=== PATIENT | female | born 1960 | race Caucasian/White ===

== ENCOUNTER → 2017-06-22 16:55 | Outpatient (CLI) | payer OTHER, SELFPAY ==
--- NOTE | 2017-06-22 08:00 | ASPS_PTH ---
PATIENT: PRABHJOT VALIENTE LOC: [facility] U#:[id number] AGE/SX: 64/F ROOM: RE06/22/[address]: Dr. Arpan Spicer MD : 1960 BED: DIS: SPEC #: [id number] RECD: 06/22/17 16:40 STATUS: ASHLEY MAULIK #: [id number] FREYA: 06/22/17 08:[address]: Arpan Spicer DEPT: CYTOLOGY RECD BY: Silvano Winter ENTERED: 06/23/17 08:08 SP TYPE: ASPIRATION OTHR DR: Dr. Boyd Cherry MD Tissues: Thyroid gland, NOS Procedures: Pap Stain (control) Special Stain Group II Cytology Other HEADER OPERATION: Left thyroid FNA PRE-OP DIAGNOSIS: Left thyroid nodule TISSUE SUBMITTED: Left thyroid slides (6 slides) DIAGNOSIS CYTOLOGY Fine needle aspiration, left thyroid nodule (smears): Adequate for evaluation. Negative, consistent with cystic follicular nodule. AM:elsa 06/24/17 CYTOLOGY STUDY Slides are reviewed. CYTOLOGY GROSS Received are six smears labeled with the patient's name and designated per the requisition as left thyroid. Submitted for staining. 06/23/17 TC:5 CPT: 16666
== END ==
PROVIDERS: Family Provider Family Medicine; PCP Family Medicine; Visit Provider Surgery
DX: E04.1 Nontoxic single thyroid nodule (principal)
CPT/HCPCS: 88161; 88313

== ENCOUNTER → 2018-01-21 15:09 | Outpatient (CLI) | payer OTHER, SELFPAY ==
--- NOTE | 2018-01-21 15:13 | RAD_ITS ---
STUDY: X-RAY - LEFT SHOULDER REASON FOR EXAM: Pain, no specific injury. TECHNIQUE: 3 view(s) of the shoulder. COMPARISON: Radiograph report 05/22/2013. FINDINGS: Normal glenohumeral articulation. Status post resection of the distal clavicle. Normal acromion. There is mild flattening of the posterior aspect of the humeral head on the axillary view suggestive of a shallow Hill-Sachs lesion The soft tissue structures are unremarkable. Normal visualized pulmonary apex. RAD/Shoulder min 2 Views IMPRESSION: Suspected shallow Hill-Sachs lesion. Status post resection of the distal clavicle. Electronically Signed: Soto Thakur MD at 15:51 EDT Tel , Service support ,
== END ==
PROVIDERS: Family Provider Family Medicine; PCP Internal Medicine; Visit Provider Orthopaedic Surgery
DX: M25.512 Pain in left shoulder (principal)
CPT/HCPCS: 73030

== ENCOUNTER 2018-01-26 13:56 | Outpatient (RCR) | payer OTHER, SELFPAY | END 2018-01-26 19:00 | disposition home or self-care (01) | LOC: PT 13:56 | PROVIDERS: Family Provider Internal Medicine; PCP Internal Medicine; Visit Provider Orthopaedic Surgery | DX: S43.005D Unspecified dislocation of left shoulder joint, subsequent encounter (principal) ==

== ENCOUNTER → 2019-03-01 09:08 | Outpatient (CLI) | payer OTHER, SELFPAY ==
[2019-03-01 09:00] VITALS: BMI 37.1
--- NOTE | 2019-03-01 09:10 | RAD_ITS ---
STUDY: X-RAY - LEFT KNEE REASON FOR EXAM: Left knee pain. TECHNIQUE: 4 view(s) of the knee. COMPARISON: None. FINDINGS: Normal visualized distal femur. Normal visualized proximal tibia and fibula. Normal proximal tibiofibular articulation. Normal medial femorotibial compartment. Normal lateral femorotibial compartment. Normal patellofemoral articulation. The soft tissue structures are unremarkable. RAD/Knee 4 or More Views IMPRESSION: Normal x-ray examination of the left knee. Electronically Signed: Soto Thakur MD at 15:37 EDT Tel , Service support ,
== END ==
PROVIDERS: Family Provider Internal Medicine; PCP Internal Medicine; Referring Provider Orthopaedic Surgery; Visit Provider Orthopaedic Surgery
DX: M25.562 Pain in left knee (principal)
CPT/HCPCS: 73564

== ENCOUNTER 2019-03-18 09:00 | Outpatient (RCR) | payer OTHER, SELFPAY ==
[2019-03-01 09:00] VITALS: BMI 37.1
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
--- NOTE | 2019-05-19 18:15 | HP.PT.NRP ---
HP - Discharge Summary (1) - Patient Information PRABHJOT VALIENTE was seen in my office for initial evaluation on 03/09/19. The following Plan of Care was established for this patient: Initial Frequency: 3x /Week Initial Duration: 4 Weeks - Anticipated Interventions Patient/Client Instruction: Educate patient on: Condition, Plan of Care For the Purpose of:: To decrease pain, To decrease swelling/inflammation, To improve gait and locomotor functions Therapeutic Exercise to Include: Strength training, Flexibilty training, Gait and locomotor training For the Purpose of:: To decrease pain, To decrease swelling/inflammation Iontophoresis (with Dexamethozone, with Acetic acid): Yes - Haley lynch This patient was last seen in our office 03/18/19. Pertinent comments regarding their Physical therapy will appear below: Pt seen 4 visits adn seemed to be improving. She neglected to schedule or attend further visits. I will discontinue her due to nonattendance. At this point I will be discontinuing this patient from physical therapy. I would be happy to see this patient again in the future if found appropriate by the physician. Thank you! Marvin Arenas, DPT, OCS, CSCS
== END 2019-03-18 19:00 | disposition home or self-care (01) ==
LOC: PT 09:00
PROVIDERS: Family Provider Internal Medicine; PCP Internal Medicine; Referring Provider Orthopaedic Surgery; Visit Provider Orthopaedic Surgery
DX: T84.84XD Pain due to internal orthopedic prosthetic devices, implants and grafts, subsequent encounter (principal); M17.12 Unilateral primary osteoarthritis, left knee
CPT/HCPCS: 97033; 97110; 97161

== ENCOUNTER → 2019-11-28 08:38 | Outpatient (CLI) | payer OTHER, SELFPAY ==
[2019-03-01 09:00] VITALS: BMI 37.1
--- NOTE | 2019-11-28 08:42 | VDLE_ITS ---
Reason For Study: Edema RIGHT LEFT CFV is compressible, spontaneous, phasic, CFV is compressible, spontaneous, phasic, competent and demonstrates normal competent, and demonstrates normal augmentation. augmentation. FV is compressible, spontaneous, phasic, FV is compressible, spontaneous, phasic, competent and demonstrates normal competent and demonstrates normal augmentation. augmentation. POP V is compressible, spontaneous, phasic, POP V is compressible, spontaneous, phasic, competent and demonstrates normal competent and demonstrates normal augmentation. augmentation. T/P Trunk is compressible. T/P Trunk is compressible. PTV is compressible. PTV is compressible. Unable to visualize Rt PeroV LT PerV is compressible. Lt GastrocV is partially compressible with Rt GSV is out of compartment from mid thigh bright intraluminal echoes consistent with to mid calf. chronic DVT. SFJ is competent and measures 0.68cm x0.68 SFJ is competent and measures 0.76cm x 0.75 cm. cm. GSV INCOMPETENT throughout for greater than GSV INCOMPETENT throughout for greater than 0.5 seconds. 0.5 seconds. GSV proximal thigh measures 0.52cm x 0.55 cm. GSV proximal thigh measures 0.55 cm x 0.51 GSV at knee measures 0.41cm x 0.41 cm. cm. SSV proximal calf is competent and measures GSV at knee measures 0.43 cm x 0.38 cm. 0.39cm x 0.38 cm. SSV proximal calf is competent and measures Procedure 0.26cm x 0.24 cm. Exam performed in department. A preliminary report was called and/or faxed to Dr. Boothe. Interpretation Summary Deep veins of the right lower extremity are patent and compressible segmentally. There is no evidence of right lower extremity deep vein thrombosis. The right peroneal vein was not visualized. Chronic venous changes are noted in the left gastrocnemius vein, which is partially compressible and demonstrates bright intraluminal echogenicity. Valvular competence appears intact within the proximal deep venous systems bilaterally. The great saphenous veins appear bilaterally patent and compressible segmentally. Sapheno-femoral junctions are bilaterally competent . Segmental valvular incompetence is noted within the great saphenous veins bilaterally. Small saphenous veins are patent and competent bilaterally. Ordering Physician: Jennie Boothe Referring Physician: Anita Jones Performed By: Abigail Turner, AIDE, RVT
== END ==
PROVIDERS: PCP Internal Medicine; Referring Provider Podiatrist; Visit Provider Podiatrist
DX: I87.2 Venous insufficiency (chronic) (peripheral) (principal); R60.0 Localized edema
CPT/HCPCS: 93970

== ENCOUNTER → 2021-03-08 07:46 | Outpatient (CLI) | payer SELFPAY, OTHER ==
--- NOTE | 2021-03-08 07:52 | US_ITS ---
STUDY: ABDOMINAL ULTRASOUND - RIGHT UPPER QUADRANT REASON FOR VISIT: Female, 60 years old RUQ PAIN TECHNIQUE: Ultrasound evaluation of the right upper quadrant was performed with real-time and static carroll-scale imaging. TECHNICAL QUALITY: Adequate. COMPARISON: None. FINDINGS: Liver: The liver measures 14.9 cm. There is increased echogenicity consistent with fatty infiltration. The bile ducts are within normal limits. There is hepatic color flow. The direction of portal flow is hepatopetal. There is no demonstrated mass lesion. Gallbladder: Normal distended gallbladder. The gallbladder wall measures 2.1 mm. There is a negative sonographic Thompson''s sign. There is no pericholecystic fluid. There are no gallstones. Common Bile Duct (C.B.D.): The common bile duct measures 3.1 mm. Pancreas: Normal size of the head, body and tail of the pancreas. There is increased echogenicity of the pancreas. There is no demonstrated pancreatic mass or cyst. Right Kidney: Normal size of the right kidney. The right kidney measures 12.6 cm x 5.7 cm x 4.9 cm. Normal renal cortex. The right cortex measures 1.4 cm. There is no demonstrated renal mass or cyst. There is no right hydronephrosis. US/Abdomen Limited IMPRESSION: Fatty infiltration of the liver. Electronically Signed: Felix Sutherland MD at 13:57 EDT , Service support ,
== END ==
PROVIDERS: PCP Internal Medicine; Referring Provider Internal Medicine; Visit Provider Internal Medicine
DX: K76.0 Fatty (change of) liver, not elsewhere classified (principal); R10.11 Right upper quadrant pain
CPT/HCPCS: 76705

== ENCOUNTER 2022-04-15 15:10 | Emergency (ER) | payer BC, SELFPAY ==
[2022-04-15 15:11] VITALS: BP 164/134; PULSE 114; RESP 15; TEMP 36.6; O2SAT 99; BMI 39.1
[2022-04-15 15:48] VITALS: O2SAT 98
--- NOTE | 2022-04-15 16:14 | ED.VIS.DYS ---
HPI History of Present Illness Chief Complaint: Shortness of Breath Informant: patient Onset/Context/Timing Onset: Today Context: sudden Timing: Continuous Quality: Positive for Dyspnea on exertion Worsened by: Exertion Relieved by: Rest Associated Symptoms Negative for cough, rhinorrhea, post nasal drip, ear pain, fever, sore throat, chills, sweats, clear sputum, white sputum, yellow sputum or green sputum Chest Pain: Positive for None Narrative Narrative: Patient presents with shortness of breath that began today. Patient states it began suddenly while she was walking to get her trash can. Patient states she felt her heart racing and was short of breath. Patient states she has a history of bilateral pulmonary emboli but has not been on Xarelto for the last couple years. Patient states her symptoms feel similar to when she had her bilateral pulmonary emboli. Patient states she took a Xarelto and aspirin prior to arrival. Patient states her breathing is worse with any exertion. Patient states her breathing is better with rest. Patient denies any fevers or chills. Patient denies any chest pain. Patient denies any cough, rhinorrhea, sore throat, or ear pain. PE Risk Factors: Positive for Prior DVT or PE; Negative for Cancer, OCP + Smoking + > 35, Recent immobilization, Recent surgery or Recent travel [facility] Medical History history left eye surgery history left shoulder surgery Pulmonary emboli Thyroid disorder Home Medications esomeprazole magnesium 40 mg capsule,delayed release (Nexium) 40 mg PO QDAY 06/15/17 [History Last Taken Unknown] aspirin 81 mg tablet,delayed release 81 mg PO DAILY 03/01/19 [History Last Taken Unknown] methylprednisolone 4 mg tablets in a dose pack (Medrol (Pablo)) See Rx Instructions PO PER PKG DIR #21 tabs 03/01/19 [Rx Last Taken Unknown] rivaroxaban 15 mg (42)-20 mg (9) tablets in a starter pack (Xarelto DVT-PE Treatment 30-Day Starter) See Rx Instructions PO .COMPLEX #51 tabs 04/15/22 [Rx Last Taken Unknown] Allergy/AdvReac Type Severity Reaction Status Date / Time erythromycin base Allergy Intermediate Irregular Verified 04/15/22 15:11 heart Family History Father Heart disease Hypertension High cholesterol Mother Heart disease High cholesterol Hypertension Surgical History History of bilateral breast reduction surgery Social History Smoking Status: Never smoker alcohol intake: current alcohol intake frequency: a few times a month substance use type: does not use ROS ROS ED Constitutional Constitutional ED: Denies chills or fever(s) Eyes Eyes: Denies blurry vision or change in vision ENT ENT ED: Denies rhinorrhea or sore throat Cardiovascular Cardiovascular: Reports palpitations; Denies chest pain Respiratory/Chest Respiratory/Chest: Reports dyspnea; Denies cough Gastrointestinal Gastrointestinal: Denies nausea or vomiting Genitourinary Genitourinary ED: Denies dysuria or hematuria Musculoskeletal Musculoskeletal: Denies back pain or neck pain Integumentary Denies abscess or rash Neurologic Neurologic: Denies headache(s) or weakness Allergic/Immunologic Allergic/Immunologic ED: Denies mouth swelling or urticaria EXAM Physical Exam Const Vital Signs: 04/15/22 15:11 04/15/22 15:48 Temperature 97.8 F Temperature Source Temporal Pulse Rate 114 H Respiratory Rate 15 Respiratory Depth Normal Respiratory Pattern Normal Blood Pressure 164/134 H Blood Pressure Mean 144 Pulse Ox 99 Oxygen Delivery Method Room Air Room Air Positive well nourished, well developed and obese General Appearance ED: well developed and NAD Nutritional Appearance: obese HEENT Reports moist mucous membranes Neck supple and no JVD Resp normal respiratory effort and clear to auscultation bilaterally Cardio regular rhythm Rate: tachycardic GI normal to inspection, nondistended, normoactive bowel sounds and non-tender Palpation: soft Extremity normal to inspection General Extremety ED: Negative for edema or tenderness General Extremity: Negative for edema Neuro oriented x3, CN's II-XII intact bilaterally and no sensory deficits noted Sensorium / Orientation: alert Motor Exam: strength 5/5 throughout Psych mental status grossly normal Skin no rashes or lesions noted MDM MDM MDM Narrative Medical decision making narrative: EKG was obtained. On my interpretation, it shows sinus tachycardia with a rate of 110. MO interval, QRS interval, and QTc intervals are within normal limits. [place]co is normal. There are no acute ST or T wave changes. CTA of the chest was obtained. There are branching filling defects within the ascending and descending right pulmonary arteries consistent with pulmonary embolism. There is also a small subsegmental embolus in the left lower lobe. There is mild heart strain noted. CBC was within normal limits. PT was 25.3, INR is 2.3, and PTT was 37.6. Comprehensive metabolic profile was within normal limits. Patient was given a dose of Lovenox here. Patient was given a prescription for Xarelto. Patient was instructed to start with the starter pack that was prescribed. Patient was instructed to follow-up with her primary care physician in 3 to 5 days. Patient was instructed return if worse in any way. Patient understood and was agreeable with the plan. All questions were answered. Lab Data Attestation: I reviewed the patient's lab results. Labs: Laboratory Results - last 24 hr 04/15/22 04/15/22 04/15/22 16:28 16:28 16:28 WBC 10.2 RBC 5.46 H Hgb 15.0 Hct 46.6 MCV 85.3 MCH 27.5 MCHC 32.2 RDW Std Deviation 46.7 H RDW Coeff of Stephanie 15.1 H Plt Count 259 MPV 11.3 Immature Gran % (Auto) 0.200 Neut % (Auto) 73.5 H Lymph % (Auto) 15.7 L Sebastian % (Auto) 5.7 Eos % (Auto) 3.5 Baso % (Auto) 1.4 H Absolute Neuts (auto) 7.5 Absolute Lymphs (auto) 1.60 Nucleated RBC % 0 PT 25.3 H INR 2.3 APTT 37.6 H Sodium 141 Potassium 3.5 Chloride 110 H Carbon Dioxide 26.0 Anion Gap 5 BUN 19 H Creatinine 0.97 Estim Creat Clear Calc 59.98 Est GFR (MDRD) Af Amer 75 Est GFR (MDRD) Non-Af 62 BUN/Creatinine Ratio 19.5 Glucose 109 H Calcium 9.5 Total Bilirubin 0.30 AST 14 L ALT 27 Alkaline Phosphatase 108 Total Protein 9.2 H Albumin 4.2 Globulin 5.0 H Albumin/Globulin Ratio 0.8 L Radiography Diagnostic Testing: Clinical Impression(s) from Imaging Studies Chest CTA 04/15/22 16:19 IMPRESSION: Positive for pulmonary embolism with mild right heart strain. Electronically Signed: Graeme Barton MD at 17:55 EST , ADDENDUM: 04/15/221816 IMPRESSION: Positive for pulmonary embolism with mild right heart strain. N.B. : The above Results were Read Back by Graeme Barton MD to Marvin Metcalf MD, and understanding confirmed on 04/15/2022 18:10:51 (ET). Electronically Signed: Graeme Barton MD at 17:55 EST , EKG Initial EKG: Attestation: I personally reviewed and interpreted this EKG as follows: Interpretation: No Acute Injury Pattern and Sinus Tachycardia (110) Prior EKG tracings: not available for review Prior: No Prior Discharge Plan Triage Chief Complaint: Shortness of Breath ED Provider: Marvin Metcalf Dx/Rx/DC Orders Clinical Impression: Pulmonary embolism, Obesity (BMI 30-39.9) Instructions: Embolism Pulmonary Dc Prescriptions: New Xarelto DVT-PE Treat 30d Start 15 mg (42)- 20 mg (9) tablets,dose pack See Rx Instructions .ROUTE .COMPLEX Qty: 51 0RF Rx Instructions: take one-15 mg tablet twice daily for 21 days, then one-20 mg tablet once daily; must take with meal/food No Action esomeprazole magnesium [Nexium] 40 mg capsule,delayed release(DR/EC) 40 mg PO QDAY aspirin 81 mg tablet,delayed release (DR/EC) 81 mg PO DAILY methylprednisolone [Medrol (Pablo)] 4 mg tablets,dose pack See Rx Instructions PO PER PKG DIR Qty: 21 0RF Rx Instructions: PO PER PKG DIR Primary Care Provider: Anita Jones Referrals: Anita Jones DO [Primary Care Provider] - 3-5 Days Disposition Disposition: Home, Self Care
--- NOTE | 2022-04-15 16:18 | EKG12_ITS ---
Test Reason : SOB Blood Pressure : / mmHG Vent. Rate : 110 BPM Atrial Rate : 110 BPM P-R Int : 150 ms QRS Dur : 084 ms QT Int : 342 ms P-R-T Axes : 053 029 030 degrees QTc Int : 462 ms Somatic/Motion Artifact Sinus tachycardia Confirmed by LIBRADO YOO, TONY ([id number]), purchasing expeditor MILY LOCKE ([id number]) on 04/17/2022 9:38:12 AM Referred By: VICENTA Confirmed By:TONY PAVON MD
--- NOTE | 2022-04-15 16:19 | CT_ITS ---
We are attempting to reach an attending provider to discuss findings. An addendum with communication details will be sent when the communication is complete. STUDY: CTA CHEST REASON FOR EXAM: Female, 61 years old. Dyspnea, HISTORY OF PE RADIATION DOSAGE (If Supplied By Facility): CTDIvol = ( 15.48 ) mGy, DLP = ( 627.52 ) mGycm TECHNIQUE: The examination was performed with the intravenous administration of IV 100mL Isovue-370. Post-processing of the angiographic images was performed, with multiplanar reformation and 3D reconstruction. Individualized dose optimization techniques were used for this CT. COMPARISON: 12/16/2014 FINDINGS: Normal enhancement of the main pulmonary artery and right and left pulmonary arteries. Normal enhancement of the bilateral peripheral pulmonary arteries. Branching filling defects within the ascending and descending right pulmonary arteries consistent with pulmonary embolism. Small subsegmental embolus in the left lower lobe. Normal thoracic aorta and visualized great vessels. There is no demonstrated aortic dissection. Mild dilatation of the right ventricle and right atrium suggestive of mild heart strain. Normal mediastinum. Normal hilar regions. Normal visualized trachea and bronchi. The lungs are well expanded. Mild bilateral apical scarring. No noncalcified nodule or mass. Normal pleura. Normal chest wall structures. Normal osseous structures. Normal visualized upper abdomen. CT/CTA Chest W/WO Contrast IMPRESSION: Positive for pulmonary embolism with mild right heart strain. Electronically Signed: Graeme Barton MD at 17:55 EST ,
[2022-04-15 16:47] LABS: Absolute Neutrophil Count 7.5 X10^3/uL (2.0-7.7); Basophil# 0.14 X10^3/uL; Basophil% 1.4 % (0-1); Eosinophil# 0.36 X10^3/uL; Eosinophils% 3.5 % (0-5); Hematocrit 46.6 % (37-47); Lymphocyte % 15.7 % (19-41); Mean Corp Hgb Conc 32.2 g/dL (32-36); Mean Corpuscular Hgb 27.5 pg (27.0-32.0); Mean Corpuscular Volume 85.3 fL (81-99); Mean Platelet Vol. 11.3 fl (6.2-12.0); Monocyte# 0.58 X10^3/uL; Monocyte% 5.7 % (0-10); NRBC Flagged by Analyzer 0 % (0-5); Neutrophil # 7.47 X10^3/uL (2.7-7.7); Neutrophil % 73.5 % (47-70); Platelet Count 259 K/mm3 (150-450); RBC Distribution Width CV 15.1 % (11.6-14.6); RBC Distribution Width SD 46.7 fl (35.1-43.9); Red Blood Count 5.46 M/mm3 (4.2-5.4); White Blood Count 10.2 K/mm3 (4.4-11.0)
[2022-04-15] MEDS: 0.9% Normal Saline 1,000 ML 1000 ML IV (16:47)
[2022-04-15 16:49] LABS: Partial Thromboplast Time 37.6 Seconds (24.1-36.2)
[2022-04-15 16:56] LABS: ALB/GLOB Ratio 0.8 RATIO (0.9-2.4); AST(SGOT) 14 U/L (15-37); Alanine Aminotransfer ALT/SGPT 27 U/L (13-56); Albumin, Serum 4.2 g/dL (3.2-5.0); Alkaline Phosphatase 108 U/L (45-117); Anion Gap 5 (5-15); BUN 19 mg/dL (7-18); BUN/Creat Ratio 19.5 RATIO (10-20); Calcium,Total 9.5 mg/dL (8.5-10.1); Chloride 110 mmol/L (98-107); Creatinine, Serum 0.97 mg/dL (0.55-1.02); EST Glomerular Filtration Rate 62 mL/min (>60); Est Glom Filt Rate - Afr Amer 75 mL/min (>60); Estimated Creatinine Clearance 59.98 ml/min; Glucose 109 mg/dL (74-106); Potassium 3.5 mmol/L (3.5-5.1); Protein, Total 9.2 g/dL (6.4-8.2); Sodium Level 141 mmol/L (136-145)
[2022-04-15 17:02] LABS: International Normalized Ratio 2.3; Prothrombin Time (Protime)PT. 25.3 SECONDS (11.7-14.9)
[2022-04-15 18:32] VITALS: PULSE 100; RESP 16; O2SAT 97
[2022-04-15] MEDS: Enoxaparin 120 MG/0.8 ML Syringe SC (18:49)
== END 2022-04-15 18:54 | disposition home or self-care (01) ==
PROVIDERS: Emergency Provider Emergency Medicine; PCP Internal Medicine; Visit Provider Emergency Medicine
DX: I26.99 Other pulmonary embolism without acute cor pulmonale (principal); E66.9 Obesity, unspecified; R06.02 Shortness of breath
CPT/HCPCS: 71275; 80053; 85025; 85610; 85730; 93005; 96360; 96361; 96372; 99284; J7030; Q9967; A4216

== ENCOUNTER → 2022-04-22 | Outpatient (CLI) | payer BC, SELFPAY ==
[2022-05-01 21:57] LABS: HPV APTIMA, High Risk Negative (Negative)
== END | disposition home or self-care (01) ==
LOC: OPBI 17:01
PROVIDERS: PCP Internal Medicine; Visit Provider Obstetrics & Gynecology
DX: Z12.4 Encounter for screening for malignant neoplasm of cervix (principal)
CPT/HCPCS: 87624; 88175; G0145

== ENCOUNTER → 2022-05-16 | Outpatient (CLI) | payer BC, SELFPAY ==
--- NOTE | 2022-05-16 14:54 | BI_ITS ---
MAMMOGRAPHY - BILATERAL SCREENING REASON FOR EXAM: Female, 61 years old. Routine annual screening examination. PERTINENT HISTORY: Non-contributory. History of prior bilateral breast reduction surgery. TECHNIQUE: Digital bilateral breast marybel (3D mammographic acquisition) in the CC and MLO projections. 2-D mediolateral oblique (MLO) and craniocaudad (CC) views of both breasts were obtained. CAD: Full Field Digital Mammography with Computer Added Detection was performed. COMPARISON: Comparison is made with prior study 03/23/2017 and 10/04/2015. FINDINGS: Breast Composition: The breasts are almost entirely fatty. There are no dominant masses or suspicious calcifications. Stable small benign-appearing bilateral axillary nodes. No other significant abnormalities are identified. There has been no significant change since the prior study. BI/SCRN MAMM (CAD)W/MARYBEL BILAT IMPRESSION: Stable bilateral screening mammogram. Yearly follow-up mammogram recommended. (A) ASSESSMENT CATEGORY: BIRADS Category 2: Benign. A letter regarding these results will be sent to the patient by the facility within 30 days. Approximately 10% of breast cancers are not detected by mammography. A normal mammogram should not delay biopsy of a clinically suspicious abnormality. [id number] Electronically Signed: Felix Sutherland MD at 8:43 EST ,
== END | disposition home or self-care (01) ==
LOC: OPBI 14:52
PROVIDERS: PCP Internal Medicine; Visit Provider Obstetrics & Gynecology
DX: Z12.31 Encounter for screening mammogram for malignant neoplasm of breast (principal)
CPT/HCPCS: 77063; 77067

== ENCOUNTER → 2022-07-01 | Outpatient (CLI) | payer BC, SELFPAY ==
--- NOTE | 2022-07-01 13:47 | ECHOCS_ITS ---
Reason For Study: PE Procedure This was a 2D Doppler, Color Flow transthoracic echocardiogram. The study was technically difficult. Contrast injection was performed. Exam performed in department. Left Ventricle Normal LV size. Left ventricular systolic function is normal. The estimated ejection fraction is 65 %. No evidence for diastolic dysfunction. No regional wall motion abnormalities noted. Right Ventricle Normal RV size. Normal systolic function. Atria The left atrium is mildly enlarged. Normal right atrium. No doppler evidence for ASD. Mitral Valve There is no mitral annular calcification. Normal mitral valve. Trivial mitral valve insufficiency. Tricuspid Valve Normal tricuspid valve. Trivial tricuspid valve insufficiency. Right ventricular systolic pressure estimated to be 33 mmHg. Aortic Valve Trisinus/trileaflet aortic valve. Normal aortic valve. Pulmonic Valve The pulmonic valve is not well visualized. Great Vessels Normal sized aortic root. Pericardium/Pleural No pericardial effusion. Medication 22 gauge I.V. with prn adaptor inserted into right arm. Diluted definity 3.5ml given slow IV push to enhance endocardial definition. MMode/2D Measurements & Calculations LVIDd: 4.6 cm IVSd: 1.0 cm Ao root diam: 3.4 cm LVIDs: 2.5 cm LVPWd: 0.97 cm LA dimension: 3.7 cm RVDd: 3.8 cm FS: 45.4 % LAV(MOD-bp): 64.1 ml LA A4 area: 22.1 cm2 RA A4 area: 16.6 cm2 LAV(MOD-bp) Indexed: 29.4 ml/m2 LAV(MOD-sp2): 56.0 ml LAV(MOD-sp4): 65.3 ml Time Measurements MV dec time: 0.19 sec Doppler Measurements & Calculations MV E max philippe: 89.1 cm/sec Lat Peak E' Philippe: 14.8 cm/sec Med Peak E' Philippe: 12.5 cm/sec MV A max philippe: 107.1 cm/sec E/E' lat: 6.0 E/E' med: 7.1 MV E/A: 0.83 MV V2 max: 108.1 cm/sec MV P1/2t max philippe: 79.1 cm/sec Ao V2 max: 133.1 cm/sec MV max P.7 mmHg MV P1/2t: 51.5 msec Ao max P.1 mmHg MV V2 mean: 55.7 cm/sec MV dec slope: 449.2 cm/sec2 Ao V2 mean: 95.0 cm/sec MV mean P.5 mmHg Ao mean P.1 mmHg MV V2 VTI: 23.2 cm MVA(P1/2t): 4.3 cm2 Ao V2 VTI: 27.7 cm AV (velocity ratio): 0.93 LV V1 max: 120.6 cm/sec PA V2 max: 135.8 cm/sec TR max philippe: 275.1 cm/sec LV V1 max P.8 mmHg TR max P.3 mmHg LV V1 mean P.3 mmHg LV V1 mean: 86.0 cm/sec LV V1 VTI: 25.9 cm ECHO/Echo Complete W/ Contrast Interpretation Summary The study was technically difficult. Contrast injection was performed. Left ventricular systolic function is normal. The estimated ejection fraction is 65 %. The left atrium is mildly enlarged. Trivial mitral valve insufficiency. Trivial tricuspid valve insufficiency. Right ventricular systolic pressure estimated to be 33 mmHg. No evidence for diastolic dysfunction. Ordering Physician: Anita Jones Referring Physician: Anita Jones Performed By: Yaron Lopez RCS
== END | disposition home or self-care (01) ==
LOC: CVS 13:46
PROVIDERS: PCP Internal Medicine; Referring Provider Internal Medicine; Visit Provider Internal Medicine
DX: I26.99 Other pulmonary embolism without acute cor pulmonale (principal)
CPT/HCPCS: 93306; Q9957; A4216; C8929

== ENCOUNTER → 2022-12-11 | Outpatient (CLI) | payer BC, SELFPAY ==
--- NOTE | 2022-12-11 14:47 | CT_ITS ---
STUDY: CT ABDOMEN AND PELVIS WITH CONTRAST REASON FOR EXAM: Female, 62 years old. Diverticulitis RADIATION DOSAGE (If Supplied By Facility): CTDIvol = ( 19.72 ) mGy, DLP = ( 1254.29 ) mGycm TECHNIQUE: Transaxial images were obtained from the dome of the diaphragm to the symphysis pubis without oral contrast. Oral and amp; IV Gastrografin and amp; 100mL Isovue-300 was administered. Sagittal and coronal images were reconstructed. Individualized dose optimization techniques were used for this CT. COMPARISON: January 02, 2009 FINDINGS: The visualized lung bases are unremarkable. The visualized portions of the heart are within normal limits. Moderate-sized hiatal hernia is noted Nonspecific fatty infiltrated liver without mass or bile duct dilatation. Normal gallbladder and extrahepatic biliary system. Normal spleen. Normal pancreas. Normal bilateral adrenal glands. Normal right kidney. Normal left kidney. Normal visualized stomach. Normal small intestine. Postop changes status post sigmoid resection. Minor diverticular changes of the descending colon and residual sigmoid colon without evidence for acute diverticulitis. The appendix is visualized and appears normal. Normal abdominal aorta. Normal inferior vena cava. Normal retroperitoneum. Normal urinary bladder. Small fat-containing umbilical hernia.. Normal osseous structures. CT/Abdomen/Pelvis WITH Contrast IMPRESSION: Minor diverticular changes of the descending and sigmoid colon without evidence for acute diverticulitis No acute abnormalities with other findings as above Electronically Signed: Sae Arzate MD at 17:30 EDT ,
[2022-12-11 17:26] LABS: EGFR FINGERSTICK > 60.0000 mL/min (>60)
== END | disposition home or self-care (01) ==
LOC: CT 14:43
PROVIDERS: PCP Internal Medicine; Referring Provider Internal Medicine; Visit Provider Internal Medicine
DX: Z01.812 Encounter for preprocedural laboratory examination (principal); K57.92 Diverticulitis of intestine, part unspecified, without perforation or abscess without bleeding
CPT/HCPCS: 74177; Q9967

== ENCOUNTER → 2023-04-01 | Outpatient (CLI) | payer BC, SELFPAY ==
[2023-04-07 13:08] LABS: Alternaria alternata 1.01 kU/L (Class II); Aspergillus fumigatus <0.10 kU/L (Class 0); Bahia Grass 0.66 kU/L (Class II); Beef <0.10 kU/L (Class 0); Bermuda Grass 0.22 kU/L (Class 0/I); Bluegrass, Kentucky 1.17 kU/L (Class II); Cat Hair/Dander, Standard 0.45 kU/L (Class I); Cedar, Mountain <0.10 kU/L (Class 0); Chocolate <0.10 kU/L (Class 0); Cladosporium herbarum <0.10 kU/L (Class 0); Cockroach, American <0.10 kU/L (Class 0); Codfish <0.10 kU/L (Class 0); Corn <0.10 kU/L (Class 0); D farinae Mite <0.10 kU/L (Class 0); D pteronyssinus <0.10 kU/L (Class 0); Dog Epithelia <0.10 kU/L (Class 0); Egg, Whole <0.10 kU/L (Class 0); Elm, American White <0.10 kU/L (Class 0); Hazelnut Tree 0.43 kU/L (Class I); Hickory, White <0.10 kU/L (Class 0); Maple/Box Elder <0.10 kU/L (Class 0); Milk (Cow) <0.10 kU/L (Class 0); Mucor racemosus <0.10 kU/L (Class 0); Mugwort <0.10 kU/L (Class 0); Mulberry, White <0.10 kU/L (Class 0); Mussels <0.10 kU/L (Class 0); Nettle <0.10 kU/L (Class 0); Oak, White 0.11 kU/L (Class 0/I); Peanut <0.10 kU/L (Class 0); Penicillium chrysogen <0.10 kU/L (Class 0); Pigweed, Rough <0.10 kU/L (Class 0); Plantain, English <0.10 kU/L (Class 0); Pork <0.10 kU/L (Class 0); Salmon <0.10 kU/L (Class 0); Sheep Sorrel(Dock) <0.10 kU/L (Class 0); Shrimp <0.10 kU/L (Class 0); Soybean <0.10 kU/L (Class 0); Stemphylium herbarum <0.10 kU/L (Class 0); Sweet Gum 0.14 kU/L (Class 0/I); Sycamore, American <0.10 kU/L (Class 0); Tuna <0.10 kU/L (Class 0); Wheat <0.10 kU/L (Class 0)
== END | disposition home or self-care (01) ==
LOC: MFPLAB 12:19
PROVIDERS: PCP Family Medicine; Visit Provider Family Medicine
DX: J34.89 Other specified disorders of nose and nasal sinuses (principal)
CPT/HCPCS: 36415; 86003; 86005

== ENCOUNTER → 2023-04-20 | Outpatient (CLI) | payer BC, SELFPAY ==
--- NOTE | 2023-04-20 15:08 | US_ITS ---
EXAM: US SOFT TISSUES HEAD AND NECK, THYROID CLINICAL INDICATION: cystic thyroid nodule TECHNIQUE: Beltrán scale and color doppler imaging was performed of the thyroid gland. COMPARISON: US Thyroid dated 05/29/2017 and 02/28/2014 FINDINGS: LEFT THYROID LOBE: Left thyroid lobe measures 5.1 x 1.4 x 2.2 cm. Multinodular echotexture again noted. A dominant 14 mm nodule within the lower pole is wider than tall, isoechoic, lobulated in contour and without microcalcification. TI-RADS points: 5. TI-RADS category: TR4. This nodule is moderately suspicious. No further follow-up is necessary given the small size of this nodule and stability over more than 5 years. RIGHT THYROID LOBE: Right thyroid lobe measures 4.4 x 1.8 x 1.9 cm. Prominent distortion of the right thyroid gland related to extensive nodularity which has progressed from prior study. The dominant 7 mm hypoechoic nodule is relatively stable in size but now appears somewhat taller than wide and slightly lobulated in contour without microcalcification. TI-RADS points: 8. TI-RADS category: TR5. This nodule is highly suspicious. No further follow-up is necessary given the small size of this nodule and stability over more than 5 years. ISTHMUS: Isthmus measures 2 mm in AP dimension. No thyroid nodules are present. US/Thyroid IMPRESSION: Progressive nodular changes of the thyroid gland suggestive of multinodular goiter. As above. Electronically Signed: Gilberto Anaya MD at 8:44 EST ,
== END | disposition home or self-care (01) ==
LOC: US 15:08
PROVIDERS: PCP Family Medicine; Referring Provider Family Medicine; Visit Provider Family Medicine
DX: E03.9 Hypothyroidism, unspecified (principal)
CPT/HCPCS: 76536

== ENCOUNTER → 2023-05-20 | Outpatient (CLI) | payer BC, SELFPAY ==
--- NOTE | 2023-05-20 09:30 | FLU_PTH ---
PATHOLOGY RESULTS PATIENT: PRABHJOT HUBBARD LOC: LAB U#:[id number] AGE/SX: 62/F ROOM: RE05/20/[address]: Dr. Rashad Faye MD : 1960 BED: DIS: 05/20/2023 SPEC #: [id number] RECD: 05/20/23 11:34 STATUS: ASHLEY LILIANALise #: [id number] FREYA: 05/20/23 09:[address]: Rashad Faye DEPT: CYTOLOGY RECD BY: Alexandrea Roe ENTERED: 05/20/23 11:35 SP TYPE: Fluid OTHR DR: Joseline Martin DO Tissues: Thyroid gland, NOS Thyroid gland, NOS Procedures: Special Stain Group II Surgery Specimen Level IV Cytospin Fluid HEADER OPERATION: Fine needle aspiration of left thyroid nodule PRE-OP DIAGNOSIS: Left thyroid nodule TISSUE SUBMITTED: A - Left thyroid nodule fluid, B - Left thyroid nodule x4 slides DIAGNOSIS CYTOLOGY A. Fine needle aspiration, left thyroid nodule (cytospin and cell block): Negative for malignant cells. See comment. B. Fine needle aspiration, left thyroid nodule (smears): Adequate for evaluation. Consistent with benign follicular nodule ([place] Category II). See comment. AM:elsa 05/21/2023 COMMENT A. The specimen contains scattered acute and chronic inflammatory cells. Follicular cells are not present. Clinical correlation is suggested. B. The [place] System for thyroid diagnostic categorization was used in the evaluation of this case. Case has been reviewed in consultation with Dr. Doherty who concurs with the above diagnosis. IDC:[facility] CYTOLOGY STUDY Slides are reviewed. CYTOLOGY GROSS A - Received is 30 ml of red cloudy fluid labeled with the patient's name and and designated per the requisition as left thyroid nodule. Submitted for cytology preparation including cell block. B - Received are four smears labeled with the patient's name and designated per the requisition as left thyroid nodule. Submitted for staining. / elsa 05/20/2023 TC:5 CPT: 71519 x2, 05303
[2023-05-20 11:40] LABS: Free T3 2.9 pg/mL (2.18-3.98); T4 Total, Thyroxin 10.4 ug/dL (4.8-13.9); Thyroid Stim Hormone (TSH) 1.19 uIU/mL (0.358-3.74)
== END | disposition home or self-care (01) ==
PROVIDERS: PCP Family Medicine; Referring Provider Surgery; Visit Provider Surgery
DX: E04.1 Nontoxic single thyroid nodule (principal); E06.5 Other chronic thyroiditis; E06.0 Acute thyroiditis
CPT/HCPCS: 36415; 84436; 84443; 84481; 88108; 88305; 88313

== ENCOUNTER → 2023-05-25 | Outpatient (CLI) | payer BC, SELFPAY ==
--- NOTE | 2023-05-25 11:42 | RAD_ITS ---
EXAM: XR CHEST, 2 VIEWS CLINICAL INDICATION: COPD TECHNIQUE: Frontal and lateral views of the chest. COMPARISON: No relevant prior studies available. FINDINGS: LUNGS AND PLEURAL SPACES: Unremarkable. No consolidation or edema. No pneumothorax. No effusion. HEART: Unremarkable. Cardiac silhouette not enlarged. MEDIASTINUM: Central airways and mediastinal contour are unremarkable. BONES/JOINTS: Unremarkable. No acute fracture. SOFT TISSUES: Unremarkable. RAD/Chest PA and Lateral IMPRESSION: No radiographic evidence of acute cardiopulmonary disease. Electronically Signed: Anthony Porras MD at 20:51 EST ,
--- OUTSIDE RECORDS SUMMARY | 2023-05-25 12:12 | XMS RPT_ITS | CCD ---
Author Name Unknown Address [address] [place] [address] Organization [facility] Care Team Providers Care Environmental Compliance Technician Name Role Phone Candelaria Alexandrea A Unavailable Unavailab Alexandrea Coy Unavailable Unavailab michael Graf SLEEVE MACHINE TENDER, Carla Pang Unavailable Dameon Ortega Unavailable Unavailable Boyd Cherry Unavailable Unavailable Robert, Anita Unavailable Alanis Beckford Unavailable Arpan Spicer Unavailable Gravius, Radha Unavailable Unavailable Slarb, Imani Unavailable Unavailable Unavailable Unavailable Anya Madison Unavailable Unavailable Unavailable Unavailable Fatuma Arguelles Unavailable Unavailable Unavailable Gravius, Radha Unavailable Unavailable Garry, Naomi Unavailable Unavailable Anya Madison Unavailable Unavailable Unavailable Unavailable Unavailable Unavailable Robert GALARZA Anita Unavailable Alanis Beckford MD Unavailable Arpan Spicer MD Unavailable Garry TUNNEL ELASTIC OPERATOR CHAINSTITCH, Naomi Unavailable Unavailable Slarb TUNNEL ELASTIC OPERATOR CHAINSTITCH, Imani Unavailable Unavailable Gravius VALVE INSPECTOR, Radha Unavailable Unavailable Anya Madison RN Unavailable Unavailable Unavailable Unavailable Unavailable Unavailable Robert GALARZA Anita Unavailable Alanis Beckford MD Unavailable Juan VALVE INSPECTOR, Kayela Unavailable Unavailable Anayeil Jenkins MA Unavailable Unavailable Anita Jones DO Attending Unavailable Anita Jones DO Referring Unavailable Anita Jones DO Consulting Unavailable Unavailable Unavailable Kaleigh Thompson MA Unavailable Unavailable Athena TUNNEL ELASTIC OPERATOR CHAINSTITCH, Charlie Unavailable Unavailable Unavailable Unavailable Dagoberto MANAGER DATA CENTERMary Unavailable Allergies Allergy Classification Reported Allergen(s) Allergy Type Date of Onset Reaction(s) Facility Adhesive Tape (5 sources) Adhesive Tape; Translations: [Adhesive Tape] Substance Allergy [facility] Work Phone: Macrolides (antibiotic) (5 sources) Erythromycin; Translations: [Erythromycin *DERMATOLOGICAL S*] Drug Allergy [facility] Work Phone: Medications Current Medications Medication Drug Class(es) Dates Sig (Normalized) Sig (Original) 120 actuat formoterol fumarate 0.005 mg/actuat / mometasone furoate 0.1 mg/actuat metered dose inhaler (20 sources) Corticosteroid, beta2-Adrenergic Agonist Start: 03-12-2023 Dulera 100-5 mcg/actuation inhalation HFA Aerosol with Adapter 1 (one) Aerosol bid for 30 days Quantity: 1 {Each} Refills: 3 Ordered: 12-Mar-2023 Anita Jones DO, DO, Kathleen Start : 12-Mar-2023 Active Completed/Discontinued Medications Medication Drug Class(es) Dates Sig (Normalized) Sig (Original) acetaminophen / HYDROcodone (10 sources) Opioid Agonist Start: 01-08-2010 End: 03-03-2013 VICODIN 5-500 MG TABS one to two tabs four times a day as needed for pain HYDROCODONE-ACETAMI NOPHEN [id number] Edison Whitman MD Problems Active Problems Problem Classification Problem Date Documented Da te Episodic/Chronic Abdominal pain (20 sources) Right upper quadrant pain; Translations: [RUQ discomfort] Resolved: 04-25-2022 03-04-2021 Episodic Past or Other Problems Problem Classification Problem Date Documented Da te Episodic/Chronic Acute bronchitis (20 sources) Acute bronchitis Influenza (20 sources) Influenza Nonmalignant breast conditions (5 sources) Hypertrophy of breast; Translations: [Hypertrophy of breast] Onset: 07-26-2009 07-30-2009 Episodic Other connective tissue disease (20 sources) Swelling of lower limb; Translations: [Leg swelling] Resolved: 07-25-2013 04-12-2015 Episodic Results Test Name Value Interpretation Reference Range Facil ity Vital Signs Date Time Vital Sign Value Performing Clinician Facility 01-28-2023 10:30-0400 Body height 167.64 cm [facility] Work Phone: 01-28-2023 10:30-0400 Body mass index (BMI) [Ratio] 39.87 kg/m2 [facility] Work Phone: 01-28-2023 10:30-0400 Body surface area Derived from formula 2.19 m2 [facility] Work Phone: 01-28-2023 10:30-0400 Body temperature 97.4 [degF] [facility] Work Phone: 01-28-2023 10:30-0400 Body weight 112.04 kg [facility] Work Phone: 01-28-2023 10:30-0400 Diastolic blood pressure 70 mm[Hg] [facility] Work Phone: Encounters Encounter Date Encounter Type Care Provider Facility Start: 01-28-2023 End: 01-28-2023 Office outpatient visit 10 minutes Anita Frenchon DO Work Phone: [facility] Start: 12-15-2022 End: 12-15-2022 Annotation/Addendum Anita Robert DO Work Phone: [facility] Start: 12-12-2022 End: 12-14-2022 Office outpatient visit 15 minutes Anita Frenchon DO Work Phone: [facility] Start: 12-11-2022 End: 12-11-2022 Annotation/Addendum Anita Robert DO Work Phone: [facility] Start: 11-13-2022 End: 11-13-2022 Office outpatient visit 15 minutes Anita Robert DO Work Phone: [facility] Start: 10-24-2022 End: 10-24-2022 Patient encounter procedure Anita Robert DO Work Phone: [facility] Start: 09-02-2022 End: 09-03-2022 Patient encounter procedure Anita Robert DO Work Phone: [facility] Start: 08-06-2022 End: 08-06-2022 Office outpatient visit 15 minutes Anita Robert DO Work Phone: [facility] Start: 08-06-2022 Review Anita Fearo n DO Work Phone: [facility] Start: 07-24-2022 ambulatory Anita Robert DO [facility] Start: 07-24-2022 End: 07-24-2022 Patient encounter procedure Anita Robert DO Work Phone: [facility] Start: 07-17-2022 End: 07-17-2022 Patient encounter procedure Anita Robert DO Work Phone: [facility] Start: 07-03-2022 End: 07-04-2022 Patient encounter procedure Anita Robert DO Work Phone: [facility] Start: 06-20-2022 End: 06-20-2022 Patient encounter procedure Anita Robert DO Work Phone: [facility] Start: 06-19-2022 End: 06-19-2022 Office outpatient visit 15 minutes Anita Robert DO Work Phone: [facility] Start: 06-17-2022 End: 06-18-2022 Patient encounter procedure Anita Robert DO Work Phone: [facility] Start: 06-13-2022 End: 06-13-2022 Office outpatient visit 40 minutes Anita Robert DO Work Phone: [facility] Start: 06-02-2022 End: 06-02-2022 Phone Encounter Anita Robert DO Work Phone: [facility] Start: 05-08-2022 Review Anita Fearo n DO Work Phone: [facility] Start: 04-25-2022 End: 04-25-2022 Office outpatient visit 25 minutes Anita Robert DO Work Phone: [facility] Start: 04-25-2022 Review Anita Fearo n DO Work Phone: [facility] Start: 02-14-2022 End: 02-14-2022 Annotation/Addendum Anita Robert DO Work Phone: [facility] Start: 04-22-2021 End: 04-22-2021 Annotation/Addendum Anita Robert DO Work Phone: [facility] Start: 04-11-2021 End: 04-11-2021 Annotation/Addendum Anita Robert DO Work Phone: [facility] Start: 03-04-2021 End: 03-04-2021 Office outpatient visit 5 minutes Anita Robert DO Work Phone: [facility] Start: 03-01-2021 End: 03-01-2021 Office outpatient visit 10 minutes Anita Robert DO Work Phone: [facility] Start: 10-03-2020 End: 10-03-2020 Patient encounter status Naomi Castañeda FARTUN [facility] Work Phone: Start: 10-03-2020 End: 10-03-2020 Periodic preventive med est patient 40-64yrs Anita Robert DO Work Phone: [facility] Start: 10-03-2020 Review Anita Fearo n DO Work Phone: [facility] Start: 07-06-2020 Review [facility] Start: 04-26-2020 End: 04-26-2020 Phone Encounter Anita Frenchon [facility] Start: 11-25-2019 End: 11-25-2019 Office outpatient visit 15 minutes Anita Jones [facility] Start: 11-04-2019 End: 11-04-2019 Office outpatient visit 25 minutes Anita Jones [facility] Start: 09-05-2019 End: 09-05-2019 Phone Encounter Anita Robert [facility] Start: 07-13-2019 End: 07-13-2019 Annotation/Addendum Anita Robert [facility] Start: 07-07-2019 End: 07-07-2019 Phone Encounter Anita Robert [facility] Start: 06-13-2019 End: 06-13-2019 Phone Encounter Anita Robert [facility] Start: 06-02-2019 End: 06-02-2019 Phone Encounter Anita Robert [facility] Start: 03-25-2019 End: 03-25-2019 Office outpatient visit 15 minutes Anita Jones [facility] Start: 11-26-2018 End: 11-26-2018 Annotation/Addendum Anita Robert [facility] Start: 09-17-2018 End: 09-17-2018 Office outpatient visit 15 minutes Anita Jones [facility] Start: 07-14-2018 End: 07-14-2018 Patient encounter status Anita Jones DO Work Phone: [facility] Start: 07-14-2018 End: 07-14-2018 Periodic preventive med est patient 40-64yrs Anita Jones [facility] Start: 03-19-2018 End: 03-19-2018 Phone Encounter Anita Robert [facility] Start: 02-03-2018 End: 02-03-2018 Phone Encounter Anita Frenchon [facility] Start: 06-17-2017 End: 06-17-2017 Office outpatient visit 15 minutes Anita Jones [facility] Start: 04-22-2017 Evaluation and management of inpatient Dameon Alvarezkeshiaswathi Facility:[facility] Start: 08-08-2016 End: 08-08-2016 Office outpatient visit 15 minutes Anita Jones [facility] Start: 12-11-2015 End: 12-12-2015 Patient encounter procedure Anita Frenchon [facility] Start: 10-02-2015 End: 10-02-2015 Phone Encounter Ainta Jones [facility] Start: 09-19-2015 End: 09-19-2015 Phone Encounter Anita Jones [facility] Start: 08-06-2015 End: 08-06-2015 Phone Encounter Anita Jones [facility] Start: 07-05-2015 End: 07-05-2015 Lab Order Antia Jones [facility] Start: 06-26-2015 End: 06-26-2015 Patient encounter procedure Anita Frenchon [facility] Start: 04-26-2015 End: 04-26-2015 Periodic preventive med est patient 40-64yrs Anita Robert [facility] Start: 02-19-2015 End: 02-19-2015 Office outpatient visit 5 minutes Anita Jones [facility] Start: 09-29-2014 End: 09-29-2014 Office outpatient visit 25 minutes Anita Robert [facility] Start: 08-28-2014 End: 08-28-2014 Phone Encounter Anita Jones [facility] Start: 03-03-2014 End: 03-03-2014 Phone Encounter Anita Jones [facility] Start: 02-24-2014 End: 02-24-2014 Phone Encounter Anita Jones [facility] Start: 02-17-2014 End: 02-17-2014 Office outpatient visit 10 minutes Anita Robert [facility] Start: 02-17-2014 End: 02-17-2014 Office outpatient visit 25 minutes Anita Robert [facility] Start: 02-17-2014 End: 02-17-2014 Physical examination Anita Jones DO Work Phone: [facility] Start: 07-25-2013 End: 07-25-2013 Patient encounter procedure Anita Robert [facility] Start: 05-19-2013 End: 05-19-2013 Prescription Refill Anita Jones [facility] Start: 02-25-2013 End: 02-25-2013 Prescription Refill Anita Robert [facility] Start: 01-21-2013 End: 01-21-2013 Phone Encounter Anita Robert [facility] Start: 01-07-2013 End: 01-07-2013 Patient encounter procedure Anita Jones [facility] Start: 09-29-2012 End: 09-29-2012 Phone Encounter Anita Robert [facility] Start: 09-27-2012 End: 09-27-2012 Patient encounter procedure Anita Robert [facility] Patient encounter status Naomi Castañeda TUNNEL ELASTIC OPERATOR CHAINSTITCH [facility] Work Phone: Patient encounter status Anita Jones DO Work Phone: [facility] Work Phone: Patient encounter status Imani Gilbert [facility] Work Phone: Patient encounter status [facility] Work Phone: [facility] Work Phone: Patient encounter status Imani Hunt [facility] Work Phone[facility] Work Phone: Patient encounter status Charlie Gini [facility] Work Phone: Patient encounter status Imani Gilbert [facility] Work Phone: [facility] Work Phone: End: 02-19-2015 Physical examination Angela Chau [facility] Work Phone: Procedures Date Procedure Procedure Detail Performing Clinician Start: 12-11-2022 End: 12-11-2022 Abdomen/Pelvis WITH Contrast Procedure Note: See Note; NOTES: [facility] Imaging Services [address] [place] [address] Abdomen/Pelvis WITH Contrast MR#: [id number] Acct: [id number] Name: FANNY SOLIS Rep #: [id number] : 1960 F 62 From: Sae Arzate MD PCP: Dr. Anita Jones, DO Status: REG CLI Study: Abdomen/Pelvis WITH Contrast Date of Exam: 07/31 Exam# [id number] Ordering Dr: Anita Jones DO STUDY: CT ABDOMEN AND PELVIS WITH CONTRAST REASON FOR EXAM: Female, 62 years old. Diverticulitis RADIATION DOSAGE (If Supplied By Facility): CTDIvol = ( 19.72 ) mGy, DLP = ( 1254.29 ) mGycm TECHNIQUE: Transaxial images were obtained from the dome of the diaphragm to the symphysis pubis without oral contrast. Oral and amp; IV Gastrografin and amp; 100mL Isovue-300 was administered. Sagittal and coronal images were reconstructed. Individualized dose optimization techniques were used for this CT. COMPARISON: January 02, 2009 FINDINGS: The visualized lung bases are unremarkable. The visualized portions of the heart are within normal limits. Moderate-sized hiatal hernia is noted Nonspecific fatty infiltrated liver without mass or bile duct dilatation. Normal gallbladder and extrahepatic biliary system. Normal spleen. Normal pancreas. Normal bilateral adrenal glands. Normal right kidney. Normal left kidney. Normal visualized stomach. Normal small intestine. Postop changes status post sigmoid resection. Minor diverticular changes of the descending colon and residual sigmoid colon without evidence for acute diverticulitis. The appendix is visualized and appears normal. Normal abdominal aorta. Normal inferior vena cava. Normal retroperitoneum. Normal urinary bladder. Small fat-containing umbilical hernia.. Normal osseous structures. CT/Abdomen/Pelvis WITH Contrast IMPRESSION: Minor diverticular changes of the descending and sigmoid colon without evidence for acute diverticulitis No acute abnormalities with other findings as above Electronically Signed: Sae Arzate MD at 17:30 EDT , CC: Dr. Anita Jones DO Rasper Machine Operator: Signed Anita Jones DO Work Phone: Start: 07-01-2022 End: 07-01-2022 Echo Complete W/ Contrast Procedure Note: See Note; NOTES: [facility] [place] [address] [place] [address] Echo Complete W/ Contrast 07/01/22 1414 MR#: [id number] Acct: [id number] Name: FANNY VALIENTE Rep #: [id number] : 1960 61 From: Mahamed Pavon MD Attending Dr: Dr. Anita Jones, DO Status: R EG CLI Ordering Dr: Anita Jones DO Date: 07/01/22 Location: [facility] Sex: F C Admitted: Reason For Study: PE Procedure This was a 2D Doppler, Color Flow transthoracic echocardiogram. The study was technically difficult. Contrast injection was performed. Exam performed in department. Left Ventricle Normal LV size. Left ventricular systolic function is normal. The estimated ejection fraction is 65 %. No evidence for diastolic dysfunction. No regional wall motion abnormalities noted. Right Ventricle Normal RV size. Normal systolic function. Atria The left atrium is mildly enlarged. Normal right atrium. No doppler evidence for ASD. Mitral Valve There is no mitral annular calcification. Normal mitral valve. Trivial mitral valve insufficiency. Tricuspid Valve Normal tricuspid valve. Trivial tricuspid valve insufficiency. Right ventricular systolic pressure estimated to be 33 mmHg. Aortic Valve Trisinus/trileaflet aortic valve. Normal aortic valve. Pulmonic Valve The pulmonic valve is not well visualized. Great Vessels Normal sized aortic root. Pericardium/Pleural No pericardial effusion. Medication 22 gauge I.V. with prn adaptor inserted into right arm. Diluted definity 3.5ml given slow IV push to enhance endocardial definition. MMode/2D Measurements Calculations LVIDd: 4.6 cm IVSd: 1.0 cm Ao root diam: 3.4 cm LVIDs: 2.5 cm LVPWd: 0.97 cm LA dimension: 3.7 cm RVDd: 3.8 cm FS: 45.4 % LAV(MOD-bp): 64.1 ml LA A4 area: 22.1 cm2 RA A4 area: 16.6 cm2 LAV(MOD-bp) Indexed: 29.4 ml/m2 LAV(MOD-sp2): 56.0 ml LAV(MOD-sp4): 65.3 ml Time Measurements MV dec time: 0.19 sec Doppler Measurements Calculations MV E max miguel: 89.1 cm/sec Lat Peak E' Miguel: 14.8 cm/sec Med Peak E' Miguel: 12.5 cm/sec MV A max miguel: 107.1 cm/sec E/E' lat: 6.0 E/E' med: 7.1 MV E/A: 0.83 MV V2 max: 108.1 cm/sec MV P1/2t max miguel: 79.1 cm/sec Ao V2 max: 133.1 cm/sec MV max P.7 mmHg MV P1/2t: 51.5 msec Ao max P.1 mmHg MV V2 mean: 55.7 cm/sec MV dec slope: 449.2 cm/sec2 Ao V2 mean: 95.0 cm/sec MV mean P.5 mmHg Ao mean P.1 mmHg MV V2 VTI: 23.2 cm MVA(P1/2t): 4.3 cm2 Ao V2 VTI: 27.7 cm AV (velocity ratio): 0.93 LV V1 max: 120.6 cm/sec PA V2 max: 135.8 cm/sec TR max miguel: 275.1 cm/sec LV V1 max P.8 mmHg TR max P.3 mmHg LV V1 mean P.3 mmHg LV V1 mean: 86.0 cm/sec LV V1 VTI: 25.9 cm ECHO/Echo Complete W/ Contrast Interpretation Summary The study was technically difficult. Contrast injection was performed. Left ventricular systolic function is normal. The estimated ejection fraction is 65 %. The left atrium is mildly enlarged. Trivial mitral valve insufficiency. Trivial tricuspid valve insufficiency. Right ventricular systolic pressure estimated to be 33 mmHg. No evidence for diastolic dysfunction. Ordering Physician: Anita Jones Referring Physician: Anita Jones Performed By: Yaron Lopez RCS 07/01/22 1830 Date Mahamed Pavon MD CC: Dr. Anita Jones DO Date Dictated: 07/01/22 1414 Date Transcribed: 07/01/221829 Rasper Machine Operator: Dionisio Jones DO Work Phone: Start: 05-16-2022 End: 05-19-2022 SCRN MAMM (CAD)W/MARYBEL BILAT Procedure Note: See Note; NOTES: [facility] Imaging Services [address] [place] [address] SCRN MAMM (CAD)W/MARYBEL BILAT MR#: [id number] Acct: [id number] Name: FANNY VALIENTE Rep #: [id number] : 1960 F 61 From: Felix simms MD PCP: Dr. Anita Jones DO Status: REG CLI Study: SCRN MAMM (CAD)W/MARYBEL BILAT Date of Exam: 10/31 Exam# [id number] Ordering Dr: Sweta Wright DO MAMMOGRAPHY - BILATERAL SCREENING REASON FOR EXAM: Female, 61 years old. Routine annual screening examination. PERTINENT HISTORY: Non-contributory. History of prior bilateral breast reduction surgery. TECHNIQUE: Digital bilateral breast marybel (3D mammographic acquisition) in the CC and MLO projections. 2-D mediolateral oblique (MLO) and craniocaudad (CC) views of both breasts were obtained. CAD: Full Field Digital Mammography with Computer Added Detection was performed. COMPARISON: Comparison is made with prior study 03/23/2017 and 10/04/2015. FINDINGS: Breast Composition: The breasts are almost entirely fatty. There are no dominant masses or suspicious calcifications. Stable small benign-appearing bilateral axillary nodes. No other significant abnormalities are identified. There has been no significant change since the prior study. BI/SCRN MAMM (CAD)W/MARYBEL BILAT IMPRESSION: Stable bilateral screening mammogram. Yearly follow-up mammogram recommended. (A) ASSESSMENT CATEGORY: BIRADS Category 2: Benign. A letter regarding these results will be sent to the patient by the facility within 30 days. Approximately 10% of breast cancers are not detected by mammography. A normal mammogram should not delay biopsy of a clinically suspicious abnormality. [id number] Electronically Signed: Felix Sutherland MD at 8:43 EST , CC: Dr. Sweta Wright DO; Dr. Anita Jones DO Rasper Machine Operator: Signed Anita Jones DO Work Phone: Start: 04-22-2022 End: 04-28-2022 Clinical Research Nurse Office Visit Report Procedure Note: See Note; NOTES: [facility] [address] [place] [address] OFFICE VISIT Date of Service: 04/22/22 MR#: [id number] Acct: [id number] Name: FANNY SOLIS Rep #: [id number] : 1960 Provider: Dr. 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) Is patient in pain?: No Allergies erythromycin base Allergy (Intermediate, Verified 04/22/22 14:06) Irregular heart Medications rivaroxaban 15 mg (42)-20 mg (9) tablets in a starter pack (Xarelto DVT-PE Treatment 30-Day Starter) See Rx Instructions PO .COMPLEX #51 tabs 04/15/22 [Rx Confirmed 04/22/22] esomeprazole magnesium 40 mg capsule,delayed release (Nexium) 40 mg PO QDAY PRN 04/22/22 [History Confirmed 04/22/22] naproxen sodium 550 mg tablet (Anaprox DS) 550 mg PO Q12H PRN 04/22/22 [History Confirmed 04/22/22] Is last menstrual period known: No Patient : No : No PFSH Medical History (Updated 04/22/22 @ 14:09 by Luzma Hyde) Pulmonary emboli Thyroid disorder Surgical History (Updated 04/22/22 @ 14:14 by Luzma Hyde) history left eye surgery history left shoulder surgery History of bilateral breast reduction surgery History of partial surgical removal of colon Family History (Updated 04/22/22 @ 14:11 by Luzma Hyde) Father Heart disease Hypertension High cholesterol Mother Heart disease High cholesterol Hypertension Grandmother Bladder cancer Social History (Updated 04/22/22 @ 14:12 by Luzma Hyde) Smoking Status: Never smoker alcohol intake: current alcohol intake frequency: a few times a month substance use type: does not use caffeine: Yes what type of physical activity do you participate in: none seatbelt use: always do you feel safe at home: Yes additional social history: -Ehsan History 2 Elective abortions Hx Para 2 Spontaneous abortions Hx # Term Pregnancies Ectopic pregnancies Hx # Pregnancies Multiple births # of living children Past Pregnancies Del. Date Name GA/Weeks Outcome Route Bth Weight Infant Gen Labor Lgth Anesthesia Del Locatn Provider FOB Unknown Jewel Lofton HPI Encounter for routine gynecological examination Details: FANNY SOLIS is a 61 year old who presents for annual exam. She is being treated for a small PE. She has a h/o PE in the past so now back on blood thinners. no other findings on CT. no weight loss, abdominal pain. Last PAP: 2017- normal History of abnormal PAP: normal Last mammogram: 03/23/17 (due to health insurance) History of abnormal mammogram: no Colon cancer screening:pt states likely is due for colonoscopy but declines Other preventative health care screenings: followed by Robert. Female Reproductive History Questions: metorrhagia: No, sexually active: Yes, dyspareunia: No and PCB: No Menopausal Symptoms: No hot flashes, No night sweats, No weight change, No mood changes, No difficulty concentrating, No sleep problems and No change in libido ROS Const Constitutional: Reports as per HPI; Denies fatigue, increased appetite, poor appetite, night sweats, weight gain or weight loss Cardio Card: Denies chest pain Resp Resp: Denies cough or dyspnea GI GI: Reports as per HPI; Denies abdominal pain, bloating, constipation, nausea or vomiting : Reports as per HPI and other; Denies difficulty voiding, dysuria, hematuria, hot flashes, nipple discharge, pelvic pain, prolapse symptoms, urinary frequency, urinary incontinence, urinary urgency, vaginal discharge, vaginal dryness, vaginal odor or vaginal pruritus Skin Skin/Breast: Denies changing lesions, breast mass, breast pain, breast skin changes or nipple discharge Psych Psych: Denies anxiety, change in libido, depression or difficulty concentrating Exam Const General: cooperative, healthy appearing, comfortable, no acute distress, well developed and well groomed [facility] Head: normal to inspection and normocephalic Ears: hearing grossly normal bilaterally and external ears normal Nose: external nose normal Face and sinus: normal facial exam Neck Neck: normal visual inspection, full ROM and no lymphadenopathy Thyroid: thyroid normal Chest Chest palpation inspection: normal inspection of the chest Breast inspection: normal inspection of the breasts and normal inspection of the axillae Breast palpation: normal palpation of the breasts, normal palpation of the axillae and no axillary lymphadenopathy Resp Effort Inspection: normal respiratory effort GI Inspection: normal to inspection and non-distended Palpation: soft, no hepatosplenomegaly and no guarding General: bladder normal to palpation External Female Exam: normal external appearance, normal appearance of the urethra and no lesions Urethra: normal appearance of the urethra and normal palpation Speculum Exam - Vagina: normal appearance of the vagina and normal vaginal discharge Speculum Exam - Cervix: normal appearance of the cervix, no cervical discharge, no lesions and nontender Bimanual Exam- Vagina Uterus: normal bimanual exam, uterine size normal, bladder normal to palpation, No tender, uterine mobility normal, consistency normal, non-tender and no cervical motion tenderness Bimanual Exam- Adnexa, other: normal adnexae, no masses and non-tender Skin General: no rashes or lesions noted Neuro General: patient alert, moves all extremities and no focal motor deficits Extrem General: normal to inspection and no pedal edema Psych Appearance: grossly normal Mental Status: mental status grossly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 bilateral screening mammogram. Yearly follow-up mammogram recommended. (A) ASSESSMENT CATEGORY: BIRADS Category 1: Negative. A letter regarding these results will be sent to the patient by the facility within 30 days. Approximately 10% of breast cancers are not detected by mammography. A normal mammogram should not delay biopsy of a clinically suspicious abnormality. [id number] Electronically Signed: Felix Sutherland MD at 8:35 EDT Tel [phone], Service support [phone], CC: Vinicio Frankel Rasper Machine Operator: Signed Vinicio Frankel Work Phone: Start: 10-04-2015 End: 10-04-2015 Dexa Bone Density Study (HP) Comments: See Note; NOTES: [facility] Imaging Services [address] [place] [address] Neftali 4d Dexa Bone Density Study (HP) MR#: [id number] Acct: [id number] Name: FANNY VALIENTE Rep #: [id number] : 1960 F 54 From: Felix Sutherland MD PCP: Vinicio Frankel Status: REG CLI Study: Dexa Bone Density Study (HP) Date of Exam: 10/04/15 Exam# [id number] Ordering Dr: Vinicio Frankel STUDY: DUAL ENERGY X-RAY ABSORPTIOMETRY / DXA REASON FOR EXAM: Female, 54 years old. The patient is postmenopausal. TECHNIQUE: Bone Mineral Density (BMD) measurements of lumbar spine and bilateral hips were obtained. COMPARISON: None. FINDINGS: Lumbar Spine (L1-L4): g/cm2 (1.023) / T-score (-1.3) / Z-score (-0.6) Findings are suggestive of osteopenia with a low fracture risk. Left Femur Total: g/cm2 (0.852) / T-score (-1.2) / Z-score (-0.6) Left Femoral Neck: g/cm2 (0.827) / T-score (-1.5) / Z-score (-0.6) Right Femur Total: g/cm2 (0.864) / T-score (-1.1) / Z-score (-0.5) Right Femoral Neck: g/cm2 (0.790) / T-score (-1.8) / Z-score (-0.8) IMPRESSION: The patient is considered osteopenic as outlined below according to World [place] Organization (WHO) criteria with a moderate fracture risk. Reference Information: The T-score is the number of standard deviations above or below the standard which is normal for young adults at their peak bone mineral density. The World Health Organization (WHO) interprets the T-scores as follows: Above -1 Normal bone density Between -1 and -2.5 Osteopenia Equal to / or below -2.5 Osteoporosis As a practical clinical guideline, osteopenia may be graded as follows: Mild -1 through -1.5 Moderate -1.6 through -2.0 Severe -2.1 through -2.4 The Z-score is the number of standard deviations above or below age-matched controls. A Z-score of less than -1.5 would be considered abnormal. References: 1. NIH Osteoporosis and Related Bone Diseases http://www.osteo.org 2. International Society for Clinical Densitometry http://www.iscd.org 3. National Osteoporosis Foundation http://www.nof.org Electronically Signed: Felix Sutherland MD at 15:55 EDT Tel [phone], Service support [phone], CC: Vinicio Frankel Rasper Machine Operator: Signed Vinicio Frankel Work Phone: Start: 12-16-2014 End: 12-16-2014 Chest without Contrast Comments: See Note; NOTES: [facility] Imaging Services [address] [place] [address] CAT Scan Report MR#: [id number] Acct: [id number] Name: FANNY VALIENTE Rep #: [id number] : 1960 F 54 From: Laurie Frazier MD PCP: Alanis Beckford MD Status: REG CLI Study: Chest without Contrast Date of Exam: 12/16/14 Exam# [id number] Ordering Dr: Alanis Beckford MD STUDY: CT CHEST WITHOUT CONTRAST REASON FOR EXAM: Female, 54 years old. Followup lung nodules RADIATION DOSAGE (If Supplied By Facility): CTDIvol = ( 19.13 ) mGy, DLP = ( 725.61 ) mGycm TECHNIQUE: High resolution 2.5 mm transaxial imaging was performed without the administration of intravenous contrast material. Multiplanar coronal and sagittal images were reformatted. COMPARISON: CT chest 09/07/2014. 05/29/2014. 02/23/2014. FINDINGS: Stable mild hyperinflation. Stable triangular form nodular density in the right lower lobe adjacent to the fissure measuring 0.77 x 0.45 cm in size without calcification. Stable left lower lobe posterior medial paraspinal indistinct opacification containing a central pocket of air and adjacent parenchymal change. This measures 1.34 x 0.85 cm image 72 series 1002 previously 1.39 x 0.76 cm at corresponding levels image 75 series 1002. There is no demonstrated pleural abnormality. Normal heart and pericardium. Normal mediastinum. Normal hilar regions. Normal unenhanced pulmonary arteries. Normal aorta arch and descending thoracic aorta. Normal osseous structures. Mild hernia. IMPRESSION: Stable small nodular densities as outlined above involving the right and left lower lobe possibly post inflammatory changes. Electronically Signed: Laurie Frazier MD at 16:04 EDT , Service support [phone], CC: Alanis Beckford MD Rasper Machine Operator: Signed Alanis Beckford Work Phone: Start: 09-29-2014 End: 09-29-2014 Spmtry w/vc expiratory jose w/wo mxml vol vntj _ Alanis Beckford Work Phone: Plan of Treatment Date Care Activity Detail Author Start: 01-28-2023 Procedure Education Eprescribed prescriptions (G8553) [facility]; [facility] Work Phone: Start: 12-14-2022 Provider Instructions for Treatment [facility]; [facility] Work Phone: Start: 12-12-2022 Patient Education Diverticulitis *: abdominal pain [facility]; [facility] Work Phone: Start: 12-12-2022 Procedure Education Eprescribed prescriptions (G8553) [facility]; [facility] Work Phone: Start: 12-12-2022 Provider Instructions for Treatment Follow up if no improvement or if symptoms worsen [facility]; [facility] Work Phone: Start: 11-13-2022 Procedure Education Eprescribed prescriptions (G8553) [facility]; [facility] Work Phone: Start: 08-06-2022 Procedure Education Eprescribed prescriptions (G8553) [facility]; [facility] Work Phone: Start: 08-06-2022 Provider Instructions for Treatment Cholesterol mgmt [facility]; [facility] Work Phone: Start: 06-19-2022 Procedure Education Eprescribed prescriptions (G8553) [facility]; [facility] Work Phone: Start: 06-19-2022 Cyanocobalamin vitamin b-12 VITAMIN B-12 (CYANOCOBALAMIN) (76928) [facility]; [facility] Work Phone: Start: 06-19-2022 25 hydroxy includes fractions if performed CALCIFIDIOL (59373) VIT D 25 [facility]; [facility] Work Phone: Start: 06-19-2022 Lipid panel LIPID PANEL (32817) [facility]; [facility] Work Phone: Start: 06-13-2022 Procedure Education Eprescribed prescriptions (G8553) [facility]; [facility] Work Phone: Start: 06-13-2022 Provider Instructions for Treatment *fatigue education [facility]; [facility] Work Phone: Start: 06-13-2022 25 hydroxy includes fractions if performed CALCIFIDIOL (91196) VIT D 25 [facility]; [facility] Work Phone: Start: 06-13-2022 Cyanocobalamin vitamin b-12 VITAMIN B-12 (CYANOCOBALAMIN) (42790) [facility]; [facility] Work Phone: Start: 06-13-2022 Assay of thyroid stimulating hormone tsh TSH (99044) [facility]; [facility] Work Phone: Start: 06-13-2022 Sedimentation rate rbc non-automated SED RATE ERYTHROCYTE (40858) [facility]; [facility] Work Phone: Start: 06-13-2022 Comprehensive metabolic panel METABOLIC PANEL, COMPREHENSIVE (68654) [facility]; [facility] Work Phone: Start: 06-13-2022 Blood count complete automated CBC (AUTO) (25526) [facility]; [facility] Work Phone: Start: 06-13-2022 C-reactive protein C-REACTIVE PROTEIN (23338) [facility]; [facility] Work Phone: Start: 06-13-2022 Antinuclear antibodies kylah KYLAH (ANTINUCLEAR ANTIBODY) (49381) [facility]; [facility] Work Phone: Start: 06-02-2022 Hepatic function panel HEPATIC FUNCTION PANEL (06636) [facility]; [facility] Work Phone: Start: 06-02-2022 Lipid panel LIPID PANEL (35278) [facility]; [facility] Work Phone: Start: 04-25-2022 Procedure Education Eprescribed prescriptions (G8553) [facility]; [facility] Work Phone: Start: 04-25-2022 Provider Instructions for Treatment [facility]; [facility] Work Phone: Start: 04-25-2022 Assay of thyroid stimulating hormone tsh TSH (51013) [facility]; [facility] Work Phone: Start: 04-25-2022 Lipid panel LIPID PANEL (19651) [facility]; [facility] Work Phone: Start: 03-04-2021 Procedure Education Eprescribed prescriptions (G8553) [facility]; [facility] Work Phone: Start: 03-04-2021 Provider Instructions for Treatment COVID SCREENING FORM [facility]; [facility] Work Phone: Start: 03-01-2021 Procedure Education Eprescribed prescriptions (G8553) [facility]; [facility] Work Phone: Start: 10-03-2020 Procedure Education Eprescribed prescriptions (G8553) [facility]; [facility] Work Phone: Start: 10-03-2020 Provider Instructions for Treatment [facility]; [facility] Work Phone: Start: 10-03-2020 Assay of thyroid stimulating hormone tsh TSH (45275) [facility]; [facility] Work Phone: Start: 10-03-2020 Comprehensive metabolic panel METABOLIC PANEL, COMPREHENSIVE (16360) [facility]; [facility] Work Phone: Start: 10-03-2020 Blood count complete auto&auto difrntl wbc CBC W/AUTO DIFF WBC (51555) [facility]; [facility] Work Phone: Start: 10-03-2020 Lipid panel LIPID PANEL (18373) [facility]; [facility] Work Phone: Start: 11-25-2019 Procedure Education Eprescribed prescriptions (G8553) [facility] Work Phone: Start: 11-04-2019 Procedure Education Eprescribed prescriptions (G8553) [facility] Work Phone: Start: 11-04-2019 Provider Instructions for Treatment [facility] Work Phone: Start: 11-04-2019 Comprehensive metabolic panel METABOLIC PANEL, COMPREHENSIVE (89824) [facility] Work Phone: Start: 11-04-2019 Blood count complete auto&auto difrntl wbc CBC W/AUTO DIFF WBC (45028) [facility] Work Phone: Start: 11-04-2019 TSH Qn TSH (93948) [facility] Work Phone: Start: 11-04-2019 Hepatic function panel HEPATIC FUNCTION PANEL (73939) [facility] Work Phone: Start: 11-04-2019 Lipoprotein blood rena numbers & subclasses NMR Profile (94683) [facility] Work Phone: Start: 03-25-2019 Procedure Education Eprescribed prescriptions (G8553) [facility] Work Phone: Start: 03-25-2019 Provider Instructions for Treatment [facility] Work Phone: Start: 09-17-2018 Procedure Education Eprescribed prescriptions (G8553) [facility] Work Phone: Start: 09-17-2018 Provider Instructions for Treatment [facility] Work Phone: Start: 09-17-2018 Lipoprotein blood rena numbers & subclasses NMR Profile (16567) [facility] Work Phone: Start: 09-17-2018 Protein mass conc NMR Profile (21528) [facility] Work Phone: Start: 09-17-2018 Hepatic function panel HEPATIC FUNCTION PANEL (51658) [facility] Work Phone: Start: 07-14-2018 Glucose mass conc GLUCOSE (62071) [facility] Work Phone: Start: 07-14-2018 Procedure Education Eprescribed prescriptions (G8553) [facility] Work Phone: Start: 07-14-2018 Provider Instructions for Treatment *Colon Cancer Screening [facility] Work Phone: Start: 07-14-2018 Lipoprotein blood rena numbers & subclasses NMR Profile (34861) [facility] Work Phone: Start: 07-14-2018 Protein mass conc NMR Profile (76430) [facility] Work Phone: Start: 12-22-2016 End: 12-22-2016 Appointment Appointment [facility] Start: 12-22-2016 End: 12-22-2016 Mammogram, screening Mammogram, Screening, both breasts [facility] Start: 12-22-2016 End: 12-22-2016 Transvaginal us, non-ob US Transvaginal [facility] Start: 12-22-2016 End: 12-22-2016 Us exam, pelvic, complete US [facility] Start: 08-08-2016 Patient Education Flu (Influenza) *: flu [facility] Work Phone: Start: 08-08-2016 Procedure Education Eprescribed prescriptions (G8553) [facility] Work Phone: Start: 08-08-2016 Provider Instructions for Treatment Follow up if no improvement or if symptoms worsen [facility] Work Phone: Start: 12-11-2015 Lipid panel LIPID PANEL (91405) [facility] Work Phone: Start: 12-11-2015 25 hydroxy includes fractions if performed CALCIFEDIOL (87551) [facility] Work Phone: Start: 12-11-2015 Urine albumin quantitative MICROALBUMIN: CREATININE RATIO (00944) AND (36515) [facility] Work Phone: Start: 12-11-2015 Assay of thyroid stimulating hormone tsh TSH (THYROID STIMULATING HORMONE) (55803) [facility]; [facility] Work Phone: Start: 12-11-2015 Thyrotropin Qn TSH (THYROID STIMULATING HORMONE) (22405) [facility] Work Phone: Start: 12-11-2015 Comprehensive metabolic panel METABOLIC PANEL, COMPREHENSIVE (84156) [facility] Work Phone: Start: 12-11-2015 Blood count complete auto&auto difrntl wbc CBC, PLATELETS & AUT DIFF (05217) [facility] Work Phone: Start: 12-11-2015 Procedure Education Eprescribed prescriptions (G8553) [facility] Work Phone: Start: 12-11-2015 Provider Instructions for Treatment Follow up in 6 months [facility] Work Phone: Start: 06-26-2015 Procedure Education Eprescribed prescriptions (G8553) [facility] Work Phone: Start: 02-19-2015 Procedure Education Eprescribed prescriptions (G8553) [facility] Work Phone: Start: 02-19-2015 Comprehensive metabolic panel METABOLIC PANEL, COMPREHENSIVE (76575) [facility] Work Phone: Start: 02-19-2015 Lipid panel LIPID PANEL (49539) [facility] Work Phone: Start: 09-29-2014 Procedure Education Eprescribed prescriptions (G8553) [facility] Work Phone: Start: 09-29-2014 Comprehensive metabolic panel METABOLIC PANEL, COMPREHENSIVE (72292) [facility] Work Phone: Start: 09-29-2014 Lipid panel LIPID PANEL (07829) [facility] Work Phone: Start: 09-29-2014 Blood count manual cell count each CBC with auto diff (21009) [facility] Work Phone: Start: 02-17-2014 Patient Education High Cholesterol (Hypercholesterolemia) *: cardiovascular health [facility] Work Phone: Start: 03-03-2013 End: 03-03-2013 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 [facility] Start: 03-03-2013 End: 03-03-2013 Electrocardiogram, complete EKG (In office) [facility] Start: 03-03-2013 End: 03-03-2013 Follow Up Appt 1 year Follow Up Appt 1 year [facility] Start: 03-03-2013 End: 03-04-2013 Stress Echocardiogram (treadmill) Stress Echocardiogram (treadmill) [facility] Start: 01-21-2013 Assay of ferritin FERRITIN (96132) [facility]; [facility] Work Phone: Start: 01-21-2013 Ferritin mass conc FERRITIN (31233) [facility] Work Phone: Start: 01-21-2013 CBC, PLATELETS & MANUAL DIFF (37375) CBC, PLATELETS & MANUAL DIFF (05082) [facility] Work Phone: Start: 01-07-2013 Patient Education High Cholesterol (Hypercholesterolemia) *: cardiovascular health [facility] Work Phone: Start: 09-29-2012 Blood count complete automated CBC (Auto) (47879) [facility] Work Phone: Start: 09-29-2012 Assay of ferritin Ferritin (63344) [facility]; [facility] Work Phone: Start: 09-29-2012 Ferritin mass conc Ferritin (21371) [facility] Work Phone: [facility] Work Phone: [facility] Work Phone: [facility] Work Phone: [facility] Work Phone: [facility] Work Phone[facility] Work Phone: [facility] Work Phone: [facility] Work Phone: [facility] Work Phone: [facility] Work Phone: [facility] Work Phone: [facility] Work Phone: [facility] Work Phone[facility] Work Phone[facility] Work Phone: [facility] Work Phone: [facility] Work Phone: [facility] Work Phone: [facility] Work Phone: [facility] Work Phone: [facility] Work Phone: [facility] Work Phone: [facility] Work Phone: [facility] Work Phone: [facility] Work Phone: [facility] Work Phone: [facility] Work Phone: [facility] Work Phone: [facility] Work Phone: [facility] Work Phone: [facility] Work Phone: Immunizations Immunization Date Immunization Notes Care Provider [facility] 10-11-2020 COVID-Moderna (100 MCG/0.5 ML) Ainta Robert DO Work Phone: [facility]; [facility] Work Phone: 09-13-2020 COVID-19 (Moderna) Anita Robert DO Work Phone: [facility]; [facility] Work Phone: Payers Date Payer Category Payer Unknown [id number] 2020 Unknown [id number] 2019 Unknown [id number] 2017 Unknown [id number] 2016 Unknown [id number] 2014 Unknown [id number] 2013 Unknown [id number] 2012 Unknown [id number] Unknown [id number] Unknown Social History Date Type Detail Facility Alcohol Use Never smoker [facility] Work Phone: Functional Status Date Assessment Result Facility 07-06-2020 LP-IR Score LP-IR Score 32 [facility] Work Phone: Clinical Notes Note Date & Type Note Facility [facility] Work Phone: Instructions* Name Dates Details Patient Instructions Indication:BMI 37.0-37.9, adult Start:03-Oct-2020 Instruction Type:Provider Instructions for Treatment How to Access Health Informa tion Online using Patient Portal and [employer]rd [employer] Apps Indication:BMI 37.0-37.9, adult Start:03-Oct-2020 Instruction Type:Patient Education How to access health informa tion online Indication:BMI 37.0-37.9, adult Start:25-Nov-2019 Instruction Type:Patient Education How to access health informa tion online - Detail Indication:BMI 37.0-37.9, adult Start:25-Nov-2019 Instruction Type:Patient Education Patient Instructions Indication:BMI 37.0-37.9, adult Start:25-Nov-2019 Instruction Type:Provider Instructions for Treatment How to access health informa tion online Indication:Nonsmoker Start:04-Nov-2019 Instruction Type:Patient Education How to access health informa tion online - Detail Indication:Nonsmoker Start:04-Nov-2019 Instruction Type:Patient Education Patient Instructions Indication:Nonsmoker Start:04-Nov-2019 Instruction Type:Provider Instructions for Treatment How to access health informa tion online Indication:Mild intermittent asthma without complication Start:25-Mar-2019 Instruction Type:Patient Education How to access health informa tion online - Detail Indication:Mild intermittent asthma without complication Start:25-Mar-2019 Instruction Type:Patient Education Patient Instructions Indication:Mild intermittent asthma without complication Start:25-Mar-2019 Instruction Type:Provider Instructions for Treatment How to access health informa tion online Indication:Nonsmoker Start:17-Sep-2018 Instruction Type:Patient Education How to access health informa tion online - Detail Indication:Nonsmoker Start:17-Sep-2018 Instruction Type:Patient Education Patient Instructions Indication:Nonsmoker Start:17-Sep-2018 Instruction Type:Provider Instructions for Treatment How to access health informa tion online - Detail Indication:Nonsmoker Start:14-Jul-2018 Instruction Type:Patient Education Patient Instructions Indication:Nonsmoker Start:14-Jul-2018 Instruction Type:Provider Instructions for Treatment How to access health informa tion online Indication:Nonsmoker Start:17-Jun-2017 Instruction Type:Patient Education How to access health informa tion online - Detail Indication:Nonsmoker Start:17-Jun-2017 Instruction Type:Patient Education Patient Instructions Indication:Nonsmoker Start:17-Jun-2017 Instruction Type:Provider Instructions for Treatment How to access health informa tion online Indication:Flu-like symptoms Start:08-Aug-2016 Instruction Type:Patient Education How to access health informa tion online - Detail Indication:Flu-like symptoms Start:08-Aug-2016 Instruction Type:Patient Education Patient Instructions Indication:Flu-like symptoms Start:08-Aug-2016 Instruction Type:Provider Instructions for Treatment How to access health informa tion online Indication:Thyroid nodule Start:11-Dec-2015 Instruction Type:Patient Education How to access health informa tion online - Detail Indication:Thyroid nodule Start:11-Dec-2015 Instruction Type:Patient Education Patient Instructions Indication:Thyroid nodule Start:11-Dec-2015 Instruction Type:Provider Instructions for Treatment How to access health informa tion online Indication:Current nonsmoker (Renamed from Current non-smoker) Start:26-Jun-2015 Instruction Type:Patient Education How to access health informa tion online - Detail Indication:Current nonsmoker (Renamed from Current non-smoker) Start:26-Jun-2015 Instruction Type:Patient Education Patient Instructions Indication:Current nonsmoker (Renamed from Current non-smoker) Start:26-Jun-2015 Instruction Type:Provider Instructions for Treatment How to access health informa tion online Indication:Cough Start:26-Apr-2015 Instruction Type:Patient Education How to access health informa tion online - Detail Indication:Cough Start:26-Apr-2015 Instruction Type:Patient Education Patient Instructions Indication:Cough Start:26-Apr-2015 Instruction Type:Provider Instructions for Treatment How to access health informa tion online Indication:Headache Start:19-Feb-2015 Instruction Type:Patient Education How to access health informa tion online - Detail Indication:Headache Start:19-Feb-2015 Instruction Type:Patient Education Patient Instructions Indication:Headache Start:19-Feb-2015 Instruction Type:Provider Instructions for Treatment How to access health informa tion online Indication:Abnormal breath sounds Start:29-Sep-2014 Instruction Type:Patient Education How to access health informa tion online - Detail Indication:Abnormal breath sounds Start:29-Sep-2014 Instruction Type:Patient Education Patient Instructions Indication:Abnormal breath sounds Start:29-Sep-2014 Instruction Type:Provider Instructions for Treatment Patient Instructions Indication:Hyperlipidemia Start:17-Feb-2014 Instruction Type:Provider Instructions for Treatment Patient Instructions Indication:Hyperlipidemia Start:07-Jan-2013 Instruction Type:Provider Instructions for Treatment [facility] Work Phone: Instructions* Name Dates Details Patient Instructions Indication:BMI 37.0-37.9, adult Start:03-Oct-2020 Instruction Type:Provider Instructions for Treatment How to Access Health Informa tion Online using Patient Portal and [employer] Apps Indication:BMI 37.0-37.9, adult Start:03-Oct-2020 Instruction Type:Patient Education How to access health informa tion online Indication:BMI 37.0-37.9, adult Start:25-Nov-2019 Instruction Type:Patient Education How to access health informa tion online - Detail Indication:BMI 37.0-37.9, adult Start:25-Nov-2019 Instruction Type:Patient Education Patient Instructions Indication:BMI 37.0-37.9, adult Start:25-Nov-2019 Instruction Type:Provider Instructions for Treatment How to access health informa tion online Indication:Nonsmoker Start:04-Nov-2019 Instruction Type:Patient Education How to access health informa tion online - Detail Indication:Nonsmoker Start:04-Nov-2019 Instruction Type:Patient Education Patient Instructions Indication:Nonsmoker Start:04-Nov-2019 Instruction Type:Provider Instructions for Treatment How to access health informa tion online Indication:Mild intermittent asthma without complication Start:25-Mar-2019 Instruction Type:Patient Education How to access health informa tion online - Detail Indication:Mild intermittent asthma without complication Start:25-Mar-2019 Instruction Type:Patient Education Patient Instructions Indication:Mild intermittent asthma without complication Start:25-Mar-2019 Instruction Type:Provider Instructions for Treatment How to access health informa tion online Indication:Nonsmoker Start:17-Sep-2018 Instruction Type:Patient Education How to access health informa tion online - Detail Indication:Nonsmoker Start:17-Sep-2018 Instruction Type:Patient Education Patient Instructions Indication:Nonsmoker Start:17-Sep-2018 Instruction Type:Provider Instructions for Treatment How to access health informa tion online - Detail Indication:Nonsmoker Start:14-Jul-2018 Instruction Type:Patient Education Patient Instructions Indication:Nonsmoker Start:14-Jul-2018 Instruction Type:Provider Instructions for Treatment How to access health informa tion online Indication:Nonsmoker Start:17-Jun-2017 Instruction Type:Patient Education How to access health informa tion online - Detail Indication:Nonsmoker Start:17-Jun-2017 Instruction Type:Patient Education Patient Instructions Indication:Nonsmoker Start:17-Jun-2017 Instruction Type:Provider Instructions for Treatment How to access health informa tion online Indication:Flu-like symptoms Start:08-Aug-2016 Instruction Type:Patient Education How to access health informa tion online - Detail Indication:Flu-like symptoms Start:08-Aug-2016 Instruction Type:Patient Education Patient Instructions Indication:Flu-like symptoms Start:08-Aug-2016 Instruction Type:Provider Instructions for Treatment How to access health informa tion online Indication:Thyroid nodule Start:11-Dec-2015 Instruction Type:Patient Education How to access health informa tion online - Detail Indication:Thyroid nodule Start:11-Dec-2015 Instruction Type:Patient Education Patient Instructions Indication:Thyroid nodule Start:11-Dec-2015 Instruction Type:Provider Instructions for Treatment How to access health informa tion online Indication:Current nonsmoker (Renamed from Current non-smoker) Start:26-Jun-2015 Instruction Type:Patient Education How to access health informa tion online - Detail Indication:Current nonsmoker (Renamed from Current non-smoker) Start:26-Jun-2015 Instruction Type:Patient Education Patient Instructions Indication:Current nonsmoker (Renamed from Current non-smoker) Start:26-Jun-2015 Instruction Type:Provider Instructions for Treatment How to access health informa tion online Indication:Cough Start:26-Apr-2015 Instruction Type:Patient Education How to access health informa tion online - Detail Indication:Cough Start:26-Apr-2015 Instruction Type:Patient Education Patient Instructions Indication:Cough Start:26-Apr-2015 Instruction Type:Provider Instructions for Treatment How to access health informa tion online Indication:Headache Start:19-Feb-2015 Instruction Type:Patient Education How to access health informa tion online - Detail Indication:Headache Start:19-Feb-2015 Instruction Type:Patient Education Patient Instructions Indication:Headache Start:19-Feb-2015 Instruction Type:Provider Instructions for Treatment How to access health informa tion online Indication:Abnormal breath sounds Start:29-Sep-2014 Instruction Type:Patient Education How to access health informa tion online - Detail Indication:Abnormal breath sounds Start:29-Sep-2014 Instruction Type:Patient Education Patient Instructions Indication:Abnormal breath sounds Start:29-Sep-2014 Instruction Type:Provider Instructions for Treatment Patient Instructions Indication:Hyperlipidemia Start:17-Feb-2014 Instruction Type:Provider Instructions for Treatment Patient Instructions Indication:Hyperlipidemia Start:07-Jan-2013 Instruction Type:Provider Instructions for Treatment [facility] Work Phone: Instructions* Name Dates Details Patient Instructions Indication:BMI 37.0-37.9, adult Start:03-Oct-2020 Instruction Type:Provider Instructions for Treatment How to Access Health Informa tion Online using Patient Portal and [employer] Apps Indication:BMI 37.0-37.9, adult Start:03-Oct-2020 Instruction Type:Patient Education How to access health informa tion online Indication:BMI 37.0-37.9, adult Start:25-Nov-2019 Instruction Type:Patient Education How to access health informa tion online - Detail Indication:BMI 37.0-37.9, adult Start:25-Nov-2019 Instruction Type:Patient Education Patient Instructions Indication:BMI 37.0-37.9, adult Start:25-Nov-2019 Instruction Type:Provider Instructions for Treatment How to access health informa tion online Indication:Nonsmoker Start:04-Nov-2019 Instruction Type:Patient Education How to access health informa tion online - Detail Indication:Nonsmoker Start:04-Nov-2019 Instruction Type:Patient Education Patient Instructions Indication:Nonsmoker Start:04-Nov-2019 Instruction Type:Provider Instructions for Treatment How to access health informa tion online Indication:Mild intermittent asthma without complication Start:25-Mar-2019 Instruction Type:Patient Education How to access health informa tion online - Detail Indication:Mild intermittent asthma without complication Start:25-Mar-2019 Instruction Type:Patient Education Patient Instructions Indication:Mild intermittent asthma without complication Start:25-Mar-2019 Instruction Type:Provider Instructions for Treatment How to access health informa tion online Indication:Nonsmoker Start:17-Sep-2018 Instruction Type:Patient Education How to access health informa tion online - Detail Indication:Nonsmoker Start:17-Sep-2018 Instruction Type:Patient Education Patient Instructions Indication:Nonsmoker Start:17-Sep-2018 Instruction Type:Provider Instructions for Treatment How to access health informa tion online - Detail Indication:Nonsmoker Start:14-Jul-2018 Instruction Type:Patient Education Patient Instructions Indication:Nonsmoker Start:14-Jul-2018 Instruction Type:Provider Instructions for Treatment How to access health informa tion online Indication:Nonsmoker Start:17-Jun-2017 Instruction Type:Patient Education How to access health informa tion online - Detail Indication:Nonsmoker Start:17-Jun-2017 Instruction Type:Patient Education Patient Instructions Indication:Nonsmoker Start:17-Jun-2017 Instruction Type:Provider Instructions for Treatment How to access health informa tion online Indication:Flu-like symptoms Start:08-Aug-2016 Instruction Type:Patient Education How to access health informa tion online - Detail Indication:Flu-like symptoms Start:08-Aug-2016 Instruction Type:Patient Education Patient Instructions Indication:Flu-like symptoms Start:08-Aug-2016 Instruction Type:Provider Instructions for Treatment How to access health informa tion online Indication:Thyroid nodule Start:11-Dec-2015 Instruction Type:Patient Education How to access health informa tion online - Detail Indication:Thyroid nodule Start:11-Dec-2015 Instruction Type:Patient Education Patient Instructions Indication:Thyroid nodule Start:11-Dec-2015 Instruction Type:Provider Instructions for Treatment How to access health informa tion online Indication:Current nonsmoker (Renamed from Current non-smoker) Start:26-Jun-2015 Instruction Type:Patient Education How to access health informa tion online - Detail Indication:Current nonsmoker (Renamed from Current non-smoker) Start:26-Jun-2015 Instruction Type:Patient Education Patient Instructions Indication:Current nonsmoker (Renamed from Current non-smoker) Start:26-Jun-2015 Instruction Type:Provider Instructions for Treatment How to access health informa tion online Indication:Cough Start:26-Apr-2015 Instruction Type:Patient Education How to access health informa tion online - Detail Indication:Cough Start:26-Apr-2015 Instruction Type:Patient Education Patient Instructions Indication:Cough Start:26-Apr-2015 Instruction Type:Provider Instructions for Treatment How to access health informa tion online Indication:Headache Start:19-Feb-2015 Instruction Type:Patient Education How to access health informa tion online - Detail Indication:Headache Start:19-Feb-2015 Instruction Type:Patient Education Patient Instructions Indication:Headache Start:19-Feb-2015 Instruction Type:Provider Instructions for Treatment How to access health informa tion online Indication:Abnormal breath sounds Start:29-Sep-2014 Instruction Type:Patient Education How to access health informa tion online - Detail Indication:Abnormal breath sounds Start:29-Sep-2014 Instruction Type:Patient Education Patient Instructions Indication:Abnormal breath sounds Start:29-Sep-2014 Instruction Type:Provider Instructions for Treatment Patient Instructions Indication:Hyperlipidemia Start:17-Feb-2014 Instruction Type:Provider Instructions for Treatment Patient Instructions Indication:Hyperlipidemia Start:07-Jan-2013 Instruction Type:Provider Instructions for Treatment [facility] Work Phone: Instructions* Name Dates Details Patient Instructions Indication:Nonsmoker Start:04-Mar-2021 Instruction Type:Provider Instructions for Treatment How to Access Health Informa tion Online using Patient Portal and [employer]rd [employer] Apps Indication:Nonsmoker Start:04-Mar-2021 Instruction Type:Patient Education Patient Instructions Indication:Nonsmoker Start:01-Mar-2021 Instruction Type:Provider Instructions for Treatment How to Access Health Informa tion Online using Patient Portal and [employer] Apps Indication:Nonsmoker Start:01-Mar-2021 Instruction Type:Patient Education Patient Instructions Indication:BMI 37.0-37.9, adult Start:03-Oct-2020 Instruction Type:Provider Instructions for Treatment How to Access Health Informa tion Online using Patient Portal and [employer] Apps Indication:BMI 37.0-37.9, adult Start:03-Oct-2020 Instruction Type:Patient Education How to access health informa tion online Indication:BMI 37.0-37.9, adult Start:25-Nov-2019 Instruction Type:Patient Education How to access health informa tion online - Detail Indication:BMI 37.0-37.9, adult Start:25-Nov-2019 Instruction Type:Patient Education Patient Instructions Indication:BMI 37.0-37.9, adult Start:25-Nov-2019 Instruction Type:Provider Instructions for Treatment How to access health informa tion online Indication:Nonsmoker Start:04-Nov-2019 Instruction Type:Patient Education How to access health informa tion online - Detail Indication:Nonsmoker Start:04-Nov-2019 Instruction Type:Patient Education Patient Instructions Indication:Nonsmoker Start:04-Nov-2019 Instruction Type:Provider Instructions for Treatment How to access health informa tion online Indication:Mild intermittent asthma without complication Start:25-Mar-2019 Instruction Type:Patient Education How to access health informa tion online - Detail Indication:Mild intermittent asthma without complication Start:25-Mar-2019 Instruction Type:Patient Education Patient Instructions Indication:Mild intermittent asthma without complication Start:25-Mar-2019 Instruction Type:Provider Instructions for Treatment How to access health informa tion online Indication:Nonsmoker Start:17-Sep-2018 Instruction Type:Patient Education How to access health informa tion online - Detail Indication:Nonsmoker Start:17-Sep-2018 Instruction Type:Patient Education Patient Instructions Indication:Nonsmoker Start:17-Sep-2018 Instruction Type:Provider Instructions for Treatment How to access health informa tion online - Detail Indication:Nonsmoker Start:14-Jul-2018 Instruction Type:Patient Education Patient Instructions Indication:Nonsmoker Start:14-Jul-2018 Instruction Type:Provider Instructions for Treatment How to access health informa tion online Indication:Nonsmoker Start:17-Jun-2017 Instruction Type:Patient Education How to access health informa tion online - Detail Indication:Nonsmoker Start:17-Jun-2017 Instruction Type:Patient Education Patient Instructions Indication:Nonsmoker Start:17-Jun-2017 Instruction Type:Provider Instructions for Treatment How to access health informa tion online Indication:Flu-like symptoms Start:08-Aug-2016 Instruction Type:Patient Education How to access health informa tion online - Detail Indication:Flu-like symptoms Start:08-Aug-2016 Instruction Type:Patient Education Patient Instructions Indication:Flu-like symptoms Start:08-Aug-2016 Instruction Type:Provider Instructions for Treatment How to access health informa tion online Indication:Thyroid nodule Start:11-Dec-2015 Instruction Type:Patient Education How to access health informa tion online - Detail Indication:Thyroid nodule Start:11-Dec-2015 Instruction Type:Patient Education Patient Instructions Indication:Thyroid nodule Start:11-Dec-2015 Instruction Type:Provider Instructions for Treatment How to access health informa tion online Indication:Current nonsmoker (Renamed from Current non-smoker) Start:26-Jun-2015 Instruction Type:Patient Education How to access health informa tion online - Detail Indication:Current nonsmoker (Renamed from Current non-smoker) Start:26-Jun-2015 Instruction Type:Patient Education Patient Instructions Indication:Current nonsmoker (Renamed from Current non-smoker) Start:26-Jun-2015 Instruction Type:Provider Instructions for Treatment How to access health informa tion online Indication:Cough Start:26-Apr-2015 Instruction Type:Patient Education How to access health informa tion online - Detail Indication:Cough Start:26-Apr-2015 Instruction Type:Patient Education Patient Instructions Indication:Cough Start:26-Apr-2015 Instruction Type:Provider Instructions for Treatment How to access health informa tion online Indication:Headache Start:19-Feb-2015 Instruction Type:Patient Education How to access health informa tion online - Detail Indication:Headache Start:19-Feb-2015 Instruction Type:Patient Education Patient Instructions Indication:Headache Start:19-Feb-2015 Instruction Type:Provider Instructions for Treatment How to access health informa tion online Indication:Abnormal breath sounds Start:29-Sep-2014 Instruction Type:Patient Education How to access health informa tion online - Detail Indication:Abnormal breath sounds Start:29-Sep-2014 Instruction Type:Patient Education Patient Instructions Indication:Abnormal breath sounds Start:29-Sep-2014 Instruction Type:Provider Instructions for Treatment Patient Instructions Indication:Hyperlipidemia Start:17-Feb-2014 Instruction Type:Provider Instructions for Treatment Patient Instructions Indication:Hyperlipidemia Start:07-Jan-2013 Instruction Type:Provider Instructions for Treatment [facility] Work Phone: Instructions* Name Dates Details Patient Instructions Indication:Nonsmoker Start:04-Mar-2021 Instruction Type:Provider Instructions for Treatment How to Access Health Informa tion Online using Patient Portal and [employer] Apps Indication:Nonsmoker Start:04-Mar-2021 Instruction Type:Patient Education Patient Instructions Indication:Nonsmoker Start:01-Mar-2021 Instruction Type:Provider Instructions for Treatment How to Access Health Informa tion Online using Patient Portal and [employer] Apps Indication:Nonsmoker Start:01-Mar-2021 Instruction Type:Patient Education Patient Instructions Indication:BMI 37.0-37.9, adult Start:03-Oct-2020 Instruction Type:Provider Instructions for Treatment How to Access Health Informa tion Online using Patient Portal and [employer] Apps Indication:BMI 37.0-37.9, adult Start:03-Oct-2020 Instruction Type:Patient Education How to access health informa tion online Indication:BMI 37.0-37.9, adult Start:25-Nov-2019 Instruction Type:Patient Education How to access health informa tion online - Detail Indication:BMI 37.0-37.9, adult Start:25-Nov-2019 Instruction Type:Patient Education Patient Instructions Indication:BMI 37.0-37.9, adult Start:25-Nov-2019 Instruction Type:Provider Instructions for Treatment How to access health informa tion online Indication:Nonsmoker Start:04-Nov-2019 Instruction Type:Patient Education How to access health informa tion online - Detail Indication:Nonsmoker Start:04-Nov-2019 Instruction Type:Patient Education Patient Instructions Indication:Nonsmoker Start:04-Nov-2019 Instruction Type:Provider Instructions for Treatment How to access health informa tion online Indication:Mild intermittent asthma without complication Start:25-Mar-2019 Instruction Type:Patient Education How to access health informa tion online - Detail Indication:Mild intermittent asthma without complication Start:25-Mar-2019 Instruction Type:Patient Education Patient Instructions Indication:Mild intermittent asthma without complication Start:25-Mar-2019 Instruction Type:Provider Instructions for Treatment How to access health informa tion online Indication:Nonsmoker Start:17-Sep-2018 Instruction Type:Patient Education How to access health informa tion online - Detail Indication:Nonsmoker Start:17-Sep-2018 Instruction Type:Patient Education Patient Instructions Indication:Nonsmoker Start:17-Sep-2018 Instruction Type:Provider Instructions for Treatment How to access health informa tion online - Detail Indication:Nonsmoker Start:14-Jul-2018 Instruction Type:Patient Education Patient Instructions Indication:Nonsmoker Start:14-Jul-2018 Instruction Type:Provider Instructions for Treatment How to access health informa tion online Indication:Nonsmoker Start:17-Jun-2017 Instruction Type:Patient Education How to access health informa tion online - Detail Indication:Nonsmoker Start:17-Jun-2017 Instruction Type:Patient Education Patient Instructions Indication:Nonsmoker Start:17-Jun-2017 Instruction Type:Provider Instructions for Treatment How to access health informa tion online Indication:Flu-like symptoms Start:08-Aug-2016 Instruction Type:Patient Education How to access health informa tion online - Detail Indication:Flu-like symptoms Start:08-Aug-2016 Instruction Type:Patient Education Patient Instructions Indication:Flu-like symptoms Start:08-Aug-2016 Instruction Type:Provider Instructions for Treatment How to access health informa tion online Indication:Thyroid nodule Start:11-Dec-2015 Instruction Type:Patient Education How to access health informa tion online - Detail Indication:Thyroid nodule Start:11-Dec-2015 Instruction Type:Patient Education Patient Instructions Indication:Thyroid nodule Start:11-Dec-2015 Instruction Type:Provider Instructions for Treatment How to access health informa tion online Indication:Current nonsmoker (Renamed from Current non-smoker) Start:26-Jun-2015 Instruction Type:Patient Education How to access health informa tion online - Detail Indication:Current nonsmoker (Renamed from Current non-smoker) Start:26-Jun-2015 Instruction Type:Patient Education Patient Instructions Indication:Current nonsmoker (Renamed from Current non-smoker) Start:26-Jun-2015 Instruction Type:Provider Instructions for Treatment How to access health informa tion online Indication:Cough Start:26-Apr-2015 Instruction Type:Patient Education How to access health informa tion online - Detail Indication:Cough Start:26-Apr-2015 Instruction Type:Patient Education Patient Instructions Indication:Cough Start:26-Apr-2015 Instruction Type:Provider Instructions for Treatment How to access health informa tion online Indication:Headache Start:19-Feb-2015 Instruction Type:Patient Education How to access health informa tion online - Detail Indication:Headache Start:19-Feb-2015 Instruction Type:Patient Education Patient Instructions Indication:Headache Start:19-Feb-2015 Instruction Type:Provider Instructions for Treatment How to access health informa tion online Indication:Abnormal breath sounds Start:29-Sep-2014 Instruction Type:Patient Education How to access health informa tion online - Detail Indication:Abnormal breath sounds Start:29-Sep-2014 Instruction Type:Patient Education Patient Instructions Indication:Abnormal breath sounds Start:29-Sep-2014 Instruction Type:Provider Instructions for Treatment Patient Instructions Indication:Hyperlipidemia Start:17-Feb-2014 Instruction Type:Provider Instructions for Treatment Patient Instructions Indication:Hyperlipidemia Start:07-Jan-2013 Instruction Type:Provider Instructions for Treatment [facility]; [facility] Work Phone: Instructions* Name Dates Details Patient Instructions Indication:Nonsmoker Start:04-Mar-2021 Instruction Type:Provider Instructions for Treatment How to Access Health Informa tion Online using Patient Portal and [employer]rd [employer] Apps Indication:Nonsmoker Start:04-Mar-2021 Instruction Type:Patient Education Patient Instructions Indication:Nonsmoker Start:01-Mar-2021 Instruction Type:Provider Instructions for Treatment How to Access Health Informa tion Online using Patient Portal and [employer]rd [employer] Apps Indication:Nonsmoker Start:01-Mar-2021 Instruction Type:Patient Education Patient Instructions Indication:BMI 37.0-37.9, adult Start:03-Oct-2020 Instruction Type:Provider Instructions for Treatment How to Access Health Informa tion Online using Patient Portal and [employer]rd [employer] Apps Indication:BMI 37.0-37.9, adult Start:03-Oct-2020 Instruction Type:Patient Education How to access health informa tion online Indication:BMI 37.0-37.9, adult Start:25-Nov-2019 Instruction Type:Patient Education How to access health informa tion online - Detail Indication:BMI 37.0-37.9, adult Start:25-Nov-2019 Instruction Type:Patient Education Patient Instructions Indication:BMI 37.0-37.9, adult Start:25-Nov-2019 Instruction Type:Provider Instructions for Treatment How to access health informa tion online Indication:Nonsmoker Start:04-Nov-2019 Instruction Type:Patient Education How to access health informa tion online - Detail Indication:Nonsmoker Start:04-Nov-2019 Instruction Type:Patient Education Patient Instructions Indication:Nonsmoker Start:04-Nov-2019 Instruction Type:Provider Instructions for Treatment How to access health informa tion online Indication:Mild intermittent asthma without complication Start:25-Mar-2019 Instruction Type:Patient Education How to access health informa tion online - Detail Indication:Mild intermittent asthma without complication Start:25-Mar-2019 Instruction Type:Patient Education Patient Instructions Indication:Mild intermittent asthma without complication Start:25-Mar-2019 Instruction Type:Provider Instructions for Treatment How to access health informa tion online Indication:Nonsmoker Start:17-Sep-2018 Instruction Type:Patient Education How to access health informa tion online - Detail Indication:Nonsmoker Start:17-Sep-2018 Instruction Type:Patient Education Patient Instructions Indication:Nonsmoker Start:17-Sep-2018 Instruction Type:Provider Instructions for Treatment How to access health informa tion online - Detail Indication:Nonsmoker Start:14-Jul-2018 Instruction Type:Patient Education Patient Instructions Indication:Nonsmoker Start:14-Jul-2018 Instruction Type:Provider Instructions for Treatment How to access health informa tion online Indication:Nonsmoker Start:17-Jun-2017 Instruction Type:Patient Education How to access health informa tion online - Detail Indication:Nonsmoker Start:17-Jun-2017 Instruction Type:Patient Education Patient Instructions Indication:Nonsmoker Start:17-Jun-2017 Instruction Type:Provider Instructions for Treatment How to access health informa tion online Indication:Flu-like symptoms Start:08-Aug-2016 Instruction Type:Patient Education How to access health informa tion online - Detail Indication:Flu-like symptoms Start:08-Aug-2016 Instruction Type:Patient Education Patient Instructions Indication:Flu-like symptoms Start:08-Aug-2016 Instruction Type:Provider Instructions for Treatment How to access health informa tion online Indication:Thyroid nodule Start:11-Dec-2015 Instruction Type:Patient Education How to access health informa tion online - Detail Indication:Thyroid nodule Start:11-Dec-2015 Instruction Type:Patient Education Patient Instructions Indication:Thyroid nodule Start:11-Dec-2015 Instruction Type:Provider Instructions for Treatment How to access health informa tion online Indication:Current nonsmoker (Renamed from Current non-smoker) Start:26-Jun-2015 Instruction Type:Patient Education How to access health informa tion online - Detail Indication:Current nonsmoker (Renamed from Current non-smoker) Start:26-Jun-2015 Instruction Type:Patient Education Patient Instructions Indication:Current nonsmoker (Renamed from Current non-smoker) Start:26-Jun-2015 Instruction Type:Provider Instructions for Treatment How to access health informa tion online Indication:Cough Start:26-Apr-2015 Instruction Type:Patient Education How to access health informa tion online - Detail Indication:Cough Start:26-Apr-2015 Instruction Type:Patient Education Patient Instructions Indication:Cough Start:26-Apr-2015 Instruction Type:Provider Instructions for Treatment How to access health informa tion online Indication:Headache Start:19-Feb-2015 Instruction Type:Patient Education How to access health informa tion online - Detail Indication:Headache Start:19-Feb-2015 Instruction Type:Patient Education Patient Instructions Indication:Headache Start:19-Feb-2015 Instruction Type:Provider Instructions for Treatment How to access health informa tion online Indication:Abnormal breath sounds Start:29-Sep-2014 Instruction Type:Patient Education How to access health informa tion online - Detail Indication:Abnormal breath sounds Start:29-Sep-2014 Instruction Type:Patient Education Patient Instructions Indication:Abnormal breath sounds Start:29-Sep-2014 Instruction Type:Provider Instructions for Treatment Patient Instructions Indication:Hyperlipidemia Start:17-Feb-2014 Instruction Type:Provider Instructions for Treatment Patient Instructions Indication:Hyperlipidemia Start:07-Jan-2013 Instruction Type:Provider Instructions for Treatment [facility]; [facility] Work Phone: Instructions* Name Dates Details Patient Instructions Indication:Nonsmoker Start:04-Mar-2021 Instruction Type:Provider Instructions for Treatment How to Access Health Informa tion Online using Patient Portal and [employer] Apps Indication:Nonsmoker Start:04-Mar-2021 Instruction Type:Patient Education Patient Instructions Indication:Nonsmoker Start:01-Mar-2021 Instruction Type:Provider Instructions for Treatment How to Access Health Informa tion Online using Patient Portal and [employer] Apps Indication:Nonsmoker Start:01-Mar-2021 Instruction Type:Patient Education Patient Instructions Indication:BMI 37.0-37.9, adult Start:03-Oct-2020 Instruction Type:Provider Instructions for Treatment How to Access Health Informa tion Online using Patient Portal and [employer] Apps Indication:BMI 37.0-37.9, adult Start:03-Oct-2020 Instruction Type:Patient Education How to access health informa tion online Indication:BMI 37.0-37.9, adult Start:25-Nov-2019 Instruction Type:Patient Education How to access health informa tion online - Detail Indication:BMI 37.0-37.9, adult Start:25-Nov-2019 Instruction Type:Patient Education Patient Instructions Indication:BMI 37.0-37.9, adult Start:25-Nov-2019 Instruction Type:Provider Instructions for Treatment How to access health informa tion online Indication:Nonsmoker Start:04-Nov-2019 Instruction Type:Patient Education How to access health informa tion online - Detail Indication:Nonsmoker Start:04-Nov-2019 Instruction Type:Patient Education Patient Instructions Indication:Nonsmoker Start:04-Nov-2019 Instruction Type:Provider Instructions for Treatment How to access health informa tion online Indication:Mild intermittent asthma without complication Start:25-Mar-2019 Instruction Type:Patient Education How to access health informa tion online - Detail Indication:Mild intermittent asthma without complication Start:25-Mar-2019 Instruction Type:Patient Education Patient Instructions Indication:Mild intermittent asthma without complication Start:25-Mar-2019 Instruction Type:Provider Instructions for Treatment How to access health informa tion online Indication:Nonsmoker Start:17-Sep-2018 Instruction Type:Patient Education How to access health informa tion online - Detail Indication:Nonsmoker Start:17-Sep-2018 Instruction Type:Patient Education Patient Instructions Indication:Nonsmoker Start:17-Sep-2018 Instruction Type:Provider Instructions for Treatment How to access health informa tion online - Detail Indication:Nonsmoker Start:14-Jul-2018 Instruction Type:Patient Education Patient Instructions Indication:Nonsmoker Start:14-Jul-2018 Instruction Type:Provider Instructions for Treatment How to access health informa tion online Indication:Nonsmoker Start:17-Jun-2017 Instruction Type:Patient Education How to access health informa tion online - Detail Indication:Nonsmoker Start:17-Jun-2017 Instruction Type:Patient Education Patient Instructions Indication:Nonsmoker Start:17-Jun-2017 Instruction Type:Provider Instructions for Treatment How to access health informa tion online Indication:Flu-like symptoms Start:08-Aug-2016 Instruction Type:Patient Education How to access health informa tion online - Detail Indication:Flu-like symptoms Start:08-Aug-2016 Instruction Type:Patient Education Patient Instructions Indication:Flu-like symptoms Start:08-Aug-2016 Instruction Type:Provider Instructions for Treatment How to access health informa tion online Indication:Thyroid nodule Start:11-Dec-2015 Instruction Type:Patient Education How to access health informa tion online - Detail Indication:Thyroid nodule Start:11-Dec-2015 Instruction Type:Patient Education Patient Instructions Indication:Thyroid nodule Start:11-Dec-2015 Instruction Type:Provider Instructions for Treatment How to access health informa tion online Indication:Current nonsmoker (Renamed from Current non-smoker) Start:26-Jun-2015 Instruction Type:Patient Education How to access health informa tion online - Detail Indication:Current nonsmoker (Renamed from Current non-smoker) Start:26-Jun-2015 Instruction Type:Patient Education Patient Instructions Indication:Current nonsmoker (Renamed from Current non-smoker) Start:26-Jun-2015 Instruction Type:Provider Instructions for Treatment How to access health informa tion online Indication:Cough Start:26-Apr-2015 Instruction Type:Patient Education How to access health informa tion online - Detail Indication:Cough Start:26-Apr-2015 Instruction Type:Patient Education Patient Instructions Indication:Cough Start:26-Apr-2015 Instruction Type:Provider Instructions for Treatment How to access health informa tion online Indication:Headache Start:19-Feb-2015 Instruction Type:Patient Education How to access health informa tion online - Detail Indication:Headache Start:19-Feb-2015 Instruction Type:Patient Education Patient Instructions Indication:Headache Start:19-Feb-2015 Instruction Type:Provider Instructions for Treatment How to access health informa tion online Indication:Abnormal breath sounds Start:29-Sep-2014 Instruction Type:Patient Education How to access health informa tion online - Detail Indication:Abnormal breath sounds Start:29-Sep-2014 Instruction Type:Patient Education Patient Instructions Indication:Abnormal breath sounds Start:29-Sep-2014 Instruction Type:Provider Instructions for Treatment Patient Instructions Indication:Hyperlipidemia Start:17-Feb-2014 Instruction Type:Provider Instructions for Treatment Patient Instructions Indication:Hyperlipidemia Start:07-Jan-2013 Instruction Type:Provider Instructions for Treatment [facility]; [facility] Work Phone: Instructions* Name Dates Details Patient Instructions Indication:Nonsmoker Start:04-Mar-2021 Instruction Type:Provider Instructions for Treatment How to Access Health Informa tion Online using Patient Portal and [employer] Apps Indication:Nonsmoker Start:04-Mar-2021 Instruction Type:Patient Education Patient Instructions Indication:Nonsmoker Start:01-Mar-2021 Instruction Type:Provider Instructions for Treatment How to Access Health Informa tion Online using Patient Portal and [employer] Apps Indication:Nonsmoker Start:01-Mar-2021 Instruction Type:Patient Education Patient Instructions Indication:BMI 37.0-37.9, adult Start:03-Oct-2020 Instruction Type:Provider Instructions for Treatment How to Access Health Informa tion Online using Patient Portal and [employer] Apps Indication:BMI 37.0-37.9, adult Start:03-Oct-2020 Instruction Type:Patient Education How to access health informa tion online Indication:BMI 37.0-37.9, adult Start:25-Nov-2019 Instruction Type:Patient Education How to access health informa tion online - Detail Indication:BMI 37.0-37.9, adult Start:25-Nov-2019 Instruction Type:Patient Education Patient Instructions Indication:BMI 37.0-37.9, adult Start:25-Nov-2019 Instruction Type:Provider Instructions for Treatment How to access health informa tion online Indication:Nonsmoker Start:04-Nov-2019 Instruction Type:Patient Education How to access health informa tion online - Detail Indication:Nonsmoker Start:04-Nov-2019 Instruction Type:Patient Education Patient Instructions Indication:Nonsmoker Start:04-Nov-2019 Instruction Type:Provider Instructions for Treatment How to access health informa tion online Indication:Mild intermittent asthma without complication Start:25-Mar-2019 Instruction Type:Patient Education How to access health informa tion online - Detail Indication:Mild intermittent asthma without complication Start:25-Mar-2019 Instruction Type:Patient Education Patient Instructions Indication:Mild intermittent asthma without complication Start:25-Mar-2019 Instruction Type:Provider Instructions for Treatment How to access health informa tion online Indication:Nonsmoker Start:17-Sep-2018 Instruction Type:Patient Education How to access health informa tion online - Detail Indication:Nonsmoker Start:17-Sep-2018 Instruction Type:Patient Education Patient Instructions Indication:Nonsmoker Start:17-Sep-2018 Instruction Type:Provider Instructions for Treatment How to access health informa tion online - Detail Indication:Nonsmoker Start:14-Jul-2018 Instruction Type:Patient Education Patient Instructions Indication:Nonsmoker Start:14-Jul-2018 Instruction Type:Provider Instructions for Treatment How to access health informa tion online Indication:Nonsmoker Start:17-Jun-2017 Instruction Type:Patient Education How to access health informa tion online - Detail Indication:Nonsmoker Start:17-Jun-2017 Instruction Type:Patient Education Patient Instructions Indication:Nonsmoker Start:17-Jun-2017 Instruction Type:Provider Instructions for Treatment How to access health informa tion online Indication:Flu-like symptoms Start:08-Aug-2016 Instruction Type:Patient Education How to access health informa tion online - Detail Indication:Flu-like symptoms Start:08-Aug-2016 Instruction Type:Patient Education Patient Instructions Indication:Flu-like symptoms Start:08-Aug-2016 Instruction Type:Provider Instructions for Treatment How to access health informa tion online Indication:Thyroid nodule Start:11-Dec-2015 Instruction Type:Patient Education How to access health informa tion online - Detail Indication:Thyroid nodule Start:11-Dec-2015 Instruction Type:Patient Education Patient Instructions Indication:Thyroid nodule Start:11-Dec-2015 Instruction Type:Provider Instructions for Treatment How to access health informa tion online Indication:Current nonsmoker (Renamed from Current non-smoker) Start:26-Jun-2015 Instruction Type:Patient Education How to access health informa tion online - Detail Indication:Current nonsmoker (Renamed from Current non-smoker) Start:26-Jun-2015 Instruction Type:Patient Education Patient Instructions Indication:Current nonsmoker (Renamed from Current non-smoker) Start:26-Jun-2015 Instruction Type:Provider Instructions for Treatment How to access health informa tion online Indication:Cough Start:26-Apr-2015 Instruction Type:Patient Education How to access health informa tion online - Detail Indication:Cough Start:26-Apr-2015 Instruction Type:Patient Education Patient Instructions Indication:Cough Start:26-Apr-2015 Instruction Type:Provider Instructions for Treatment How to access health informa tion online Indication:Headache Start:19-Feb-2015 Instruction Type:Patient Education How to access health informa tion online - Detail Indication:Headache Start:19-Feb-2015 Instruction Type:Patient Education Patient Instructions Indication:Headache Start:19-Feb-2015 Instruction Type:Provider Instructions for Treatment How to access health informa tion online Indication:Abnormal breath sounds Start:29-Sep-2014 Instruction Type:Patient Education How to access health informa tion online - Detail Indication:Abnormal breath sounds Start:29-Sep-2014 Instruction Type:Patient Education Patient Instructions Indication:Abnormal breath sounds Start:29-Sep-2014 Instruction Type:Provider Instructions for Treatment Patient Instructions Indication:Hyperlipidemia Start:17-Feb-2014 Instruction Type:Provider Instructions for Treatment Patient Instructions Indication:Hyperlipidemia Start:07-Jan-2013 Instruction Type:Provider Instructions for Treatment [facility]; [facility] Work Phone: Instructions* Name Dates Details Patient Instructions Indication:Nonsmoker Start:04-Mar-2021 Instruction Type:Provider Instructions for Treatment How to Access Health Informa tion Online using Patient Portal and [employer] Apps Indication:Nonsmoker Start:04-Mar-2021 Instruction Type:Patient Education Patient Instructions Indication:Nonsmoker Start:01-Mar-2021 Instruction Type:Provider Instructions for Treatment How to Access Health Informa tion Online using Patient Portal and [employer] Apps Indication:Nonsmoker Start:01-Mar-2021 Instruction Type:Patient Education Patient Instructions Indication:BMI 37.0-37.9, adult Start:03-Oct-2020 Instruction Type:Provider Instructions for Treatment How to Access Health Informa tion Online using Patient Portal and [employer] Apps Indication:BMI 37.0-37.9, adult Start:03-Oct-2020 Instruction Type:Patient Education How to access health informa tion online Indication:BMI 37.0-37.9, adult Start:25-Nov-2019 Instruction Type:Patient Education How to access health informa tion online - Detail Indication:BMI 37.0-37.9, adult Start:25-Nov-2019 Instruction Type:Patient Education Patient Instructions Indication:BMI 37.0-37.9, adult Start:25-Nov-2019 Instruction Type:Provider Instructions for Treatment How to access health informa tion online Indication:Nonsmoker Start:04-Nov-2019 Instruction Type:Patient Education How to access health informa tion online - Detail Indication:Nonsmoker Start:04-Nov-2019 Instruction Type:Patient Education Patient Instructions Indication:Nonsmoker Start:04-Nov-2019 Instruction Type:Provider Instructions for Treatment How to access health informa tion online Indication:Mild intermittent asthma without complication Start:25-Mar-2019 Instruction Type:Patient Education How to access health informa tion online - Detail Indication:Mild intermittent asthma without complication Start:25-Mar-2019 Instruction Type:Patient Education Patient Instructions Indication:Mild intermittent asthma without complication Start:25-Mar-2019 Instruction Type:Provider Instructions for Treatment How to access health informa tion online Indication:Nonsmoker Start:17-Sep-2018 Instruction Type:Patient Education How to access health informa tion online - Detail Indication:Nonsmoker Start:17-Sep-2018 Instruction Type:Patient Education Patient Instructions Indication:Nonsmoker Start:17-Sep-2018 Instruction Type:Provider Instructions for Treatment How to access health informa tion online - Detail Indication:Nonsmoker Start:14-Jul-2018 Instruction Type:Patient Education Patient Instructions Indication:Nonsmoker Start:14-Jul-2018 Instruction Type:Provider Instructions for Treatment How to access health informa tion online Indication:Nonsmoker Start:17-Jun-2017 Instruction Type:Patient Education How to access health informa tion online - Detail Indication:Nonsmoker Start:17-Jun-2017 Instruction Type:Patient Education Patient Instructions Indication:Nonsmoker Start:17-Jun-2017 Instruction Type:Provider Instructions for Treatment How to access health informa tion online Indication:Flu-like symptoms Start:08-Aug-2016 Instruction Type:Patient Education How to access health informa tion online - Detail Indication:Flu-like symptoms Start:08-Aug-2016 Instruction Type:Patient Education Patient Instructions Indication:Flu-like symptoms Start:08-Aug-2016 Instruction Type:Provider Instructions for Treatment How to access health informa tion online Indication:Thyroid nodule Start:11-Dec-2015 Instruction Type:Patient Education How to access health informa tion online - Detail Indication:Thyroid nodule Start:11-Dec-2015 Instruction Type:Patient Education Patient Instructions Indication:Thyroid nodule Start:11-Dec-2015 Instruction Type:Provider Instructions for Treatment How to access health informa tion online Indication:Current nonsmoker (Renamed from Current non-smoker) Start:26-Jun-2015 Instruction Type:Patient Education How to access health informa tion online - Detail Indication:Current nonsmoker (Renamed from Current non-smoker) Start:26-Jun-2015 Instruction Type:Patient Education Patient Instructions Indication:Current nonsmoker (Renamed from Current non-smoker) Start:26-Jun-2015 Instruction Type:Provider Instructions for Treatment How to access health informa tion online Indication:Cough Start:26-Apr-2015 Instruction Type:Patient Education How to access health informa tion online - Detail Indication:Cough Start:26-Apr-2015 Instruction Type:Patient Education Patient Instructions Indication:Cough Start:26-Apr-2015 Instruction Type:Provider Instructions for Treatment How to access health informa tion online Indication:Headache Start:19-Feb-2015 Instruction Type:Patient Education How to access health informa tion online - Detail Indication:Headache Start:19-Feb-2015 Instruction Type:Patient Education Patient Instructions Indication:Headache Start:19-Feb-2015 Instruction Type:Provider Instructions for Treatment How to access health informa tion online Indication:Abnormal breath sounds Start:29-Sep-2014 Instruction Type:Patient Education How to access health informa tion online - Detail Indication:Abnormal breath sounds Start:29-Sep-2014 Instruction Type:Patient Education Patient Instructions Indication:Abnormal breath sounds Start:29-Sep-2014 Instruction Type:Provider Instructions for Treatment Patient Instructions Indication:Hyperlipidemia Start:17-Feb-2014 Instruction Type:Provider Instructions for Treatment Patient Instructions Indication:Hyperlipidemia Start:07-Jan-2013 Instruction Type:Provider Instructions for Treatment [facility]; [facility] Work Phone: Instructions* Name Dates Details Patient Instructions Indication:Nonsmoker Start:04-Mar-2021 Instruction Type:Provider Instructions for Treatment How to Access Health Informa tion Online using Patient Portal and [employer]rd [employer] Apps Indication:Nonsmoker Start:04-Mar-2021 Instruction Type:Patient Education Patient Instructions Indication:Nonsmoker Start:01-Mar-2021 Instruction Type:Provider Instructions for Treatment How to Access Health Informa tion Online using Patient Portal and [employer] Apps Indication:Nonsmoker Start:01-Mar-2021 Instruction Type:Patient Education Patient Instructions Indication:BMI 37.0-37.9, adult Start:03-Oct-2020 Instruction Type:Provider Instructions for Treatment How to Access Health Informa tion Online using Patient Portal and [employer] Apps Indication:BMI 37.0-37.9, adult Start:03-Oct-2020 Instruction Type:Patient Education How to access health informa tion online Indication:BMI 37.0-37.9, adult Start:25-Nov-2019 Instruction Type:Patient Education How to access health informa tion online - Detail Indication:BMI 37.0-37.9, adult Start:25-Nov-2019 Instruction Type:Patient Education Patient Instructions Indication:BMI 37.0-37.9, adult Start:25-Nov-2019 Instruction Type:Provider Instructions for Treatment How to access health informa tion online Indication:Nonsmoker Start:04-Nov-2019 Instruction Type:Patient Education How to access health informa tion online - Detail Indication:Nonsmoker Start:04-Nov-2019 Instruction Type:Patient Education Patient Instructions Indication:Nonsmoker Start:04-Nov-2019 Instruction Type:Provider Instructions for Treatment How to access health informa tion online Indication:Mild intermittent asthma without complication Start:25-Mar-2019 Instruction Type:Patient Education How to access health informa tion online - Detail Indication:Mild intermittent asthma without complication Start:25-Mar-2019 Instruction Type:Patient Education Patient Instructions Indication:Mild intermittent asthma without complication Start:25-Mar-2019 Instruction Type:Provider Instructions for Treatment How to access health informa tion online Indication:Nonsmoker Start:17-Sep-2018 Instruction Type:Patient Education How to access health informa tion online - Detail Indication:Nonsmoker Start:17-Sep-2018 Instruction Type:Patient Education Patient Instructions Indication:Nonsmoker Start:17-Sep-2018 Instruction Type:Provider Instructions for Treatment How to access health informa tion online - Detail Indication:Nonsmoker Start:14-Jul-2018 Instruction Type:Patient Education Patient Instructions Indication:Nonsmoker Start:14-Jul-2018 Instruction Type:Provider Instructions for Treatment How to access health informa tion online Indication:Nonsmoker Start:17-Jun-2017 Instruction Type:Patient Education How to access health informa tion online - Detail Indication:Nonsmoker Start:17-Jun-2017 Instruction Type:Patient Education Patient Instructions Indication:Nonsmoker Start:17-Jun-2017 Instruction Type:Provider Instructions for Treatment How to access health informa tion online Indication:Flu-like symptoms Start:08-Aug-2016 Instruction Type:Patient Education How to access health informa tion online - Detail Indication:Flu-like symptoms Start:08-Aug-2016 Instruction Type:Patient Education Patient Instructions Indication:Flu-like symptoms Start:08-Aug-2016 Instruction Type:Provider Instructions for Treatment How to access health informa tion online Indication:Thyroid nodule Start:11-Dec-2015 Instruction Type:Patient Education How to access health informa tion online - Detail Indication:Thyroid nodule Start:11-Dec-2015 Instruction Type:Patient Education Patient Instructions Indication:Thyroid nodule Start:11-Dec-2015 Instruction Type:Provider Instructions for Treatment How to access health informa tion online Indication:Current nonsmoker (Renamed from Current non-smoker) Start:26-Jun-2015 Instruction Type:Patient Education How to access health informa tion online - Detail Indication:Current nonsmoker (Renamed from Current non-smoker) Start:26-Jun-2015 Instruction Type:Patient Education Patient Instructions Indication:Current nonsmoker (Renamed from Current non-smoker) Start:26-Jun-2015 Instruction Type:Provider Instructions for Treatment How to access health informa tion online Indication:Cough Start:26-Apr-2015 Instruction Type:Patient Education How to access health informa tion online - Detail Indication:Cough Start:26-Apr-2015 Instruction Type:Patient Education Patient Instructions Indication:Cough Start:26-Apr-2015 Instruction Type:Provider Instructions for Treatment How to access health informa tion online Indication:Headache Start:19-Feb-2015 Instruction Type:Patient Education How to access health informa tion online - Detail Indication:Headache Start:19-Feb-2015 Instruction Type:Patient Education Patient Instructions Indication:Headache Start:19-Feb-2015 Instruction Type:Provider Instructions for Treatment How to access health informa tion online Indication:Abnormal breath sounds Start:29-Sep-2014 Instruction Type:Patient Education How to access health informa tion online - Detail Indication:Abnormal breath sounds Start:29-Sep-2014 Instruction Type:Patient Education Patient Instructions Indication:Abnormal breath sounds Start:29-Sep-2014 Instruction Type:Provider Instructions for Treatment Patient Instructions Indication:Hyperlipidemia Start:17-Feb-2014 Instruction Type:Provider Instructions for Treatment Patient Instructions Indication:Hyperlipidemia Start:07-Jan-2013 Instruction Type:Provider Instructions for Treatment [facility]; [facility] Work Phone: Instructions* Name Dates Details Patient Instructions Indication:Nonsmoker Start:25-Apr-2022 Instruction Type:Provider Instructions for Treatment How to Access Health Informa tion Online using Patient Portal and [employer]rd [employer] Apps Indication:Nonsmoker Start:25-Apr-2022 Instruction Type:Patient Education Patient Instructions Indication:Nonsmoker Start:04-Mar-2021 Instruction Type:Provider Instructions for Treatment How to Access Health Informa tion Online using Patient Portal and [employer] Apps Indication:Nonsmoker Start:04-Mar-2021 Instruction Type:Patient Education Patient Instructions Indication:Nonsmoker Start:01-Mar-2021 Instruction Type:Provider Instructions for Treatment How to Access Health Informa tion Online using Patient Portal and [employer] Apps Indication:Nonsmoker Start:01-Mar-2021 Instruction Type:Patient Education Patient Instructions Indication:BMI 37.0-37.9, adult Start:03-Oct-2020 Instruction Type:Provider Instructions for Treatment How to Access Health Informa tion Online using Patient Portal and [employer] Apps Indication:BMI 37.0-37.9, adult Start:03-Oct-2020 Instruction Type:Patient Education How to access health informa tion online Indication:BMI 37.0-37.9, adult Start:25-Nov-2019 Instruction Type:Patient Education How to access health informa tion online - Detail Indication:BMI 37.0-37.9, adult Start:25-Nov-2019 Instruction Type:Patient Education Patient Instructions Indication:BMI 37.0-37.9, adult Start:25-Nov-2019 Instruction Type:Provider Instructions for Treatment How to access health informa tion online Indication:Nonsmoker Start:04-Nov-2019 Instruction Type:Patient Education How to access health informa tion online - Detail Indication:Nonsmoker Start:04-Nov-2019 Instruction Type:Patient Education Patient Instructions Indication:Nonsmoker Start:04-Nov-2019 Instruction Type:Provider Instructions for Treatment How to access health informa tion online Indication:Mild intermittent asthma without complication Start:25-Mar-2019 Instruction Type:Patient Education How to access health informa tion online - Detail Indication:Mild intermittent asthma without complication Start:25-Mar-2019 Instruction Type:Patient Education Patient Instructions Indication:Mild intermittent asthma without complication Start:25-Mar-2019 Instruction Type:Provider Instructions for Treatment How to access health informa tion online Indication:Nonsmoker Start:17-Sep-2018 Instruction Type:Patient Education How to access health informa tion online - Detail Indication:Nonsmoker Start:17-Sep-2018 Instruction Type:Patient Education Patient Instructions Indication:Nonsmoker Start:17-Sep-2018 Instruction Type:Provider Instructions for Treatment How to access health informa tion online - Detail Indication:Nonsmoker Start:14-Jul-2018 Instruction Type:Patient Education Patient Instructions Indication:Nonsmoker Start:14-Jul-2018 Instruction Type:Provider Instructions for Treatment How to access health informa tion online Indication:Nonsmoker Start:17-Jun-2017 Instruction Type:Patient Education How to access health informa tion online - Detail Indication:Nonsmoker Start:17-Jun-2017 Instruction Type:Patient Education Patient Instructions Indication:Nonsmoker Start:17-Jun-2017 Instruction Type:Provider Instructions for Treatment How to access health informa tion online Indication:Flu-like symptoms Start:08-Aug-2016 Instruction Type:Patient Education How to access health informa tion online - Detail Indication:Flu-like symptoms Start:08-Aug-2016 Instruction Type:Patient Education Patient Instructions Indication:Flu-like symptoms Start:08-Aug-2016 Instruction Type:Provider Instructions for Treatment How to access health informa tion online Indication:Thyroid nodule Start:11-Dec-2015 Instruction Type:Patient Education How to access health informa tion online - Detail Indication:Thyroid nodule Start:11-Dec-2015 Instruction Type:Patient Education Patient Instructions Indication:Thyroid nodule Start:11-Dec-2015 Instruction Type:Provider Instructions for Treatment How to access health informa tion online Indication:Current nonsmoker (Renamed from Current non-smoker) Start:26-Jun-2015 Instruction Type:Patient Education How to access health informa tion online - Detail Indication:Current nonsmoker (Renamed from Current non-smoker) Start:26-Jun-2015 Instruction Type:Patient Education Patient Instructions Indication:Current nonsmoker (Renamed from Current non-smoker) Start:26-Jun-2015 Instruction Type:Provider Instructions for Treatment How to access health informa tion online Indication:Cough Start:26-Apr-2015 Instruction Type:Patient Education How to access health informa tion online - Detail Indication:Cough Start:26-Apr-2015 Instruction Type:Patient Education Patient Instructions Indication:Cough Start:26-Apr-2015 Instruction Type:Provider Instructions for Treatment How to access health informa tion online Indication:Headache Start:19-Feb-2015 Instruction Type:Patient Education How to access health informa tion online - Detail Indication:Headache Start:19-Feb-2015 Instruction Type:Patient Education Patient Instructions Indication:Headache Start:19-Feb-2015 Instruction Type:Provider Instructions for Treatment How to access health informa tion online Indication:Abnormal breath sounds Start:29-Sep-2014 Instruction Type:Patient Education How to access health informa tion online - Detail Indication:Abnormal breath sounds Start:29-Sep-2014 Instruction Type:Patient Education Patient Instructions Indication:Abnormal breath sounds Start:29-Sep-2014 Instruction Type:Provider Instructions for Treatment Patient Instructions Indication:Hyperlipidemia Start:17-Feb-2014 Instruction Type:Provider Instructions for Treatment Patient Instructions Indication:Hyperlipidemia Start:07-Jan-2013 Instruction Type:Provider Instructions for Treatment [facility]; [facility] Work Phone: Instructions* Name Dates Details Patient Instructions Indication:Nonsmoker Start:25-Apr-2022 Instruction Type:Provider Instructions for Treatment How to Access Health Informa tion Online using Patient Portal and [employer] Apps Indication:Nonsmoker Start:25-Apr-2022 Instruction Type:Patient Education Patient Instructions Indication:Nonsmoker Start:04-Mar-2021 Instruction Type:Provider Instructions for Treatment How to Access Health Informa tion Online using Patient Portal and [employer]rd [employer] Apps Indication:Nonsmoker Start:04-Mar-2021 Instruction Type:Patient Education Patient Instructions Indication:Nonsmoker Start:01-Mar-2021 Instruction Type:Provider Instructions for Treatment How to Access Health Informa tion Online using Patient Portal and [employer]rd [employer] Apps Indication:Nonsmoker Start:01-Mar-2021 Instruction Type:Patient Education Patient Instructions Indication:BMI 37.0-37.9, adult Start:03-Oct-2020 Instruction Type:Provider Instructions for Treatment How to Access Health Informa tion Online using Patient Portal and [employer]rd [employer] Apps Indication:BMI 37.0-37.9, adult Start:03-Oct-2020 Instruction Type:Patient Education How to access health informa tion online Indication:BMI 37.0-37.9, adult Start:25-Nov-2019 Instruction Type:Patient Education How to access health informa tion online - Detail Indication:BMI 37.0-37.9, adult Start:25-Nov-2019 Instruction Type:Patient Education Patient Instructions Indication:BMI 37.0-37.9, adult Start:25-Nov-2019 Instruction Type:Provider Instructions for Treatment How to access health informa tion online Indication:Nonsmoker Start:04-Nov-2019 Instruction Type:Patient Education How to access health informa tion online - Detail Indication:Nonsmoker Start:04-Nov-2019 Instruction Type:Patient Education Patient Instructions Indication:Nonsmoker Start:04-Nov-2019 Instruction Type:Provider Instructions for Treatment How to access health informa tion online Indication:Mild intermittent asthma without complication Start:25-Mar-2019 Instruction Type:Patient Education How to access health informa tion online - Detail Indication:Mild intermittent asthma without complication Start:25-Mar-2019 Instruction Type:Patient Education Patient Instructions Indication:Mild intermittent asthma without complication Start:25-Mar-2019 Instruction Type:Provider Instructions for Treatment How to access health informa tion online Indication:Nonsmoker Start:17-Sep-2018 Instruction Type:Patient Education How to access health informa tion online - Detail Indication:Nonsmoker Start:17-Sep-2018 Instruction Type:Patient Education Patient Instructions Indication:Nonsmoker Start:17-Sep-2018 Instruction Type:Provider Instructions for Treatment How to access health informa tion online - Detail Indication:Nonsmoker Start:14-Jul-2018 Instruction Type:Patient Education Patient Instructions Indication:Nonsmoker Start:14-Jul-2018 Instruction Type:Provider Instructions for Treatment How to access health informa tion online Indication:Nonsmoker Start:17-Jun-2017 Instruction Type:Patient Education How to access health informa tion online - Detail Indication:Nonsmoker Start:17-Jun-2017 Instruction Type:Patient Education Patient Instructions Indication:Nonsmoker Start:17-Jun-2017 Instruction Type:Provider Instructions for Treatment How to access health informa tion online Indication:Flu-like symptoms Start:08-Aug-2016 Instruction Type:Patient Education How to access health informa tion online - Detail Indication:Flu-like symptoms Start:08-Aug-2016 Instruction Type:Patient Education Patient Instructions Indication:Flu-like symptoms Start:08-Aug-2016 Instruction Type:Provider Instructions for Treatment How to access health informa tion online Indication:Thyroid nodule Start:11-Dec-2015 Instruction Type:Patient Education How to access health informa tion online - Detail Indication:Thyroid nodule Start:11-Dec-2015 Instruction Type:Patient Education Patient Instructions Indication:Thyroid nodule Start:11-Dec-2015 Instruction Type:Provider Instructions for Treatment How to access health informa tion online Indication:Current nonsmoker (Renamed from Current non-smoker) Start:26-Jun-2015 Instruction Type:Patient Education How to access health informa tion online - Detail Indication:Current nonsmoker (Renamed from Current non-smoker) Start:26-Jun-2015 Instruction Type:Patient Education Patient Instructions Indication:Current nonsmoker (Renamed from Current non-smoker) Start:26-Jun-2015 Instruction Type:Provider Instructions for Treatment How to access health informa tion online Indication:Cough Start:26-Apr-2015 Instruction Type:Patient Education How to access health informa tion online - Detail Indication:Cough Start:26-Apr-2015 Instruction Type:Patient Education Patient Instructions Indication:Cough Start:26-Apr-2015 Instruction Type:Provider Instructions for Treatment How to access health informa tion online Indication:Headache Start:19-Feb-2015 Instruction Type:Patient Education How to access health informa tion online - Detail Indication:Headache Start:19-Feb-2015 Instruction Type:Patient Education Patient Instructions Indication:Headache Start:19-Feb-2015 Instruction Type:Provider Instructions for Treatment How to access health informa tion online Indication:Abnormal breath sounds Start:29-Sep-2014 Instruction Type:Patient Education How to access health informa tion online - Detail Indication:Abnormal breath sounds Start:29-Sep-2014 Instruction Type:Patient Education Patient Instructions Indication:Abnormal breath sounds Start:29-Sep-2014 Instruction Type:Provider Instructions for Treatment Patient Instructions Indication:Hyperlipidemia Start:17-Feb-2014 Instruction Type:Provider Instructions for Treatment Patient Instructions Indication:Hyperlipidemia Start:07-Jan-2013 Instruction Type:Provider Instructions for Treatment [facility]; [facility] Work Phone: Instructions* Name Dates Details Patient Instructions Indication:Nonsmoker Start:25-Apr-2022 Instruction Type:Provider Instructions for Treatment How to Access Health Informa tion Online using Patient Portal and [employer] Apps Indication:Nonsmoker Start:25-Apr-2022 Instruction Type:Patient Education Patient Instructions Indication:Nonsmoker Start:04-Mar-2021 Instruction Type:Provider Instructions for Treatment How to Access Health Informa tion Online using Patient Portal and [employer] Apps Indication:Nonsmoker Start:04-Mar-2021 Instruction Type:Patient Education Patient Instructions Indication:Nonsmoker Start:01-Mar-2021 Instruction Type:Provider Instructions for Treatment How to Access Health Informa tion Online using Patient Portal and [employer] Apps Indication:Nonsmoker Start:01-Mar-2021 Instruction Type:Patient Education Patient Instructions Indication:BMI 37.0-37.9, adult Start:03-Oct-2020 Instruction Type:Provider Instructions for Treatment How to Access Health Informa tion Online using Patient Portal and [employer] Apps Indication:BMI 37.0-37.9, adult Start:03-Oct-2020 Instruction Type:Patient Education How to access health informa tion online Indication:BMI 37.0-37.9, adult Start:25-Nov-2019 Instruction Type:Patient Education How to access health informa tion online - Detail Indication:BMI 37.0-37.9, adult Start:25-Nov-2019 Instruction Type:Patient Education Patient Instructions Indication:BMI 37.0-37.9, adult Start:25-Nov-2019 Instruction Type:Provider Instructions for Treatment How to access health informa tion online Indication:Nonsmoker Start:04-Nov-2019 Instruction Type:Patient Education How to access health informa tion online - Detail Indication:Nonsmoker Start:04-Nov-2019 Instruction Type:Patient Education Patient Instructions Indication:Nonsmoker Start:04-Nov-2019 Instruction Type:Provider Instructions for Treatment How to access health informa tion online Indication:Mild intermittent asthma without complication Start:25-Mar-2019 Instruction Type:Patient Education How to access health informa tion online - Detail Indication:Mild intermittent asthma without complication Start:25-Mar-2019 Instruction Type:Patient Education Patient Instructions Indication:Mild intermittent asthma without complication Start:25-Mar-2019 Instruction Type:Provider Instructions for Treatment How to access health informa tion online Indication:Nonsmoker Start:17-Sep-2018 Instruction Type:Patient Education How to access health informa tion online - Detail Indication:Nonsmoker Start:17-Sep-2018 Instruction Type:Patient Education Patient Instructions Indication:Nonsmoker Start:17-Sep-2018 Instruction Type:Provider Instructions for Treatment How to access health informa tion online - Detail Indication:Nonsmoker Start:14-Jul-2018 Instruction Type:Patient Education Patient Instructions Indication:Nonsmoker Start:14-Jul-2018 Instruction Type:Provider Instructions for Treatment How to access health informa tion online Indication:Nonsmoker Start:17-Jun-2017 Instruction Type:Patient Education How to access health informa tion online - Detail Indication:Nonsmoker Start:17-Jun-2017 Instruction Type:Patient Education Patient Instructions Indication:Nonsmoker Start:17-Jun-2017 Instruction Type:Provider Instructions for Treatment How to access health informa tion online Indication:Flu-like symptoms Start:08-Aug-2016 Instruction Type:Patient Education How to access health informa tion online - Detail Indication:Flu-like symptoms Start:08-Aug-2016 Instruction Type:Patient Education Patient Instructions Indication:Flu-like symptoms Start:08-Aug-2016 Instruction Type:Provider Instructions for Treatment How to access health informa tion online Indication:Thyroid nodule Start:11-Dec-2015 Instruction Type:Patient Education How to access health informa tion online - Detail Indication:Thyroid nodule Start:11-Dec-2015 Instruction Type:Patient Education Patient Instructions Indication:Thyroid nodule Start:11-Dec-2015 Instruction Type:Provider Instructions for Treatment How to access health informa tion online Indication:Current nonsmoker (Renamed from Current non-smoker) Start:26-Jun-2015 Instruction Type:Patient Education How to access health informa tion online - Detail Indication:Current nonsmoker (Renamed from Current non-smoker) Start:26-Jun-2015 Instruction Type:Patient Education Patient Instructions Indication:Current nonsmoker (Renamed from Current non-smoker) Start:26-Jun-2015 Instruction Type:Provider Instructions for Treatment How to access health informa tion online Indication:Cough Start:26-Apr-2015 Instruction Type:Patient Education How to access health informa tion online - Detail Indication:Cough Start:26-Apr-2015 Instruction Type:Patient Education Patient Instructions Indication:Cough Start:26-Apr-2015 Instruction Type:Provider Instructions for Treatment How to access health informa tion online Indication:Headache Start:19-Feb-2015 Instruction Type:Patient Education How to access health informa tion online - Detail Indication:Headache Start:19-Feb-2015 Instruction Type:Patient Education Patient Instructions Indication:Headache Start:19-Feb-2015 Instruction Type:Provider Instructions for Treatment How to access health informa tion online Indication:Abnormal breath sounds Start:29-Sep-2014 Instruction Type:Patient Education How to access health informa tion online - Detail Indication:Abnormal breath sounds Start:29-Sep-2014 Instruction Type:Patient Education Patient Instructions Indication:Abnormal breath sounds Start:29-Sep-2014 Instruction Type:Provider Instructions for Treatment Patient Instructions Indication:Hyperlipidemia Start:17-Feb-2014 Instruction Type:Provider Instructions for Treatment Patient Instructions Indication:Hyperlipidemia Start:07-Jan-2013 Instruction Type:Provider Instructions for Treatment [facility]; [facility] Work Phone: Instructions* Name Dates Details Patient Instructions Indication:Nonsmoker Start:25-Apr-2022 Instruction Type:Provider Instructions for Treatment How to Access Health Informa tion Online using Patient Portal and [employer]rd [employer] Apps Indication:Nonsmoker Start:25-Apr-2022 Instruction Type:Patient Education Patient Instructions Indication:Nonsmoker Start:04-Mar-2021 Instruction Type:Provider Instructions for Treatment How to Access Health Informa tion Online using Patient Portal and [employer]rd [employer] Apps Indication:Nonsmoker Start:04-Mar-2021 Instruction Type:Patient Education Patient Instructions Indication:Nonsmoker Start:01-Mar-2021 Instruction Type:Provider Instructions for Treatment How to Access Health Informa tion Online using Patient Portal and [employer]rd [employer] Apps Indication:Nonsmoker Start:01-Mar-2021 Instruction Type:Patient Education Patient Instructions Indication:BMI 37.0-37.9, adult Start:03-Oct-2020 Instruction Type:Provider Instructions for Treatment How to Access Health Informa tion Online using Patient Portal and [employer] Apps Indication:BMI 37.0-37.9, adult Start:03-Oct-2020 Instruction Type:Patient Education How to access health informa tion online Indication:BMI 37.0-37.9, adult Start:25-Nov-2019 Instruction Type:Patient Education How to access health informa tion online - Detail Indication:BMI 37.0-37.9, adult Start:25-Nov-2019 Instruction Type:Patient Education Patient Instructions Indication:BMI 37.0-37.9, adult Start:25-Nov-2019 Instruction Type:Provider Instructions for Treatment How to access health informa tion online Indication:Nonsmoker Start:04-Nov-2019 Instruction Type:Patient Education How to access health informa tion online - Detail Indication:Nonsmoker Start:04-Nov-2019 Instruction Type:Patient Education Patient Instructions Indication:Nonsmoker Start:04-Nov-2019 Instruction Type:Provider Instructions for Treatment How to access health informa tion online Indication:Mild intermittent asthma without complication Start:25-Mar-2019 Instruction Type:Patient Education How to access health informa tion online - Detail Indication:Mild intermittent asthma without complication Start:25-Mar-2019 Instruction Type:Patient Education Patient Instructions Indication:Mild intermittent asthma without complication Start:25-Mar-2019 Instruction Type:Provider Instructions for Treatment How to access health informa tion online Indication:Nonsmoker Start:17-Sep-2018 Instruction Type:Patient Education How to access health informa tion online - Detail Indication:Nonsmoker Start:17-Sep-2018 Instruction Type:Patient Education Patient Instructions Indication:Nonsmoker Start:17-Sep-2018 Instruction Type:Provider Instructions for Treatment How to access health informa tion online - Detail Indication:Nonsmoker Start:14-Jul-2018 Instruction Type:Patient Education Patient Instructions Indication:Nonsmoker Start:14-Jul-2018 Instruction Type:Provider Instructions for Treatment How to access health informa tion online Indication:Nonsmoker Start:17-Jun-2017 Instruction Type:Patient Education How to access health informa tion online - Detail Indication:Nonsmoker Start:17-Jun-2017 Instruction Type:Patient Education Patient Instructions Indication:Nonsmoker Start:17-Jun-2017 Instruction Type:Provider Instructions for Treatment How to access health informa tion online Indication:Flu-like symptoms Start:08-Aug-2016 Instruction Type:Patient Education How to access health informa tion online - Detail Indication:Flu-like symptoms Start:08-Aug-2016 Instruction Type:Patient Education Patient Instructions Indication:Flu-like symptoms Start:08-Aug-2016 Instruction Type:Provider Instructions for Treatment How to access health informa tion online Indication:Thyroid nodule Start:11-Dec-2015 Instruction Type:Patient Education How to access health informa tion online - Detail Indication:Thyroid nodule Start:11-Dec-2015 Instruction Type:Patient Education Patient Instructions Indication:Thyroid nodule Start:11-Dec-2015 Instruction Type:Provider Instructions for Treatment How to access health informa tion online Indication:Current nonsmoker (Renamed from Current non-smoker) Start:26-Jun-2015 Instruction Type:Patient Education How to access health informa tion online - Detail Indication:Current nonsmoker (Renamed from Current non-smoker) Start:26-Jun-2015 Instruction Type:Patient Education Patient Instructions Indication:Current nonsmoker (Renamed from Current non-smoker) Start:26-Jun-2015 Instruction Type:Provider Instructions for Treatment How to access health informa tion online Indication:Cough Start:26-Apr-2015 Instruction Type:Patient Education How to access health informa tion online - Detail Indication:Cough Start:26-Apr-2015 Instruction Type:Patient Education Patient Instructions Indication:Cough Start:26-Apr-2015 Instruction Type:Provider Instructions for Treatment How to access health informa tion online Indication:Headache Start:19-Feb-2015 Instruction Type:Patient Education How to access health informa tion online - Detail Indication:Headache Start:19-Feb-2015 Instruction Type:Patient Education Patient Instructions Indication:Headache Start:19-Feb-2015 Instruction Type:Provider Instructions for Treatment How to access health informa tion online Indication:Abnormal breath sounds Start:29-Sep-2014 Instruction Type:Patient Education How to access health informa tion online - Detail Indication:Abnormal breath sounds Start:29-Sep-2014 Instruction Type:Patient Education Patient Instructions Indication:Abnormal breath sounds Start:29-Sep-2014 Instruction Type:Provider Instructions for Treatment Patient Instructions Indication:Hyperlipidemia Start:17-Feb-2014 Instruction Type:Provider Instructions for Treatment Patient Instructions Indication:Hyperlipidemia Start:07-Jan-2013 Instruction Type:Provider Instructions for Treatment [facility]; [facility] Work Phone: Instructions* Name Dates Details Patient Instructions Indication:Nonsmoker Start:25-Apr-2022 Instruction Type:Provider Instructions for Treatment How to Access Health Informa tion Online using Patient Portal and [employer]rd [employer] Apps Indication:Nonsmoker Start:25-Apr-2022 Instruction Type:Patient Education Patient Instructions Indication:Nonsmoker Start:04-Mar-2021 Instruction Type:Provider Instructions for Treatment How to Access Health Informa tion Online using Patient Portal and [employer] Apps Indication:Nonsmoker Start:04-Mar-2021 Instruction Type:Patient Education Patient Instructions Indication:Nonsmoker Start:01-Mar-2021 Instruction Type:Provider Instructions for Treatment How to Access Health Informa tion Online using Patient Portal and [employer] Apps Indication:Nonsmoker Start:01-Mar-2021 Instruction Type:Patient Education Patient Instructions Indication:BMI 37.0-37.9, adult Start:03-Oct-2020 Instruction Type:Provider Instructions for Treatment How to Access Health Informa tion Online using Patient Portal and [employer] Apps Indication:BMI 37.0-37.9, adult Start:03-Oct-2020 Instruction Type:Patient Education How to access health informa tion online Indication:BMI 37.0-37.9, adult Start:25-Nov-2019 Instruction Type:Patient Education How to access health informa tion online - Detail Indication:BMI 37.0-37.9, adult Start:25-Nov-2019 Instruction Type:Patient Education Patient Instructions Indication:BMI 37.0-37.9, adult Start:25-Nov-2019 Instruction Type:Provider Instructions for Treatment How to access health informa tion online Indication:Nonsmoker Start:04-Nov-2019 Instruction Type:Patient Education How to access health informa tion online - Detail Indication:Nonsmoker Start:04-Nov-2019 Instruction Type:Patient Education Patient Instructions Indication:Nonsmoker Start:04-Nov-2019 Instruction Type:Provider Instructions for Treatment How to access health informa tion online Indication:Mild intermittent asthma without complication Start:25-Mar-2019 Instruction Type:Patient Education How to access health informa tion online - Detail Indication:Mild intermittent asthma without complication Start:25-Mar-2019 Instruction Type:Patient Education Patient Instructions Indication:Mild intermittent asthma without complication Start:25-Mar-2019 Instruction Type:Provider Instructions for Treatment How to access health informa tion online Indication:Nonsmoker Start:17-Sep-2018 Instruction Type:Patient Education How to access health informa tion online - Detail Indication:Nonsmoker Start:17-Sep-2018 Instruction Type:Patient Education Patient Instructions Indication:Nonsmoker Start:17-Sep-2018 Instruction Type:Provider Instructions for Treatment How to access health informa tion online - Detail Indication:Nonsmoker Start:14-Jul-2018 Instruction Type:Patient Education Patient Instructions Indication:Nonsmoker Start:14-Jul-2018 Instruction Type:Provider Instructions for Treatment How to access health informa tion online Indication:Nonsmoker Start:17-Jun-2017 Instruction Type:Patient Education How to access health informa tion online - Detail Indication:Nonsmoker Start:17-Jun-2017 Instruction Type:Patient Education Patient Instructions Indication:Nonsmoker Start:17-Jun-2017 Instruction Type:Provider Instructions for Treatment How to access health informa tion online Indication:Flu-like symptoms Start:08-Aug-2016 Instruction Type:Patient Education How to access health informa tion online - Detail Indication:Flu-like symptoms Start:08-Aug-2016 Instruction Type:Patient Education Patient Instructions Indication:Flu-like symptoms Start:08-Aug-2016 Instruction Type:Provider Instructions for Treatment How to access health informa tion online Indication:Thyroid nodule Start:11-Dec-2015 Instruction Type:Patient Education How to access health informa tion online - Detail Indication:Thyroid nodule Start:11-Dec-2015 Instruction Type:Patient Education Patient Instructions Indication:Thyroid nodule Start:11-Dec-2015 Instruction Type:Provider Instructions for Treatment How to access health informa tion online Indication:Current nonsmoker (Renamed from Current non-smoker) Start:26-Jun-2015 Instruction Type:Patient Education How to access health informa tion online - Detail Indication:Current nonsmoker (Renamed from Current non-smoker) Start:26-Jun-2015 Instruction Type:Patient Education Patient Instructions Indication:Current nonsmoker (Renamed from Current non-smoker) Start:26-Jun-2015 Instruction Type:Provider Instructions for Treatment How to access health informa tion online Indication:Cough Start:26-Apr-2015 Instruction Type:Patient Education How to access health informa tion online - Detail Indication:Cough Start:26-Apr-2015 Instruction Type:Patient Education Patient Instructions Indication:Cough Start:26-Apr-2015 Instruction Type:Provider Instructions for Treatment How to access health informa tion online Indication:Headache Start:19-Feb-2015 Instruction Type:Patient Education How to access health informa tion online - Detail Indication:Headache Start:19-Feb-2015 Instruction Type:Patient Education Patient Instructions Indication:Headache Start:19-Feb-2015 Instruction Type:Provider Instructions for Treatment How to access health informa tion online Indication:Abnormal breath sounds Start:29-Sep-2014 Instruction Type:Patient Education How to access health informa tion online - Detail Indication:Abnormal breath sounds Start:29-Sep-2014 Instruction Type:Patient Education Patient Instructions Indication:Abnormal breath sounds Start:29-Sep-2014 Instruction Type:Provider Instructions for Treatment Patient Instructions Indication:Hyperlipidemia Start:17-Feb-2014 Instruction Type:Provider Instructions for Treatment Patient Instructions Indication:Hyperlipidemia Start:07-Jan-2013 Instruction Type:Provider Instructions for Treatment [facility]; [facility] Work Phone: Instructions* Name Dates Details Patient Instructions Indication:BMI 39.0-39.9,adult Start:13-Jun-2022 Instruction Type:Provider Instructions for Treatment How to Access Health Informa tion Online using Patient Portal and [employer] Apps Indication:BMI 39.0-39.9,adult Start:13-Jun-2022 Instruction Type:Patient Education Patient Instructions Indication:Nonsmoker Start:25-Apr-2022 Instruction Type:Provider Instructions for Treatment How to Access Health Informa tion Online using Patient Portal and [employer] Apps Indication:Nonsmoker Start:25-Apr-2022 Instruction Type:Patient Education Patient Instructions Indication:Nonsmoker Start:04-Mar-2021 Instruction Type:Provider Instructions for Treatment How to Access Health Informa tion Online using Patient Portal and [employer] Apps Indication:Nonsmoker Start:04-Mar-2021 Instruction Type:Patient Education Patient Instructions Indication:Nonsmoker Start:01-Mar-2021 Instruction Type:Provider Instructions for Treatment How to Access Health Informa tion Online using Patient Portal and [employer] Apps Indication:Nonsmoker Start:01-Mar-2021 Instruction Type:Patient Education Patient Instructions Indication:BMI 37.0-37.9, adult Start:03-Oct-2020 Instruction Type:Provider Instructions for Treatment How to Access Health Informa tion Online using Patient Portal and [employer] Apps Indication:BMI 37.0-37.9, adult Start:03-Oct-2020 Instruction Type:Patient Education How to access health informa tion online Indication:BMI 37.0-37.9, adult Start:25-Nov-2019 Instruction Type:Patient Education How to access health informa tion online - Detail Indication:BMI 37.0-37.9, adult Start:25-Nov-2019 Instruction Type:Patient Education Patient Instructions Indication:BMI 37.0-37.9, adult Start:25-Nov-2019 Instruction Type:Provider Instructions for Treatment How to access health informa tion online Indication:Nonsmoker Start:04-Nov-2019 Instruction Type:Patient Education How to access health informa tion online - Detail Indication:Nonsmoker Start:04-Nov-2019 Instruction Type:Patient Education Patient Instructions Indication:Nonsmoker Start:04-Nov-2019 Instruction Type:Provider Instructions for Treatment How to access health informa tion online Indication:Mild intermittent asthma without complication Start:25-Mar-2019 Instruction Type:Patient Education How to access health informa tion online - Detail Indication:Mild intermittent asthma without complication Start:25-Mar-2019 Instruction Type:Patient Education Patient Instructions Indication:Mild intermittent asthma without complication Start:25-Mar-2019 Instruction Type:Provider Instructions for Treatment How to access health informa tion online Indication:Nonsmoker Start:17-Sep-2018 Instruction Type:Patient Education How to access health informa tion online - Detail Indication:Nonsmoker Start:17-Sep-2018 Instruction Type:Patient Education Patient Instructions Indication:Nonsmoker Start:17-Sep-2018 Instruction Type:Provider Instructions for Treatment How to access health informa tion online - Detail Indication:Nonsmoker Start:14-Jul-2018 Instruction Type:Patient Education Patient Instructions Indication:Nonsmoker Start:14-Jul-2018 Instruction Type:Provider Instructions for Treatment How to access health informa tion online Indication:Nonsmoker Start:17-Jun-2017 Instruction Type:Patient Education How to access health informa tion online - Detail Indication:Nonsmoker Start:17-Jun-2017 Instruction Type:Patient Education Patient Instructions Indication:Nonsmoker Start:17-Jun-2017 Instruction Type:Provider Instructions for Treatment How to access health informa tion online Indication:Flu-like symptoms Start:08-Aug-2016 Instruction Type:Patient Education How to access health informa tion online - Detail Indication:Flu-like symptoms Start:08-Aug-2016 Instruction Type:Patient Education Patient Instructions Indication:Flu-like symptoms Start:08-Aug-2016 Instruction Type:Provider Instructions for Treatment How to access health informa tion online Indication:Thyroid nodule Start:11-Dec-2015 Instruction Type:Patient Education How to access health informa tion online - Detail Indication:Thyroid nodule Start:11-Dec-2015 Instruction Type:Patient Education Patient Instructions Indication:Thyroid nodule Start:11-Dec-2015 Instruction Type:Provider Instructions for Treatment How to access health informa tion online Indication:Current nonsmoker (Renamed from Current non-smoker) Start:26-Jun-2015 Instruction Type:Patient Education How to access health informa tion online - Detail Indication:Current nonsmoker (Renamed from Current non-smoker) Start:26-Jun-2015 Instruction Type:Patient Education Patient Instructions Indication:Current nonsmoker (Renamed from Current non-smoker) Start:26-Jun-2015 Instruction Type:Provider Instructions for Treatment How to access health informa tion online Indication:Cough Start:26-Apr-2015 Instruction Type:Patient Education How to access health informa tion online - Detail Indication:Cough Start:26-Apr-2015 Instruction Type:Patient Education Patient Instructions Indication:Cough Start:26-Apr-2015 Instruction Type:Provider Instructions for Treatment How to access health informa tion online Indication:Headache Start:19-Feb-2015 Instruction Type:Patient Education How to access health informa tion online - Detail Indication:Headache Start:19-Feb-2015 Instruction Type:Patient Education Patient Instructions Indication:Headache Start:19-Feb-2015 Instruction Type:Provider Instructions for Treatment How to access health informa tion online Indication:Abnormal breath sounds Start:29-Sep-2014 Instruction Type:Patient Education How to access health informa tion online - Detail Indication:Abnormal breath sounds Start:29-Sep-2014 Instruction Type:Patient Education Patient Instructions Indication:Abnormal breath sounds Start:29-Sep-2014 Instruction Type:Provider Instructions for Treatment Patient Instructions Indication:Hyperlipidemia Start:17-Feb-2014 Instruction Type:Provider Instructions for Treatment Patient Instructions Indication:Hyperlipidemia Start:07-Jan-2013 Instruction Type:Provider Instructions for Treatment [facility]; [facility] Work Phone: Instructions* Name Dates Details Patient Instructions Indication:BMI 39.0-39.9,adult Start:13-Jun-2022 Instruction Type:Provider Instructions for Treatment How to Access Health Informa tion Online using Patient Portal and [employer] Apps Indication:BMI 39.0-39.9,adult Start:13-Jun-2022 Instruction Type:Patient Education Patient Instructions Indication:Nonsmoker Start:25-Apr-2022 Instruction Type:Provider Instructions for Treatment How to Access Health Informa tion Online using Patient Portal and [employer] Apps Indication:Nonsmoker Start:25-Apr-2022 Instruction Type:Patient Education Patient Instructions Indication:Nonsmoker Start:04-Mar-2021 Instruction Type:Provider Instructions for Treatment How to Access Health Informa tion Online using Patient Portal and [employer] Apps Indication:Nonsmoker Start:04-Mar-2021 Instruction Type:Patient Education Patient Instructions Indication:Nonsmoker Start:01-Mar-2021 Instruction Type:Provider Instructions for Treatment How to Access Health Informa tion Online using Patient Portal and [employer] Apps Indication:Nonsmoker Start:01-Mar-2021 Instruction Type:Patient Education Patient Instructions Indication:BMI 37.0-37.9, adult Start:03-Oct-2020 Instruction Type:Provider Instructions for Treatment How to Access Health Informa tion Online using Patient Portal and [employer] Apps Indication:BMI 37.0-37.9, adult Start:03-Oct-2020 Instruction Type:Patient Education How to access health informa tion online Indication:BMI 37.0-37.9, adult Start:25-Nov-2019 Instruction Type:Patient Education How to access health informa tion online - Detail Indication:BMI 37.0-37.9, adult Start:25-Nov-2019 Instruction Type:Patient Education Patient Instructions Indication:BMI 37.0-37.9, adult Start:25-Nov-2019 Instruction Type:Provider Instructions for Treatment How to access health informa tion online Indication:Nonsmoker Start:04-Nov-2019 Instruction Type:Patient Education How to access health informa tion online - Detail Indication:Nonsmoker Start:04-Nov-2019 Instruction Type:Patient Education Patient Instructions Indication:Nonsmoker Start:04-Nov-2019 Instruction Type:Provider Instructions for Treatment How to access health informa tion online Indication:Mild intermittent asthma without complication Start:25-Mar-2019 Instruction Type:Patient Education How to access health informa tion online - Detail Indication:Mild intermittent asthma without complication Start:25-Mar-2019 Instruction Type:Patient Education Patient Instructions Indication:Mild intermittent asthma without complication Start:25-Mar-2019 Instruction Type:Provider Instructions for Treatment How to access health informa tion online Indication:Nonsmoker Start:17-Sep-2018 Instruction Type:Patient Education How to access health informa tion online - Detail Indication:Nonsmoker Start:17-Sep-2018 Instruction Type:Patient Education Patient Instructions Indication:Nonsmoker Start:17-Sep-2018 Instruction Type:Provider Instructions for Treatment How to access health informa tion online - Detail Indication:Nonsmoker Start:14-Jul-2018 Instruction Type:Patient Education Patient Instructions Indication:Nonsmoker Start:14-Jul-2018 Instruction Type:Provider Instructions for Treatment How to access health informa tion online Indication:Nonsmoker Start:17-Jun-2017 Instruction Type:Patient Education How to access health informa tion online - Detail Indication:Nonsmoker Start:17-Jun-2017 Instruction Type:Patient Education Patient Instructions Indication:Nonsmoker Start:17-Jun-2017 Instruction Type:Provider Instructions for Treatment How to access health informa tion online Indication:Flu-like symptoms Start:08-Aug-2016 Instruction Type:Patient Education How to access health informa tion online - Detail Indication:Flu-like symptoms Start:08-Aug-2016 Instruction Type:Patient Education Patient Instructions Indication:Flu-like symptoms Start:08-Aug-2016 Instruction Type:Provider Instructions for Treatment How to access health informa tion online Indication:Thyroid nodule Start:11-Dec-2015 Instruction Type:Patient Education How to access health informa tion online - Detail Indication:Thyroid nodule Start:11-Dec-2015 Instruction Type:Patient Education Patient Instructions Indication:Thyroid nodule Start:11-Dec-2015 Instruction Type:Provider Instructions for Treatment How to access health informa tion online Indication:Current nonsmoker (Renamed from Current non-smoker) Start:26-Jun-2015 Instruction Type:Patient Education How to access health informa tion online - Detail Indication:Current nonsmoker (Renamed from Current non-smoker) Start:26-Jun-2015 Instruction Type:Patient Education Patient Instructions Indication:Current nonsmoker (Renamed from Current non-smoker) Start:26-Jun-2015 Instruction Type:Provider Instructions for Treatment How to access health informa tion online Indication:Cough Start:26-Apr-2015 Instruction Type:Patient Education How to access health informa tion online - Detail Indication:Cough Start:26-Apr-2015 Instruction Type:Patient Education Patient Instructions Indication:Cough Start:26-Apr-2015 Instruction Type:Provider Instructions for Treatment How to access health informa tion online Indication:Headache Start:19-Feb-2015 Instruction Type:Patient Education How to access health informa tion online - Detail Indication:Headache Start:19-Feb-2015 Instruction Type:Patient Education Patient Instructions Indication:Headache Start:19-Feb-2015 Instruction Type:Provider Instructions for Treatment How to access health informa tion online Indication:Abnormal breath sounds Start:29-Sep-2014 Instruction Type:Patient Education How to access health informa tion online - Detail Indication:Abnormal breath sounds Start:29-Sep-2014 Instruction Type:Patient Education Patient Instructions Indication:Abnormal breath sounds Start:29-Sep-2014 Instruction Type:Provider Instructions for Treatment Patient Instructions Indication:Hyperlipidemia Start:17-Feb-2014 Instruction Type:Provider Instructions for Treatment Patient Instructions Indication:Hyperlipidemia Start:07-Jan-2013 Instruction Type:Provider Instructions for Treatment [facility]; [facility] Work Phone: Instructions* Name Dates Details Patient Instructions Indication:Nonsmoker Start:19-Jun-2022 Instruction Type:Provider Instructions for Treatment How to Access Health Informa tion Online using Patient Portal and [employer] Apps Indication:Nonsmoker Start:19-Jun-2022 Instruction Type:Patient Education Patient Instructions Indication:BMI 39.0-39.9,adult Start:13-Jun-2022 Instruction Type:Provider Instructions for Treatment How to Access Health Informa tion Online using Patient Portal and [employer] Apps Indication:BMI 39.0-39.9,adult Start:13-Jun-2022 Instruction Type:Patient Education Patient Instructions Indication:Nonsmoker Start:25-Apr-2022 Instruction Type:Provider Instructions for Treatment How to Access Health Informa tion Online using Patient Portal and [employer] Apps Indication:Nonsmoker Start:25-Apr-2022 Instruction Type:Patient Education Patient Instructions Indication:Nonsmoker Start:04-Mar-2021 Instruction Type:Provider Instructions for Treatment How to Access Health Informa tion Online using Patient Portal and [employer] Apps Indication:Nonsmoker Start:04-Mar-2021 Instruction Type:Patient Education Patient Instructions Indication:Nonsmoker Start:01-Mar-2021 Instruction Type:Provider Instructions for Treatment How to Access Health Informa tion Online using Patient Portal and [employer] Apps Indication:Nonsmoker Start:01-Mar-2021 Instruction Type:Patient Education Patient Instructions Indication:BMI 37.0-37.9, adult Start:03-Oct-2020 Instruction Type:Provider Instructions for Treatment How to Access Health Informa tion Online using Patient Portal and [employer] Apps Indication:BMI 37.0-37.9, adult Start:03-Oct-2020 Instruction Type:Patient Education How to access health informa tion online Indication:BMI 37.0-37.9, adult Start:25-Nov-2019 Instruction Type:Patient Education How to access health informa tion online - Detail Indication:BMI 37.0-37.9, adult Start:25-Nov-2019 Instruction Type:Patient Education Patient Instructions Indication:BMI 37.0-37.9, adult Start:25-Nov-2019 Instruction Type:Provider Instructions for Treatment How to access health informa tion online Indication:Nonsmoker Start:04-Nov-2019 Instruction Type:Patient Education How to access health informa tion online - Detail Indication:Nonsmoker Start:04-Nov-2019 Instruction Type:Patient Education Patient Instructions Indication:Nonsmoker Start:04-Nov-2019 Instruction Type:Provider Instructions for Treatment How to access health informa tion online Indication:Mild intermittent asthma without complication Start:25-Mar-2019 Instruction Type:Patient Education How to access health informa tion online - Detail Indication:Mild intermittent asthma without complication Start:25-Mar-2019 Instruction Type:Patient Education Patient Instructions Indication:Mild intermittent asthma without complication Start:25-Mar-2019 Instruction Type:Provider Instructions for Treatment How to access health informa tion online Indication:Nonsmoker Start:17-Sep-2018 Instruction Type:Patient Education How to access health informa tion online - Detail Indication:Nonsmoker Start:17-Sep-2018 Instruction Type:Patient Education Patient Instructions Indication:Nonsmoker Start:17-Sep-2018 Instruction Type:Provider Instructions for Treatment How to access health informa tion online - Detail Indication:Nonsmoker Start:14-Jul-2018 Instruction Type:Patient Education Patient Instructions Indication:Nonsmoker Start:14-Jul-2018 Instruction Type:Provider Instructions for Treatment How to access health informa tion online Indication:Nonsmoker Start:17-Jun-2017 Instruction Type:Patient Education How to access health informa tion online - Detail Indication:Nonsmoker Start:17-Jun-2017 Instruction Type:Patient Education Patient Instructions Indication:Nonsmoker Start:17-Jun-2017 Instruction Type:Provider Instructions for Treatment How to access health informa tion online Indication:Flu-like symptoms Start:08-Aug-2016 Instruction Type:Patient Education How to access health informa tion online - Detail Indication:Flu-like symptoms Start:08-Aug-2016 Instruction Type:Patient Education Patient Instructions Indication:Flu-like symptoms Start:08-Aug-2016 Instruction Type:Provider Instructions for Treatment How to access health informa tion online Indication:Thyroid nodule Start:11-Dec-2015 Instruction Type:Patient Education How to access health informa tion online - Detail Indication:Thyroid nodule Start:11-Dec-2015 Instruction Type:Patient Education Patient Instructions Indication:Thyroid nodule Start:11-Dec-2015 Instruction Type:Provider Instructions for Treatment How to access health informa tion online Indication:Current nonsmoker (Renamed from Current non-smoker) Start:26-Jun-2015 Instruction Type:Patient Education How to access health informa tion online - Detail Indication:Current nonsmoker (Renamed from Current non-smoker) Start:26-Jun-2015 Instruction Type:Patient Education Patient Instructions Indication:Current nonsmoker (Renamed from Current non-smoker) Start:26-Jun-2015 Instruction Type:Provider Instructions for Treatment How to access health informa tion online Indication:Cough Start:26-Apr-2015 Instruction Type:Patient Education How to access health informa tion online - Detail Indication:Cough Start:26-Apr-2015 Instruction Type:Patient Education Patient Instructions Indication:Cough Start:26-Apr-2015 Instruction Type:Provider Instructions for Treatment How to access health informa tion online Indication:Headache Start:19-Feb-2015 Instruction Type:Patient Education How to access health informa tion online - Detail Indication:Headache Start:19-Feb-2015 Instruction Type:Patient Education Patient Instructions Indication:Headache Start:19-Feb-2015 Instruction Type:Provider Instructions for Treatment How to access health informa tion online Indication:Abnormal breath sounds Start:29-Sep-2014 Instruction Type:Patient Education How to access health informa tion online - Detail Indication:Abnormal breath sounds Start:29-Sep-2014 Instruction Type:Patient Education Patient Instructions Indication:Abnormal breath sounds Start:29-Sep-2014 Instruction Type:Provider Instructions for Treatment Patient Instructions Indication:Hyperlipidemia Start:17-Feb-2014 Instruction Type:Provider Instructions for Treatment Patient Instructions Indication:Hyperlipidemia Start:07-Jan-2013 Instruction Type:Provider Instructions for Treatment [facility]; [facility] Work Phone: Instructions* Name Dates Details Patient Instructions Indication:Nonsmoker Start:19-Jun-2022 Instruction Type:Provider Instructions for Treatment How to Access Health Informa tion Online using Patient Portal and [employer] Apps Indication:Nonsmoker Start:19-Jun-2022 Instruction Type:Patient Education Patient Instructions Indication:BMI 39.0-39.9,adult Start:13-Jun-2022 Instruction Type:Provider Instructions for Treatment How to Access Health Informa tion Online using Patient Portal and [employer] Apps Indication:BMI 39.0-39.9,adult Start:13-Jun-2022 Instruction Type:Patient Education Patient Instructions Indication:Nonsmoker Start:25-Apr-2022 Instruction Type:Provider Instructions for Treatment How to Access Health Informa tion Online using Patient Portal and [employer] Apps Indication:Nonsmoker Start:25-Apr-2022 Instruction Type:Patient Education Patient Instructions Indication:Nonsmoker Start:04-Mar-2021 Instruction Type:Provider Instructions for Treatment How to Access Health Informa tion Online using Patient Portal and [employer] Apps Indication:Nonsmoker Start:04-Mar-2021 Instruction Type:Patient Education Patient Instructions Indication:Nonsmoker Start:01-Mar-2021 Instruction Type:Provider Instructions for Treatment How to Access Health Informa tion Online using Patient Portal and [employer] Apps Indication:Nonsmoker Start:01-Mar-2021 Instruction Type:Patient Education Patient Instructions Indication:BMI 37.0-37.9, adult Start:03-Oct-2020 Instruction Type:Provider Instructions for Treatment How to Access Health Informa tion Online using Patient Portal and [employer] Apps Indication:BMI 37.0-37.9, adult Start:03-Oct-2020 Instruction Type:Patient Education How to access health informa tion online Indication:BMI 37.0-37.9, adult Start:25-Nov-2019 Instruction Type:Patient Education How to access health informa tion online - Detail Indication:BMI 37.0-37.9, adult Start:25-Nov-2019 Instruction Type:Patient Education Patient Instructions Indication:BMI 37.0-37.9, adult Start:25-Nov-2019 Instruction Type:Provider Instructions for Treatment How to access health informa tion online Indication:Nonsmoker Start:04-Nov-2019 Instruction Type:Patient Education How to access health informa tion online - Detail Indication:Nonsmoker Start:04-Nov-2019 Instruction Type:Patient Education Patient Instructions Indication:Nonsmoker Start:04-Nov-2019 Instruction Type:Provider Instructions for Treatment How to access health informa tion online Indication:Mild intermittent asthma without complication Start:25-Mar-2019 Instruction Type:Patient Education How to access health informa tion online - Detail Indication:Mild intermittent asthma without complication Start:25-Mar-2019 Instruction Type:Patient Education Patient Instructions Indication:Mild intermittent asthma without complication Start:25-Mar-2019 Instruction Type:Provider Instructions for Treatment How to access health informa tion online Indication:Nonsmoker Start:17-Sep-2018 Instruction Type:Patient Education How to access health informa tion online - Detail Indication:Nonsmoker Start:17-Sep-2018 Instruction Type:Patient Education Patient Instructions Indication:Nonsmoker Start:17-Sep-2018 Instruction Type:Provider Instructions for Treatment How to access health informa tion online - Detail Indication:Nonsmoker Start:14-Jul-2018 Instruction Type:Patient Education Patient Instructions Indication:Nonsmoker Start:14-Jul-2018 Instruction Type:Provider Instructions for Treatment How to access health informa tion online Indication:Nonsmoker Start:17-Jun-2017 Instruction Type:Patient Education How to access health informa tion online - Detail Indication:Nonsmoker Start:17-Jun-2017 Instruction Type:Patient Education Patient Instructions Indication:Nonsmoker Start:17-Jun-2017 Instruction Type:Provider Instructions for Treatment How to access health informa tion online Indication:Flu-like symptoms Start:08-Aug-2016 Instruction Type:Patient Education How to access health informa tion online - Detail Indication:Flu-like symptoms Start:08-Aug-2016 Instruction Type:Patient Education Patient Instructions Indication:Flu-like symptoms Start:08-Aug-2016 Instruction Type:Provider Instructions for Treatment How to access health informa tion online Indication:Thyroid nodule Start:11-Dec-2015 Instruction Type:Patient Education How to access health informa tion online - Detail Indication:Thyroid nodule Start:11-Dec-2015 Instruction Type:Patient Education Patient Instructions Indication:Thyroid nodule Start:11-Dec-2015 Instruction Type:Provider Instructions for Treatment How to access health informa tion online Indication:Current nonsmoker (Renamed from Current non-smoker) Start:26-Jun-2015 Instruction Type:Patient Education How to access health informa tion online - Detail Indication:Current nonsmoker (Renamed from Current non-smoker) Start:26-Jun-2015 Instruction Type:Patient Education Patient Instructions Indication:Current nonsmoker (Renamed from Current non-smoker) Start:26-Jun-2015 Instruction Type:Provider Instructions for Treatment How to access health informa tion online Indication:Cough Start:26-Apr-2015 Instruction Type:Patient Education How to access health informa tion online - Detail Indication:Cough Start:26-Apr-2015 Instruction Type:Patient Education Patient Instructions Indication:Cough Start:26-Apr-2015 Instruction Type:Provider Instructions for Treatment How to access health informa tion online Indication:Headache Start:19-Feb-2015 Instruction Type:Patient Education How to access health informa tion online - Detail Indication:Headache Start:19-Feb-2015 Instruction Type:Patient Education Patient Instructions Indication:Headache Start:19-Feb-2015 Instruction Type:Provider Instructions for Treatment How to access health informa tion online Indication:Abnormal breath sounds Start:29-Sep-2014 Instruction Type:Patient Education How to access health informa tion online - Detail Indication:Abnormal breath sounds Start:29-Sep-2014 Instruction Type:Patient Education Patient Instructions Indication:Abnormal breath sounds Start:29-Sep-2014 Instruction Type:Provider Instructions for Treatment Patient Instructions Indication:Hyperlipidemia Start:17-Feb-2014 Instruction Type:Provider Instructions for Treatment Patient Instructions Indication:Hyperlipidemia Start:07-Jan-2013 Instruction Type:Provider Instructions for Treatment [facility]; [facility] Work Phone: Instructions* Name Dates Details Patient Instructions Indication:Nonsmoker Start:19-Jun-2022 Instruction Type:Provider Instructions for Treatment How to Access Health Informa tion Online using Patient Portal and [employer] Apps Indication:Nonsmoker Start:19-Jun-2022 Instruction Type:Patient Education Patient Instructions Indication:BMI 39.0-39.9,adult Start:13-Jun-2022 Instruction Type:Provider Instructions for Treatment How to Access Health Informa tion Online using Patient Portal and [employer] Apps Indication:BMI 39.0-39.9,adult Start:13-Jun-2022 Instruction Type:Patient Education Patient Instructions Indication:Nonsmoker Start:25-Apr-2022 Instruction Type:Provider Instructions for Treatment How to Access Health Informa tion Online using Patient Portal and [employer] Apps Indication:Nonsmoker Start:25-Apr-2022 Instruction Type:Patient Education Patient Instructions Indication:Nonsmoker Start:04-Mar-2021 Instruction Type:Provider Instructions for Treatment How to Access Health Informa tion Online using Patient Portal and [employer] Apps Indication:Nonsmoker Start:04-Mar-2021 Instruction Type:Patient Education Patient Instructions Indication:Nonsmoker Start:01-Mar-2021 Instruction Type:Provider Instructions for Treatment How to Access Health Informa tion Online using Patient Portal and [employer] Apps Indication:Nonsmoker Start:01-Mar-2021 Instruction Type:Patient Education Patient Instructions Indication:BMI 37.0-37.9, adult Start:03-Oct-2020 Instruction Type:Provider Instructions for Treatment How to Access Health Informa tion Online using Patient Portal and [employer] Apps Indication:BMI 37.0-37.9, adult Start:03-Oct-2020 Instruction Type:Patient Education How to access health informa tion online Indication:BMI 37.0-37.9, adult Start:25-Nov-2019 Instruction Type:Patient Education How to access health informa tion online - Detail Indication:BMI 37.0-37.9, adult Start:25-Nov-2019 Instruction Type:Patient Education Patient Instructions Indication:BMI 37.0-37.9, adult Start:25-Nov-2019 Instruction Type:Provider Instructions for Treatment How to access health informa tion online Indication:Nonsmoker Start:04-Nov-2019 Instruction Type:Patient Education How to access health informa tion online - Detail Indication:Nonsmoker Start:04-Nov-2019 Instruction Type:Patient Education Patient Instructions Indication:Nonsmoker Start:04-Nov-2019 Instruction Type:Provider Instructions for Treatment How to access health informa tion online Indication:Mild intermittent asthma without complication Start:25-Mar-2019 Instruction Type:Patient Education How to access health informa tion online - Detail Indication:Mild intermittent asthma without complication Start:25-Mar-2019 Instruction Type:Patient Education Patient Instructions Indication:Mild intermittent asthma without complication Start:25-Mar-2019 Instruction Type:Provider Instructions for Treatment How to access health informa tion online Indication:Nonsmoker Start:17-Sep-2018 Instruction Type:Patient Education How to access health informa tion online - Detail Indication:Nonsmoker Start:17-Sep-2018 Instruction Type:Patient Education Patient Instructions Indication:Nonsmoker Start:17-Sep-2018 Instruction Type:Provider Instructions for Treatment How to access health informa tion online - Detail Indication:Nonsmoker Start:14-Jul-2018 Instruction Type:Patient Education Patient Instructions Indication:Nonsmoker Start:14-Jul-2018 Instruction Type:Provider Instructions for Treatment How to access health informa tion online Indication:Nonsmoker Start:17-Jun-2017 Instruction Type:Patient Education How to access health informa tion online - Detail Indication:Nonsmoker Start:17-Jun-2017 Instruction Type:Patient Education Patient Instructions Indication:Nonsmoker Start:17-Jun-2017 Instruction Type:Provider Instructions for Treatment How to access health informa tion online Indication:Flu-like symptoms Start:08-Aug-2016 Instruction Type:Patient Education How to access health informa tion online - Detail Indication:Flu-like symptoms Start:08-Aug-2016 Instruction Type:Patient Education Patient Instructions Indication:Flu-like symptoms Start:08-Aug-2016 Instruction Type:Provider Instructions for Treatment How to access health informa tion online Indication:Thyroid nodule Start:11-Dec-2015 Instruction Type:Patient Education How to access health informa tion online - Detail Indication:Thyroid nodule Start:11-Dec-2015 Instruction Type:Patient Education Patient Instructions Indication:Thyroid nodule Start:11-Dec-2015 Instruction Type:Provider Instructions for Treatment How to access health informa tion online Indication:Current nonsmoker (Renamed from Current non-smoker) Start:26-Jun-2015 Instruction Type:Patient Education How to access health informa tion online - Detail Indication:Current nonsmoker (Renamed from Current non-smoker) Start:26-Jun-2015 Instruction Type:Patient Education Patient Instructions Indication:Current nonsmoker (Renamed from Current non-smoker) Start:26-Jun-2015 Instruction Type:Provider Instructions for Treatment How to access health informa tion online Indication:Cough Start:26-Apr-2015 Instruction Type:Patient Education How to access health informa tion online - Detail Indication:Cough Start:26-Apr-2015 Instruction Type:Patient Education Patient Instructions Indication:Cough Start:26-Apr-2015 Instruction Type:Provider Instructions for Treatment How to access health informa tion online Indication:Headache Start:19-Feb-2015 Instruction Type:Patient Education How to access health informa tion online - Detail Indication:Headache Start:19-Feb-2015 Instruction Type:Patient Education Patient Instructions Indication:Headache Start:19-Feb-2015 Instruction Type:Provider Instructions for Treatment How to access health informa tion online Indication:Abnormal breath sounds Start:29-Sep-2014 Instruction Type:Patient Education How to access health informa tion online - Detail Indication:Abnormal breath sounds Start:29-Sep-2014 Instruction Type:Patient Education Patient Instructions Indication:Abnormal breath sounds Start:29-Sep-2014 Instruction Type:Provider Instructions for Treatment Patient Instructions Indication:Hyperlipidemia Start:17-Feb-2014 Instruction Type:Provider Instructions for Treatment Patient Instructions Indication:Hyperlipidemia Start:07-Jan-2013 Instruction Type:Provider Instructions for Treatment [facility]; [facility] Work Phone: Instructions* Name Dates Details Patient Instructions Indication:Nonsmoker Start:19-Jun-2022 Instruction Type:Provider Instructions for Treatment How to Access Health Informa tion Online using Patient Portal and [employer] Apps Indication:Nonsmoker Start:19-Jun-2022 Instruction Type:Patient Education Patient Instructions Indication:BMI 39.0-39.9,adult Start:13-Jun-2022 Instruction Type:Provider Instructions for Treatment How to Access Health Informa tion Online using Patient Portal and [employer] Apps Indication:BMI 39.0-39.9,adult Start:13-Jun-2022 Instruction Type:Patient Education Patient Instructions Indication:Nonsmoker Start:25-Apr-2022 Instruction Type:Provider Instructions for Treatment How to Access Health Informa tion Online using Patient Portal and [employer] Apps Indication:Nonsmoker Start:25-Apr-2022 Instruction Type:Patient Education Patient Instructions Indication:Nonsmoker Start:04-Mar-2021 Instruction Type:Provider Instructions for Treatment How to Access Health Informa tion Online using Patient Portal and [employer] Apps Indication:Nonsmoker Start:04-Mar-2021 Instruction Type:Patient Education Patient Instructions Indication:Nonsmoker Start:01-Mar-2021 Instruction Type:Provider Instructions for Treatment How to Access Health Informa tion Online using Patient Portal and [employer] Apps Indication:Nonsmoker Start:01-Mar-2021 Instruction Type:Patient Education Patient Instructions Indication:BMI 37.0-37.9, adult Start:03-Oct-2020 Instruction Type:Provider Instructions for Treatment How to Access Health Informa tion Online using Patient Portal and [employer] Apps Indication:BMI 37.0-37.9, adult Start:03-Oct-2020 Instruction Type:Patient Education How to access health informa tion online Indication:BMI 37.0-37.9, adult Start:25-Nov-2019 Instruction Type:Patient Education How to access health informa tion online - Detail Indication:BMI 37.0-37.9, adult Start:25-Nov-2019 Instruction Type:Patient Education Patient Instructions Indication:BMI 37.0-37.9, adult Start:25-Nov-2019 Instruction Type:Provider Instructions for Treatment How to access health informa tion online Indication:Nonsmoker Start:04-Nov-2019 Instruction Type:Patient Education How to access health informa tion online - Detail Indication:Nonsmoker Start:04-Nov-2019 Instruction Type:Patient Education Patient Instructions Indication:Nonsmoker Start:04-Nov-2019 Instruction Type:Provider Instructions for Treatment How to access health informa tion online Indication:Mild intermittent asthma without complication Start:25-Mar-2019 Instruction Type:Patient Education How to access health informa tion online - Detail Indication:Mild intermittent asthma without complication Start:25-Mar-2019 Instruction Type:Patient Education Patient Instructions Indication:Mild intermittent asthma without complication Start:25-Mar-2019 Instruction Type:Provider Instructions for Treatment How to access health informa tion online Indication:Nonsmoker Start:17-Sep-2018 Instruction Type:Patient Education How to access health informa tion online - Detail Indication:Nonsmoker Start:17-Sep-2018 Instruction Type:Patient Education Patient Instructions Indication:Nonsmoker Start:17-Sep-2018 Instruction Type:Provider Instructions for Treatment How to access health informa tion online - Detail Indication:Nonsmoker Start:14-Jul-2018 Instruction Type:Patient Education Patient Instructions Indication:Nonsmoker Start:14-Jul-2018 Instruction Type:Provider Instructions for Treatment How to access health informa tion online Indication:Nonsmoker Start:17-Jun-2017 Instruction Type:Patient Education How to access health informa tion online - Detail Indication:Nonsmoker Start:17-Jun-2017 Instruction Type:Patient Education Patient Instructions Indication:Nonsmoker Start:17-Jun-2017 Instruction Type:Provider Instructions for Treatment How to access health informa tion online Indication:Flu-like symptoms Start:08-Aug-2016 Instruction Type:Patient Education How to access health informa tion online - Detail Indication:Flu-like symptoms Start:08-Aug-2016 Instruction Type:Patient Education Patient Instructions Indication:Flu-like symptoms Start:08-Aug-2016 Instruction Type:Provider Instructions for Treatment How to access health informa tion online Indication:Thyroid nodule Start:11-Dec-2015 Instruction Type:Patient Education How to access health informa tion online - Detail Indication:Thyroid nodule Start:11-Dec-2015 Instruction Type:Patient Education Patient Instructions Indication:Thyroid nodule Start:11-Dec-2015 Instruction Type:Provider Instructions for Treatment How to access health informa tion online Indication:Current nonsmoker (Renamed from Current non-smoker) Start:26-Jun-2015 Instruction Type:Patient Education How to access health informa tion online - Detail Indication:Current nonsmoker (Renamed from Current non-smoker) Start:26-Jun-2015 Instruction Type:Patient Education Patient Instructions Indication:Current nonsmoker (Renamed from Current non-smoker) Start:26-Jun-2015 Instruction Type:Provider Instructions for Treatment How to access health informa tion online Indication:Cough Start:26-Apr-2015 Instruction Type:Patient Education How to access health informa tion online - Detail Indication:Cough Start:26-Apr-2015 Instruction Type:Patient Education Patient Instructions Indication:Cough Start:26-Apr-2015 Instruction Type:Provider Instructions for Treatment How to access health informa tion online Indication:Headache Start:19-Feb-2015 Instruction Type:Patient Education How to access health informa tion online - Detail Indication:Headache Start:19-Feb-2015 Instruction Type:Patient Education Patient Instructions Indication:Headache Start:19-Feb-2015 Instruction Type:Provider Instructions for Treatment How to access health informa tion online Indication:Abnormal breath sounds Start:29-Sep-2014 Instruction Type:Patient Education How to access health informa tion online - Detail Indication:Abnormal breath sounds Start:29-Sep-2014 Instruction Type:Patient Education Patient Instructions Indication:Abnormal breath sounds Start:29-Sep-2014 Instruction Type:Provider Instructions for Treatment Patient Instructions Indication:Hyperlipidemia Start:17-Feb-2014 Instruction Type:Provider Instructions for Treatment Patient Instructions Indication:Hyperlipidemia Start:07-Jan-2013 Instruction Type:Provider Instructions for Treatment [facility]; [facility] Work Phone: Instructions* Name Dates Details Patient Instructions Indication:Nonsmoker Start:19-Jun-2022 Instruction Type:Provider Instructions for Treatment How to Access Health Informa tion Online using Patient Portal and [employer] Apps Indication:Nonsmoker Start:19-Jun-2022 Instruction Type:Patient Education Patient Instructions Indication:BMI 39.0-39.9,adult Start:13-Jun-2022 Instruction Type:Provider Instructions for Treatment How to Access Health Informa tion Online using Patient Portal and [employer] Apps Indication:BMI 39.0-39.9,adult Start:13-Jun-2022 Instruction Type:Patient Education Patient Instructions Indication:Nonsmoker Start:25-Apr-2022 Instruction Type:Provider Instructions for Treatment How to Access Health Informa tion Online using Patient Portal and [employer] Apps Indication:Nonsmoker Start:25-Apr-2022 Instruction Type:Patient Education Patient Instructions Indication:Nonsmoker Start:04-Mar-2021 Instruction Type:Provider Instructions for Treatment How to Access Health Informa tion Online using Patient Portal and [employer] Apps Indication:Nonsmoker Start:04-Mar-2021 Instruction Type:Patient Education Patient Instructions Indication:Nonsmoker Start:01-Mar-2021 Instruction Type:Provider Instructions for Treatment How to Access Health Informa tion Online using Patient Portal and [employer] Apps Indication:Nonsmoker Start:01-Mar-2021 Instruction Type:Patient Education Patient Instructions Indication:BMI 37.0-37.9, adult Start:03-Oct-2020 Instruction Type:Provider Instructions for Treatment How to Access Health Informa tion Online using Patient Portal and [employer] Apps Indication:BMI 37.0-37.9, adult Start:03-Oct-2020 Instruction Type:Patient Education How to access health informa tion online Indication:BMI 37.0-37.9, adult Start:25-Nov-2019 Instruction Type:Patient Education How to access health informa tion online - Detail Indication:BMI 37.0-37.9, adult Start:25-Nov-2019 Instruction Type:Patient Education Patient Instructions Indication:BMI 37.0-37.9, adult Start:25-Nov-2019 Instruction Type:Provider Instructions for Treatment How to access health informa tion online Indication:Nonsmoker Start:04-Nov-2019 Instruction Type:Patient Education How to access health informa tion online - Detail Indication:Nonsmoker Start:04-Nov-2019 Instruction Type:Patient Education Patient Instructions Indication:Nonsmoker Start:04-Nov-2019 Instruction Type:Provider Instructions for Treatment How to access health informa tion online Indication:Mild intermittent asthma without complication Start:25-Mar-2019 Instruction Type:Patient Education How to access health informa tion online - Detail Indication:Mild intermittent asthma without complication Start:25-Mar-2019 Instruction Type:Patient Education Patient Instructions Indication:Mild intermittent asthma without complication Start:25-Mar-2019 Instruction Type:Provider Instructions for Treatment How to access health informa tion online Indication:Nonsmoker Start:17-Sep-2018 Instruction Type:Patient Education How to access health informa tion online - Detail Indication:Nonsmoker Start:17-Sep-2018 Instruction Type:Patient Education Patient Instructions Indication:Nonsmoker Start:17-Sep-2018 Instruction Type:Provider Instructions for Treatment How to access health informa tion online - Detail Indication:Nonsmoker Start:14-Jul-2018 Instruction Type:Patient Education Patient Instructions Indication:Nonsmoker Start:14-Jul-2018 Instruction Type:Provider Instructions for Treatment How to access health informa tion online Indication:Nonsmoker Start:17-Jun-2017 Instruction Type:Patient Education How to access health informa tion online - Detail Indication:Nonsmoker Start:17-Jun-2017 Instruction Type:Patient Education Patient Instructions Indication:Nonsmoker Start:17-Jun-2017 Instruction Type:Provider Instructions for Treatment How to access health informa tion online Indication:Flu-like symptoms Start:08-Aug-2016 Instruction Type:Patient Education How to access health informa tion online - Detail Indication:Flu-like symptoms Start:08-Aug-2016 Instruction Type:Patient Education Patient Instructions Indication:Flu-like symptoms Start:08-Aug-2016 Instruction Type:Provider Instructions for Treatment How to access health informa tion online Indication:Thyroid nodule Start:11-Dec-2015 Instruction Type:Patient Education How to access health informa tion online - Detail Indication:Thyroid nodule Start:11-Dec-2015 Instruction Type:Patient Education Patient Instructions Indication:Thyroid nodule Start:11-Dec-2015 Instruction Type:Provider Instructions for Treatment How to access health informa tion online Indication:Current nonsmoker (Renamed from Current non-smoker) Start:26-Jun-2015 Instruction Type:Patient Education How to access health informa tion online - Detail Indication:Current nonsmoker (Renamed from Current non-smoker) Start:26-Jun-2015 Instruction Type:Patient Education Patient Instructions Indication:Current nonsmoker (Renamed from Current non-smoker) Start:26-Jun-2015 Instruction Type:Provider Instructions for Treatment How to access health informa tion online Indication:Cough Start:26-Apr-2015 Instruction Type:Patient Education How to access health informa tion online - Detail Indication:Cough Start:26-Apr-2015 Instruction Type:Patient Education Patient Instructions Indication:Cough Start:26-Apr-2015 Instruction Type:Provider Instructions for Treatment How to access health informa tion online Indication:Headache Start:19-Feb-2015 Instruction Type:Patient Education How to access health informa tion online - Detail Indication:Headache Start:19-Feb-2015 Instruction Type:Patient Education Patient Instructions Indication:Headache Start:19-Feb-2015 Instruction Type:Provider Instructions for Treatment How to access health informa tion online Indication:Abnormal breath sounds Start:29-Sep-2014 Instruction Type:Patient Education How to access health informa tion online - Detail Indication:Abnormal breath sounds Start:29-Sep-2014 Instruction Type:Patient Education Patient Instructions Indication:Abnormal breath sounds Start:29-Sep-2014 Instruction Type:Provider Instructions for Treatment Patient Instructions Indication:Hyperlipidemia Start:17-Feb-2014 Instruction Type:Provider Instructions for Treatment Patient Instructions Indication:Hyperlipidemia Start:07-Jan-2013 Instruction Type:Provider Instructions for Treatment [facility]; [facility] Work Phone: Instructions* Name Dates Details Patient Instructions Indication:Nonsmoker Start:06-Aug-2022 Instruction Type:Provider Instructions for Treatment How to Access Health Informa tion Online using Patient Portal and [employer] Apps Indication:Nonsmoker Start:06-Aug-2022 Instruction Type:Patient Education Patient Instructions Indication:Nonsmoker Start:19-Jun-2022 Instruction Type:Provider Instructions for Treatment How to Access Health Informa tion Online using Patient Portal and [employer] Apps Indication:Nonsmoker Start:19-Jun-2022 Instruction Type:Patient Education Patient Instructions Indication:BMI 39.0-39.9,adult Start:13-Jun-2022 Instruction Type:Provider Instructions for Treatment How to Access Health Informa tion Online using Patient Portal and [employer] Apps Indication:BMI 39.0-39.9,adult Start:13-Jun-2022 Instruction Type:Patient Education Patient Instructions Indication:Nonsmoker Start:25-Apr-2022 Instruction Type:Provider Instructions for Treatment How to Access Health Informa tion Online using Patient Portal and [employer] Apps Indication:Nonsmoker Start:25-Apr-2022 Instruction Type:Patient Education Patient Instructions Indication:Nonsmoker Start:04-Mar-2021 Instruction Type:Provider Instructions for Treatment How to Access Health Informa tion Online using Patient Portal and [employer] Apps Indication:Nonsmoker Start:04-Mar-2021 Instruction Type:Patient Education Patient Instructions Indication:Nonsmoker Start:01-Mar-2021 Instruction Type:Provider Instructions for Treatment How to Access Health Informa tion Online using Patient Portal and [employer] Apps Indication:Nonsmoker Start:01-Mar-2021 Instruction Type:Patient Education Patient Instructions Indication:BMI 37.0-37.9, adult Start:03-Oct-2020 Instruction Type:Provider Instructions for Treatment How to Access Health Informa tion Online using Patient Portal and [employer] Apps Indication:BMI 37.0-37.9, adult Start:03-Oct-2020 Instruction Type:Patient Education How to access health informa tion online Indication:BMI 37.0-37.9, adult Start:25-Nov-2019 Instruction Type:Patient Education How to access health informa tion online - Detail Indication:BMI 37.0-37.9, adult Start:25-Nov-2019 Instruction Type:Patient Education Patient Instructions Indication:BMI 37.0-37.9, adult Start:25-Nov-2019 Instruction Type:Provider Instructions for Treatment How to access health informa tion online Indication:Nonsmoker Start:04-Nov-2019 Instruction Type:Patient Education How to access health informa tion online - Detail Indication:Nonsmoker Start:04-Nov-2019 Instruction Type:Patient Education Patient Instructions Indication:Nonsmoker Start:04-Nov-2019 Instruction Type:Provider Instructions for Treatment How to access health informa tion online Indication:Mild intermittent asthma without complication Start:25-Mar-2019 Instruction Type:Patient Education How to access health informa tion online - Detail Indication:Mild intermittent asthma without complication Start:25-Mar-2019 Instruction Type:Patient Education Patient Instructions Indication:Mild intermittent asthma without complication Start:25-Mar-2019 Instruction Type:Provider Instructions for Treatment How to access health informa tion online Indication:Nonsmoker Start:17-Sep-2018 Instruction Type:Patient Education How to access health informa tion online - Detail Indication:Nonsmoker Start:17-Sep-2018 Instruction Type:Patient Education Patient Instructions Indication:Nonsmoker Start:17-Sep-2018 Instruction Type:Provider Instructions for Treatment How to access health informa tion online - Detail Indication:Nonsmoker Start:14-Jul-2018 Instruction Type:Patient Education Patient Instructions Indication:Nonsmoker Start:14-Jul-2018 Instruction Type:Provider Instructions for Treatment How to access health informa tion online Indication:Nonsmoker Start:17-Jun-2017 Instruction Type:Patient Education How to access health informa tion online - Detail Indication:Nonsmoker Start:17-Jun-2017 Instruction Type:Patient Education Patient Instructions Indication:Nonsmoker Start:17-Jun-2017 Instruction Type:Provider Instructions for Treatment How to access health informa tion online Indication:Flu-like symptoms Start:08-Aug-2016 Instruction Type:Patient Education How to access health informa tion online - Detail Indication:Flu-like symptoms Start:08-Aug-2016 Instruction Type:Patient Education Patient Instructions Indication:Flu-like symptoms Start:08-Aug-2016 Instruction Type:Provider Instructions for Treatment How to access health informa tion online Indication:Thyroid nodule Start:11-Dec-2015 Instruction Type:Patient Education How to access health informa tion online - Detail Indication:Thyroid nodule Start:11-Dec-2015 Instruction Type:Patient Education Patient Instructions Indication:Thyroid nodule Start:11-Dec-2015 Instruction Type:Provider Instructions for Treatment How to access health informa tion online Indication:Current nonsmoker (Renamed from Current non-smoker) Start:26-Jun-2015 Instruction Type:Patient Education How to access health informa tion online - Detail Indication:Current nonsmoker (Renamed from Current non-smoker) Start:26-Jun-2015 Instruction Type:Patient Education Patient Instructions Indication:Current nonsmoker (Renamed from Current non-smoker) Start:26-Jun-2015 Instruction Type:Provider Instructions for Treatment How to access health informa tion online Indication:Cough Start:26-Apr-2015 Instruction Type:Patient Education How to access health informa tion online - Detail Indication:Cough Start:26-Apr-2015 Instruction Type:Patient Education Patient Instructions Indication:Cough Start:26-Apr-2015 Instruction Type:Provider Instructions for Treatment How to access health informa tion online Indication:Headache Start:19-Feb-2015 Instruction Type:Patient Education How to access health informa tion online - Detail Indication:Headache Start:19-Feb-2015 Instruction Type:Patient Education Patient Instructions Indication:Headache Start:19-Feb-2015 Instruction Type:Provider Instructions for Treatment How to access health informa tion online Indication:Abnormal breath sounds Start:29-Sep-2014 Instruction Type:Patient Education How to access health informa tion online - Detail Indication:Abnormal breath sounds Start:29-Sep-2014 Instruction Type:Patient Education Patient Instructions Indication:Abnormal breath sounds Start:29-Sep-2014 Instruction Type:Provider Instructions for Treatment Patient Instructions Indication:Hyperlipidemia Start:17-Feb-2014 Instruction Type:Provider Instructions for Treatment Patient Instructions Indication:Hyperlipidemia Start:07-Jan-2013 Instruction Type:Provider Instructions for Treatment [facility]; [facility] Work Phone: Instructions* Name Dates Details Patient Instructions Indication:Nonsmoker Start:06-Aug-2022 Instruction Type:Provider Instructions for Treatment How to Access Health Informa tion Online using Patient Portal and [employer] Apps Indication:Nonsmoker Start:06-Aug-2022 Instruction Type:Patient Education Patient Instructions Indication:Nonsmoker Start:19-Jun-2022 Instruction Type:Provider Instructions for Treatment How to Access Health Informa tion Online using Patient Portal and [employer] Apps Indication:Nonsmoker Start:19-Jun-2022 Instruction Type:Patient Education Patient Instructions Indication:BMI 39.0-39.9,adult Start:13-Jun-2022 Instruction Type:Provider Instructions for Treatment How to Access Health Informa tion Online using Patient Portal and [employer] Apps Indication:BMI 39.0-39.9,adult Start:13-Jun-2022 Instruction Type:Patient Education Patient Instructions Indication:Nonsmoker Start:25-Apr-2022 Instruction Type:Provider Instructions for Treatment How to Access Health Informa tion Online using Patient Portal and [employer] Apps Indication:Nonsmoker Start:25-Apr-2022 Instruction Type:Patient Education Patient Instructions Indication:Nonsmoker Start:04-Mar-2021 Instruction Type:Provider Instructions for Treatment How to Access Health Informa tion Online using Patient Portal and [employer] Apps Indication:Nonsmoker Start:04-Mar-2021 Instruction Type:Patient Education Patient Instructions Indication:Nonsmoker Start:01-Mar-2021 Instruction Type:Provider Instructions for Treatment How to Access Health Informa tion Online using Patient Portal and [employer] Apps Indication:Nonsmoker Start:01-Mar-2021 Instruction Type:Patient Education Patient Instructions Indication:BMI 37.0-37.9, adult Start:03-Oct-2020 Instruction Type:Provider Instructions for Treatment How to Access Health Informa tion Online using Patient Portal and [employer] Apps Indication:BMI 37.0-37.9, adult Start:03-Oct-2020 Instruction Type:Patient Education How to access health informa tion online Indication:BMI 37.0-37.9, adult Start:25-Nov-2019 Instruction Type:Patient Education How to access health informa tion online - Detail Indication:BMI 37.0-37.9, adult Start:25-Nov-2019 Instruction Type:Patient Education Patient Instructions Indication:BMI 37.0-37.9, adult Start:25-Nov-2019 Instruction Type:Provider Instructions for Treatment How to access health informa tion online Indication:Nonsmoker Start:04-Nov-2019 Instruction Type:Patient Education How to access health informa tion online - Detail Indication:Nonsmoker Start:04-Nov-2019 Instruction Type:Patient Education Patient Instructions Indication:Nonsmoker Start:04-Nov-2019 Instruction Type:Provider Instructions for Treatment How to access health informa tion online Indication:Mild intermittent asthma without complication Start:25-Mar-2019 Instruction Type:Patient Education How to access health informa tion online - Detail Indication:Mild intermittent asthma without complication Start:25-Mar-2019 Instruction Type:Patient Education Patient Instructions Indication:Mild intermittent asthma without complication Start:25-Mar-2019 Instruction Type:Provider Instructions for Treatment How to access health informa tion online Indication:Nonsmoker Start:17-Sep-2018 Instruction Type:Patient Education How to access health informa tion online - Detail Indication:Nonsmoker Start:17-Sep-2018 Instruction Type:Patient Education Patient Instructions Indication:Nonsmoker Start:17-Sep-2018 Instruction Type:Provider Instructions for Treatment How to access health informa tion online - Detail Indication:Nonsmoker Start:14-Jul-2018 Instruction Type:Patient Education Patient Instructions Indication:Nonsmoker Start:14-Jul-2018 Instruction Type:Provider Instructions for Treatment How to access health informa tion online Indication:Nonsmoker Start:17-Jun-2017 Instruction Type:Patient Education How to access health informa tion online - Detail Indication:Nonsmoker Start:17-Jun-2017 Instruction Type:Patient Education Patient Instructions Indication:Nonsmoker Start:17-Jun-2017 Instruction Type:Provider Instructions for Treatment How to access health informa tion online Indication:Flu-like symptoms Start:08-Aug-2016 Instruction Type:Patient Education How to access health informa tion online - Detail Indication:Flu-like symptoms Start:08-Aug-2016 Instruction Type:Patient Education Patient Instructions Indication:Flu-like symptoms Start:08-Aug-2016 Instruction Type:Provider Instructions for Treatment How to access health informa tion online Indication:Thyroid nodule Start:11-Dec-2015 Instruction Type:Patient Education How to access health informa tion online - Detail Indication:Thyroid nodule Start:11-Dec-2015 Instruction Type:Patient Education Patient Instructions Indication:Thyroid nodule Start:11-Dec-2015 Instruction Type:Provider Instructions for Treatment How to access health informa tion online Indication:Current nonsmoker (Renamed from Current non-smoker) Start:26-Jun-2015 Instruction Type:Patient Education How to access health informa tion online - Detail Indication:Current nonsmoker (Renamed from Current non-smoker) Start:26-Jun-2015 Instruction Type:Patient Education Patient Instructions Indication:Current nonsmoker (Renamed from Current non-smoker) Start:26-Jun-2015 Instruction Type:Provider Instructions for Treatment How to access health informa tion online Indication:Cough Start:26-Apr-2015 Instruction Type:Patient Education How to access health informa tion online - Detail Indication:Cough Start:26-Apr-2015 Instruction Type:Patient Education Patient Instructions Indication:Cough Start:26-Apr-2015 Instruction Type:Provider Instructions for Treatment How to access health informa tion online Indication:Headache Start:19-Feb-2015 Instruction Type:Patient Education How to access health informa tion online - Detail Indication:Headache Start:19-Feb-2015 Instruction Type:Patient Education Patient Instructions Indication:Headache Start:19-Feb-2015 Instruction Type:Provider Instructions for Treatment How to access health informa tion online Indication:Abnormal breath sounds Start:29-Sep-2014 Instruction Type:Patient Education How to access health informa tion online - Detail Indication:Abnormal breath sounds Start:29-Sep-2014 Instruction Type:Patient Education Patient Instructions Indication:Abnormal breath sounds Start:29-Sep-2014 Instruction Type:Provider Instructions for Treatment Patient Instructions Indication:Hyperlipidemia Start:17-Feb-2014 Instruction Type:Provider Instructions for Treatment Patient Instructions Indication:Hyperlipidemia Start:07-Jan-2013 Instruction Type:Provider Instructions for Treatment [facility]; [facility] Work Phone: Instructions* Name Dates Details Patient Instructions Indication:Nonsmoker Start:06-Aug-2022 Instruction Type:Provider Instructions for Treatment How to Access Health Informa tion Online using Patient Portal and [employer] Apps Indication:Nonsmoker Start:06-Aug-2022 Instruction Type:Patient Education Patient Instructions Indication:Nonsmoker Start:19-Jun-2022 Instruction Type:Provider Instructions for Treatment How to Access Health Informa tion Online using Patient Portal and [employer] Apps Indication:Nonsmoker Start:19-Jun-2022 Instruction Type:Patient Education Patient Instructions Indication:BMI 39.0-39.9,adult Start:13-Jun-2022 Instruction Type:Provider Instructions for Treatment How to Access Health Informa tion Online using Patient Portal and [employer]rd [employer] Apps Indication:BMI 39.0-39.9,adult Start:13-Jun-2022 Instruction Type:Patient Education Patient Instructions Indication:Nonsmoker Start:25-Apr-2022 Instruction Type:Provider Instructions for Treatment How to Access Health Informa tion Online using Patient Portal and [employer]rd [employer] Apps Indication:Nonsmoker Start:25-Apr-2022 Instruction Type:Patient Education Patient Instructions Indication:Nonsmoker Start:04-Mar-2021 Instruction Type:Provider Instructions for Treatment How to Access Health Informa tion Online using Patient Portal and [employer]rd [employer] Apps Indication:Nonsmoker Start:04-Mar-2021 Instruction Type:Patient Education Patient Instructions Indication:Nonsmoker Start:01-Mar-2021 Instruction Type:Provider Instructions for Treatment How to Access Health Informa tion Online using Patient Portal and [employer]rd [employer] Apps Indication:Nonsmoker Start:01-Mar-2021 Instruction Type:Patient Education Patient Instructions Indication:BMI 37.0-37.9, adult Start:03-Oct-2020 Instruction Type:Provider Instructions for Treatment How to Access Health Informa tion Online using Patient Portal and [employer]rd [employer] Apps Indication:BMI 37.0-37.9, adult Start:03-Oct-2020 Instruction Type:Patient Education How to access health informa tion online Indication:BMI 37.0-37.9, adult Start:25-Nov-2019 Instruction Type:Patient Education How to access health informa tion online - Detail Indication:BMI 37.0-37.9, adult Start:25-Nov-2019 Instruction Type:Patient Education Patient Instructions Indication:BMI 37.0-37.9, adult Start:25-Nov-2019 Instruction Type:Provider Instructions for Treatment How to access health informa tion online Indication:Nonsmoker Start:04-Nov-2019 Instruction Type:Patient Education How to access health informa tion online - Detail Indication:Nonsmoker Start:04-Nov-2019 Instruction Type:Patient Education Patient Instructions Indication:Nonsmoker Start:04-Nov-2019 Instruction Type:Provider Instructions for Treatment How to access health informa tion online Indication:Mild intermittent asthma without complication Start:25-Mar-2019 Instruction Type:Patient Education How to access health informa tion online - Detail Indication:Mild intermittent asthma without complication Start:25-Mar-2019 Instruction Type:Patient Education Patient Instructions Indication:Mild intermittent asthma without complication Start:25-Mar-2019 Instruction Type:Provider Instructions for Treatment How to access health informa tion online Indication:Nonsmoker Start:17-Sep-2018 Instruction Type:Patient Education How to access health informa tion online - Detail Indication:Nonsmoker Start:17-Sep-2018 Instruction Type:Patient Education Patient Instructions Indication:Nonsmoker Start:17-Sep-2018 Instruction Type:Provider Instructions for Treatment How to access health informa tion online - Detail Indication:Nonsmoker Start:14-Jul-2018 Instruction Type:Patient Education Patient Instructions Indication:Nonsmoker Start:14-Jul-2018 Instruction Type:Provider Instructions for Treatment How to access health informa tion online Indication:Nonsmoker Start:17-Jun-2017 Instruction Type:Patient Education How to access health informa tion online - Detail Indication:Nonsmoker Start:17-Jun-2017 Instruction Type:Patient Education Patient Instructions Indication:Nonsmoker Start:17-Jun-2017 Instruction Type:Provider Instructions for Treatment How to access health informa tion online Indication:Flu-like symptoms Start:08-Aug-2016 Instruction Type:Patient Education How to access health informa tion online - Detail Indication:Flu-like symptoms Start:08-Aug-2016 Instruction Type:Patient Education Patient Instructions Indication:Flu-like symptoms Start:08-Aug-2016 Instruction Type:Provider Instructions for Treatment How to access health informa tion online Indication:Thyroid nodule Start:11-Dec-2015 Instruction Type:Patient Education How to access health informa tion online - Detail Indication:Thyroid nodule Start:11-Dec-2015 Instruction Type:Patient Education Patient Instructions Indication:Thyroid nodule Start:11-Dec-2015 Instruction Type:Provider Instructions for Treatment How to access health informa tion online Indication:Current nonsmoker (Renamed from Current non-smoker) Start:26-Jun-2015 Instruction Type:Patient Education How to access health informa tion online - Detail Indication:Current nonsmoker (Renamed from Current non-smoker) Start:26-Jun-2015 Instruction Type:Patient Education Patient Instructions Indication:Current nonsmoker (Renamed from Current non-smoker) Start:26-Jun-2015 Instruction Type:Provider Instructions for Treatment How to access health informa tion online Indication:Cough Start:26-Apr-2015 Instruction Type:Patient Education How to access health informa tion online - Detail Indication:Cough Start:26-Apr-2015 Instruction Type:Patient Education Patient Instructions Indication:Cough Start:26-Apr-2015 Instruction Type:Provider Instructions for Treatment How to access health informa tion online Indication:Headache Start:19-Feb-2015 Instruction Type:Patient Education How to access health informa tion online - Detail Indication:Headache Start:19-Feb-2015 Instruction Type:Patient Education Patient Instructions Indication:Headache Start:19-Feb-2015 Instruction Type:Provider Instructions for Treatment How to access health informa tion online Indication:Abnormal breath sounds Start:29-Sep-2014 Instruction Type:Patient Education How to access health informa tion online - Detail Indication:Abnormal breath sounds Start:29-Sep-2014 Instruction Type:Patient Education Patient Instructions Indication:Abnormal breath sounds Start:29-Sep-2014 Instruction Type:Provider Instructions for Treatment Patient Instructions Indication:Hyperlipidemia Start:17-Feb-2014 Instruction Type:Provider Instructions for Treatment Patient Instructions Indication:Hyperlipidemia Start:07-Jan-2013 Instruction Type:Provider Instructions for Treatment [facility]; [facility] Work Phone: Instructions* Name Dates Details Patient Instructions Indication:Nonsmoker Start:06-Aug-2022 Instruction Type:Provider Instructions for Treatment How to Access Health Informa tion Online using Patient Portal and [employer]rd [employer] Apps Indication:Nonsmoker Start:06-Aug-2022 Instruction Type:Patient Education Patient Instructions Indication:Nonsmoker Start:19-Jun-2022 Instruction Type:Provider Instructions for Treatment How to Access Health Informa tion Online using Patient Portal and [employer] Apps Indication:Nonsmoker Start:19-Jun-2022 Instruction Type:Patient Education Patient Instructions Indication:BMI 39.0-39.9,adult Start:13-Jun-2022 Instruction Type:Provider Instructions for Treatment How to Access Health Informa tion Online using Patient Portal and [employer] Apps Indication:BMI 39.0-39.9,adult Start:13-Jun-2022 Instruction Type:Patient Education Patient Instructions Indication:Nonsmoker Start:25-Apr-2022 Instruction Type:Provider Instructions for Treatment How to Access Health Informa tion Online using Patient Portal and [employer] Apps Indication:Nonsmoker Start:25-Apr-2022 Instruction Type:Patient Education Patient Instructions Indication:Nonsmoker Start:04-Mar-2021 Instruction Type:Provider Instructions for Treatment How to Access Health Informa tion Online using Patient Portal and [employer] Apps Indication:Nonsmoker Start:04-Mar-2021 Instruction Type:Patient Education Patient Instructions Indication:Nonsmoker Start:01-Mar-2021 Instruction Type:Provider Instructions for Treatment How to Access Health Informa tion Online using Patient Portal and [employer] Apps Indication:Nonsmoker Start:01-Mar-2021 Instruction Type:Patient Education Patient Instructions Indication:BMI 37.0-37.9, adult Start:03-Oct-2020 Instruction Type:Provider Instructions for Treatment How to Access Health Informa tion Online using Patient Portal and [employer]rd [employer] Apps Indication:BMI 37.0-37.9, adult Start:03-Oct-2020 Instruction Type:Patient Education How to access health informa tion online Indication:BMI 37.0-37.9, adult Start:25-Nov-2019 Instruction Type:Patient Education How to access health informa tion online - Detail Indication:BMI 37.0-37.9, adult Start:25-Nov-2019 Instruction Type:Patient Education Patient Instructions Indication:BMI 37.0-37.9, adult Start:25-Nov-2019 Instruction Type:Provider Instructions for Treatment How to access health informa tion online Indication:Nonsmoker Start:04-Nov-2019 Instruction Type:Patient Education How to access health informa tion online - Detail Indication:Nonsmoker Start:04-Nov-2019 Instruction Type:Patient Education Patient Instructions Indication:Nonsmoker Start:04-Nov-2019 Instruction Type:Provider Instructions for Treatment How to access health informa tion online Indication:Mild intermittent asthma without complication Start:25-Mar-2019 Instruction Type:Patient Education How to access health informa tion online - Detail Indication:Mild intermittent asthma without complication Start:25-Mar-2019 Instruction Type:Patient Education Patient Instructions Indication:Mild intermittent asthma without complication Start:25-Mar-2019 Instruction Type:Provider Instructions for Treatment How to access health informa tion online Indication:Nonsmoker Start:17-Sep-2018 Instruction Type:Patient Education How to access health informa tion online - Detail Indication:Nonsmoker Start:17-Sep-2018 Instruction Type:Patient Education Patient Instructions Indication:Nonsmoker Start:17-Sep-2018 Instruction Type:Provider Instructions for Treatment How to access health informa tion online - Detail Indication:Nonsmoker Start:14-Jul-2018 Instruction Type:Patient Education Patient Instructions Indication:Nonsmoker Start:14-Jul-2018 Instruction Type:Provider Instructions for Treatment How to access health informa tion online Indication:Nonsmoker Start:17-Jun-2017 Instruction Type:Patient Education How to access health informa tion online - Detail Indication:Nonsmoker Start:17-Jun-2017 Instruction Type:Patient Education Patient Instructions Indication:Nonsmoker Start:17-Jun-2017 Instruction Type:Provider Instructions for Treatment How to access health informa tion online Indication:Flu-like symptoms Start:08-Aug-2016 Instruction Type:Patient Education How to access health informa tion online - Detail Indication:Flu-like symptoms Start:08-Aug-2016 Instruction Type:Patient Education Patient Instructions Indication:Flu-like symptoms Start:08-Aug-2016 Instruction Type:Provider Instructions for Treatment How to access health informa tion online Indication:Thyroid nodule Start:11-Dec-2015 Instruction Type:Patient Education How to access health informa tion online - Detail Indication:Thyroid nodule Start:11-Dec-2015 Instruction Type:Patient Education Patient Instructions Indication:Thyroid nodule Start:11-Dec-2015 Instruction Type:Provider Instructions for Treatment How to access health informa tion online Indication:Current nonsmoker (Renamed from Current non-smoker) Start:26-Jun-2015 Instruction Type:Patient Education How to access health informa tion online - Detail Indication:Current nonsmoker (Renamed from Current non-smoker) Start:26-Jun-2015 Instruction Type:Patient Education Patient Instructions Indication:Current nonsmoker (Renamed from Current non-smoker) Start:26-Jun-2015 Instruction Type:Provider Instructions for Treatment How to access health informa tion online Indication:Cough Start:26-Apr-2015 Instruction Type:Patient Education How to access health informa tion online - Detail Indication:Cough Start:26-Apr-2015 Instruction Type:Patient Education Patient Instructions Indication:Cough Start:26-Apr-2015 Instruction Type:Provider Instructions for Treatment How to access health informa tion online Indication:Headache Start:19-Feb-2015 Instruction Type:Patient Education How to access health informa tion online - Detail Indication:Headache Start:19-Feb-2015 Instruction Type:Patient Education Patient Instructions Indication:Headache Start:19-Feb-2015 Instruction Type:Provider Instructions for Treatment How to access health informa tion online Indication:Abnormal breath sounds Start:29-Sep-2014 Instruction Type:Patient Education How to access health informa tion online - Detail Indication:Abnormal breath sounds Start:29-Sep-2014 Instruction Type:Patient Education Patient Instructions Indication:Abnormal breath sounds Start:29-Sep-2014 Instruction Type:Provider Instructions for Treatment Patient Instructions Indication:Hyperlipidemia Start:17-Feb-2014 Instruction Type:Provider Instructions for Treatment Patient Instructions Indication:Hyperlipidemia Start:07-Jan-2013 Instruction Type:Provider Instructions for Treatment [facility]; [facility] Work Phone: Instructions* Name Dates Details Patient Instructions Indication:Nonsmoker Start:06-Aug-2022 Instruction Type:Provider Instructions for Treatment How to Access Health Informa tion Online using Patient Portal and [employer]rd [employer] Apps Indication:Nonsmoker Start:06-Aug-2022 Instruction Type:Patient Education Patient Instructions Indication:Nonsmoker Start:19-Jun-2022 Instruction Type:Provider Instructions for Treatment How to Access Health Informa tion Online using Patient Portal and [employer]rd [employer] Apps Indication:Nonsmoker Start:19-Jun-2022 Instruction Type:Patient Education Patient Instructions Indication:BMI 39.0-39.9,adult Start:13-Jun-2022 Instruction Type:Provider Instructions for Treatment How to Access Health Informa tion Online using Patient Portal and [employer]rd [employer] Apps Indication:BMI 39.0-39.9,adult Start:13-Jun-2022 Instruction Type:Patient Education Patient Instructions Indication:Nonsmoker Start:25-Apr-2022 Instruction Type:Provider Instructions for Treatment How to Access Health Informa tion Online using Patient Portal and [employer] Apps Indication:Nonsmoker Start:25-Apr-2022 Instruction Type:Patient Education Patient Instructions Indication:Nonsmoker Start:04-Mar-2021 Instruction Type:Provider Instructions for Treatment How to Access Health Informa tion Online using Patient Portal and [employer] Apps Indication:Nonsmoker Start:04-Mar-2021 Instruction Type:Patient Education Patient Instructions Indication:Nonsmoker Start:01-Mar-2021 Instruction Type:Provider Instructions for Treatment How to Access Health Informa tion Online using Patient Portal and [employer] Apps Indication:Nonsmoker Start:01-Mar-2021 Instruction Type:Patient Education Patient Instructions Indication:BMI 37.0-37.9, adult Start:03-Oct-2020 Instruction Type:Provider Instructions for Treatment How to Access Health Informa tion Online using Patient Portal and [employer]rd [employer] Apps Indication:BMI 37.0-37.9, adult Start:03-Oct-2020 Instruction Type:Patient Education How to access health informa tion online Indication:BMI 37.0-37.9, adult Start:25-Nov-2019 Instruction Type:Patient Education How to access health informa tion online - Detail Indication:BMI 37.0-37.9, adult Start:25-Nov-2019 Instruction Type:Patient Education Patient Instructions Indication:BMI 37.0-37.9, adult Start:25-Nov-2019 Instruction Type:Provider Instructions for Treatment How to access health informa tion online Indication:Nonsmoker Start:04-Nov-2019 Instruction Type:Patient Education How to access health informa tion online - Detail Indication:Nonsmoker Start:04-Nov-2019 Instruction Type:Patient Education Patient Instructions Indication:Nonsmoker Start:04-Nov-2019 Instruction Type:Provider Instructions for Treatment How to access health informa tion online Indication:Mild intermittent asthma without complication Start:25-Mar-2019 Instruction Type:Patient Education How to access health informa tion online - Detail Indication:Mild intermittent asthma without complication Start:25-Mar-2019 Instruction Type:Patient Education Patient Instructions Indication:Mild intermittent asthma without complication Start:25-Mar-2019 Instruction Type:Provider Instructions for Treatment How to access health informa tion online Indication:Nonsmoker Start:17-Sep-2018 Instruction Type:Patient Education How to access health informa tion online - Detail Indication:Nonsmoker Start:17-Sep-2018 Instruction Type:Patient Education Patient Instructions Indication:Nonsmoker Start:17-Sep-2018 Instruction Type:Provider Instructions for Treatment How to access health informa tion online - Detail Indication:Nonsmoker Start:14-Jul-2018 Instruction Type:Patient Education Patient Instructions Indication:Nonsmoker Start:14-Jul-2018 Instruction Type:Provider Instructions for Treatment How to access health informa tion online Indication:Nonsmoker Start:17-Jun-2017 Instruction Type:Patient Education How to access health informa tion online - Detail Indication:Nonsmoker Start:17-Jun-2017 Instruction Type:Patient Education Patient Instructions Indication:Nonsmoker Start:17-Jun-2017 Instruction Type:Provider Instructions for Treatment How to access health informa tion online Indication:Flu-like symptoms Start:08-Aug-2016 Instruction Type:Patient Education How to access health informa tion online - Detail Indication:Flu-like symptoms Start:08-Aug-2016 Instruction Type:Patient Education Patient Instructions Indication:Flu-like symptoms Start:08-Aug-2016 Instruction Type:Provider Instructions for Treatment How to access health informa tion online Indication:Thyroid nodule Start:11-Dec-2015 Instruction Type:Patient Education How to access health informa tion online - Detail Indication:Thyroid nodule Start:11-Dec-2015 Instruction Type:Patient Education Patient Instructions Indication:Thyroid nodule Start:11-Dec-2015 Instruction Type:Provider Instructions for Treatment How to access health informa tion online Indication:Current nonsmoker (Renamed from Current non-smoker) Start:26-Jun-2015 Instruction Type:Patient Education How to access health informa tion online - Detail Indication:Current nonsmoker (Renamed from Current non-smoker) Start:26-Jun-2015 Instruction Type:Patient Education Patient Instructions Indication:Current nonsmoker (Renamed from Current non-smoker) Start:26-Jun-2015 Instruction Type:Provider Instructions for Treatment How to access health informa tion online Indication:Cough Start:26-Apr-2015 Instruction Type:Patient Education How to access health informa tion online - Detail Indication:Cough Start:26-Apr-2015 Instruction Type:Patient Education Patient Instructions Indication:Cough Start:26-Apr-2015 Instruction Type:Provider Instructions for Treatment How to access health informa tion online Indication:Headache Start:19-Feb-2015 Instruction Type:Patient Education How to access health informa tion online - Detail Indication:Headache Start:19-Feb-2015 Instruction Type:Patient Education Patient Instructions Indication:Headache Start:19-Feb-2015 Instruction Type:Provider Instructions for Treatment How to access health informa tion online Indication:Abnormal breath sounds Start:29-Sep-2014 Instruction Type:Patient Education How to access health informa tion online - Detail Indication:Abnormal breath sounds Start:29-Sep-2014 Instruction Type:Patient Education Patient Instructions Indication:Abnormal breath sounds Start:29-Sep-2014 Instruction Type:Provider Instructions for Treatment Patient Instructions Indication:Hyperlipidemia Start:17-Feb-2014 Instruction Type:Provider Instructions for Treatment Patient Instructions Indication:Hyperlipidemia Start:07-Jan-2013 Instruction Type:Provider Instructions for Treatment [facility]; [facility] Work Phone: Instructions* Name Dates Details Patient Instructions Indication:Nonsmoker Start:06-Aug-2022 Instruction Type:Provider Instructions for Treatment How to Access Health Informa tion Online using Patient Portal and [employer] Apps Indication:Nonsmoker Start:06-Aug-2022 Instruction Type:Patient Education Patient Instructions Indication:Nonsmoker Start:19-Jun-2022 Instruction Type:Provider Instructions for Treatment How to Access Health Informa tion Online using Patient Portal and [employer] Apps Indication:Nonsmoker Start:19-Jun-2022 Instruction Type:Patient Education Patient Instructions Indication:BMI 39.0-39.9,adult Start:13-Jun-2022 Instruction Type:Provider Instructions for Treatment How to Access Health Informa tion Online using Patient Portal and [employer] Apps Indication:BMI 39.0-39.9,adult Start:13-Jun-2022 Instruction Type:Patient Education Patient Instructions Indication:Nonsmoker Start:25-Apr-2022 Instruction Type:Provider Instructions for Treatment How to Access Health Informa tion Online using Patient Portal and [employer] Apps Indication:Nonsmoker Start:25-Apr-2022 Instruction Type:Patient Education Patient Instructions Indication:Nonsmoker Start:04-Mar-2021 Instruction Type:Provider Instructions for Treatment How to Access Health Informa tion Online using Patient Portal and [employer] Apps Indication:Nonsmoker Start:04-Mar-2021 Instruction Type:Patient Education Patient Instructions Indication:Nonsmoker Start:01-Mar-2021 Instruction Type:Provider Instructions for Treatment How to Access Health Informa tion Online using Patient Portal and [employer] Apps Indication:Nonsmoker Start:01-Mar-2021 Instruction Type:Patient Education Patient Instructions Indication:BMI 37.0-37.9, adult Start:03-Oct-2020 Instruction Type:Provider Instructions for Treatment How to Access Health Informa tion Online using Patient Portal and [employer] Apps Indication:BMI 37.0-37.9, adult Start:03-Oct-2020 Instruction Type:Patient Education How to access health informa tion online Indication:BMI 37.0-37.9, adult Start:25-Nov-2019 Instruction Type:Patient Education How to access health informa tion online - Detail Indication:BMI 37.0-37.9, adult Start:25-Nov-2019 Instruction Type:Patient Education Patient Instructions Indication:BMI 37.0-37.9, adult Start:25-Nov-2019 Instruction Type:Provider Instructions for Treatment How to access health informa tion online Indication:Nonsmoker Start:04-Nov-2019 Instruction Type:Patient Education How to access health informa tion online - Detail Indication:Nonsmoker Start:04-Nov-2019 Instruction Type:Patient Education Patient Instructions Indication:Nonsmoker Start:04-Nov-2019 Instruction Type:Provider Instructions for Treatment How to access health informa tion online Indication:Mild intermittent asthma without complication Start:25-Mar-2019 Instruction Type:Patient Education How to access health informa tion online - Detail Indication:Mild intermittent asthma without complication Start:25-Mar-2019 Instruction Type:Patient Education Patient Instructions Indication:Mild intermittent asthma without complication Start:25-Mar-2019 Instruction Type:Provider Instructions for Treatment How to access health informa tion online Indication:Nonsmoker Start:17-Sep-2018 Instruction Type:Patient Education How to access health informa tion online - Detail Indication:Nonsmoker Start:17-Sep-2018 Instruction Type:Patient Education Patient Instructions Indication:Nonsmoker Start:17-Sep-2018 Instruction Type:Provider Instructions for Treatment How to access health informa tion online - Detail Indication:Nonsmoker Start:14-Jul-2018 Instruction Type:Patient Education Patient Instructions Indication:Nonsmoker Start:14-Jul-2018 Instruction Type:Provider Instructions for Treatment How to access health informa tion online Indication:Nonsmoker Start:17-Jun-2017 Instruction Type:Patient Education How to access health informa tion online - Detail Indication:Nonsmoker Start:17-Jun-2017 Instruction Type:Patient Education Patient Instructions Indication:Nonsmoker Start:17-Jun-2017 Instruction Type:Provider Instructions for Treatment How to access health informa tion online Indication:Flu-like symptoms Start:08-Aug-2016 Instruction Type:Patient Education How to access health informa tion online - Detail Indication:Flu-like symptoms Start:08-Aug-2016 Instruction Type:Patient Education Patient Instructions Indication:Flu-like symptoms Start:08-Aug-2016 Instruction Type:Provider Instructions for Treatment How to access health informa tion online Indication:Thyroid nodule Start:11-Dec-2015 Instruction Type:Patient Education How to access health informa tion online - Detail Indication:Thyroid nodule Start:11-Dec-2015 Instruction Type:Patient Education Patient Instructions Indication:Thyroid nodule Start:11-Dec-2015 Instruction Type:Provider Instructions for Treatment How to access health informa tion online Indication:Current nonsmoker (Renamed from Current non-smoker) Start:26-Jun-2015 Instruction Type:Patient Education How to access health informa tion online - Detail Indication:Current nonsmoker (Renamed from Current non-smoker) Start:26-Jun-2015 Instruction Type:Patient Education Patient Instructions Indication:Current nonsmoker (Renamed from Current non-smoker) Start:26-Jun-2015 Instruction Type:Provider Instructions for Treatment How to access health informa tion online Indication:Cough Start:26-Apr-2015 Instruction Type:Patient Education How to access health informa tion online - Detail Indication:Cough Start:26-Apr-2015 Instruction Type:Patient Education Patient Instructions Indication:Cough Start:26-Apr-2015 Instruction Type:Provider Instructions for Treatment How to access health informa tion online Indication:Headache Start:19-Feb-2015 Instruction Type:Patient Education How to access health informa tion online - Detail Indication:Headache Start:19-Feb-2015 Instruction Type:Patient Education Patient Instructions Indication:Headache Start:19-Feb-2015 Instruction Type:Provider Instructions for Treatment How to access health informa tion online Indication:Abnormal breath sounds Start:29-Sep-2014 Instruction Type:Patient Education How to access health informa tion online - Detail Indication:Abnormal breath sounds Start:29-Sep-2014 Instruction Type:Patient Education Patient Instructions Indication:Abnormal breath sounds Start:29-Sep-2014 Instruction Type:Provider Instructions for Treatment Patient Instructions Indication:Hyperlipidemia Start:17-Feb-2014 Instruction Type:Provider Instructions for Treatment Patient Instructions Indication:Hyperlipidemia Start:07-Jan-2013 Instruction Type:Provider Instructions for Treatment [facility]; [facility] Work Phone: Instructions* Name Dates Details Patient Instructions Indication:Nonsmoker Start:06-Aug-2022 Instruction Type:Provider Instructions for Treatment How to Access Health Informa tion Online using Patient Portal and [employer]rd [employer] Apps Indication:Nonsmoker Start:06-Aug-2022 Instruction Type:Patient Education Patient Instructions Indication:Nonsmoker Start:19-Jun-2022 Instruction Type:Provider Instructions for Treatment How to Access Health Informa tion Online using Patient Portal and [employer]rd [employer] Apps Indication:Nonsmoker Start:19-Jun-2022 Instruction Type:Patient Education Patient Instructions Indication:BMI 39.0-39.9,adult Start:13-Jun-2022 Instruction Type:Provider Instructions for Treatment How to Access Health Informa tion Online using Patient Portal and [employer]rd [employer] Apps Indication:BMI 39.0-39.9,adult Start:13-Jun-2022 Instruction Type:Patient Education Patient Instructions Indication:Nonsmoker Start:25-Apr-2022 Instruction Type:Provider Instructions for Treatment How to Access Health Informa tion Online using Patient Portal and [employer]rd [employer] Apps Indication:Nonsmoker Start:25-Apr-2022 Instruction Type:Patient Education Patient Instructions Indication:Nonsmoker Start:04-Mar-2021 Instruction Type:Provider Instructions for Treatment How to Access Health Informa tion Online using Patient Portal and [employer]rd [employer] Apps Indication:Nonsmoker Start:04-Mar-2021 Instruction Type:Patient Education Patient Instructions Indication:Nonsmoker Start:01-Mar-2021 Instruction Type:Provider Instructions for Treatment How to Access Health Informa tion Online using Patient Portal and [employer]rd [employer] Apps Indication:Nonsmoker Start:01-Mar-2021 Instruction Type:Patient Education Patient Instructions Indication:BMI 37.0-37.9, adult Start:03-Oct-2020 Instruction Type:Provider Instructions for Treatment How to Access Health Informa tion Online using Patient Portal and [employer]rd [employer] Apps Indication:BMI 37.0-37.9, adult Start:03-Oct-2020 Instruction Type:Patient Education How to access health informa tion online Indication:BMI 37.0-37.9, adult Start:25-Nov-2019 Instruction Type:Patient Education How to access health informa tion online - Detail Indication:BMI 37.0-37.9, adult Start:25-Nov-2019 Instruction Type:Patient Education Patient Instructions Indication:BMI 37.0-37.9, adult Start:25-Nov-2019 Instruction Type:Provider Instructions for Treatment How to access health informa tion online Indication:Nonsmoker Start:04-Nov-2019 Instruction Type:Patient Education How to access health informa tion online - Detail Indication:Nonsmoker Start:04-Nov-2019 Instruction Type:Patient Education Patient Instructions Indication:Nonsmoker Start:04-Nov-2019 Instruction Type:Provider Instructions for Treatment How to access health informa tion online Indication:Mild intermittent asthma without complication Start:25-Mar-2019 Instruction Type:Patient Education How to access health informa tion online - Detail Indication:Mild intermittent asthma without complication Start:25-Mar-2019 Instruction Type:Patient Education Patient Instructions Indication:Mild intermittent asthma without complication Start:25-Mar-2019 Instruction Type:Provider Instructions for Treatment How to access health informa tion online Indication:Nonsmoker Start:17-Sep-2018 Instruction Type:Patient Education How to access health informa tion online - Detail Indication:Nonsmoker Start:17-Sep-2018 Instruction Type:Patient Education Patient Instructions Indication:Nonsmoker Start:17-Sep-2018 Instruction Type:Provider Instructions for Treatment How to access health informa tion online - Detail Indication:Nonsmoker Start:14-Jul-2018 Instruction Type:Patient Education Patient Instructions Indication:Nonsmoker Start:14-Jul-2018 Instruction Type:Provider Instructions for Treatment How to access health informa tion online Indication:Nonsmoker Start:17-Jun-2017 Instruction Type:Patient Education How to access health informa tion online - Detail Indication:Nonsmoker Start:17-Jun-2017 Instruction Type:Patient Education Patient Instructions Indication:Nonsmoker Start:17-Jun-2017 Instruction Type:Provider Instructions for Treatment How to access health informa tion online Indication:Flu-like symptoms Start:08-Aug-2016 Instruction Type:Patient Education How to access health informa tion online - Detail Indication:Flu-like symptoms Start:08-Aug-2016 Instruction Type:Patient Education Patient Instructions Indication:Flu-like symptoms Start:08-Aug-2016 Instruction Type:Provider Instructions for Treatment How to access health informa tion online Indication:Thyroid nodule Start:11-Dec-2015 Instruction Type:Patient Education How to access health informa tion online - Detail Indication:Thyroid nodule Start:11-Dec-2015 Instruction Type:Patient Education Patient Instructions Indication:Thyroid nodule Start:11-Dec-2015 Instruction Type:Provider Instructions for Treatment How to access health informa tion online Indication:Current nonsmoker (Renamed from Current non-smoker) Start:26-Jun-2015 Instruction Type:Patient Education How to access health informa tion online - Detail Indication:Current nonsmoker (Renamed from Current non-smoker) Start:26-Jun-2015 Instruction Type:Patient Education Patient Instructions Indication:Current nonsmoker (Renamed from Current non-smoker) Start:26-Jun-2015 Instruction Type:Provider Instructions for Treatment How to access health informa tion online Indication:Cough Start:26-Apr-2015 Instruction Type:Patient Education How to access health informa tion online - Detail Indication:Cough Start:26-Apr-2015 Instruction Type:Patient Education Patient Instructions Indication:Cough Start:26-Apr-2015 Instruction Type:Provider Instructions for Treatment How to access health informa tion online Indication:Headache Start:19-Feb-2015 Instruction Type:Patient Education How to access health informa tion online - Detail Indication:Headache Start:19-Feb-2015 Instruction Type:Patient Education Patient Instructions Indication:Headache Start:19-Feb-2015 Instruction Type:Provider Instructions for Treatment How to access health informa tion online Indication:Abnormal breath sounds Start:29-Sep-2014 Instruction Type:Patient Education How to access health informa tion online - Detail Indication:Abnormal breath sounds Start:29-Sep-2014 Instruction Type:Patient Education Patient Instructions Indication:Abnormal breath sounds Start:29-Sep-2014 Instruction Type:Provider Instructions for Treatment Patient Instructions Indication:Hyperlipidemia Start:17-Feb-2014 Instruction Type:Provider Instructions for Treatment Patient Instructions Indication:Hyperlipidemia Start:07-Jan-2013 Instruction Type:Provider Instructions for Treatment [facility]; [facility] Work Phone: Instructions* Name Dates Details Patient Instructions Indication:Nonsmoker Start:13-Nov-2022 Instruction Type:Provider Instructions for Treatment How to Access Health Informa tion Online using Patient Portal and [employer]rd [employer] Apps Indication:Nonsmoker Start:13-Nov-2022 Instruction Type:Patient Education Patient Instructions Indication:Nonsmoker Start:06-Aug-2022 Instruction Type:Provider Instructions for Treatment How to Access Health Informa tion Online using Patient Portal and [employer]rd [employer] Apps Indication:Nonsmoker Start:06-Aug-2022 Instruction Type:Patient Education Patient Instructions Indication:Nonsmoker Start:19-Jun-2022 Instruction Type:Provider Instructions for Treatment How to Access Health Informa tion Online using Patient Portal and [employer]rd [employer] Apps Indication:Nonsmoker Start:19-Jun-2022 Instruction Type:Patient Education Patient Instructions Indication:BMI 39.0-39.9,adult Start:13-Jun-2022 Instruction Type:Provider Instructions for Treatment How to Access Health Informa tion Online using Patient Portal and [employer]rd [employer] Apps Indication:BMI 39.0-39.9,adult Start:13-Jun-2022 Instruction Type:Patient Education Patient Instructions Indication:Nonsmoker Start:25-Apr-2022 Instruction Type:Provider Instructions for Treatment How to Access Health Informa tion Online using Patient Portal and [employer]rd [employer] Apps Indication:Nonsmoker Start:25-Apr-2022 Instruction Type:Patient Education Patient Instructions Indication:Nonsmoker Start:04-Mar-2021 Instruction Type:Provider Instructions for Treatment How to Access Health Informa tion Online using Patient Portal and [employer]rd [employer] Apps Indication:Nonsmoker Start:04-Mar-2021 Instruction Type:Patient Education Patient Instructions Indication:Nonsmoker Start:01-Mar-2021 Instruction Type:Provider Instructions for Treatment How to Access Health Informa tion Online using Patient Portal and [employer]rd [employer] Apps Indication:Nonsmoker Start:01-Mar-2021 Instruction Type:Patient Education Patient Instructions Indication:BMI 37.0-37.9, adult Start:03-Oct-2020 Instruction Type:Provider Instructions for Treatment How to Access Health Informa tion Online using Patient Portal and [employer]rd [employer] Apps Indication:BMI 37.0-37.9, adult Start:03-Oct-2020 Instruction Type:Patient Education How to access health informa tion online Indication:BMI 37.0-37.9, adult Start:25-Nov-2019 Instruction Type:Patient Education How to access health informa tion online - Detail Indication:BMI 37.0-37.9, adult Start:25-Nov-2019 Instruction Type:Patient Education Patient Instructions Indication:BMI 37.0-37.9, adult Start:25-Nov-2019 Instruction Type:Provider Instructions for Treatment How to access health informa tion online Indication:Nonsmoker Start:04-Nov-2019 Instruction Type:Patient Education How to access health informa tion online - Detail Indication:Nonsmoker Start:04-Nov-2019 Instruction Type:Patient Education Patient Instructions Indication:Nonsmoker Start:04-Nov-2019 Instruction Type:Provider Instructions for Treatment How to access health informa tion online Indication:Mild intermittent asthma without complication Start:25-Mar-2019 Instruction Type:Patient Education How to access health informa tion online - Detail Indication:Mild intermittent asthma without complication Start:25-Mar-2019 Instruction Type:Patient Education Patient Instructions Indication:Mild intermittent asthma without complication Start:25-Mar-2019 Instruction Type:Provider Instructions for Treatment How to access health informa tion online Indication:Nonsmoker Start:17-Sep-2018 Instruction Type:Patient Education How to access health informa tion online - Detail Indication:Nonsmoker Start:17-Sep-2018 Instruction Type:Patient Education Patient Instructions Indication:Nonsmoker Start:17-Sep-2018 Instruction Type:Provider Instructions for Treatment How to access health informa tion online - Detail Indication:Nonsmoker Start:14-Jul-2018 Instruction Type:Patient Education Patient Instructions Indication:Nonsmoker Start:14-Jul-2018 Instruction Type:Provider Instructions for Treatment How to access health informa tion online Indication:Nonsmoker Start:17-Jun-2017 Instruction Type:Patient Education How to access health informa tion online - Detail Indication:Nonsmoker Start:17-Jun-2017 Instruction Type:Patient Education Patient Instructions Indication:Nonsmoker Start:17-Jun-2017 Instruction Type:Provider Instructions for Treatment How to access health informa tion online Indication:Flu-like symptoms Start:08-Aug-2016 Instruction Type:Patient Education How to access health informa tion online - Detail Indication:Flu-like symptoms Start:08-Aug-2016 Instruction Type:Patient Education Patient Instructions Indication:Flu-like symptoms Start:08-Aug-2016 Instruction Type:Provider Instructions for Treatment How to access health informa tion online Indication:Thyroid nodule Start:11-Dec-2015 Instruction Type:Patient Education How to access health informa tion online - Detail Indication:Thyroid nodule Start:11-Dec-2015 Instruction Type:Patient Education Patient Instructions Indication:Thyroid nodule Start:11-Dec-2015 Instruction Type:Provider Instructions for Treatment How to access health informa tion online Indication:Current nonsmoker (Renamed from Current non-smoker) Start:26-Jun-2015 Instruction Type:Patient Education How to access health informa tion online - Detail Indication:Current nonsmoker (Renamed from Current non-smoker) Start:26-Jun-2015 Instruction Type:Patient Education Patient Instructions Indication:Current nonsmoker (Renamed from Current non-smoker) Start:26-Jun-2015 Instruction Type:Provider Instructions for Treatment How to access health informa tion online Indication:Cough Start:26-Apr-2015 Instruction Type:Patient Education How to access health informa tion online - Detail Indication:Cough Start:26-Apr-2015 Instruction Type:Patient Education Patient Instructions Indication:Cough Start:26-Apr-2015 Instruction Type:Provider Instructions for Treatment How to access health informa tion online Indication:Headache Start:19-Feb-2015 Instruction Type:Patient Education How to access health informa tion online - Detail Indication:Headache Start:19-Feb-2015 Instruction Type:Patient Education Patient Instructions Indication:Headache Start:19-Feb-2015 Instruction Type:Provider Instructions for Treatment How to access health informa tion online Indication:Abnormal breath sounds Start:29-Sep-2014 Instruction Type:Patient Education How to access health informa tion online - Detail Indication:Abnormal breath sounds Start:29-Sep-2014 Instruction Type:Patient Education Patient Instructions Indication:Abnormal breath sounds Start:29-Sep-2014 Instruction Type:Provider Instructions for Treatment Patient Instructions Indication:Hyperlipidemia Start:17-Feb-2014 Instruction Type:Provider Instructions for Treatment Patient Instructions Indication:Hyperlipidemia Start:07-Jan-2013 Instruction Type:Provider Instructions for Treatment [facility]; [facility] Work Phone: Instructions* Name Dates Details Patient Instructions Indication:Nonsmoker Start:13-Nov-2022 Instruction Type:Provider Instructions for Treatment How to Access Health Informa tion Online using Patient Portal and [employer]rd [employer] Apps Indication:Nonsmoker Start:13-Nov-2022 Instruction Type:Patient Education Patient Instructions Indication:Nonsmoker Start:06-Aug-2022 Instruction Type:Provider Instructions for Treatment How to Access Health Informa tion Online using Patient Portal and [employer]rd [employer] Apps Indication:Nonsmoker Start:06-Aug-2022 Instruction Type:Patient Education Patient Instructions Indication:Nonsmoker Start:19-Jun-2022 Instruction Type:Provider Instructions for Treatment How to Access Health Informa tion Online using Patient Portal and [employer]rd [employer] Apps Indication:Nonsmoker Start:19-Jun-2022 Instruction Type:Patient Education Patient Instructions Indication:BMI 39.0-39.9,adult Start:13-Jun-2022 Instruction Type:Provider Instructions for Treatment How to Access Health Informa tion Online using Patient Portal and [employer]rd [employer] Apps Indication:BMI 39.0-39.9,adult Start:13-Jun-2022 Instruction Type:Patient Education Patient Instructions Indication:Nonsmoker Start:25-Apr-2022 Instruction Type:Provider Instructions for Treatment How to Access Health Informa tion Online using Patient Portal and [employer]rd [employer] Apps Indication:Nonsmoker Start:25-Apr-2022 Instruction Type:Patient Education Patient Instructions Indication:Nonsmoker Start:04-Mar-2021 Instruction Type:Provider Instructions for Treatment How to Access Health Informa tion Online using Patient Portal and [employer] Apps Indication:Nonsmoker Start:04-Mar-2021 Instruction Type:Patient Education Patient Instructions Indication:Nonsmoker Start:01-Mar-2021 Instruction Type:Provider Instructions for Treatment How to Access Health Informa tion Online using Patient Portal and [employer]rd [employer] Apps Indication:Nonsmoker Start:01-Mar-2021 Instruction Type:Patient Education Patient Instructions Indication:BMI 37.0-37.9, adult Start:03-Oct-2020 Instruction Type:Provider Instructions for Treatment How to Access Health Informa tion Online using Patient Portal and [employer]rd [employer] Apps Indication:BMI 37.0-37.9, adult Start:03-Oct-2020 Instruction Type:Patient Education How to access health informa tion online Indication:BMI 37.0-37.9, adult Start:25-Nov-2019 Instruction Type:Patient Education How to access health informa tion online - Detail Indication:BMI 37.0-37.9, adult Start:25-Nov-2019 Instruction Type:Patient Education Patient Instructions Indication:BMI 37.0-37.9, adult Start:25-Nov-2019 Instruction Type:Provider Instructions for Treatment How to access health informa tion online Indication:Nonsmoker Start:04-Nov-2019 Instruction Type:Patient Education How to access health informa tion online - Detail Indication:Nonsmoker Start:04-Nov-2019 Instruction Type:Patient Education Patient Instructions Indication:Nonsmoker Start:04-Nov-2019 Instruction Type:Provider Instructions for Treatment How to access health informa tion online Indication:Mild intermittent asthma without complication Start:25-Mar-2019 Instruction Type:Patient Education How to access health informa tion online - Detail Indication:Mild intermittent asthma without complication Start:25-Mar-2019 Instruction Type:Patient Education Patient Instructions Indication:Mild intermittent asthma without complication Start:25-Mar-2019 Instruction Type:Provider Instructions for Treatment How to access health informa tion online Indication:Nonsmoker Start:17-Sep-2018 Instruction Type:Patient Education How to access health informa tion online - Detail Indication:Nonsmoker Start:17-Sep-2018 Instruction Type:Patient Education Patient Instructions Indication:Nonsmoker Start:17-Sep-2018 Instruction Type:Provider Instructions for Treatment How to access health informa tion online - Detail Indication:Nonsmoker Start:14-Jul-2018 Instruction Type:Patient Education Patient Instructions Indication:Nonsmoker Start:14-Jul-2018 Instruction Type:Provider Instructions for Treatment How to access health informa tion online Indication:Nonsmoker Start:17-Jun-2017 Instruction Type:Patient Education How to access health informa tion online - Detail Indication:Nonsmoker Start:17-Jun-2017 Instruction Type:Patient Education Patient Instructions Indication:Nonsmoker Start:17-Jun-2017 Instruction Type:Provider Instructions for Treatment How to access health informa tion online Indication:Flu-like symptoms Start:08-Aug-2016 Instruction Type:Patient Education How to access health informa tion online - Detail Indication:Flu-like symptoms Start:08-Aug-2016 Instruction Type:Patient Education Patient Instructions Indication:Flu-like symptoms Start:08-Aug-2016 Instruction Type:Provider Instructions for Treatment How to access health informa tion online Indication:Thyroid nodule Start:11-Dec-2015 Instruction Type:Patient Education How to access health informa tion online - Detail Indication:Thyroid nodule Start:11-Dec-2015 Instruction Type:Patient Education Patient Instructions Indication:Thyroid nodule Start:11-Dec-2015 Instruction Type:Provider Instructions for Treatment How to access health informa tion online Indication:Current nonsmoker (Renamed from Current non-smoker) Start:26-Jun-2015 Instruction Type:Patient Education How to access health informa tion online - Detail Indication:Current nonsmoker (Renamed from Current non-smoker) Start:26-Jun-2015 Instruction Type:Patient Education Patient Instructions Indication:Current nonsmoker (Renamed from Current non-smoker) Start:26-Jun-2015 Instruction Type:Provider Instructions for Treatment How to access health informa tion online Indication:Cough Start:26-Apr-2015 Instruction Type:Patient Education How to access health informa tion online - Detail Indication:Cough Start:26-Apr-2015 Instruction Type:Patient Education Patient Instructions Indication:Cough Start:26-Apr-2015 Instruction Type:Provider Instructions for Treatment How to access health informa tion online Indication:Headache Start:19-Feb-2015 Instruction Type:Patient Education How to access health informa tion online - Detail Indication:Headache Start:19-Feb-2015 Instruction Type:Patient Education Patient Instructions Indication:Headache Start:19-Feb-2015 Instruction Type:Provider Instructions for Treatment How to access health informa tion online Indication:Abnormal breath sounds Start:29-Sep-2014 Instruction Type:Patient Education How to access health informa tion online - Detail Indication:Abnormal breath sounds Start:29-Sep-2014 Instruction Type:Patient Education Patient Instructions Indication:Abnormal breath sounds Start:29-Sep-2014 Instruction Type:Provider Instructions for Treatment Patient Instructions Indication:Hyperlipidemia Start:17-Feb-2014 Instruction Type:Provider Instructions for Treatment Patient Instructions Indication:Hyperlipidemia Start:07-Jan-2013 Instruction Type:Provider Instructions for Treatment [facility]; [facility] Work Phone: Instructions* Name Dates Details Patient Instructions Indication:Abdominal pain, acute Start:12-Dec-2022 Instruction Type:Provider Instructions for Treatment How to Access Health Informa tion Online using Patient Portal and [employer]rd [employer] Apps Indication:Abdominal pain, acute Start:12-Dec-2022 Instruction Type:Patient Education Patient Instructions Indication:Nonsmoker Start:13-Nov-2022 Instruction Type:Provider Instructions for Treatment How to Access Health Informa tion Online using Patient Portal and [employer]rd [employer] Apps Indication:Nonsmoker Start:13-Nov-2022 Instruction Type:Patient Education Patient Instructions Indication:Nonsmoker Start:06-Aug-2022 Instruction Type:Provider Instructions for Treatment How to Access Health Informa tion Online using Patient Portal and [employer]rd [employer] Apps Indication:Nonsmoker Start:06-Aug-2022 Instruction Type:Patient Education Patient Instructions Indication:Nonsmoker Start:19-Jun-2022 Instruction Type:Provider Instructions for Treatment How to Access Health Informa tion Online using Patient Portal and [employer]rd [employer] Apps Indication:Nonsmoker Start:19-Jun-2022 Instruction Type:Patient Education Patient Instructions Indication:BMI 39.0-39.9,adult Start:13-Jun-2022 Instruction Type:Provider Instructions for Treatment How to Access Health Informa tion Online using Patient Portal and [employer]rd [employer] Apps Indication:BMI 39.0-39.9,adult Start:13-Jun-2022 Instruction Type:Patient Education Patient Instructions Indication:Nonsmoker Start:25-Apr-2022 Instruction Type:Provider Instructions for Treatment How to Access Health Informa tion Online using Patient Portal and [employer]rd [employer] Apps Indication:Nonsmoker Start:25-Apr-2022 Instruction Type:Patient Education Patient Instructions Indication:Nonsmoker Start:04-Mar-2021 Instruction Type:Provider Instructions for Treatment How to Access Health Informa tion Online using Patient Portal and [employer]rd [employer] Apps Indication:Nonsmoker Start:04-Mar-2021 Instruction Type:Patient Education Patient Instructions Indication:Nonsmoker Start:01-Mar-2021 Instruction Type:Provider Instructions for Treatment How to Access Health Informa tion Online using Patient Portal and [employer]rd [employer] Apps Indication:Nonsmoker Start:01-Mar-2021 Instruction Type:Patient Education Patient Instructions Indication:BMI 37.0-37.9, adult Start:03-Oct-2020 Instruction Type:Provider Instructions for Treatment How to Access Health Informa tion Online using Patient Portal and [employer]rd [employer] Apps Indication:BMI 37.0-37.9, adult Start:03-Oct-2020 Instruction Type:Patient Education How to access health informa tion online Indication:BMI 37.0-37.9, adult Start:25-Nov-2019 Instruction Type:Patient Education How to access health informa tion online - Detail Indication:BMI 37.0-37.9, adult Start:25-Nov-2019 Instruction Type:Patient Education Patient Instructions Indication:BMI 37.0-37.9, adult Start:25-Nov-2019 Instruction Type:Provider Instructions for Treatment How to access health informa tion online Indication:Nonsmoker Start:04-Nov-2019 Instruction Type:Patient Education How to access health informa tion online - Detail Indication:Nonsmoker Start:04-Nov-2019 Instruction Type:Patient Education Patient Instructions Indication:Nonsmoker Start:04-Nov-2019 Instruction Type:Provider Instructions for Treatment How to access health informa tion online Indication:Mild intermittent asthma without complication Start:25-Mar-2019 Instruction Type:Patient Education How to access health informa tion online - Detail Indication:Mild intermittent asthma without complication Start:25-Mar-2019 Instruction Type:Patient Education Patient Instructions Indication:Mild intermittent asthma without complication Start:25-Mar-2019 Instruction Type:Provider Instructions for Treatment How to access health informa tion online Indication:Nonsmoker Start:17-Sep-2018 Instruction Type:Patient Education How to access health informa tion online - Detail Indication:Nonsmoker Start:17-Sep-2018 Instruction Type:Patient Education Patient Instructions Indication:Nonsmoker Start:17-Sep-2018 Instruction Type:Provider Instructions for Treatment How to access health informa tion online - Detail Indication:Nonsmoker Start:14-Jul-2018 Instruction Type:Patient Education Patient Instructions Indication:Nonsmoker Start:14-Jul-2018 Instruction Type:Provider Instructions for Treatment How to access health informa tion online Indication:Nonsmoker Start:17-Jun-2017 Instruction Type:Patient Education How to access health informa tion online - Detail Indication:Nonsmoker Start:17-Jun-2017 Instruction Type:Patient Education Patient Instructions Indication:Nonsmoker Start:17-Jun-2017 Instruction Type:Provider Instructions for Treatment How to access health informa tion online Indication:Flu-like symptoms Start:08-Aug-2016 Instruction Type:Patient Education How to access health informa tion online - Detail Indication:Flu-like symptoms Start:08-Aug-2016 Instruction Type:Patient Education Patient Instructions Indication:Flu-like symptoms Start:08-Aug-2016 Instruction Type:Provider Instructions for Treatment How to access health informa tion online Indication:Thyroid nodule Start:11-Dec-2015 Instruction Type:Patient Education How to access health informa tion online - Detail Indication:Thyroid nodule Start:11-Dec-2015 Instruction Type:Patient Education Patient Instructions Indication:Thyroid nodule Start:11-Dec-2015 Instruction Type:Provider Instructions for Treatment How to access health informa tion online Indication:Current nonsmoker (Renamed from Current non-smoker) Start:26-Jun-2015 Instruction Type:Patient Education How to access health informa tion online - Detail Indication:Current nonsmoker (Renamed from Current non-smoker) Start:26-Jun-2015 Instruction Type:Patient Education Patient Instructions Indication:Current nonsmoker (Renamed from Current non-smoker) Start:26-Jun-2015 Instruction Type:Provider Instructions for Treatment How to access health informa tion online Indication:Cough Start:26-Apr-2015 Instruction Type:Patient Education How to access health informa tion online - Detail Indication:Cough Start:26-Apr-2015 Instruction Type:Patient Education Patient Instructions Indication:Cough Start:26-Apr-2015 Instruction Type:Provider Instructions for Treatment How to access health informa tion online Indication:Headache Start:19-Feb-2015 Instruction Type:Patient Education How to access health informa tion online - Detail Indication:Headache Start:19-Feb-2015 Instruction Type:Patient Education Patient Instructions Indication:Headache Start:19-Feb-2015 Instruction Type:Provider Instructions for Treatment How to access health informa tion online Indication:Abnormal breath sounds Start:29-Sep-2014 Instruction Type:Patient Education How to access health informa tion online - Detail Indication:Abnormal breath sounds Start:29-Sep-2014 Instruction Type:Patient Education Patient Instructions Indication:Abnormal breath sounds Start:29-Sep-2014 Instruction Type:Provider Instructions for Treatment Patient Instructions Indication:Hyperlipidemia Start:17-Feb-2014 Instruction Type:Provider Instructions for Treatment Patient Instructions Indication:Hyperlipidemia Start:07-Jan-2013 Instruction Type:Provider Instructions for Treatment [facility]; [facility] Work Phone: Instructions* Name Dates Details Patient Instructions Indication:Abdominal pain, acute Start:12-Dec-2022 Instruction Type:Provider Instructions for Treatment How to Access Health Informa tion Online using Patient Portal and [employer]rd [employer] Apps Indication:Abdominal pain, acute Start:12-Dec-2022 Instruction Type:Patient Education Patient Instructions Indication:Nonsmoker Start:13-Nov-2022 Instruction Type:Provider Instructions for Treatment How to Access Health Informa tion Online using Patient Portal and [employer]rd [employer] Apps Indication:Nonsmoker Start:13-Nov-2022 Instruction Type:Patient Education Patient Instructions Indication:Nonsmoker Start:06-Aug-2022 Instruction Type:Provider Instructions for Treatment How to Access Health Informa tion Online using Patient Portal and [employer]rd [employer] Apps Indication:Nonsmoker Start:06-Aug-2022 Instruction Type:Patient Education Patient Instructions Indication:Nonsmoker Start:19-Jun-2022 Instruction Type:Provider Instructions for Treatment How to Access Health Informa tion Online using Patient Portal and [employer]rd [employer] Apps Indication:Nonsmoker Start:19-Jun-2022 Instruction Type:Patient Education Patient Instructions Indication:BMI 39.0-39.9,adult Start:13-Jun-2022 Instruction Type:Provider Instructions for Treatment How to Access Health Informa tion Online using Patient Portal and [employer]rd [employer] Apps Indication:BMI 39.0-39.9,adult Start:13-Jun-2022 Instruction Type:Patient Education Patient Instructions Indication:Nonsmoker Start:25-Apr-2022 Instruction Type:Provider Instructions for Treatment How to Access Health Informa tion Online using Patient Portal and [employer]rd [employer] Apps Indication:Nonsmoker Start:25-Apr-2022 Instruction Type:Patient Education Patient Instructions Indication:Nonsmoker Start:04-Mar-2021 Instruction Type:Provider Instructions for Treatment How to Access Health Informa tion Online using Patient Portal and [employer]rd [employer] Apps Indication:Nonsmoker Start:04-Mar-2021 Instruction Type:Patient Education Patient Instructions Indication:Nonsmoker Start:01-Mar-2021 Instruction Type:Provider Instructions for Treatment How to Access Health Informa tion Online using Patient Portal and [employer]rd [employer] Apps Indication:Nonsmoker Start:01-Mar-2021 Instruction Type:Patient Education Patient Instructions Indication:BMI 37.0-37.9, adult Start:03-Oct-2020 Instruction Type:Provider Instructions for Treatment How to Access Health Informa tion Online using Patient Portal and [employer]rd [employer] Apps Indication:BMI 37.0-37.9, adult Start:03-Oct-2020 Instruction Type:Patient Education How to access health informa tion online Indication:BMI 37.0-37.9, adult Start:25-Nov-2019 Instruction Type:Patient Education How to access health informa tion online - Detail Indication:BMI 37.0-37.9, adult Start:25-Nov-2019 Instruction Type:Patient Education Patient Instructions Indication:BMI 37.0-37.9, adult Start:25-Nov-2019 Instruction Type:Provider Instructions for Treatment How to access health informa tion online Indication:Nonsmoker Start:04-Nov-2019 Instruction Type:Patient Education How to access health informa tion online - Detail Indication:Nonsmoker Start:04-Nov-2019 Instruction Type:Patient Education Patient Instructions Indication:Nonsmoker Start:04-Nov-2019 Instruction Type:Provider Instructions for Treatment How to access health informa tion online Indication:Mild intermittent asthma without complication Start:25-Mar-2019 Instruction Type:Patient Education How to access health informa tion online - Detail Indication:Mild intermittent asthma without complication Start:25-Mar-2019 Instruction Type:Patient Education Patient Instructions Indication:Mild intermittent asthma without complication Start:25-Mar-2019 Instruction Type:Provider Instructions for Treatment How to access health informa tion online Indication:Nonsmoker Start:17-Sep-2018 Instruction Type:Patient Education How to access health informa tion online - Detail Indication:Nonsmoker Start:17-Sep-2018 Instruction Type:Patient Education Patient Instructions Indication:Nonsmoker Start:17-Sep-2018 Instruction Type:Provider Instructions for Treatment How to access health informa tion online - Detail Indication:Nonsmoker Start:14-Jul-2018 Instruction Type:Patient Education Patient Instructions Indication:Nonsmoker Start:14-Jul-2018 Instruction Type:Provider Instructions for Treatment How to access health informa tion online Indication:Nonsmoker Start:17-Jun-2017 Instruction Type:Patient Education How to access health informa tion online - Detail Indication:Nonsmoker Start:17-Jun-2017 Instruction Type:Patient Education Patient Instructions Indication:Nonsmoker Start:17-Jun-2017 Instruction Type:Provider Instructions for Treatment How to access health informa tion online Indication:Flu-like symptoms Start:08-Aug-2016 Instruction Type:Patient Education How to access health informa tion online - Detail Indication:Flu-like symptoms Start:08-Aug-2016 Instruction Type:Patient Education Patient Instructions Indication:Flu-like symptoms Start:08-Aug-2016 Instruction Type:Provider Instructions for Treatment How to access health informa tion online Indication:Thyroid nodule Start:11-Dec-2015 Instruction Type:Patient Education How to access health informa tion online - Detail Indication:Thyroid nodule Start:11-Dec-2015 Instruction Type:Patient Education Patient Instructions Indication:Thyroid nodule Start:11-Dec-2015 Instruction Type:Provider Instructions for Treatment How to access health informa tion online Indication:Current nonsmoker (Renamed from Current non-smoker) Start:26-Jun-2015 Instruction Type:Patient Education How to access health informa tion online - Detail Indication:Current nonsmoker (Renamed from Current non-smoker) Start:26-Jun-2015 Instruction Type:Patient Education Patient Instructions Indication:Current nonsmoker (Renamed from Current non-smoker) Start:26-Jun-2015 Instruction Type:Provider Instructions for Treatment How to access health informa tion online Indication:Cough Start:26-Apr-2015 Instruction Type:Patient Education How to access health informa tion online - Detail Indication:Cough Start:26-Apr-2015 Instruction Type:Patient Education Patient Instructions Indication:Cough Start:26-Apr-2015 Instruction Type:Provider Instructions for Treatment How to access health informa tion online Indication:Headache Start:19-Feb-2015 Instruction Type:Patient Education How to access health informa tion online - Detail Indication:Headache Start:19-Feb-2015 Instruction Type:Patient Education Patient Instructions Indication:Headache Start:19-Feb-2015 Instruction Type:Provider Instructions for Treatment How to access health informa tion online Indication:Abnormal breath sounds Start:29-Sep-2014 Instruction Type:Patient Education How to access health informa tion online - Detail Indication:Abnormal breath sounds Start:29-Sep-2014 Instruction Type:Patient Education Patient Instructions Indication:Abnormal breath sounds Start:29-Sep-2014 Instruction Type:Provider Instructions for Treatment Patient Instructions Indication:Hyperlipidemia Start:17-Feb-2014 Instruction Type:Provider Instructions for Treatment Patient Instructions Indication:Hyperlipidemia Start:07-Jan-2013 Instruction Type:Provider Instructions for Treatment [facility]; [facility] Work Phone: Instructions* Name Dates Details How to Access Health Informa tion Online using Patient Portal and [employer] Apps Indication:Nonsmoker Start:28-Jan-2023 Instruction Type:Patient Education Patient Instructions Indication:Nonsmoker Start:28-Jan-2023 Instruction Type:Provider Instructions for Treatment Patient Instructions Indication:Abdominal pain, acute Start:12-Dec-2022 Instruction Type:Provider Instructions for Treatment How to Access Health Informa tion Online using Patient Portal and [employer] Apps Indication:Abdominal pain, acute Start:12-Dec-2022 Instruction Type:Patient Education Patient Instructions Indication:Nonsmoker Start:13-Nov-2022 Instruction Type:Provider Instructions for Treatment How to Access Health Informa tion Online using Patient Portal and [employer] Apps Indication:Nonsmoker Start:13-Nov-2022 Instruction Type:Patient Education Patient Instructions Indication:Nonsmoker Start:06-Aug-2022 Instruction Type:Provider Instructions for Treatment How to Access Health Informa tion Online using Patient Portal and [employer] Apps Indication:Nonsmoker Start:06-Aug-2022 Instruction Type:Patient Education Patient Instructions Indication:Nonsmoker Start:19-Jun-2022 Instruction Type:Provider Instructions for Treatment How to Access Health Informa tion Online using Patient [employer] and [employer] Apps Indication:Nonsmoker Start:19-Jun-2022 Instruction Type:Patient Education Patient Instructions Indication:BMI 39.0-39.9,adult Start:13-Jun-2022 Instruction Type:Provider Instructions for Treatment How to Access Health Informa tion Online using Patient Portal and [employer] Apps Indication:BMI 39.0-39.9,adult Start:13-Jun-2022 Instruction Type:Patient Education Patient Instructions Indication:Nonsmoker Start:25-Apr-2022 Instruction Type:Provider Instructions for Treatment How to Access Health Informa tion Online using Patient Portal and [employer] Apps Indication:Nonsmoker Start:25-Apr-2022 Instruction Type:Patient Education Patient Instructions Indication:Nonsmoker Start:04-Mar-2021 Instruction Type:Provider Instructions for Treatment How to Access Health Informa tion Online using Patient Portal and [employer]rd [employer] Apps Indication:Nonsmoker Start:04-Mar-2021 Instruction Type:Patient Education Patient Instructions Indication:Nonsmoker Start:01-Mar-2021 Instruction Type:Provider Instructions for Treatment How to Access Health Informa tion Online using Patient Portal and [employer]rd [employer] Apps Indication:Nonsmoker Start:01-Mar-2021 Instruction Type:Patient Education Patient Instructions Indication:BMI 37.0-37.9, adult Start:03-Oct-2020 Instruction Type:Provider Instructions for Treatment How to Access Health Informa tion Online using Patient Portal and [employer]rd [employer] Apps Indication:BMI 37.0-37.9, adult Start:03-Oct-2020 Instruction Type:Patient Education How to access health informa tion online Indication:BMI 37.0-37.9, adult Start:25-Nov-2019 Instruction Type:Patient Education How to access health informa tion online - Detail Indication:BMI 37.0-37.9, adult Start:25-Nov-2019 Instruction Type:Patient Education Patient Instructions Indication:BMI 37.0-37.9, adult Start:25-Nov-2019 Instruction Type:Provider Instructions for Treatment How to access health informa tion online Indication:Nonsmoker Start:04-Nov-2019 Instruction Type:Patient Education How to access health informa tion online - Detail Indication:Nonsmoker Start:04-Nov-2019 Instruction Type:Patient Education Patient Instructions Indication:Nonsmoker Start:04-Nov-2019 Instruction Type:Provider Instructions for Treatment How to access health informa tion online Indication:Mild intermittent asthma without complication Start:25-Mar-2019 Instruction Type:Patient Education How to access health informa tion online - Detail Indication:Mild intermittent asthma without complication Start:25-Mar-2019 Instruction Type:Patient Education Patient Instructions Indication:Mild intermittent asthma without complication Start:25-Mar-2019 Instruction Type:Provider Instructions for Treatment How to access health informa tion online Indication:Nonsmoker Start:17-Sep-2018 Instruction Type:Patient Education How to access health informa tion online - Detail Indication:Nonsmoker Start:17-Sep-2018 Instruction Type:Patient Education Patient Instructions Indication:Nonsmoker Start:17-Sep-2018 Instruction Type:Provider Instructions for Treatment How to access health informa tion online - Detail Indication:Nonsmoker Start:14-Jul-2018 Instruction Type:Patient Education Patient Instructions Indication:Nonsmoker Start:14-Jul-2018 Instruction Type:Provider Instructions for Treatment How to access health informa tion online Indication:Nonsmoker Start:17-Jun-2017 Instruction Type:Patient Education How to access health informa tion online - Detail Indication:Nonsmoker Start:17-Jun-2017 Instruction Type:Patient Education Patient Instructions Indication:Nonsmoker Start:17-Jun-2017 Instruction Type:Provider Instructions for Treatment How to access health informa tion online Indication:Flu-like symptoms Start:08-Aug-2016 Instruction Type:Patient Education How to access health informa tion online - Detail Indication:Flu-like symptoms Start:08-Aug-2016 Instruction Type:Patient Education Patient Instructions Indication:Flu-like symptoms Start:08-Aug-2016 Instruction Type:Provider Instructions for Treatment How to access health informa tion online Indication:Thyroid nodule Start:11-Dec-2015 Instruction Type:Patient Education How to access health informa tion online - Detail Indication:Thyroid nodule Start:11-Dec-2015 Instruction Type:Patient Education Patient Instructions Indication:Thyroid nodule Start:11-Dec-2015 Instruction Type:Provider Instructions for Treatment How to access health informa tion online Indication:Current nonsmoker (Renamed from Current non-smoker) Start:26-Jun-2015 Instruction Type:Patient Education How to access health informa tion online - Detail Indication:Current nonsmoker (Renamed from Current non-smoker) Start:26-Jun-2015 Instruction Type:Patient Education Patient Instructions Indication:Current nonsmoker (Renamed from Current non-smoker) Start:26-Jun-2015 Instruction Type:Provider Instructions for Treatment How to access health informa tion online Indication:Cough Start:26-Apr-2015 Instruction Type:Patient Education How to access health informa tion online - Detail Indication:Cough Start:26-Apr-2015 Instruction Type:Patient Education Patient Instructions Indication:Cough Start:26-Apr-2015 Instruction Type:Provider Instructions for Treatment How to access health informa tion online Indication:Headache Start:19-Feb-2015 Instruction Type:Patient Education How to access health informa tion online - Detail Indication:Headache Start:19-Feb-2015 Instruction Type:Patient Education Patient Instructions Indication:Headache Start:19-Feb-2015 Instruction Type:Provider Instructions for Treatment How to access health informa tion online Indication:Abnormal breath sounds Start:29-Sep-2014 Instruction Type:Patient Education How to access health informa tion online - Detail Indication:Abnormal breath sounds Start:29-Sep-2014 Instruction Type:Patient Education Patient Instructions Indication:Abnormal breath sounds Start:29-Sep-2014 Instruction Type:Provider Instructions for Treatment Patient Instructions Indication:Hyperlipidemia Start:17-Feb-2014 Instruction Type:Provider Instructions for Treatment Patient Instructions Indication:Hyperlipidemia Start:07-Jan-2013 Instruction Type:Provider Instructions for Treatment [facility]; [facility] Work Phone: Instructions* Name Dates Details How to Access Health Informa tion Online using Patient Portal and [employer]rd [employer] Apps Indication:Nonsmoker Start:28-Jan-2023 Instruction Type:Patient Education Patient Instructions Indication:Nonsmoker Start:28-Jan-2023 Instruction Type:Provider Instructions for Treatment Patient Instructions Indication:Abdominal pain, acute Start:12-Dec-2022 Instruction Type:Provider Instructions for Treatment How to Access Health Informa tion Online using Patient Portal and [employer] Apps Indication:Abdominal pain, acute Start:12-Dec-2022 Instruction Type:Patient Education Patient Instructions Indication:Nonsmoker Start:13-Nov-2022 Instruction Type:Provider Instructions for Treatment How to Access Health Informa tion Online using Patient Portal and [employer] Apps Indication:Nonsmoker Start:13-Nov-2022 Instruction Type:Patient Education Patient Instructions Indication:Nonsmoker Start:06-Aug-2022 Instruction Type:Provider Instructions for Treatment How to Access Health Informa tion Online using Patient Portal and [employer] Apps Indication:Nonsmoker Start:06-Aug-2022 Instruction Type:Patient Education Patient Instructions Indication:Nonsmoker Start:19-Jun-2022 Instruction Type:Provider Instructions for Treatment How to Access Health Informa tion Online using Patient Portal and [employer]rd [employer] Apps Indication:Nonsmoker Start:19-Jun-2022 Instruction Type:Patient Education Patient Instructions Indication:BMI 39.0-39.9,adult Start:13-Jun-2022 Instruction Type:Provider Instructions for Treatment How to Access Health Informa tion Online using Patient Portal and [employer]rd [employer] Apps Indication:BMI 39.0-39.9,adult Start:13-Jun-2022 Instruction Type:Patient Education Patient Instructions Indication:Nonsmoker Start:25-Apr-2022 Instruction Type:Provider Instructions for Treatment How to Access Health Informa tion Online using Patient Portal and [employer]rd [employer] Apps Indication:Nonsmoker Start:25-Apr-2022 Instruction Type:Patient Education Patient Instructions Indication:Nonsmoker Start:04-Mar-2021 Instruction Type:Provider Instructions for Treatment How to Access Health Informa tion Online using Patient Portal and [employer]rd [employer] Apps Indication:Nonsmoker Start:04-Mar-2021 Instruction Type:Patient Education Patient Instructions Indication:Nonsmoker Start:01-Mar-2021 Instruction Type:Provider Instructions for Treatment How to Access Health Informa tion Online using Patient Portal and [employer]rd [employer] Apps Indication:Nonsmoker Start:01-Mar-2021 Instruction Type:Patient Education Patient Instructions Indication:BMI 37.0-37.9, adult Start:03-Oct-2020 Instruction Type:Provider Instructions for Treatment How to Access Health Informa tion Online using Patient Portal and [employer]rd [employer] Apps Indication:BMI 37.0-37.9, adult Start:03-Oct-2020 Instruction Type:Patient Education How to access health informa tion online Indication:BMI 37.0-37.9, adult Start:25-Nov-2019 Instruction Type:Patient Education How to access health informa tion online - Detail Indication:BMI 37.0-37.9, adult Start:25-Nov-2019 Instruction Type:Patient Education Patient Instructions Indication:BMI 37.0-37.9, adult Start:25-Nov-2019 Instruction Type:Provider Instructions for Treatment How to access health informa tion online Indication:Nonsmoker Start:04-Nov-2019 Instruction Type:Patient Education How to access health informa tion online - Detail Indication:Nonsmoker Start:04-Nov-2019 Instruction Type:Patient Education Patient Instructions Indication:Nonsmoker Start:04-Nov-2019 Instruction Type:Provider Instructions for Treatment How to access health informa tion online Indication:Mild intermittent asthma without complication Start:25-Mar-2019 Instruction Type:Patient Education How to access health informa tion online - Detail Indication:Mild intermittent asthma without complication Start:25-Mar-2019 Instruction Type:Patient Education Patient Instructions Indication:Mild intermittent asthma without complication Start:25-Mar-2019 Instruction Type:Provider Instructions for Treatment How to access health informa tion online Indication:Nonsmoker Start:17-Sep-2018 Instruction Type:Patient Education How to access health informa tion online - Detail Indication:Nonsmoker Start:17-Sep-2018 Instruction Type:Patient Education Patient Instructions Indication:Nonsmoker Start:17-Sep-2018 Instruction Type:Provider Instructions for Treatment How to access health informa tion online - Detail Indication:Nonsmoker Start:14-Jul-2018 Instruction Type:Patient Education Patient Instructions Indication:Nonsmoker Start:14-Jul-2018 Instruction Type:Provider Instructions for Treatment How to access health informa tion online Indication:Nonsmoker Start:17-Jun-2017 Instruction Type:Patient Education How to access health informa tion online - Detail Indication:Nonsmoker Start:17-Jun-2017 Instruction Type:Patient Education Patient Instructions Indication:Nonsmoker Start:17-Jun-2017 Instruction Type:Provider Instructions for Treatment How to access health informa tion online Indication:Flu-like symptoms Start:08-Aug-2016 Instruction Type:Patient Education How to access health informa tion online - Detail Indication:Flu-like symptoms Start:08-Aug-2016 Instruction Type:Patient Education Patient Instructions Indication:Flu-like symptoms Start:08-Aug-2016 Instruction Type:Provider Instructions for Treatment How to access health informa tion online Indication:Thyroid nodule Start:11-Dec-2015 Instruction Type:Patient Education How to access health informa tion online - Detail Indication:Thyroid nodule Start:11-Dec-2015 Instruction Type:Patient Education Patient Instructions Indication:Thyroid nodule Start:11-Dec-2015 Instruction Type:Provider Instructions for Treatment How to access health informa tion online Indication:Current nonsmoker (Renamed from Current non-smoker) Start:26-Jun-2015 Instruction Type:Patient Education How to access health informa tion online - Detail Indication:Current nonsmoker (Renamed from Current non-smoker) Start:26-Jun-2015 Instruction Type:Patient Education Patient Instructions Indication:Current nonsmoker (Renamed from Current non-smoker) Start:26-Jun-2015 Instruction Type:Provider Instructions for Treatment How to access health informa tion online Indication:Cough Start:26-Apr-2015 Instruction Type:Patient Education How to access health informa tion online - Detail Indication:Cough Start:26-Apr-2015 Instruction Type:Patient Education Patient Instructions Indication:Cough Start:26-Apr-2015 Instruction Type:Provider Instructions for Treatment How to access health informa tion online Indication:Headache Start:19-Feb-2015 Instruction Type:Patient Education How to access health informa tion online - Detail Indication:Headache Start:19-Feb-2015 Instruction Type:Patient Education Patient Instructions Indication:Headache Start:19-Feb-2015 Instruction Type:Provider Instructions for Treatment How to access health informa tion online Indication:Abnormal breath sounds Start:29-Sep-2014 Instruction Type:Patient Education How to access health informa tion online - Detail Indication:Abnormal breath sounds Start:29-Sep-2014 Instruction Type:Patient Education Patient Instructions Indication:Abnormal breath sounds Start:29-Sep-2014 Instruction Type:Provider Instructions for Treatment Patient Instructions Indication:Hyperlipidemia Start:17-Feb-2014 Instruction Type:Provider Instructions for Treatment Patient Instructions Indication:Hyperlipidemia Start:07-Jan-2013 Instruction Type:Provider Instructions for Treatment [facility]; [facility] Work Phone: Summary Purpose Family History Unknown Family Member Name Dates Details Father Comments:[place], bypass , htn, cholesterol, smoker, drinker. 12-21 Status:Active Maternal Grandfather Comments:dementia, hardenin g of the arteries Status:Active Maternal Grandmother Comments:none to report Status:Active Mother Comments:htn, cardiac - hear t ablasion, depression, obese, hx of blood clots Status:Active Unknown Family Member Name Dates Details Father Comments:[place], bypass , htn, cholesterol, smoker, drinker. 12-21 Status:Active Maternal Grandfather Comments:dementia, hardenin g of the arteries Status:Active Maternal Grandmother Comments:none to report Status:Active Mother Comments:htn, cardiac - hear t ablasion, depression, obese, hx of blood clots Status:Active Unknown Family Member Name Dates Details Father Comments:[place], bypass , htn, cholesterol, smoker, drinker. 12-21 Status:Active Maternal Grandfather Comments:dementia, hardenin g of the arteries Status:Active Maternal Grandmother Comments:none to report Status:Active Mother Comments:htn, cardiac - hear t ablasion, depression, obese, hx of blood clots Status:Active Unknown Family Member Name Dates Details Father Comments:[place], bypass , htn, cholesterol, smoker, drinker. 12-21 Status:Active Maternal Grandfather Comments:dementia, hardenin g of the arteries Status:Active Maternal Grandmother Comments:none to report Status:Active Mother Comments:htn, cardiac - hear t ablasion, depression, obese, hx of blood clots Status:Active Unknown Family Member Name Dates Details Father Comments:[place], bypass , htn, cholesterol, smoker, drinker. 12-21 Status:Active Maternal Grandfather Comments:dementia, hardenin g of the arteries Status:Active Maternal Grandmother Comments:none to report Status:Active Mother Comments:htn, cardiac - hear t ablasion, depression, obese, hx of blood clots Status:Active Unknown Family Member Name Dates Details Father Comments:[place], bypass , htn, cholesterol, smoker, drinker. 12-21 Status:Active Maternal Grandfather Comments:dementia, hardenin g of the arteries Status:Active Maternal Grandmother Comments:none to report Status:Active Mother Comments:htn, cardiac - hear t ablasion, depression, obese, hx of blood clots Status:Active Unknown Family Member Name Dates Details Father Comments:[place], bypass , htn, cholesterol, smoker, drinker. 12-21 Status:Active Maternal Grandfather Comments:dementia, hardenin g of the arteries Status:Active Maternal Grandmother Comments:none to report Status:Active Mother Comments:htn, cardiac - hear t ablasion, depression, obese, hx of blood clots Status:Active Unknown Family Member Name Dates Details Father Comments:[place], bypass , htn, cholesterol, smoker, drinker. 12-21 Status:Active Maternal Grandfather Comments:dementia, hardenin g of the arteries Status:Active Maternal Grandmother Comments:none to report Status:Active Mother Comments:htn, cardiac - hear t ablasion, depression, obese, hx of blood clots Status:Active Unknown Family Member Name Dates Details Father Comments:[place], bypass , htn, cholesterol, smoker, drinker. 12-21 Status:Active Maternal Grandfather Comments:dementia, hardenin g of the arteries Status:Active Maternal Grandmother Comments:none to report Status:Active Mother Comments:htn, cardiac - hear t ablasion, depression, obese, hx of blood clots Status:Active Unknown Family Member Name Dates Details Father Comments:[place], bypass , htn, cholesterol, smoker, drinker. 12-21 Status:Active Maternal Grandfather Comments:dementia, hardenin g of the arteries Status:Active Maternal Grandmother Comments:none to report Status:Active Mother Comments:htn, cardiac - hear t ablasion, depression, obese, hx of blood clots Status:Active Unknown Family Member Name Dates Details Father Comments:[place], bypass , htn, cholesterol, smoker, drinker. 12-21 Status:Active Maternal Grandfather Comments:dementia, hardenin g of the arteries Status:Active Maternal Grandmother Comments:none to report Status:Active Mother Comments:htn, cardiac - hear t ablasion, depression, obese, hx of blood clots Status:Active Unknown Family Member Name Dates Details Father Comments:[place], bypass , htn, cholesterol, smoker, drinker. 12-21 Status:Active Maternal Grandfather Comments:dementia, hardenin g of the arteries Status:Active Maternal Grandmother Comments:none to report Status:Active Mother Comments:htn, cardiac - hear t ablasion, depression, obese, hx of blood clots Status:Active Unknown Family Member Name Dates Details Father Comments:[place], bypass , htn, cholesterol, smoker, drinker. 12-21 Status:Active Maternal Grandfather Comments:dementia, hardenin g of the arteries Status:Active Maternal Grandmother Comments:none to report Status:Active Mother Comments:htn, cardiac - hear t ablasion, depression, obese, hx of blood clots Status:Active Unknown Family Member Name Dates Details Father Comments:[place], bypass , htn, cholesterol, smoker, drinker. 12-21 Status:Active Maternal Grandfather Comments:dementia, hardenin g of the arteries Status:Active Maternal Grandmother Comments:none to report Status:Active Mother Comments:htn, cardiac - hear t ablasion, depression, obese, hx of blood clots Status:Active Unknown Family Member Name Dates Details Father Comments:[place], bypass , htn, cholesterol, smoker, drinker. 12-21 Status:Active Maternal Grandfather Comments:dementia, hardenin g of the arteries Status:Active Maternal Grandmother Comments:none to report Status:Active Mother Comments:htn, cardiac - hear t ablasion, depression, obese, hx of blood clots Status:Active Unknown Family Member Name Dates Details Father Comments:[place], bypass , htn, cholesterol, smoker, drinker. 12-21 Status:Active Maternal Grandfather Comments:dementia, hardenin g of the arteries Status:Active Maternal Grandmother Comments:none to report Status:Active Mother Comments:htn, cardiac - hear t ablasion, depression, obese, hx of blood clots Status:Active Unknown Family Member Name Dates Details Father Comments:[place], bypass , htn, cholesterol, smoker, drinker. 12-21 Status:Active Maternal Grandfather Comments:dementia, hardenin g of the arteries Status:Active Maternal Grandmother Comments:none to report Status:Active Mother Comments:htn, cardiac - hear t ablasion, depression, obese, hx of blood clots Status:Active Unknown Family Member Name Dates Details Father Comments:[place], bypass , htn, cholesterol, smoker, drinker. 12-21 Status:Active Maternal Grandfather Comments:dementia, hardenin g of the arteries Status:Active Maternal Grandmother Comments:none to report Status:Active Mother Comments:htn, cardiac - hear t ablasion, depression, obese, hx of blood clots Status:Active Unknown Family Member Name Dates Details Father Comments:[place], bypass , htn, cholesterol, smoker, drinker. 12-21 Status:Active Maternal Grandfather Comments:dementia, hardenin g of the arteries Status:Active Maternal Grandmother Comments:none to report Status:Active Mother Comments:htn, cardiac - hear t ablasion, depression, obese, hx of blood clots Status:Active Unknown Family Member Name Dates Details Father Comments:[place], bypass , htn, cholesterol, smoker, drinker. 12-21 Status:Active Maternal Grandfather Comments:dementia, hardenin g of the arteries Status:Active Maternal Grandmother Comments:none to report Status:Active Mother Comments:htn, cardiac - hear t ablasion, depression, obese, hx of blood clots Status:Active Unknown Family Member Name Dates Details Father Comments:[place], bypass , htn, cholesterol, smoker, drinker. 12-21 Status:Active Maternal Grandfather Comments:dementia, hardenin g of the arteries Status:Active Maternal Grandmother Comments:none to report Status:Active Mother Comments:htn, cardiac - hear t ablasion, depression, obese, hx of blood clots Status:Active Unknown Family Member Name Dates Details Father Comments:[place], bypass , htn, cholesterol, smoker, drinker. 12-21 Status:Active Maternal Grandfather Comments:dementia, hardenin g of the arteries Status:Active Maternal Grandmother Comments:none to report Status:Active Mother Comments:htn, cardiac - hear t ablasion, depression, obese, hx of blood clots Status:Active Unknown Family Member Name Dates Details Father Comments:[place], bypass , htn, cholesterol, smoker, drinker. 12-21 Status:Active Maternal Grandfather Comments:dementia, hardenin g of the arteries Status:Active Maternal Grandmother Comments:none to report Status:Active Mother Comments:htn, cardiac - hear t ablasion, depression, obese, hx of blood clots Status:Active Unknown Family Member Name Dates Details Father Comments:[place], bypass , htn, cholesterol, smoker, drinker. 12-21 Status:Active Maternal Grandfather Comments:dementia, hardenin g of the arteries Status:Active Maternal Grandmother Comments:none to report Status:Active Mother Comments:htn, cardiac - hear t ablasion, depression, obese, hx of blood clots Status:Active Unknown Family Member Name Dates Details Father Comments:[place], bypass , htn, cholesterol, smoker, drinker. 12-21 Status:Active Maternal Grandfather Comments:dementia, hardenin g of the arteries Status:Active Maternal Grandmother Comments:none to report Status:Active Mother Comments:htn, cardiac - hear t ablasion, depression, obese, hx of blood clots Status:Active Unknown Family Member Name Dates Details Father Comments:[place], bypass , htn, cholesterol, smoker, drinker. 12-21 Status:Active Maternal Grandfather Comments:dementia, hardenin g of the arteries Status:Active Maternal Grandmother Comments:none to report Status:Active Mother Comments:htn, cardiac - hear t ablasion, depression, obese, hx of blood clots Status:Active Unknown Family Member Name Dates Details Father Comments:[place], bypass , htn, cholesterol, smoker, drinker. 12-21 Status:Active Maternal Grandfather Comments:dementia, hardenin g of the arteries Status:Active Maternal Grandmother Comments:none to report Status:Active Mother Comments:htn, cardiac - hear t ablasion, depression, obese, hx of blood clots Status:Active Unknown Family Member Name Dates Details Father Comments:[place], bypass , htn, cholesterol, smoker, drinker. 12-21 Status:Active Maternal Grandfather Comments:dementia, hardenin g of the arteries Status:Active Maternal Grandmother Comments:none to report Status:Active Mother Comments:htn, cardiac - hear t ablasion, depression, obese, hx of blood clots Status:Active Unknown Family Member Name Dates Details Father Comments:[place], bypass , htn, cholesterol, smoker, drinker. 12-21 Status:Active Maternal Grandfather Comments:dementia, hardenin g of the arteries Status:Active Maternal Grandmother Comments:none to report Status:Active Mother Comments:htn, cardiac - hear t ablasion, depression, obese, hx of blood clots Status:Active Unknown Family Member Name Dates Details Father Comments:[place], bypass , htn, cholesterol, smoker, drinker. 12-21 Status:Active Maternal Grandfather Comments:dementia, hardenin g of the arteries Status:Active Maternal Grandmother Comments:none to report Status:Active Mother Comments:htn, cardiac - hear t ablasion, depression, obese, hx of blood clots Status:Active Unknown Family Member Name Dates Details Father Comments:[place], bypass , htn, cholesterol, smoker, drinker. 12-21 Status:Active Maternal Grandfather Comments:dementia, hardenin g of the arteries Status:Active Maternal Grandmother Comments:none to report Status:Active Mother Comments:htn, cardiac - hear t ablasion, depression, obese, hx of blood clots Status:Active Unknown Family Member Name Dates Details Father Comments:[place], bypass , htn, cholesterol, smoker, drinker. 12-21 Status:Active Maternal Grandfather Comments:dementia, hardenin g of the arteries Status:Active Maternal Grandmother Comments:none to report Status:Active Mother Comments:htn, cardiac - hear t ablasion, depression, obese, hx of blood clots Status:Active Unknown Family Member Name Dates Details Father Comments:[place], bypass , htn, cholesterol, smoker, drinker. 12-21 Status:Active Maternal Grandfather Comments:dementia, hardenin g of the arteries Status:Active Maternal Grandmother Comments:none to report Status:Active Mother Comments:htn, cardiac - hear t ablasion, depression, obese, hx of blood clots Status:Active Unknown Family Member Name Dates Details Father Comments:[place], bypass , htn, cholesterol, smoker, drinker. 12-21 Status:Active Maternal Grandfather Comments:dementia, hardenin g of the arteries Status:Active Maternal Grandmother Comments:none to report Status:Active Mother Comments:htn, cardiac - hear t ablasion, depression, obese, hx of blood clots Status:Active Unknown Family Member Name Dates Details Father Comments:[place], bypass , htn, cholesterol, smoker, drinker. 12-21 Status:Active Maternal Grandfather Comments:dementia, hardenin g of the arteries Status:Active Maternal Grandmother Comments:none to report Status:Active Mother Comments:htn, cardiac - hear t ablasion, depression, obese, hx of blood clots Status:Active Unknown Family Member Name Dates Details Father Comments:[place], bypass , htn, cholesterol, smoker, drinker. 12-21 Status:Active Maternal Grandfather Comments:dementia, hardenin g of the arteries Status:Active Maternal Grandmother Comments:none to report Status:Active Mother Comments:htn, cardiac - hear t ablasion, depression, obese, hx of blood clots Status:Active Unknown Family Member Name Dates Details Father Comments:[place], bypass , htn, cholesterol, smoker, drinker. 12-21 Status:Active Maternal Grandfather Comments:dementia, hardenin g of the arteries Status:Active Maternal Grandmother Comments:none to report Status:Active Mother Comments:htn, cardiac - hear t ablasion, depression, obese, hx of blood clots Status:Active Unknown Family Member Name Dates Details Father Comments:[place], bypass , htn, cholesterol, smoker, drinker. 12-21 Status:Active Maternal Grandfather Comments:dementia, hardenin g of the arteries Status:Active Maternal Grandmother Comments:none to report Status:Active Mother Comments:htn, cardiac - hear t ablasion, depression, obese, hx of blood clots Status:Active Unknown Family Member Name Dates Details Father Comments:[place], bypass , htn, cholesterol, smoker, drinker. 12-21 Status:Active Maternal Grandfather Comments:dementia, hardenin g of the arteries Status:Active Maternal Grandmother Comments:none to report Status:Active Mother Comments:htn, cardiac - hear t ablasion, depression, obese, hx of blood clots Status:Active Unknown Family Member Name Dates Details Father Comments:[place], bypass , htn, cholesterol, smoker, drinker. 12-21 Status:Active Maternal Grandfather Comments:dementia, hardenin g of the arteries Status:Active Maternal Grandmother Comments:none to report Status:Active Mother Comments:htn, cardiac - hear t ablasion, depression, obese, hx of blood clots Status:Active Unknown Family Member Name Dates Details Father Comments:[place], bypass , htn, cholesterol, smoker, drinker. 12-21 Status:Active Maternal Grandfather Comments:dementia, hardenin g of the arteries Status:Active Maternal Grandmother Comments:none to report Status:Active Mother Comments:htn, cardiac - hear t ablasion, depression, obese, hx of blood clots Status:Active Unknown Family Member Name Dates Details Father Comments:[place], bypass , htn, cholesterol, smoker, drinker. 12-21 Status:Active Maternal Grandfather Comments:dementia, hardenin g of the arteries Status:Active Maternal Grandmother Comments:none to report Status:Active Mother Comments:htn, cardiac - hear t ablasion, depression, obese, hx of blood clots Status:Active Unknown Family Member Name Dates Details Father Comments:[place], bypass , htn, cholesterol, smoker, drinker. 12-21 Status:Active Maternal Grandfather Comments:dementia, hardenin g of the arteries Status:Active Maternal Grandmother Comments:none to report Status:Active Mother Comments:htn, cardiac - hear t ablasion, depression, obese, hx of blood clots Status:Active Unknown Family Member Name Dates Details Father Comments:[place], bypass , htn, cholesterol, smoker, drinker. 12-21 Status:Active Maternal Grandfather Comments:dementia, hardenin g of the arteries Status:Active Maternal Grandmother Comments:none to report Status:Active Mother Comments:htn, cardiac - hear t ablasion, depression, obese, hx of blood clots Status:Active Unknown Family Member Name Dates Details Father Comments:[place], bypass , htn, cholesterol, smoker, drinker. 12-21 Status:Active Maternal Grandfather Comments:dementia, hardenin g of the arteries Status:Active Maternal Grandmother Comments:none to report Status:Active Mother Comments:htn, cardiac - hear t ablasion, depression, obese, hx of blood clots Status:Active Unknown Family Member Name Dates Details Father Comments:[place], bypass , htn, cholesterol, smoker, drinker. 12-21 Status:Active Maternal Grandfather Comments:dementia, hardenin g of the arteries Status:Active Maternal Grandmother Comments:none to report Status:Active Mother Comments:htn, cardiac - hear t ablasion, depression, obese, hx of blood clots Status:Active Unknown Family Member Name Dates Details Father Comments:[place], bypass , htn, cholesterol, smoker, drinker. 12-21 Status:Active Maternal Grandfather Comments:dementia, hardenin g of the arteries Status:Active Maternal Grandmother Comments:none to report Status:Active Mother Comments:htn, cardiac - hear t ablasion, depression, obese, hx of blood clots Status:Active Unknown Family Member Name Dates Details Father Comments:[place], bypass , htn, cholesterol, smoker, drinker. 12-21 Status:Active Maternal Grandfather Comments:dementia, hardenin g of the arteries Status:Active Maternal Grandmother Comments:none to report Status:Active Mother Comments:htn, cardiac - hear t ablasion, depression, obese, hx of blood clots Status:Active Advance Directives Name Dates Details Immunization Registry [place] - Effective on 10/03/2020. Expiration date unspecified Effective:03-Oct-2020 Name Dates Details Immunization Registry [place] - Effective on 10/03/2020. Expiration date unspecified Effective:03-Oct-2020 Name Dates Details Immunization Registry [place] - Effective on 10/03/2020. Expiration date unspecified Effective:03-Oct-2020 Name Dates Details Immunization Registry [place] - Effective on 10/03/2020. Expiration date unspecified Effective:03-Oct-2020 Name Dates Details Immunization Registry [place] - Effective on 10/03/2020. Expiration date unspecified Effective:03-Oct-2020 Name Dates Details Immunization Registry [place] - Effective on 10/03/2020. Expiration date unspecified Effective:03-Oct-2020 Name Dates Details Immunization Registry [place] - Effective on 10/03/2020. Expiration date unspecified Effective:03-Oct-2020 Name Dates Details Immunization Registry [place] - Effective on 10/03/2020. Expiration date unspecified Effective:03-Oct-2020 Name Dates Details Immunization Registry [place] - Effective on 10/03/2020. Expiration date unspecified Effective:03-Oct-2020 Name Dates Details Immunization Registry [place] - Effective on 10/03/2020. Expiration date unspecified Effective:03-Oct-2020 Name Dates Details Immunization Registry [place] - Effective on 10/03/2020. Expiration date unspecified Effective:03-Oct-2020 Name Dates Details Immunization Registry [place] - Effective on 10/03/2020. Expiration date unspecified Effective:03-Oct-2020 Name Dates Details Immunization Registry [place] - Effective on 10/03/2020. Expiration date unspecified Effective:03-Oct-2020 Name Dates Details Immunization Registry [place] - Effective on 10/03/2020. Expiration date unspecified Effective:03-Oct-2020 Name Dates Details Immunization Registry [place] - Effective on 10/03/2020. Expiration date unspecified Effective:03-Oct-2020 Name Dates Details Immunization Registry [place] - Effective on 10/03/2020. Expiration date unspecified Effective:03-Oct-2020 Name Dates Details Immunization Registry [place] - Effective on 10/03/2020. Expiration date unspecified Effective:03-Oct-2020 Name Dates Details Immunization Registry [place] - Effective on 10/03/2020. Expiration date unspecified Effective:03-Oct-2020 Name Dates Details Immunization Registry [place] - Effective on 10/03/2020. Expiration date unspecified Effective:03-Oct-2020 Name Dates Details Immunization Registry [place] - Effective on 10/03/2020. Expiration date unspecified Effective:03-Oct-2020 Name Dates Details Immunization Registry [place] - Effective on 10/03/2020. Expiration date unspecified Effective:03-Oct-2020 Name Dates Details Immunization Registry [place] - Effective on 10/03/2020. Expiration date unspecified Effective:03-Oct-2020 Name Dates Details Immunization Registry [place] - Effective on 10/03/2020. Expiration date unspecified Effective:03-Oct-2020 Name Dates Details Immunization Registry [place] - Effective on 10/03/2020. Expiration date unspecified Effective:03-Oct-2020 Name Dates Details Immunization Registry [place] - Effective on 10/03/2020. Expiration date unspecified Effective:03-Oct-2020 Name Dates Details Immunization Registry [place] - Effective on 10/03/2020. Expiration date unspecified Effective:03-Oct-2020 Name Dates Details Immunization Registry [place] - Effective on 10/03/2020. Expiration date unspecified Effective:03-Oct-2020 Name Dates Details Immunization Registry [place] - Effective on 10/03/2020. Expiration date unspecified Effective:03-Oct-2020 Name Dates Details Immunization Registry [place] - Effective on 10/03/2020. Expiration date unspecified Effective:03-Oct-2020 Name Dates Details Immunization Registry [place] - Effective on 10/03/2020. Expiration date unspecified Effective:03-Oct-2020 Name Dates Details Immunization Registry [place] - Effective on 10/03/2020. Expiration date unspecified Effective:03-Oct-2020 Name Dates Details Immunization Registry [place] - Effective on 10/03/2020. Expiration date unspecified Effective:03-Oct-2020 Instructions Name Dates Details Nonsmoker : How to access he alth information online - Detail Indication:Nonsmoker Nonsmoker : Patient Instruct ions Indication:Nonsmoker Nonsmoker : How to access he alth information online Indication:Nonsmoker Flu-like symptoms : How to a ccess health information online Indication:Flu-like symptoms Flu-like symptoms : How to a ccess health information online - Detail Indication:Flu-like symptoms Flu-like symptoms : Patient Instructions Indication:Flu-like symptoms Thyroid nodule : How to acce ss health information online Indication:Thyroid nodule Thyroid nodule : How to acce ss health information online - Detail Indication:Thyroid nodule Thyroid nodule : Patient Ins tructions Indication:Thyroid nodule Current nonsmoker (Renamed f rom Current non-smoker) : How to access health information online Indication:Current nonsmoker (Renamed from Current non-smoker) Current nonsmoker (Renamed f rom Current non-smoker) : How to access health information online - Detail Indication:Current nonsmoker (Renamed from Current non-smoker) Current nonsmoker (Renamed f rom Current non-smoker) : Patient Instructions Indication:Current nonsmoker (Renamed from Current non-smoker) Cough : How to access health information online Indication:Cough Cough : How to access health information online - Detail Indication:Cough Cough : Patient Instructions Indication:Cough Headache : How to access hea lth information online Indication:Headache Headache : How to access hea lth information online - Detail Indication:Headache Headache : Patient Instructi ons Indication:Headache Abnormal breath sounds : How to access health information online Indication:Abnormal breath sounds Abnormal breath sounds : How to access health information online - Detail Indication:Abnormal breath sounds Abnormal breath sounds : Pat ient Instructions Indication:Abnormal breath sounds Hyperlipidemia : Patient Ins tructions Indication:Hyperlipidemia Name Dates Details How to access health informa tion online Indication:Nonsmoker Start:17-Sep-2018 Instruction Type:Patient Education How to access health informa tion online - Detail Indication:Nonsmoker Start:17-Sep-2018 Instruction Type:Patient Education Patient Instructions Indication:Nonsmoker Start:17-Sep-2018 Instruction Type:Provider Instructions for Treatment How to access health informa tion online - Detail Indication:Nonsmoker Start:14-Jul-2018 Instruction Type:Patient Education Patient Instructions Indication:Nonsmoker Start:14-Jul-2018 Instruction Type:Provider Instructions for Treatment How to access health informa tion online Indication:Nonsmoker Start:17-Jun-2017 Instruction Type:Patient Education How to access health informa tion online - Detail Indication:Nonsmoker Start:17-Jun-2017 Instruction Type:Patient Education Patient Instructions Indication:Nonsmoker Start:17-Jun-2017 Instruction Type:Provider Instructions for Treatment How to access health informa tion online Indication:Flu-like symptoms Start:08-Aug-2016 Instruction Type:Patient Education How to access health informa tion online - Detail Indication:Flu-like symptoms Start:08-Aug-2016 Instruction Type:Patient Education Patient Instructions Indication:Flu-like symptoms Start:08-Aug-2016 Instruction Type:Provider Instructions for Treatment How to access health informa tion online Indication:Thyroid nodule Start:11-Dec-2015 Instruction Type:Patient Education How to access health informa tion online - Detail Indication:Thyroid nodule Start:11-Dec-2015 Instruction Type:Patient Education Patient Instructions Indication:Thyroid nodule Start:11-Dec-2015 Instruction Type:Provider Instructions for Treatment How to access health informa tion online Indication:Current nonsmoker (Renamed from Current non-smoker) Start:26-Jun-2015 Instruction Type:Patient Education How to access health informa tion online - Detail Indication:Current nonsmoker (Renamed from Current non-smoker) Start:26-Jun-2015 Instruction Type:Patient Education Patient Instructions Indication:Current nonsmoker (Renamed from Current non-smoker) Start:26-Jun-2015 Instruction Type:Provider Instructions for Treatment How to access health informa tion online Indication:Cough Start:26-Apr-2015 Instruction Type:Patient Education How to access health informa tion online - Detail Indication:Cough Start:26-Apr-2015 Instruction Type:Patient Education Patient Instructions Indication:Cough Start:26-Apr-2015 Instruction Type:Provider Instructions for Treatment How to access health informa tion online Indication:Headache Start:19-Feb-2015 Instruction Type:Patient Education How to access health informa tion online - Detail Indication:Headache Start:19-Feb-2015 Instruction Type:Patient Education Patient Instructions Indication:Headache Start:19-Feb-2015 Instruction Type:Provider Instructions for Treatment How to access health informa tion online Indication:Abnormal breath sounds Start:29-Sep-2014 Instruction Type:Patient Education How to access health informa tion online - Detail Indication:Abnormal breath sounds Start:29-Sep-2014 Instruction Type:Patient Education Patient Instructions Indication:Abnormal breath sounds Start:29-Sep-2014 Instruction Type:Provider Instructions for Treatment Patient Instructions Indication:Hyperlipidemia Start:17-Feb-2014 Instruction Type:Provider Instructions for Treatment Patient Instructions Indication:Hyperlipidemia Start:07-Jan-2013 Instruction Type:Provider Instructions for Treatment Name Dates Details How to access health informa tion online Indication:Nonsmoker Start:17-Sep-2018 Instruction Type:Patient Education How to access health informa tion online - Detail Indication:Nonsmoker Start:17-Sep-2018 Instruction Type:Patient Education Patient Instructions Indication:Nonsmoker Start:17-Sep-2018 Instruction Type:Provider Instructions for Treatment How to access health informa tion online - Detail Indication:Nonsmoker Start:14-Jul-2018 Instruction Type:Patient Education Patient Instructions Indication:Nonsmoker Start:14-Jul-2018 Instruction Type:Provider Instructions for Treatment How to access health informa tion online Indication:Nonsmoker Start:17-Jun-2017 Instruction Type:Patient Education How to access health informa tion online - Detail Indication:Nonsmoker Start:17-Jun-2017 Instruction Type:Patient Education Patient Instructions Indication:Nonsmoker Start:17-Jun-2017 Instruction Type:Provider Instructions for Treatment How to access health informa tion online Indication:Flu-like symptoms Start:08-Aug-2016 Instruction Type:Patient Education How to access health informa tion online - Detail Indication:Flu-like symptoms Start:08-Aug-2016 Instruction Type:Patient Education Patient Instructions Indication:Flu-like symptoms Start:08-Aug-2016 Instruction Type:Provider Instructions for Treatment How to access health informa tion online Indication:Thyroid nodule Start:11-Dec-2015 Instruction Type:Patient Education How to access health informa tion online - Detail Indication:Thyroid nodule Start:11-Dec-2015 Instruction Type:Patient Education Patient Instructions Indication:Thyroid nodule Start:11-Dec-2015 Instruction Type:Provider Instructions for Treatment How to access health informa tion online Indication:Current nonsmoker (Renamed from Current non-smoker) Start:26-Jun-2015 Instruction Type:Patient Education How to access health informa tion online - Detail Indication:Current nonsmoker (Renamed from Current non-smoker) Start:26-Jun-2015 Instruction Type:Patient Education Patient Instructions Indication:Current nonsmoker (Renamed from Current non-smoker) Start:26-Jun-2015 Instruction Type:Provider Instructions for Treatment How to access health informa tion online Indication:Cough Start:26-Apr-2015 Instruction Type:Patient Education How to access health informa tion online - Detail Indication:Cough Start:26-Apr-2015 Instruction Type:Patient Education Patient Instructions Indication:Cough Start:26-Apr-2015 Instruction Type:Provider Instructions for Treatment How to access health informa tion online Indication:Headache Start:19-Feb-2015 Instruction Type:Patient Education How to access health informa tion online - Detail Indication:Headache Start:19-Feb-2015 Instruction Type:Patient Education Patient Instructions Indication:Headache Start:19-Feb-2015 Instruction Type:Provider Instructions for Treatment How to access health informa tion online Indication:Abnormal breath sounds Start:29-Sep-2014 Instruction Type:Patient Education How to access health informa tion online - Detail Indication:Abnormal breath sounds Start:29-Sep-2014 Instruction Type:Patient Education Patient Instructions Indication:Abnormal breath sounds Start:29-Sep-2014 Instruction Type:Provider Instructions for Treatment Patient Instructions Indication:Hyperlipidemia Start:17-Feb-2014 Instruction Type:Provider Instructions for Treatment Patient Instructions Indication:Hyperlipidemia Start:07-Jan-2013 Instruction Type:Provider Instructions for Treatment Name Dates Details How to access health informa tion online Indication:Nonsmoker Start:17-Sep-2018 Instruction Type:Patient Education How to access health informa tion online - Detail Indication:Nonsmoker Start:17-Sep-2018 Instruction Type:Patient Education Patient Instructions Indication:Nonsmoker Start:17-Sep-2018 Instruction Type:Provider Instructions for Treatment How to access health informa tion online - Detail Indication:Nonsmoker Start:14-Jul-2018 Instruction Type:Patient Education Patient Instructions Indication:Nonsmoker Start:14-Jul-2018 Instruction Type:Provider Instructions for Treatment How to access health informa tion online Indication:Nonsmoker Start:17-Jun-2017 Instruction Type:Patient Education How to access health informa tion online - Detail Indication:Nonsmoker Start:17-Jun-2017 Instruction Type:Patient Education Patient Instructions Indication:Nonsmoker Start:17-Jun-2017 Instruction Type:Provider Instructions for Treatment How to access health informa tion online Indication:Flu-like symptoms Start:08-Aug-2016 Instruction Type:Patient Education How to access health informa tion online - Detail Indication:Flu-like symptoms Start:08-Aug-2016 Instruction Type:Patient Education Patient Instructions Indication:Flu-like symptoms Start:08-Aug-2016 Instruction Type:Provider Instructions for Treatment How to access health informa tion online Indication:Thyroid nodule Start:11-Dec-2015 Instruction Type:Patient Education How to access health informa tion online - Detail Indication:Thyroid nodule Start:11-Dec-2015 Instruction Type:Patient Education Patient Instructions Indication:Thyroid nodule Start:11-Dec-2015 Instruction Type:Provider Instructions for Treatment How to access health informa tion online Indication:Current nonsmoker (Renamed from Current non-smoker) Start:26-Jun-2015 Instruction Type:Patient Education How to access health informa tion online - Detail Indication:Current nonsmoker (Renamed from Current non-smoker) Start:26-Jun-2015 Instruction Type:Patient Education Patient Instructions Indication:Current nonsmoker (Renamed from Current non-smoker) Start:26-Jun-2015 Instruction Type:Provider Instructions for Treatment How to access health informa tion online Indication:Cough Start:26-Apr-2015 Instruction Type:Patient Education How to access health informa tion online - Detail Indication:Cough Start:26-Apr-2015 Instruction Type:Patient Education Patient Instructions Indication:Cough Start:26-Apr-2015 Instruction Type:Provider Instructions for Treatment How to access health informa tion online Indication:Headache Start:19-Feb-2015 Instruction Type:Patient Education How to access health informa tion online - Detail Indication:Headache Start:19-Feb-2015 Instruction Type:Patient Education Patient Instructions Indication:Headache Start:19-Feb-2015 Instruction Type:Provider Instructions for Treatment How to access health informa tion online Indication:Abnormal breath sounds Start:29-Sep-2014 Instruction Type:Patient Education How to access health informa tion online - Detail Indication:Abnormal breath sounds Start:29-Sep-2014 Instruction Type:Patient Education Patient Instructions Indication:Abnormal breath sounds Start:29-Sep-2014 Instruction Type:Provider Instructions for Treatment Patient Instructions Indication:Hyperlipidemia Start:17-Feb-2014 Instruction Type:Provider Instructions for Treatment Patient Instructions Indication:Hyperlipidemia Start:07-Jan-2013 Instruction Type:Provider Instructions for Treatment Name Dates Details How to access health informa tion online Indication:Nonsmoker Start:04-Nov-2019 Instruction Type:Patient Education How to access health informa tion online - Detail Indication:Nonsmoker Start:04-Nov-2019 Instruction Type:Patient Education Patient Instructions Indication:Nonsmoker Start:04-Nov-2019 Instruction Type:Provider Instructions for Treatment How to access health informa tion online Indication:Mild intermittent asthma without complication Start:25-Mar-2019 Instruction Type:Patient Education How to access health informa tion online - Detail Indication:Mild intermittent asthma without complication Start:25-Mar-2019 Instruction Type:Patient Education Patient Instructions Indication:Mild intermittent asthma without complication Start:25-Mar-2019 Instruction Type:Provider Instructions for Treatment How to access health informa tion online Indication:Nonsmoker Start:17-Sep-2018 Instruction Type:Patient Education How to access health informa tion online - Detail Indication:Nonsmoker Start:17-Sep-2018 Instruction Type:Patient Education Patient Instructions Indication:Nonsmoker Start:17-Sep-2018 Instruction Type:Provider Instructions for Treatment How to access health informa tion online - Detail Indication:Nonsmoker Start:14-Jul-2018 Instruction Type:Patient Education Patient Instructions Indication:Nonsmoker Start:14-Jul-2018 Instruction Type:Provider Instructions for Treatment How to access health informa tion online Indication:Nonsmoker Start:17-Jun-2017 Instruction Type:Patient Education How to access health informa tion online - Detail Indication:Nonsmoker Start:17-Jun-2017 Instruction Type:Patient Education Patient Instructions Indication:Nonsmoker Start:17-Jun-2017 Instruction Type:Provider Instructions for Treatment How to access health informa tion online Indication:Flu-like symptoms Start:08-Aug-2016 Instruction Type:Patient Education How to access health informa tion online - Detail Indication:Flu-like symptoms Start:08-Aug-2016 Instruction Type:Patient Education Patient Instructions Indication:Flu-like symptoms Start:08-Aug-2016 Instruction Type:Provider Instructions for Treatment How to access health informa tion online Indication:Thyroid nodule Start:11-Dec-2015 Instruction Type:Patient Education How to access health informa tion online - Detail Indication:Thyroid nodule Start:11-Dec-2015 Instruction Type:Patient Education Patient Instructions Indication:Thyroid nodule Start:11-Dec-2015 Instruction Type:Provider Instructions for Treatment How to access health informa tion online Indication:Current nonsmoker (Renamed from Current non-smoker) Start:26-Jun-2015 Instruction Type:Patient Education How to access health informa tion online - Detail Indication:Current nonsmoker (Renamed from Current non-smoker) Start:26-Jun-2015 Instruction Type:Patient Education Patient Instructions Indication:Current nonsmoker (Renamed from Current non-smoker) Start:26-Jun-2015 Instruction Type:Provider Instructions for Treatment How to access health informa tion online Indication:Cough Start:26-Apr-2015 Instruction Type:Patient Education How to access health informa tion online - Detail Indication:Cough Start:26-Apr-2015 Instruction Type:Patient Education Patient Instructions Indication:Cough Start:26-Apr-2015 Instruction Type:Provider Instructions for Treatment How to access health informa tion online Indication:Headache Start:19-Feb-2015 Instruction Type:Patient Education How to access health informa tion online - Detail Indication:Headache Start:19-Feb-2015 Instruction Type:Patient Education Patient Instructions Indication:Headache Start:19-Feb-2015 Instruction Type:Provider Instructions for Treatment How to access health informa tion online Indication:Abnormal breath sounds Start:29-Sep-2014 Instruction Type:Patient Education How to access health informa tion online - Detail Indication:Abnormal breath sounds Start:29-Sep-2014 Instruction Type:Patient Education Patient Instructions Indication:Abnormal breath sounds Start:29-Sep-2014 Instruction Type:Provider Instructions for Treatment Patient Instructions Indication:Hyperlipidemia Start:17-Feb-2014 Instruction Type:Provider Instructions for Treatment Patient Instructions Indication:Hyperlipidemia Start:07-Jan-2013 Instruction Type:Provider Instructions for Treatment Name Dates Details How to access health informa tion online Indication:BMI 37.0-37.9, adult Start:25-Nov-2019 Instruction Type:Patient Education How to access health informa tion online - Detail Indication:BMI 37.0-37.9, adult Start:25-Nov-2019 Instruction Type:Patient Education Patient Instructions Indication:BMI 37.0-37.9, adult Start:25-Nov-2019 Instruction Type:Provider Instructions for Treatment How to access health informa tion online Indication:Nonsmoker Start:04-Nov-2019 Instruction Type:Patient Education How to access health informa tion online - Detail Indication:Nonsmoker Start:04-Nov-2019 Instruction Type:Patient Education Patient Instructions Indication:Nonsmoker Start:04-Nov-2019 Instruction Type:Provider Instructions for Treatment How to access health informa tion online Indication:Mild intermittent asthma without complication Start:25-Mar-2019 Instruction Type:Patient Education How to access health informa tion online - Detail Indication:Mild intermittent asthma without complication Start:25-Mar-2019 Instruction Type:Patient Education Patient Instructions Indication:Mild intermittent asthma without complication Start:25-Mar-2019 Instruction Type:Provider Instructions for Treatment How to access health informa tion online Indication:Nonsmoker Start:17-Sep-2018 Instruction Type:Patient Education How to access health informa tion online - Detail Indication:Nonsmoker Start:17-Sep-2018 Instruction Type:Patient Education Patient Instructions Indication:Nonsmoker Start:17-Sep-2018 Instruction Type:Provider Instructions for Treatment How to access health informa tion online - Detail Indication:Nonsmoker Start:14-Jul-2018 Instruction Type:Patient Education Patient Instructions Indication:Nonsmoker Start:14-Jul-2018 Instruction Type:Provider Instructions for Treatment How to access health informa tion online Indication:Nonsmoker Start:17-Jun-2017 Instruction Type:Patient Education How to access health informa tion online - Detail Indication:Nonsmoker Start:17-Jun-2017 Instruction Type:Patient Education Patient Instructions Indication:Nonsmoker Start:17-Jun-2017 Instruction Type:Provider Instructions for Treatment How to access health informa tion online Indication:Flu-like symptoms Start:08-Aug-2016 Instruction Type:Patient Education How to access health informa tion online - Detail Indication:Flu-like symptoms Start:08-Aug-2016 Instruction Type:Patient Education Patient Instructions Indication:Flu-like symptoms Start:08-Aug-2016 Instruction Type:Provider Instructions for Treatment How to access health informa tion online Indication:Thyroid nodule Start:11-Dec-2015 Instruction Type:Patient Education How to access health informa tion online - Detail Indication:Thyroid nodule Start:11-Dec-2015 Instruction Type:Patient Education Patient Instructions Indication:Thyroid nodule Start:11-Dec-2015 Instruction Type:Provider Instructions for Treatment How to access health informa tion online Indication:Current nonsmoker (Renamed from Current non-smoker) Start:26-Jun-2015 Instruction Type:Patient Education How to access health informa tion online - Detail Indication:Current nonsmoker (Renamed from Current non-smoker) Start:26-Jun-2015 Instruction Type:Patient Education Patient Instructions Indication:Current nonsmoker (Renamed from Current non-smoker) Start:26-Jun-2015 Instruction Type:Provider Instructions for Treatment How to access health informa tion online Indication:Cough Start:26-Apr-2015 Instruction Type:Patient Education How to access health informa tion online - Detail Indication:Cough Start:26-Apr-2015 Instruction Type:Patient Education Patient Instructions Indication:Cough Start:26-Apr-2015 Instruction Type:Provider Instructions for Treatment How to access health informa tion online Indication:Headache Start:19-Feb-2015 Instruction Type:Patient Education How to access health informa tion online - Detail Indication:Headache Start:19-Feb-2015 Instruction Type:Patient Education Patient Instructions Indication:Headache Start:19-Feb-2015 Instruction Type:Provider Instructions for Treatment How to access health informa tion online Indication:Abnormal breath sounds Start:29-Sep-2014 Instruction Type:Patient Education How to access health informa tion online - Detail Indication:Abnormal breath sounds Start:29-Sep-2014 Instruction Type:Patient Education Patient Instructions Indication:Abnormal breath sounds Start:29-Sep-2014 Instruction Type:Provider Instructions for Treatment Patient Instructions Indication:Hyperlipidemia Start:17-Feb-2014 Instruction Type:Provider Instructions for Treatment Patient Instructions Indication:Hyperlipidemia Start:07-Jan-2013 Instruction Type:Provider Instructions for Treatment Name Dates Details How to access health informa tion online Indication:BMI 37.0-37.9, adult Start:25-Nov-2019 Instruction Type:Patient Education How to access health informa tion online - Detail Indication:BMI 37.0-37.9, adult Start:25-Nov-2019 Instruction Type:Patient Education Patient Instructions Indication:BMI 37.0-37.9, adult Start:25-Nov-2019 Instruction Type:Provider Instructions for Treatment How to access health informa tion online Indication:Nonsmoker Start:04-Nov-2019 Instruction Type:Patient Education How to access health informa tion online - Detail Indication:Nonsmoker Start:04-Nov-2019 Instruction Type:Patient Education Patient Instructions Indication:Nonsmoker Start:04-Nov-2019 Instruction Type:Provider Instructions for Treatment How to access health informa tion online Indication:Mild intermittent asthma without complication Start:25-Mar-2019 Instruction Type:Patient Education How to access health informa tion online - Detail Indication:Mild intermittent asthma without complication Start:25-Mar-2019 Instruction Type:Patient Education Patient Instructions Indication:Mild intermittent asthma without complication Start:25-Mar-2019 Instruction Type:Provider Instructions for Treatment How to access health informa tion online Indication:Nonsmoker Start:17-Sep-2018 Instruction Type:Patient Education How to access health informa tion online - Detail Indication:Nonsmoker Start:17-Sep-2018 Instruction Type:Patient Education Patient Instructions Indication:Nonsmoker Start:17-Sep-2018 Instruction Type:Provider Instructions for Treatment How to access health informa tion online - Detail Indication:Nonsmoker Start:14-Jul-2018 Instruction Type:Patient Education Patient Instructions Indication:Nonsmoker Start:14-Jul-2018 Instruction Type:Provider Instructions for Treatment How to access health informa tion online Indication:Nonsmoker Start:17-Jun-2017 Instruction Type:Patient Education How to access health informa tion online - Detail Indication:Nonsmoker Start:17-Jun-2017 Instruction Type:Patient Education Patient Instructions Indication:Nonsmoker Start:17-Jun-2017 Instruction Type:Provider Instructions for Treatment How to access health informa tion online Indication:Flu-like symptoms Start:08-Aug-2016 Instruction Type:Patient Education How to access health informa tion online - Detail Indication:Flu-like symptoms Start:08-Aug-2016 Instruction Type:Patient Education Patient Instructions Indication:Flu-like symptoms Start:08-Aug-2016 Instruction Type:Provider Instructions for Treatment How to access health informa tion online Indication:Thyroid nodule Start:11-Dec-2015 Instruction Type:Patient Education How to access health informa tion online - Detail Indication:Thyroid nodule Start:11-Dec-2015 Instruction Type:Patient Education Patient Instructions Indication:Thyroid nodule Start:11-Dec-2015 Instruction Type:Provider Instructions for Treatment How to access health informa tion online Indication:Current nonsmoker (Renamed from Current non-smoker) Start:26-Jun-2015 Instruction Type:Patient Education How to access health informa tion online - Detail Indication:Current nonsmoker (Renamed from Current non-smoker) Start:26-Jun-2015 Instruction Type:Patient Education Patient Instructions Indication:Current nonsmoker (Renamed from Current non-smoker) Start:26-Jun-2015 Instruction Type:Provider Instructions for Treatment How to access health informa tion online Indication:Cough Start:26-Apr-2015 Instruction Type:Patient Education How to access health informa tion online - Detail Indication:Cough Start:26-Apr-2015 Instruction Type:Patient Education Patient Instructions Indication:Cough Start:26-Apr-2015 Instruction Type:Provider Instructions for Treatment How to access health informa tion online Indication:Headache Start:19-Feb-2015 Instruction Type:Patient Education How to access health informa tion online - Detail Indication:Headache Start:19-Feb-2015 Instruction Type:Patient Education Patient Instructions Indication:Headache Start:19-Feb-2015 Instruction Type:Provider Instructions for Treatment How to access health informa tion online Indication:Abnormal breath sounds Start:29-Sep-2014 Instruction Type:Patient Education How to access health informa tion online - Detail Indication:Abnormal breath sounds Start:29-Sep-2014 Instruction Type:Patient Education Patient Instructions Indication:Abnormal breath sounds Start:29-Sep-2014 Instruction Type:Provider Instructions for Treatment Patient Instructions Indication:Hyperlipidemia Start:17-Feb-2014 Instruction Type:Provider Instructions for Treatment Patient Instructions Indication:Hyperlipidemia Start:07-Jan-2013 Instruction Type:Provider Instructions for Treatment Name Dates Details How to access health informa tion online Indication:BMI 37.0-37.9, adult Start:25-Nov-2019 Instruction Type:Patient Education How to access health informa tion online - Detail Indication:BMI 37.0-37.9, adult Start:25-Nov-2019 Instruction Type:Patient Education Patient Instructions Indication:BMI 37.0-37.9, adult Start:25-Nov-2019 Instruction Type:Provider Instructions for Treatment How to access health informa tion online Indication:Nonsmoker Start:04-Nov-2019 Instruction Type:Patient Education How to access health informa tion online - Detail Indication:Nonsmoker Start:04-Nov-2019 Instruction Type:Patient Education Patient Instructions Indication:Nonsmoker Start:04-Nov-2019 Instruction Type:Provider Instructions for Treatment How to access health informa tion online Indication:Mild intermittent asthma without complication Start:25-Mar-2019 Instruction Type:Patient Education How to access health informa tion online - Detail Indication:Mild intermittent asthma without complication Start:25-Mar-2019 Instruction Type:Patient Education Patient Instructions Indication:Mild intermittent asthma without complication Start:25-Mar-2019 Instruction Type:Provider Instructions for Treatment How to access health informa tion online Indication:Nonsmoker Start:17-Sep-2018 Instruction Type:Patient Education How to access health informa tion online - Detail Indication:Nonsmoker Start:17-Sep-2018 Instruction Type:Patient Education Patient Instructions Indication:Nonsmoker Start:17-Sep-2018 Instruction Type:Provider Instructions for Treatment How to access health informa tion online - Detail Indication:Nonsmoker Start:14-Jul-2018 Instruction Type:Patient Education Patient Instructions Indication:Nonsmoker Start:14-Jul-2018 Instruction Type:Provider Instructions for Treatment How to access health informa tion online Indication:Nonsmoker Start:17-Jun-2017 Instruction Type:Patient Education How to access health informa tion online - Detail Indication:Nonsmoker Start:17-Jun-2017 Instruction Type:Patient Education Patient Instructions Indication:Nonsmoker Start:17-Jun-2017 Instruction Type:Provider Instructions for Treatment How to access health informa tion online Indication:Flu-like symptoms Start:08-Aug-2016 Instruction Type:Patient Education How to access health informa tion online - Detail Indication:Flu-like symptoms Start:08-Aug-2016 Instruction Type:Patient Education Patient Instructions Indication:Flu-like symptoms Start:08-Aug-2016 Instruction Type:Provider Instructions for Treatment How to access health informa tion online Indication:Thyroid nodule Start:11-Dec-2015 Instruction Type:Patient Education How to access health informa tion online - Detail Indication:Thyroid nodule Start:11-Dec-2015 Instruction Type:Patient Education Patient Instructions Indication:Thyroid nodule Start:11-Dec-2015 Instruction Type:Provider Instructions for Treatment How to access health informa tion online Indication:Current nonsmoker (Renamed from Current non-smoker) Start:26-Jun-2015 Instruction Type:Patient Education How to access health informa tion online - Detail Indication:Current nonsmoker (Renamed from Current non-smoker) Start:26-Jun-2015 Instruction Type:Patient Education Patient Instructions Indication:Current nonsmoker (Renamed from Current non-smoker) Start:26-Jun-2015 Instruction Type:Provider Instructions for Treatment How to access health informa tion online Indication:Cough Start:26-Apr-2015 Instruction Type:Patient Education How to access health informa tion online - Detail Indication:Cough Start:26-Apr-2015 Instruction Type:Patient Education Patient Instructions Indication:Cough Start:26-Apr-2015 Instruction Type:Provider Instructions for Treatment How to access health informa tion online Indication:Headache Start:19-Feb-2015 Instruction Type:Patient Education How to access health informa tion online - Detail Indication:Headache Start:19-Feb-2015 Instruction Type:Patient Education Patient Instructions Indication:Headache Start:19-Feb-2015 Instruction Type:Provider Instructions for Treatment How to access health informa tion online Indication:Abnormal breath sounds Start:29-Sep-2014 Instruction Type:Patient Education How to access health informa tion online - Detail Indication:Abnormal breath sounds Start:29-Sep-2014 Instruction Type:Patient Education Patient Instructions Indication:Abnormal breath sounds Start:29-Sep-2014 Instruction Type:Provider Instructions for Treatment Patient Instructions Indication:Hyperlipidemia Start:17-Feb-2014 Instruction Type:Provider Instructions for Treatment Patient Instructions Indication:Hyperlipidemia Start:07-Jan-2013 Instruction Type:Provider Instructions for Treatment Name Dates Details How to access health informa tion online Indication:Mild intermittent asthma without complication Start:25-Mar-2019 Instruction Type:Patient Education How to access health informa tion online - Detail Indication:Mild intermittent asthma without complication Start:25-Mar-2019 Instruction Type:Patient Education Patient Instructions Indication:Mild intermittent asthma without complication Start:25-Mar-2019 Instruction Type:Provider Instructions for Treatment How to access health informa tion online Indication:Nonsmoker Start:17-Sep-2018 Instruction Type:Patient Education How to access health informa tion online - Detail Indication:Nonsmoker Start:17-Sep-2018 Instruction Type:Patient Education Patient Instructions Indication:Nonsmoker Start:17-Sep-2018 Instruction Type:Provider Instructions for Treatment How to access health informa tion online - Detail Indication:Nonsmoker Start:14-Jul-2018 Instruction Type:Patient Education Patient Instructions Indication:Nonsmoker Start:14-Jul-2018 Instruction Type:Provider Instructions for Treatment How to access health informa tion online Indication:Nonsmoker Start:17-Jun-2017 Instruction Type:Patient Education How to access health informa tion online - Detail Indication:Nonsmoker Start:17-Jun-2017 Instruction Type:Patient Education Patient Instructions Indication:Nonsmoker Start:17-Jun-2017 Instruction Type:Provider Instructions for Treatment How to access health informa tion online Indication:Flu-like symptoms Start:08-Aug-2016 Instruction Type:Patient Education How to access health informa tion online - Detail Indication:Flu-like symptoms Start:08-Aug-2016 Instruction Type:Patient Education Patient Instructions Indication:Flu-like symptoms Start:08-Aug-2016 Instruction Type:Provider Instructions for Treatment How to access health informa tion online Indication:Thyroid nodule Start:11-Dec-2015 Instruction Type:Patient Education How to access health informa tion online - Detail Indication:Thyroid nodule Start:11-Dec-2015 Instruction Type:Patient Education Patient Instructions Indication:Thyroid nodule Start:11-Dec-2015 Instruction Type:Provider Instructions for Treatment How to access health informa tion online Indication:Current nonsmoker (Renamed from Current non-smoker) Start:26-Jun-2015 Instruction Type:Patient Education How to access health informa tion online - Detail Indication:Current nonsmoker (Renamed from Current non-smoker) Start:26-Jun-2015 Instruction Type:Patient Education Patient Instructions Indication:Current nonsmoker (Renamed from Current non-smoker) Start:26-Jun-2015 Instruction Type:Provider Instructions for Treatment How to access health informa tion online Indication:Cough Start:26-Apr-2015 Instruction Type:Patient Education How to access health informa tion online - Detail Indication:Cough Start:26-Apr-2015 Instruction Type:Patient Education Patient Instructions Indication:Cough Start:26-Apr-2015 Instruction Type:Provider Instructions for Treatment How to access health informa tion online Indication:Headache Start:19-Feb-2015 Instruction Type:Patient Education How to access health informa tion online - Detail Indication:Headache Start:19-Feb-2015 Instruction Type:Patient Education Patient Instructions Indication:Headache Start:19-Feb-2015 Instruction Type:Provider Instructions for Treatment How to access health informa tion online Indication:Abnormal breath sounds Start:29-Sep-2014 Instruction Type:Patient Education How to access health informa tion online - Detail Indication:Abnormal breath sounds Start:29-Sep-2014 Instruction Type:Patient Education Patient Instructions Indication:Abnormal breath sounds Start:29-Sep-2014 Instruction Type:Provider Instructions for Treatment Patient Instructions Indication:Hyperlipidemia Start:17-Feb-2014 Instruction Type:Provider Instructions for Treatment Patient Instructions Indication:Hyperlipidemia Start:07-Jan-2013 Instruction Type:Provider Instructions for Treatment Name Dates Details How to access health informa tion online Indication:BMI 37.0-37.9, adult Start:25-Nov-2019 Instruction Type:Patient Education How to access health informa tion online - Detail Indication:BMI 37.0-37.9, adult Start:25-Nov-2019 Instruction Type:Patient Education Patient Instructions Indication:BMI 37.0-37.9, adult Start:25-Nov-2019 Instruction Type:Provider Instructions for Treatment How to access health informa tion online Indication:Nonsmoker Start:04-Nov-2019 Instruction Type:Patient Education How to access health informa tion online - Detail Indication:Nonsmoker Start:04-Nov-2019 Instruction Type:Patient Education Patient Instructions Indication:Nonsmoker Start:04-Nov-2019 Instruction Type:Provider Instructions for Treatment How to access health informa tion online Indication:Mild intermittent asthma without complication Start:25-Mar-2019 Instruction Type:Patient Education How to access health informa tion online - Detail Indication:Mild intermittent asthma without complication Start:25-Mar-2019 Instruction Type:Patient Education Patient Instructions Indication:Mild intermittent asthma without complication Start:25-Mar-2019 Instruction Type:Provider Instructions for Treatment How to access health informa tion online Indication:Nonsmoker Start:17-Sep-2018 Instruction Type:Patient Education How to access health informa tion online - Detail Indication:Nonsmoker Start:17-Sep-2018 Instruction Type:Patient Education Patient Instructions Indication:Nonsmoker Start:17-Sep-2018 Instruction Type:Provider Instructions for Treatment How to access health informa tion online - Detail Indication:Nonsmoker Start:14-Jul-2018 Instruction Type:Patient Education Patient Instructions Indication:Nonsmoker Start:14-Jul-2018 Instruction Type:Provider Instructions for Treatment How to access health informa tion online Indication:Nonsmoker Start:17-Jun-2017 Instruction Type:Patient Education How to access health informa tion online - Detail Indication:Nonsmoker Start:17-Jun-2017 Instruction Type:Patient Education Patient Instructions Indication:Nonsmoker Start:17-Jun-2017 Instruction Type:Provider Instructions for Treatment How to access health informa tion online Indication:Flu-like symptoms Start:08-Aug-2016 Instruction Type:Patient Education How to access health informa tion online - Detail Indication:Flu-like symptoms Start:08-Aug-2016 Instruction Type:Patient Education Patient Instructions Indication:Flu-like symptoms Start:08-Aug-2016 Instruction Type:Provider Instructions for Treatment How to access health informa tion online Indication:Thyroid nodule Start:11-Dec-2015 Instruction Type:Patient Education How to access health informa tion online - Detail Indication:Thyroid nodule Start:11-Dec-2015 Instruction Type:Patient Education Patient Instructions Indication:Thyroid nodule Start:11-Dec-2015 Instruction Type:Provider Instructions for Treatment How to access health informa tion online Indication:Current nonsmoker (Renamed from Current non-smoker) Start:26-Jun-2015 Instruction Type:Patient Education How to access health informa tion online - Detail Indication:Current nonsmoker (Renamed from Current non-smoker) Start:26-Jun-2015 Instruction Type:Patient Education Patient Instructions Indication:Current nonsmoker (Renamed from Current non-smoker) Start:26-Jun-2015 Instruction Type:Provider Instructions for Treatment How to access health informa tion online Indication:Cough Start:26-Apr-2015 Instruction Type:Patient Education How to access health informa tion online - Detail Indication:Cough Start:26-Apr-2015 Instruction Type:Patient Education Patient Instructions Indication:Cough Start:26-Apr-2015 Instruction Type:Provider Instructions for Treatment How to access health informa tion online Indication:Headache Start:19-Feb-2015 Instruction Type:Patient Education How to access health informa tion online - Detail Indication:Headache Start:19-Feb-2015 Instruction Type:Patient Education Patient Instructions Indication:Headache Start:19-Feb-2015 Instruction Type:Provider Instructions for Treatment How to access health informa tion online Indication:Abnormal breath sounds Start:29-Sep-2014 Instruction Type:Patient Education How to access health informa tion online - Detail Indication:Abnormal breath sounds Start:29-Sep-2014 Instruction Type:Patient Education Patient Instructions Indication:Abnormal breath sounds Start:29-Sep-2014 Instruction Type:Provider Instructions for Treatment Patient Instructions Indication:Hyperlipidemia Start:17-Feb-2014 Instruction Type:Provider Instructions for Treatment Patient Instructions Indication:Hyperlipidemia Start:07-Jan-2013 Instruction Type:Provider Instructions for Treatment Name Dates Details How to access health informa tion online Indication:BMI 37.0-37.9, adult Start:25-Nov-2019 Instruction Type:Patient Education How to access health informa tion online - Detail Indication:BMI 37.0-37.9, adult Start:25-Nov-2019 Instruction Type:Patient Education Patient Instructions Indication:BMI 37.0-37.9, adult Start:25-Nov-2019 Instruction Type:Provider Instructions for Treatment How to access health informa tion online Indication:Nonsmoker Start:04-Nov-2019 Instruction Type:Patient Education How to access health informa tion online - Detail Indication:Nonsmoker Start:04-Nov-2019 Instruction Type:Patient Education Patient Instructions Indication:Nonsmoker Start:04-Nov-2019 Instruction Type:Provider Instructions for Treatment How to access health informa tion online Indication:Mild intermittent asthma without complication Start:25-Mar-2019 Instruction Type:Patient Education How to access health informa tion online - Detail Indication:Mild intermittent asthma without complication Start:25-Mar-2019 Instruction Type:Patient Education Patient Instructions Indication:Mild intermittent asthma without complication Start:25-Mar-2019 Instruction Type:Provider Instructions for Treatment How to access health informa tion online Indication:Nonsmoker Start:17-Sep-2018 Instruction Type:Patient Education How to access health informa tion online - Detail Indication:Nonsmoker Start:17-Sep-2018 Instruction Type:Patient Education Patient Instructions Indication:Nonsmoker Start:17-Sep-2018 Instruction Type:Provider Instructions for Treatment How to access health informa tion online - Detail Indication:Nonsmoker Start:14-Jul-2018 Instruction Type:Patient Education Patient Instructions Indication:Nonsmoker Start:14-Jul-2018 Instruction Type:Provider Instructions for Treatment How to access health informa tion online Indication:Nonsmoker Start:17-Jun-2017 Instruction Type:Patient Education How to access health informa tion online - Detail Indication:Nonsmoker Start:17-Jun-2017 Instruction Type:Patient Education Patient Instructions Indication:Nonsmoker Start:17-Jun-2017 Instruction Type:Provider Instructions for Treatment How to access health informa tion online Indication:Flu-like symptoms Start:08-Aug-2016 Instruction Type:Patient Education How to access health informa tion online - Detail Indication:Flu-like symptoms Start:08-Aug-2016 Instruction Type:Patient Education Patient Instructions Indication:Flu-like symptoms Start:08-Aug-2016 Instruction Type:Provider Instructions for Treatment How to access health informa tion online Indication:Thyroid nodule Start:11-Dec-2015 Instruction Type:Patient Education How to access health informa tion online - Detail Indication:Thyroid nodule Start:11-Dec-2015 Instruction Type:Patient Education Patient Instructions Indication:Thyroid nodule Start:11-Dec-2015 Instruction Type:Provider Instructions for Treatment How to access health informa tion online Indication:Current nonsmoker (Renamed from Current non-smoker) Start:26-Jun-2015 Instruction Type:Patient Education How to access health informa tion online - Detail Indication:Current nonsmoker (Renamed from Current non-smoker) Start:26-Jun-2015 Instruction Type:Patient Education Patient Instructions Indication:Current nonsmoker (Renamed from Current non-smoker) Start:26-Jun-2015 Instruction Type:Provider Instructions for Treatment How to access health informa tion online Indication:Cough Start:26-Apr-2015 Instruction Type:Patient Education How to access health informa tion online - Detail Indication:Cough Start:26-Apr-2015 Instruction Type:Patient Education Patient Instructions Indication:Cough Start:26-Apr-2015 Instruction Type:Provider Instructions for Treatment How to access health informa tion online Indication:Headache Start:19-Feb-2015 Instruction Type:Patient Education How to access health informa tion online - Detail Indication:Headache Start:19-Feb-2015 Instruction Type:Patient Education Patient Instructions Indication:Headache Start:19-Feb-2015 Instruction Type:Provider Instructions for Treatment How to access health informa tion online Indication:Abnormal breath sounds Start:29-Sep-2014 Instruction Type:Patient Education How to access health informa tion online - Detail Indication:Abnormal breath sounds Start:29-Sep-2014 Instruction Type:Patient Education Patient Instructions Indication:Abnormal breath sounds Start:29-Sep-2014 Instruction Type:Provider Instructions for Treatment Patient Instructions Indication:Hyperlipidemia Start:17-Feb-2014 Instruction Type:Provider Instructions for Treatment Patient Instructions Indication:Hyperlipidemia Start:07-Jan-2013 Instruction Type:Provider Instructions for Treatment Name Dates Details Nonsmoker : How to access he alth information online - Detail Indication:Nonsmoker Nonsmoker : Patient Instruct ions Indication:Nonsmoker Nonsmoker : How to access he alth information online Indication:Nonsmoker Flu-like symptoms : How to a ccess health information online Indication:Flu-like symptoms Flu-like symptoms : How to a ccess health information online - Detail Indication:Flu-like symptoms Flu-like symptoms : Patient Instructions Indication:Flu-like symptoms Thyroid nodule : How to acce ss health information online Indication:Thyroid nodule Thyroid nodule : How to acce ss health information online - Detail Indication:Thyroid nodule Thyroid nodule : Patient Ins tructions Indication:Thyroid nodule Current nonsmoker (Renamed f rom Current non-smoker) : How to access health information online Indication:Current nonsmoker (Renamed from Current non-smoker) Current nonsmoker (Renamed f rom Current non-smoker) : How to access health information online - Detail Indication:Current nonsmoker (Renamed from Current non-smoker) Current nonsmoker (Renamed f rom Current non-smoker) : Patient Instructions Indication:Current nonsmoker (Renamed from Current non-smoker) Cough : How to access health information online Indication:Cough Cough : How to access health information online - Detail Indication:Cough Cough : Patient Instructions Indication:Cough Headache : How to access hea lth information online Indication:Headache Headache : How to access hea lth information online - Detail Indication:Headache Headache : Patient Instructi ons Indication:Headache Abnormal breath sounds : How to access health information online Indication:Abnormal breath sounds Abnormal breath sounds : How to access health information online - Detail Indication:Abnormal breath sounds Abnormal breath sounds : Pat ient Instructions Indication:Abnormal breath sounds Hyperlipidemia : Patient Ins tructions Indication:Hyperlipidemia Additional Source Comments INFORMATION SOURCE (unrecogn ized section and content) DATE CREATED AUTHOR AUTHOR'S ORGANIZ ATION 12/02/2018 [employer] ([place]) DATE CREATED AUTHOR AUTHOR'S ORGANIZ ATION 07/25/[address] [facility] FOR RECORDS PERTAINING TO PATIENTS WHO ARE OR HAVE BEEN ENROLLED IN A CHEMICAL DEPENDENCY/SUBSTANCEABUSE PROGRAM, SOME INFORMATION MAY BE OMITTED. This clinical summary was aggregated from multiple sources. Caution should be exercised in using it in the provision of clinical care. This summary normalizes information from multiple sources, and as a consequence, information in this document may materially change the coding, format and clinical context of patient data. In addition, data may be omitted in some cases. CLINICAL DECISIONS SHOULD BE BASED ON THE PRIMARY CLINICAL RECORDS. [facility] [employer] [facility]. provides no warranty or guarantee of the accuracy or completeness of information in this document.
== END | disposition home or self-care (01) ==
LOC: MTRAD 11:42
PROVIDERS: PCP Family Medicine; Referring Provider Family Medicine; Visit Provider Family Medicine
DX: J44.9 Chronic obstructive pulmonary disease, unspecified (principal)
CPT/HCPCS: 71046

== ENCOUNTER → 2023-06-18 | Outpatient (CLI) | payer BC, SELFPAY ==
--- NOTE | 2023-06-18 11:36 | BI_ITS ---
MAMMOGRAPHY - BILATERAL SCREENING REASON FOR EXAM: Female, 62 years old. Routine annual screening examination. PERTINENT HISTORY: Non-contributory. History of prior bilateral breast reduction surgery. TECHNIQUE: Digital bilateral breast marybel (3D mammographic acquisition) in the CC and MLO projections. 2-D mediolateral oblique (MLO) and craniocaudad (CC) views of both breasts were obtained. CAD: Full Field Digital Mammography with Computer Added Detection was performed. COMPARISON: Comparison is made with prior study May 16, 2022 and March 23, 2017. FINDINGS: Breast Composition: The breasts are almost entirely fatty. There are no dominant masses or suspicious calcifications. Stable small benign appearing bilateral axillary lymph nodes. No other significant abnormalities are identified. There has been no significant change since the prior study. BI/SCRN MAMM (CAD)W/MARYBEL BILAT IMPRESSION: Stable bilateral screening mammogram. Yearly follow-up mammogram recommended. (A) ASSESSMENT CATEGORY: BIRADS Category 2: Benign. A letter regarding these results will be sent to the patient by the facility within 30 days. Approximately 10% of breast cancers are not detected by mammography. A normal mammogram should not delay biopsy of a clinically suspicious abnormality. [id number] Electronically Signed: Felix Sutherland MD at 12:19 EST ,
== END | disposition home or self-care (01) ==
LOC: OPBI 11:36
PROVIDERS: PCP Family Medicine; Referring Provider Obstetrics & Gynecology; Visit Provider Obstetrics & Gynecology
DX: Z12.31 Encounter for screening mammogram for malignant neoplasm of breast (principal)
CPT/HCPCS: 77063; 77067

== ENCOUNTER 2023-09-04 13:00 | Emergency (ER) | payer BC, SELFPAY ==
[2023-09-04 13:01] VITALS: BP 135/93; PULSE 100; RESP 16; TEMP 36.3; O2SAT 97; BMI 38.0
--- NOTE | 2023-09-04 13:10 | ED.VIS.DYS ---
HPI History of Present Illness Chief Complaint: Shortness of Breath [facility] PFS Medical History Pulmonary emboli Thyroid disorder Home Medications rivaroxaban 15 mg (42)-20 mg (9) tablets in a starter pack (Xarelto DVT-PE Treatment 30-Day Starter) See Rx Instructions PO .COMPLEX #51 tabs 04/15/22 [Rx Last Taken Unknown] esomeprazole magnesium 40 mg capsule,delayed release (Nexium) 40 mg PO QDAY PRN 04/22/22 [History Last Taken Unknown] albuterol sulfate 90 mcg/actuation aerosol inhaler 2 puff inhalation Q6H PRN 05/30/22 [History Last Taken Unknown] albuterol sulfate 90 mcg/actuation aerosol inhaler (ProAir HFA) 2 puff inhalation Q6H PRN 05/30/22 [History Last Taken Unknown] budesonide-formoterol HFA 160 mcg-4.5 mcg/actuation aerosol inhaler (Symbicort) 1 inh inhalation ONCE PRN 05/30/22 [History Last Taken Unknown] lorazepam 0.5 mg tablet 0.5 mg PO DAILY PRN 05/30/22 [History Last Taken Unknown] triamcinolone acetonide 0.5 % topical cream 1 applic topical DAILY 05/30/22 [History Last Taken Unknown] Allergy/AdvReac Type Severity Reaction Status Date / Time erythromycin base Allergy Intermediate Irregular Verified 09/04/23 13:06 heart Family History Father Heart disease Hypertension High cholesterol Mother Heart disease High cholesterol Hypertension Bleeding disorder Grandmother Bladder cancer Surgical History history left eye surgery history left shoulder surgery History of bilateral breast reduction surgery History of partial surgical removal of colon Social History Smoking Status: Never smoker alcohol intake: current alcohol intake frequency: a few times a month substance use type: does not use caffeine: Yes what type of physical activity do you participate in: none seatbelt use: always do you feel safe at home: Yes additional social history: -Ehsan EXAM Physical Exam Const Vital Signs: 09/04/23 13:01 09/04/23 13:44 09/04/23 13:46 Temperature 97.4 F L Temperature Source Temporal Pulse Rate 100 103 H Respiratory Rate 16 20 H Respiratory Effort Normal Non-Labored Respiratory Depth Normal Respiratory Pattern Normal Blood Pressure 135/93 H Blood Pressure Mean 107 Pulse Ox 97 100 Oxygen Delivery Method Room Air Room Air 09/04/23 13:48 09/04/23 14:53 Temperature 97.4 F L Temperature Source Temporal Pulse Rate 100 104 H Respiratory Rate 18 18 Respiratory Effort Respiratory Depth Respiratory Pattern Normal Blood Pressure 139/84 H Blood Pressure Mean 102 Pulse Ox 97 Oxygen Delivery Method Room Air [facility] Narrative Medical decision making narrative: HISTORY OF PRESENT ILLNESS: 62-year-old female presents with coughing blood. Notes she is on Xarelto for prior PE. States has been coughing. Notes chronic shortness of breath. No chest pain. No lower extremity edema, no unilateral leg swelling, REVIEW OF SYSTEMS: Pertinent positives: Hemoptysis Pertinent negatives: Chest pain, shortness of PHYSICAL EXAM: Nursing triage notes reviewed, Vital signs reviewed Constitutional: [facility] HENT: MMM Eyes: Pupils equal round and reactive to light, Extraocular muscles intact Neck: No stridor, no JVD, full neck ROM Lungs: Clear to auscultation, No wheezing or rales. No increased work of breathing, no conversational dyspnea, no accessory muscle use, no nasal flaring. No respiratory distress noted Heart: Regular rate and rhythm, No murmurs, No rubs and No gallops, 2+ distal pulses (radial, femoral, posterior tibial) in all extremities Abdomen: Soft, there is no tenderness, rigidity, rebound or guarding, no obvious peritoneal signs, no palpable pulsatile abdominal masses, no auscultated abdominal bruit : No CVAT Extremities: No edema Neuro: No focal neurological deficits, cranial nerves II through XII intact, 5/5 strength in all extremities. Intact sensation to light touch in all extremities, 2+ reflexes bilateral patella tendons. Normal gait. No ataxia. Skin: No rash or lesions noted MEDICAL DECISION MAKING: Chief Complaint: Hemoptysis External records reviewed: Imaging reviewed: CTA of the chest from April 2022 shows PE with right heart strain. Last echocardiogram from 2022 was reviewed shows ejection fraction 65% Factors affecting care: History of PE, GERD, Social determinants of health: Non-smoker [facility] Narrative: Patient was hemodynamically stable, afebrile and nontoxic-appearing. Exam without focal cardiopulmonary abnormalities. I considered the following differential diagnosis: PE, pneumonia, mass, AV malformation ALL IMAGES (IF OBTAINED) HAVE BEEN PERSONALLY REVIEWED AND INTERPRETED BY MYSELF. EKG with normal axis, normal intervals, sinus tachycardia, no obvious STEMI, no signs of right heart strain CT of the chest shows no evidence of PE but notes a left hilar mass CBC with leukocytosis suggestive of systemic summation, no significant anemia or thrombocytopenia noted BMP without evidence of significant electrolyte abnormalities, no anion gap, no acute kidney injury. High-sensitivity troponin is negative, no evidence of myocardial ischemia BNP within normal and suggestive of no volume overload, ventricular stretch or increased transmural wall pressure The synthesis the patient history, physical exam, labs images suggest a lung mass. Fast past referral was made. Strict return precautions were discussed. The patient and/or family, caregivers express understanding. The patient and/or family, caregivers agrees with the plan. Shared decision making: I will have a discussion with the patient and or visitors regarding risk/benefits of further testing or admission. They will be made aware of of the risk/benefits inherent in this decision they will be given the opportunity to voice understanding. Total critical care time today provided was at least 0 minutes. This excludes separately billable procedures. Critical care time (if documented) is secondary to the patient having high probability of clinically significant/life threatening deterioration in the patient's condition which required my urgent intervention. Impression: 1. Cough 2. Hemoptysis 3. Lung mass Dispo: Discharge This note was generated with [employer] dictation software. It may contain incorrect words, spelling, and punctuation that were not noted in review of the chart prior to signing. Lab Data Labs: Laboratory Results - last 24 hr 09/04/23 13:50 WBC 14.2 H RBC 4.85 Hgb 13.0 Hct 40.4 MCV 83.3 MCH 26.8 L MCHC 32.2 RDW Std Deviation 47.2 H RDW Coeff of Stephanie 15.7 H Plt Count 312 MPV 11.4 Sodium 140 Potassium 3.8 Chloride 111 H Carbon Dioxide 25.0 Anion Gap 4 L BUN 15 Creatinine 0.91 Estim Creat Clear Calc 83.07 Est GFR (MDRD) Af Amer 81 Est GFR (MDRD) Non-Af 67 BUN/Creatinine Ratio 16.5 Glucose 111 H Calcium 9.3 Troponin I High Sens 5 B-Natriuretic Peptide 27.3 Radiography Diagnostic Testing: Clinical Impression(s) from Imaging Studies Chest CTA 09/04/23 13:31 IMPRESSION: No evidence of pulmonary embolism. 4.8 cm x 4.7 cm soft tissue mass in the left hilar and infrahilar region with compression of the intermediate stem bronchus and narrowing of its lumen with post obstructive pneumonitis in the posterior aspect of the lingular segment of the left upper lobe. This abuts the left major fissure. There is also evidence of a 1.1 cm x 0.87 noncalcified nodule in the anterior aspect of the left lower lobe abutting the left major fissure as seen on axial image #187. A neoplastic process with the metastatic disease should be ruled out. Electronically Signed: Felix Sutherland MD at 15:11 EDT , Discharge Plan Triage Chief Complaint: Shortness of Breath Other Complaint: Cough ED Provider: Kamran Demarco Dx/Rx/DC Orders Instructions: ED Tumor, Uncertain Cause Prescriptions: No Action esomeprazole magnesium [Nexium] 40 mg capsule,delayed release(DR/EC) 40 mg PO QDAY PRN Xarelto DVT-PE Treat 30d Start 15 mg (42)- 20 mg (9) tablets,dose pack See Rx Instructions .ROUTE .COMPLEX Qty: 51 0RF Rx Instructions: take one-15 mg tablet twice daily for 21 days, then one-20 mg tablet once daily; must take with meal/food triamcinolone acetonide 0.5 % cream 1 applic topical DAILY lorazepam 0.5 mg tablet 0.5 mg PO DAILY PRN budesonide-formoterol [Symbicort] 160-4.5 mcg/actuation HFA aerosol inhaler 1 inh inhalation ONCE PRN albuterol sulfate 90 mcg/actuation HFA aerosol inhaler 2 puff inhalation Q6H PRN albuterol sulfate [ProAir HFA] 90 mcg/actuation HFA aerosol inhaler 2 puff inhalation Q6H PRN Other Ambulatory Orders: Fast Pass: Oncology Referral [facility] (Routine) Facility: [facility] - Location: [facility] Ordered By: Dr. Kamran Demarco Primary Care Provider: Paul Boyd Referrals: Joseline Martin, DO [Med Staff - Presiding Steward] - Activity Restrictions/Additional Instructions: Thank you for trusting us with your care today! Please take Tylenol (2 pills, 650 mg), ibuprofen (2 pills, 400 mg) every 6 hours as needed for pain and fever control. Please return to the emergency department if your symptoms change or worsen. Please follow with your primary care physician for further outpatient evaluation and management. A referral has been made to our oncology clinic. Please speak to call for oncology administrative assistant data entry. Disposition Disposition: Home, Self Care
--- NOTE | 2023-09-04 13:31 | CT_ITS ---
STUDY: CTA CHEST REASON FOR EXAM: Female, 62 years old. Hemoptysis RADIATION DOSAGE (If Supplied By Facility): CTDIvol = ( 12.40 ) mGy, DLP = ( 563.45 ) mGycm TECHNIQUE: The examination was performed with the intravenous administration of IV 100mL Isovue-370. Post-processing of the angiographic images was performed, with multiplanar reformation and 3D reconstruction. Individualized dose optimization techniques were used for this CT. COMPARISON: Comparison is made with prior study dated April 15, 2022. FINDINGS: Normal enhancement of the main pulmonary artery and right and left pulmonary arteries. Normal enhancement of the bilateral peripheral pulmonary arteries. There is no demonstrated pulmonary embolism. Normal thoracic aorta and visualized great vessels. There is no demonstrated aortic dissection. Normal heart and pericardium. Normal mediastinum. There is a 4.8 cm x 4.7 cm soft tissue mass in the left hilar and infrahilar region with the compression of the intermediate stem bronchus and narrowing of its lumen with the postobstructive pneumonitis in the posterior aspect of the lingular segment of the left upper lobe adjacent to the left major fissure.. A neoplastic process should be ruled out. Normal visualized trachea and bronchi. There is a 1.1 cm x 0.8 cm noncalcified nodule in the anterior aspect of the left lower lobe abutting the left major fissure as seen on axial image #187. A metastatic deposit should be ruled out. Normal pulmonary parenchyma. Normal pleura. Normal chest wall structures. There are mild degenerative changes of thoracic spine. Small hiatal hernia. Fatty infiltration of the liver. There is a 1.6 cm nodule in the crux of the left adrenal gland. This may represent an adenoma although a neoplastic process should be ruled out. CT/CTA Chest W/WO Contrast IMPRESSION: No evidence of pulmonary embolism. 4.8 cm x 4.7 cm soft tissue mass in the left hilar and infrahilar region with compression of the intermediate stem bronchus and narrowing of its lumen with post obstructive pneumonitis in the posterior aspect of the lingular segment of the left upper lobe. This abuts the left major fissure. There is also evidence of a 1.1 cm x 0.87 noncalcified nodule in the anterior aspect of the left lower lobe abutting the left major fissure as seen on axial image #187. A neoplastic process with the metastatic disease should be ruled out. Electronically Signed: Felix Sutherland MD at 15:11 EDT ,
--- NOTE | 2023-09-04 13:32 | EKG12_ITS ---
Test Reason : SOB Blood Pressure : / mmHG Vent. Rate : 105 BPM Atrial Rate : 105 BPM P-R Int : 134 ms QRS Dur : 082 ms QT Int : 326 ms P-R-T Axes : 057 019 052 degrees QTc Int : 430 ms Sinus tachycardia Nonspecific ST abnormality Abnormal ECG Confirmed by TIMMY YOO, BARRY ([id number]), art editor MONSE RICHARDS ([id number]) on 09/07/2023 9:36:50 AM Referred By: HONORIO Confirmed By:BARRY WARNER MD
[2023-09-04] MEDS: Ipratropium/Albuterol Sulfate 3 ML AMPUL.NEB INHALATION (13:39)
[2023-09-04] MEDS: MethylPREDNISolone 125 MG/2 ML Vial IV (13:39)
[2023-09-04 13:44] VITALS: PULSE 103; RESP 20; O2SAT 100
[2023-09-04 13:48] VITALS: PULSE 100; RESP 18
[2023-09-04 14:00] LABS: Hematocrit 40.4 % (37-47); Mean Corp Hgb Conc 32.2 g/dL (32-36); Mean Corpuscular Hgb 26.8 pg (27.0-32.0); Mean Corpuscular Volume 83.3 fL (81-99); Mean Platelet Vol. 11.4 fl (6.2-12.0); Platelet Count 312 K/mm3 (150-450); RBC Distribution Width CV 15.7 % (11.6-14.6); RBC Distribution Width SD 47.2 fl (35.1-43.9); Red Blood Count 4.85 M/mm3 (4.2-5.4); White Blood Count 14.2 K/mm3 (4.4-11.0)
[2023-09-04 14:28] LABS: Anion Gap 4 (5-15); BUN 15 mg/dL (7-18); BUN/Creat Ratio 16.5 RATIO (10-20); Calcium,Total 9.3 mg/dL (8.5-10.1); Chloride 111 mmol/L (98-107); Creatinine, Serum 0.91 mg/dL (0.55-1.02); EST Glomerular Filtration Rate 67 mL/min (>60); Est Glom Filt Rate - Afr Amer 81 mL/min (>60); Estimated Creatinine Clearance 83.07 ml/min; Glucose 111 mg/dL (74-106); Potassium 3.8 mmol/L (3.5-5.1); Sodium Level 140 mmol/L (136-145); Troponin-I HS (w/2H Reflex) 5 pg/mL (3.0-54.0)
[2023-09-04 14:53] VITALS: BP 139/84; PULSE 104; RESP 18; TEMP 36.3; O2SAT 97
[2023-09-04 14:53] LABS: BNP,B-Type NATRIURETIC PEPTIDE 27.3 pg/mL (0-100)
[2023-09-04 15:56] LABS: Reflex Troponin-HS? (from REC) Y
[2023-09-04 16:02] VITALS: BP 129/82; PULSE 115; RESP 18; TEMP 37.4; O2SAT 94
--- NOTE | 2023-09-04 16:02 | ED.RN ---
ED physician spoke with patient regarding CT results. support provided. Lucille Magallanes from cancer center here to talk with patient as well. Family member at bedside.
== END 2023-09-04 16:10 | disposition home or self-care (01) ==
PROVIDERS: Emergency Provider Emergency Medicine; PCP Family Medicine; Visit Provider Emergency Medicine
DX: R05.9 Cough, unspecified (principal); R04.2 Hemoptysis; R91.8 Other nonspecific abnormal finding of lung field; Z86.711 Personal history of pulmonary embolism
CPT/HCPCS: 71275; 80048; 83880; 84484; 85027; 93005; 94640; 96374; 99283; Q9967; A4216

== ENCOUNTER → 2023-09-07 | Outpatient (CLI) | payer BC, SELFPAY | END | disposition home or self-care (01) | LOC: LABSPEC 10:31 | PROVIDERS: PCP Family Medicine; Referring Provider Internal Medicine Pulmonary Disease; Visit Provider Internal Medicine Pulmonary Disease | DX: R04.2 Hemoptysis (principal) | CPT/HCPCS: 87015; 87116; 87206 ==

== ENCOUNTER 2023-09-09 10:52 | Day surgery (SDC) | payer BC, SELFPAY ==
--- NOTE | 2023-09-09 | FLU_PTH ---
PATIENT: PRABHJOT VALIENTE LOC: EN U#:[id number] AGE/SX: 62/F ROOM: RE09/09/[address]: Dr. Arpan Smith MD : 1960 BED: DIS: 09/09/2023 SPEC #: [id number] RECD: 09/09/23 14:04 STATUS: ASHLEY MAULIK #: [id number] FREYA: 09/09/23 00:[address]: Arpan Smith V DEPT: CYTOLOGY RECD BY: Mercedes Ramos ENTERED: 09/10/23 08:52 SP TYPE: Fluid OTHR DR: Paul Boyd MD Tissues: Bronchus of left lower lobe Procedures: Special Stain Group II Special Stain Group I Surgery Specimen Level IV AFB Stain (control) GMS Stain (control) Cytospin Fluid HEADER OPERATION: Bronchoscopy biopsy PRE-OP DIAGNOSIS: Chest mass, hemoptysis, dyspnea TISSUE SUBMITTED: Left lower lobe, Bronchial alveolar lavage fluid DIAGNOSIS CYTOLOGY Left lower lobe, bronchial Roque lavage fluid (cytospin and cellblock): Rare atypical epithelial cells suspicious for malignancy. Negative for acid-fast bacilli and fungal organisms. See comment. ESTEPHANIE/ 09/11/2023 COMMENT See corresponding surgical case ([id number]). AFB and GMS stains with matched controls were used in the evaluation of this case. This case was discussed with Dr. Sarah resendiz 07/14/[address] Rendon CYTOLOGY STUDY Slides are reviewed. CYTOLOGY GROSS Received is 30 ml of dark red bloody cloudy mucoid fluid labeled with the patient's name and and designated per the requisition as Bronchial alveolar lavage. Submitted for cytology preparation including cell block. Mr 09/10/23 TC:0 CPT: 28461,94612g9
--- NOTE | 2023-09-09 | IMM_PTH ---
PATIENT: PRABHJOT VALIENTE LOC: EN U#:[id number] AGE/SX: 62/F ROOM: RE09/09/[address]: Dr. Arpan Smith MD : 1960 BED: DIS: 09/09/2023 SPEC #: [id number] RECD: 09/11/23 11:04 STATUS: ASHLEY RELise #: [id number] FREYA: 09/09/23 00:[address]: Arpan Smith V DEPT: IMMUNOHISTOCHEMISTRY RECD BY: Jason Schaefer ENTERED: 09/11/23 11:06 SP TYPE: IMMUNO OTHR DR: Paul Boyd MD Tissues: Left lower lobe of lung, NOS Procedures: NAPSIN A (add) CD56 (add) CHROMO (add) CK20 (add) CK5-6 (add) CK7 (add) KI-67 (add) P53 (add) TTF1 (add) Pankeratin (initial) P40 (add) PHYSICIAN & INSTITUTION [address] [address] SPECIMEN INFORMATION: Tissue Source: Left lower lobe, lung biopsy Clinical Info: Chest mass, hemoptysis, dyspnea Specimen Number: [id number] CPT code: 21527,04934a76 METHODOLOGY: Deparaffinized sections of prefer/formalin-fixed tissue or PAP/DQ stained slides are incubated with monoclonal/polyclonal antibodies/oligonucleotide probes. Localization is made via biotin free immunoperoxidase method. Appropriate controls are performed and reacted as expected. Results on target cell population are indicated in the following table: RESULTS: ANTIBODY / CLONE RESULT AE1-3 (AE1/AE3/PCK26) positive CK7 (OV-TL12/30) positive CK20 (KS20.8) negative CD56 (123C3.D5) negative Chromo (LK2H10) negative TTF-1 (8G7G3/1) negative Napsin A (Rabbit Polyclonal) negative CK5-6 (D5 & 1684) negative P40 (BC28) negative P53 (DO-7) negative Ki-67 (30-9) positive, moderate ER (clone 6F11) negative TN (clone 16/1E2) negative E-Cad (ECH-6) positive HepPar (OCh1E5) negative RCC (PN-15) negative INTERPRETATION: Left lower lobe, lung biopsy: Poorly differentiated non-small cell carcinoma, favor adenocarcinoma. See comment. SLIM/ 09/15/23 Comment: IHC profile is non-contributary for primary site of origin.
--- NOTE | 2023-09-09 | LUNG_PTH ---
PATIENT: PRABHJOT VALIENTE LOC: EN U#:[id number] AGE/SX: 62/F ROOM: RE09/09/[address]: Dr. Arpan Smith MD : 1960 BED: DIS: 09/09/2023 SPEC #: [id number] RECD: 09/09/23 14:04 STATUS: ASHLEY FORDLise #: [id number] FREYA: 09/09/23 00:[address]: Arpan Smith V DEPT: SURGICAL PATHOLOGY RECD BY: Mercedes Ramos ENTERED: 09/10/23 08:53 SP TYPE: LUNG BX OTHR DR: Paul Boyd MD Tissues: Lung, NOS Procedures: Special Stain Group I Mucicarmine Stain (control) Surgery Specimen Level IV AFB Stain (control) GMS Stain (control) HEADER OPERATION: Bronchoscopy biopsy PRE-OP DIAGNOSIS: Chest mass, hemoptysis, dyspnea TISSUE SUBMITTED: Left lower lobe MICROSCOPIC DIAGNOSIS Left lower lobe of lung mass, biopsy: Poorly differentiated non-small cell carcinoma, favor adenocarcinoma. See comment. / 09/11/2023 COMMENT Immunohistochemistry ([id number]) supports the above diagnosis. IHC profile is noncontributory for primary site of origin. Mucin stain with matched control was used in the evaluation of this case. AFB and GMS stains with matched controls are negative for microorganisms Please also make reference to additional cytology case ([id number]). This case was discussed with Dr. Smith by Dr. Rendon 09/11/23. This case has been reviewed in consultation with Dr. Doherty who concurs with the above diagnosis. MICROSCOPIC DESCRIPTION Slides are reviewed. GROSS DESCRIPTION Received in fixative is one container labeled with the patient's name and designated Left upper lobe endobronchial biopsy. The specimen consists of multiple irregular fragments of light willard soft tissue measuring in aggregate 1.0 x 0.2 x 0.1cm. The specimen is totally submitted in one cassette. / 09/10/2023 TC:0 CPT:26475,06797, 40741 x2 ADDENDUM ADDENDUM ADDENDUM ADDENDUM ADDENDUM ADDENDUM ADDENDUM ADDENDUM ADDENDUM ADDENDUM ADDENDUM ADDENDUM ADDENDUM 10/07/2023 09:37 ADDENDUM 10/07/2023 09:37 ADDENDUM 10/07/2023 09:37 ADDENDUM 10/07/2023 09:37 ADDENDUM 10/07/2023 09:37 [facility] ADV[facility]ED LUNG CANCER NGS FROM [employer] RESULT SUMMARY: Abnormal DETECTED GENOMIC ALTERATIONS: Tier II: Variants of potential clinical significance TP53 p. ([id number]) Tier III: Variants of unknown clinical significance AKT1 p.([id number]) POLD1 p.([id number]) Please see complete report in e-chart or EMR
[2023-09-09 11:11] VITALS: BP 148/94; PULSE 115; RESP 16; TEMP 36.8; O2SAT 96; BMI 38.4
[2023-09-09] MEDS: Lactated Ringers 1,000 ML 15 ML IV (11:26)
[2023-09-09] MEDS: Epinephrine (1 mg/ml) 1 MG/ML VIAL (13:05)
[2023-09-09] MEDS: Lidocaine 2% (5ml sdv) 5 ML VIAL.MPF (13:05)
[2023-09-09] MEDS: Lidocaine Jelly 2% 20 ML Syringe (URO-JET) 1 APPLIC (13:05)
[2023-09-09] MEDS: 0.9% Normal Saline (Pres. free 10 ML Vial (13:05)
[2023-09-09] MEDS: Phenylephrine 0.25% 15 ML NASAL.SRY 15 SPRAY NASAL (13:05)
[2023-09-09 13:30] VITALS: BP 117/69; BP 148/94; PULSE 107; RESP 22; TEMP 36.4; O2SAT 97
[2023-09-09] MEDS: Heparin Injection (Vial) 5,000 UNIT/ML VIAL 5000 UNIT (13:30)
[2023-09-09 13:35] VITALS: BP 105/77; BP 148/94; PULSE 97; RESP 16; O2SAT 97
[2023-09-09 13:40] VITALS: BP 119/72; BP 148/94; PULSE 103; RESP 16; O2SAT 94
--- NOTE | 2023-09-09 13:42 | OP.BRONCH_ITS ---
Patient Name: Fanny Terrazas Procedure Date: 09/09/2023 12:16 PM Date of : 1960 Age: 62 Procedure: Bronchoscopy Indications: Hemoptysis with abnormal CXR Providers: Arpan Smith MD Referring MD: Arpan Smith MD Medicines: Lidocaine 2% applied to cords 12 mL, Lidocaine 2% applied to the tracheobronchial tree mL Complications: No immediate complications. Estimated blood loss: Minimal Procedure: Pre-Anesthesia Assessment: - A History and Physical has been performed. The patient's medications, allergies and sensitivities have been reviewed. - The risks and benefits of the procedure and the sedation options and risks were discussed with the patient. All questions were answered and informed consent was obtained. - Mental Status Examination: alert and oriented. Airway Examination: normal oropharyngeal airway. Respiratory Examination: poor air movement in the left lung. CV Examination: normal. After I obtained informed consent, the scope was passed under direct vision. Throughout the procedure, the patient's blood pressure, pulse, and oxygen saturations were monitored continuously. The bronchoscope was introduced through the left nostril and advanced to the right lung only. The procedure was accomplished without difficulty. The procedure was accomplished without difficulty. The patient tolerated the procedure well. The total duration of the procedure was 40 minutes. Moderate Sedation: An independent trained observer was present and continuously monitored the patient. Findings: The nasopharynx/oropharynx appears normal. The larynx appears normal. The vocal cords appear normal. The subglottic space is normal. The trachea is of normal caliber. The oren is sharp. The tracheobronchial tree of the right lung was examined to at least the first subsegmental level. Bronchial mucosa and anatomy in the right lung are normal; there are no endobronchial lesions, and no secretions. Left Lung Abnormalities: A partially obstructing (about 80% obstructed) mass was found in the middle portion in the left mainstem bronchus. [Mass Size] and [description]. The lesion was not traversed. The bronchoscope was advanced until wedged at the desired location for bronchoalveolar lavage. BAL was performed in the left lower lobe of the lung and sent for cell count, bacterial culture, viral smears & culture, and fungal & AFB analysis and cytology. 40 mL of fluid were instilled. 20 mL were returned. The return was bloody. There were no mucoid plugs in the return fluid. [Multi samples]. Endobronchial biopsies of a mass were performed in the left mainstem bronchus using a forceps and sent for histopathology examination. Four samples were obtained. Impression: - Hemoptysis with abnormal CXR - The airway examination of the right lung was normal. - A [mass type] mass was found in the left mainstem bronchus. This lesion is likely malignant. - Bronchoalveolar lavage was performed. - An endobronchial biopsy was performed. Recommendation: - Await [tests] results. MD Arpan Fernández MD 09/09/2023 1:41:49 PM This report has been signed electronically. Number of Addenda: 0 Note Initiated On: 09/09/2023 12:16 PM
[2023-09-09 13:44] VITALS: BP 118/80; BP 148/94; PULSE 99; RESP 18; TEMP 37.2; O2SAT 94
[2023-09-09 14:14] LABS: Cytology, Body Fluid / CSF SEE PATHOLOGY REPORT
[2023-09-09 14:15] VITALS: BP 148/94
[2023-09-09 20:05] LABS: Neutrophil (Segs) 83 %; Other Cell Type/BF 17 %
[2023-09-09 20:06] LABS: Source- Body Fluid BRONCHIAL LAVAGE
[2023-09-09 20:07] LABS: Appearance/Body Fluid CLOUDY; Color/Body Fluid RED
[2023-09-09 20:08] LABS: Body Fluid QC Type(s) BF1Q; Red Cell Count/Body Fluid 36580 /mm3; White Blood Count/Body Fluid 380 /mm3
[2023-09-10 13:23] LABS: Pathologist Comment/Body Fluid Reviewed
== END 2023-09-09 14:26 | disposition home or self-care (01) ==
LOC: EN 10:55 → AC 10:56
PROVIDERS: PCP Family Medicine; Referring Provider Internal Medicine Pulmonary Disease; Visit Provider Internal Medicine Pulmonary Disease
PROC: 0BJ08ZZ Inspection of Tracheobronchial Tree, Via Natural or Artificial Opening Endoscopic (ICD-10-PCS; CPT 31622; principal; 2023-09-09 11:45)
DX: C34.32 Malignant neoplasm of lower lobe, left bronchus or lung (principal); E78.00 Pure hypercholesterolemia, unspecified; K21.9 Gastro-esophageal reflux disease without esophagitis; Z79.01 Long term (current) use of anticoagulants; Z79.899 Other long term (current) drug therapy; Z86.711 Personal history of pulmonary embolism; Z86.718 Personal history of other venous thrombosis and embolism
CPT/HCPCS: 31625; 31624; 87015; 87101; 87116; 87206; 88108; 88305; 88312; 88313; 88341; 88342; 89050; J7120; A4216; J2405; J3490

== ENCOUNTER → 2023-09-16 | Outpatient (CLI) | payer BC, SELFPAY ==
[2023-09-16 17:14] LABS: Absolute Lymphocyte Count 3.01 X10^3/uL (0.83-4.51); Absolute Neutrophil Count 12.7 X10^3/uL (2.0-7.7); Basophil# 0.13 X10^3/uL; Basophil% 0.7 % (0-1); Eosinophils% 2.3 % (0-5); Hematocrit 43.5 % (37-47); Hemoglobin 13.8 g/dL (12.0-15.0); Lymphocyte # 3.01 X10^3/ul (0.83-4.51); Lymphocyte % 17.1 % (19-41); Mean Corp Hgb Conc 31.7 g/dL (32-36); Mean Corpuscular Hgb 26.3 pg (27.0-32.0); Mean Corpuscular Volume 82.9 fL (81-99); Mean Platelet Vol. 11.6 fl (6.2-12.0); Monocyte# 1.25 X10^3/uL; Monocyte% 7.1 % (0-10); NRBC Flagged by Analyzer 0 % (0-5); Neutrophil # 12.72 X10^3/uL (2.7-7.7); Neutrophil % 72.1 % (47-70); Platelet Count 316 K/mm3 (150-450); RBC Distribution Width CV 15.9 % (11.6-14.6); RBC Distribution Width SD 47.6 fl (35.1-43.9); Red Blood Count 5.25 M/mm3 (4.2-5.4); White Blood Count 17.6 K/mm3 (4.4-11.0)
[2023-09-16 17:53] LABS: ALB/GLOB Ratio 0.8 RATIO (0.9-2.4); AST(SGOT) 5 U/L (15-37); Alanine Aminotransfer ALT/SGPT 19 U/L (13-56); Albumin, Serum 3.6 g/dL (3.2-5.0); Alkaline Phosphatase 118 U/L (45-117); Anion Gap 8 (5-15); BUN 12 mg/dL (7-18); BUN/Creat Ratio 14.5 RATIO (10-20); Calcium,Total 9.6 mg/dL (8.5-10.1); Chloride 104 mmol/L (98-107); Creatinine, Serum 0.83 mg/dL (0.55-1.02); EST Glomerular Filtration Rate 74 mL/min (>60); Est Glom Filt Rate - Afr Amer 90 mL/min (>60); Globulin 4.5 g/dL (2.2-4.2); Glucose 108 mg/dL (74-106); LDH 181 U/L (84-246); Potassium 3.6 mmol/L (3.5-5.1); Protein, Total 8.1 g/dL (6.4-8.2); Sodium Level 138 mmol/L (136-145)
== END | disposition home or self-care (01) ==
LOC: LAB 16:24
PROVIDERS: PCP Family Medicine; Referring Provider Internal Medicine Medical Oncology; Visit Provider Internal Medicine Medical Oncology
DX: C34.92 Malignant neoplasm of unspecified part of left bronchus or lung (principal); E04.2 Nontoxic multinodular goiter
CPT/HCPCS: 36415; 80053; 83615; 85025

== ENCOUNTER → 2023-09-24 | Outpatient (CLI) | payer BC, SELFPAY ==
--- NOTE | 2023-09-24 15:27 | MRI_ITS ---
STUDY: MRI BRAIN WITH AND WITHOUT CONTRAST REASON FOR EXAM: Female, 62 years old. NSCLC- ANDENOCARCINOMA TECHNIQUE: Standardized multiplanar fat and water weighted pulse sequences were obtained. IV 22ML Clariscan was administered for the contrast portion of the examination. COMPARISON: None. FINDINGS: Normal size of the ventricles and extra-axial spaces for the patient''s age. There are multiple punctate nonspecific white matter lesions within the cerebral hemispheres bilaterally without mass effect or restricted diffusion most likely representing chronic small vessel ischemic changes in patient of this age.. Normal bilateral basal ganglia. Normal thalami. There is no extra-axial fluid accumulation. Normal flow voids within the major intracranial circulation suggesting patency by spin echo criteria. Normal venous enhancement. There is no enhancing intra-axial or extra-axial abnormality. Normal sella turcica, pituitary gland, infundibular stalk, optic chiasm and hypothalamus. Normal tectal plate and pineal gland. Normal midbrain, pepe and medulla. Normal cerebellum. Normal basal cisterns. Normal bilateral temporal bones. Normal bilateral internal auditory canals. Postsurgical changes of the orbits.. Normal visualized paranasal sinuses. Normal calvarium and skull base. Tiny Tornwaldt cyst within the posterior nasopharynx Normal visualized upper cervical spine. MRI/Brain W/WO Contrast IMPRESSION: Moderate periventricular white matter changes without evidence for acute infarct.. No enhancing lesion to suggest presence of brain metastasis Electronically Signed: Sae Arzate MD at 16:56 EDT ,
== END | disposition home or self-care (01) ==
LOC: MRI 15:17
PROVIDERS: PCP Family Medicine; Referring Provider Internal Medicine Medical Oncology; Visit Provider Internal Medicine Medical Oncology
DX: C34.92 Malignant neoplasm of unspecified part of left bronchus or lung (principal); E04.2 Nontoxic multinodular goiter
CPT/HCPCS: 70553; A9575

== ENCOUNTER 2023-10-09 05:51 | Day surgery (SDC) | payer BC, SELFPAY ==
[2023-10-09 06:16] VITALS: BP 128/87; PULSE 108; RESP 16; TEMP 36.4; O2SAT 95; BMI 37.4
[2023-10-09] MEDS: Lactated Ringers 1,000 ML 15 ML IV (06:28)
--- NOTE | 2023-10-09 07:12 | PCM.HP.BLA ---
History and Physical Date of Admission: 10/09/23 Date of Service: 10/01/23 MR#: [id number] Acct: [id number] Name: PRABHJOT VALIENTE Rep #: [id number] : 1960 Provider: Dr. Carmen Narayan MD Age/Sex: 62/F Location: [facility] Status: Signed Intake Vital Signs 09/27/2414:09/28/2410:09/30/2412:40 Height 5 ft 6 in 5 ft 6 in 5 ft 6 in Weight: 236 lb BMI 38.0 BP 127/75 H Blood Pressure Location Rt brachial Position Sitting Respiration 18 Pulse 86 Pulse Oximetry (%) 97 Oxygen Delivery Method room air Intake Visit Reasons: PORT PLACEMENT Chief Complaint: port placement Provider Service Representative Required: No Is patient in pain?: No Allergies erythromycin base Allergy (Intermediate, Verified 10/01/23 13:40) Irregular heart Medications ?Medication ?Instructions ?Recorded ?Confirmed ?Type esomeprazole magnesium 40 mg 40 mg PO QDAY 04/22/22 10/02/23 History capsule,delayed release (Nexium) albuterol sulfate 90 mcg/actuation 2 puff inhalation Q6H PRN 05/30/22 10/02/23 History aerosol inhaler (ProAir HFA) shortness of breath or wheezing lorazepam 0.5 mg tablet 0.5 mg PO DAILY PRN anxiety 05/30/22 10/02/23 History dexamethasone 4 mg tablet 4 mg PO DAILY #14 tabs 09/28/23 10/02/23 Rx Disability Placard #1 ea 09/29/23 10/01/23 Rx folic acid 1 mg tablet 1 mg PO DAILY #90 tabs 09/29/23 10/02/23 Rx lidocaine-prilocaine 2.5 %-2.5 % 1 applic topical ONCE PRN port 09/29/23 10/02/23 Rx topical cream access 30 days #30 grams ondansetron 8 mg disintegrating 8 mg PO Q8H PRN nausea and 09/29/23 10/02/23 Rx tablet vomiting #30 tabs prochlorperazine maleate 10 mg 10 mg PO Q6H PRN nausea and 09/29/23 10/02/23 Rx tablet vomiting #30 tabs glutamine 500 mg capsule 500 mg PO DAILY 10/02/23 10/02/23 History vitamin B complex (Balanced B-50 1 tab PO DAILY 10/02/23 10/02/23 History tablet) [facility] Medical History (Updated 10/06/23 @ 11:[address] Carmen Narayan MD) Cancer History of steroid therapy Migraine headache Encounter for education Alcohol use Stress incontinence High cholesterol Fatty liver History of DVT (deep vein thrombosis) Easy bruising PONV (postoperative nausea and vomiting) History of diverticulitis Gastric reflux Non-smoker Chronic cough Shortness of breath on exertion History of stress test History of echocardiogram History of atrial fibrillation Thyroid disorder Pulmonary emboli Surgical History History of cataract extraction with lens replacement History of tonsillectomy and adenoidectomy History of esophagogastroduodenoscopy (EGD) History of colonoscopy History of partial surgical removal of colon History of bilateral breast reduction surgery history left shoulder surgery Family History Father Heart disease Hypertension High cholesterolMother Heart disease High cholesterol Hypertension Bleeding disorderGrandmother Bladder cancer Social History Smoking Status: Never smoker alcohol intake: current alcohol intake frequency: a few times a month substance use type: does not use caffeine: Yes what type of physical activity do you participate in: none seatbelt use: always do you feel safe at home: Yes additional social history: -Ehsan HPI HPI HPI: 62-year-old female presents for port placement due to new diagnosis of left lung cancer. Patient has been off her Xarelto ever since she was coughing up blood. ROS General General: Yes fatigue; No weight change, appetite, colon cancer or breast cancer HEENT HEENT: Yes swollen glands; No difficulty swallowing, eye injury, eye surgery or hoarseness Endo Endocrine: Yes thyroid disease; No diabetes mellitus, thyroid cancer, Hair loss, heat intolerance or cold intolerance Skin Skin: No rash or changing moles Musc Musculoskeletal: No back problems, arthritis, rheumatoid arthritis, gout or joint pain Cardio Cardiovascular: No murmur, pacemaker, heart disease, atrial fibrillation, high blood pressure, heart attack, heart stent, palpitations, shortness of breat with exertion or chest pain Psych Psychiatric: No depression, anxiety or hearing voices Resp Respiratory: No shortness of breath, No sleep apnea, Yes cough, No COPD, No asthma, No emphysema and No wheezing Gastro Gastrointestinal: No abdominal pain, No nausea or vomiting, No diarrhea, No constipation, No blood in stool, Yes acid reflux, No hemorrhoids, No ulcers, No gallbladder problem and No black,tarry stools Brad Hematologic: No blood thinners, Yes blood disorders, No bleeding, No anemia and No blood clots Neuro Neurologic: No numbness and No tingling Exam Const General: cooperative, healthy appearing, comfortable and no acute distress [facility] Head: normocephalic and atraumatic Neck Neck: supple Resp Effort & Inspection: normal respiratory effort Cardio Rate: regular rate GI Inspection: non-distended Palpation: soft and nontender Skin General: no rashes or lesions noted Neuro General: CN's II-XI intact bilaterally Extrem General: normal to inspection Psych Mental Status: mental status grossly normal Attitude: cooperative Assessment and Plan Assessment and Plan (1) Encounter for insertion of venous access port: Status: Acute (2) Cancer of left lung: Status: Acute Qualifiers: Lung location: hilum of lung Qualified Code(s): C34.02 - Malignant neoplasm of left main bronchus Comment: L main bronchus mass, biopsy shows adenocarcinoma, central lesion with LLL nodule. Stage IV(T3 N2 M1) L adrenal gland, obstructive L bronchus. Discussed stage IV NSCLC, treatment with chemotherapy, immunotherapy, role of Radiation therapy. My suggestion now is to start therapy with chemotherapy then change when her Molecular markers become available. Pt agreed. Plan I have discussed above with the patient- Port-a-Cath placement. Patient has been counseled as to the risks/benefits of the procedure. I have explained the risks of the surgery, including but not limited to: infection, bleeding, injury to any blood vessels/nerves, injury to lungs (such as pneumothorax or hemothorax and need for chest tube), not having any access, nonfunctioning of port due to thrombosis, infection of port, etc. the patient understands and agrees to proceed. I have answered all the patient's questions to the patient?s satisfaction and the patient has no further questions. Carmen Narayan M.D. Pager: [phone] [facility] [address] [place] [address], [facility], [address] [place] [id number] Office: [phone] Coding Level of Care Code Off vis,new,level 3 Diagnoses Encounter for insertion of venous access port Z45.2 Malignant neoplasm of hilus of left lung C34.02 Lung location: hilum of lung 10/06/23 1139 <Electronically signed by Carmen Narayan MD> Date Carmen Narayan MD
[2023-10-09] MEDS: Cefazolin 2 GM in 0.9% Normal Saline (100mL Bag) 100 ML IV (07:36)
[2023-10-09] MEDS: Heparin 10,000 UNITS/10 ML Vial 10000 UNITS (08:06)
[2023-10-09] MEDS: Lidocaine 1% /Epi 1:100 (50ml) 50 ML VIAL (08:06)
[2023-10-09] MEDS: Bupivacaine Mpf 0.5% 30 ML VIAL (08:07)
--- NOTE | 2023-10-09 08:12 | PCM.OPRPT ---
Report of Operation Date of Procedure: 10/09/23 Pre-Operative Diagnosis: z45.2, lung cancer Post-Operative Diagnosis: same Surgery/Procedure Performed:: 1. Placement of right IJ Port-A-Cath Use of ultrasound Use of fluoroscopy Surgeon: Carmen Narayan Type of Anesthesia: Local MAC Anesthesiologist: Emory Sampson Special Medications: Ancef 2 g IV x 1 Specimen's removed: None Estimated Blood Loss (mL): < 10 cc Description of Procedure: After informed consent was given, the patient was brought to the operating room and placed in the supine position. Appropriate time out protocol was followed. Patient was then given IV conscious sedation for anesthesia. The patient's right upper chest and neck were then prepped with a surgical skin preparation and sterile surgical drapes were placed. After proper landmarks were ascertained, the skin at the upper right chest area was then infiltrated with 1:1 mixture of 1% lidocaine with epinephrine and 0.5% marcaine. A needle trocar was then inserted into the right internal jugular vein with ultrasound guidance-multiple vessels were viewed with u/s and the right IJ was chosen-- and there was good aspiration of venous blood. A wire was then threaded into the needle trocar and this was visualized under fluoroscopy to ensure that the wire was in the superior vena cava. Once this was done, then the needle trocar was removed. A small skin luis antonio was made with an 11 blade knife at the wire entrance site. The dilator with the introducer sheath attached was then placed over the wire into the right internal jugular vein via the Seldinger technique and this was visualized under fluoroscopy. The dilator and sheath were in proper position as visualized by fluoroscopy. A subcutaneous pocket was then created caudad to the catheter insertion site. A transverse skin incision was made after the skin and subcutaneous tissues were infiltrated with local anesthetic. Blunt dissection was then used to create a space large enough for placement of the subcutaneous port. The catheter was then tunneled into the subcutaneous pocket. The wire and dilator were then removed. The catheter was then threaded into the introducer sheath and was positioned with its tip at the junction of the superior vena cava and the right atrium as visualized under fluoroscopy. The excess catheter was transected. The catheter was then attached to the subcutaneous port using manufacturers guidelines. The catheter was flushed with a heparin saline mixture prior to placement. Hemostasis was carefully controlled with electrocautery. The port was sutured to the subcutaneous fascia using 2-0 Vicryl suture at two sites. The port was then placed in the subcutaneous pocket. The incision were reapproximated with interrupted subdermal 3-0 vicryl sutures. The skin was reapproximated with 3-0 nylon suture in a interrupted fashion. Steristrips were used for reinforcement of the skin closure at IJ insertion site and a sterile opsite dressings were applied. The patient tolerated the procedure well. Grafts/Implants Used: Bard PowerPort isp M.R.I. 6Fr Lot [id number] [id number] Complications none
--- NOTE | 2023-10-09 08:13 | EX.PCM.DISCH ---
Discharge Instructions Procedure Port-A-Cath Diet Discharge Diet: Light diet - advance as tolerated Activity May shower in (days): 5 (Keep port site clean and dry x5 days. Neck incision okay to get wet after 1 day. Okay to lower shower and upper sponge bath. OR okay to taper off port site with a Ziploc bag to shower) Lifting Restrictions: No lifting > 15 pounds for 3 days with the arm on the side of the port Dressing / Incision Call your doctor if your incision/area has: Continuous Slow Oozing, Sudden Increased Bleeding, Increased Pain/ Swelling, Increased Redness, Foul Smelling Discharge and Swelling at the incision site Call your doctor if you observe: Fever of 101 or Higher Change Dressing in: 2 days (2-3 days- port site; ok to remove neck opsite in 1 day) Follow Up Care Please Follow Up With: Carmen Narayan MD When: In 10 days for permanent suture removal?call office for appointment Test Results: Test results from this visit will be discussed in further detail at your follow-up appointment, if applicable. Discharge Plan Admission Attending Provider: Carmen Narayan Primary Care Provider: Paul Boyd Instructions Print Language: [place] Discharge Orders/Prescriptions Prescriptions: Continued esomeprazole magnesium [Nexium] 40 mg capsule,delayed release(DR/EC) 40 mg PO QDAY dexamethasone 4 mg tablet 4 mg PO DAILY Qty: 14 2RF lidocaine-prilocaine 2.5-2.5 % cream 1 applic topical ONCE PRN (Reason: port access) 30 Days Qty: 30 2RF folic acid 1 mg tablet 1 mg PO DAILY Qty: 90 1RF ondansetron 8 mg tablet,disintegrating 8 mg PO Q8H PRN (Reason: nausea and vomiting) Qty: 30 2RF prochlorperazine maleate 10 mg tablet 10 mg PO Q6H PRN (Reason: nausea and vomiting) Qty: 30 2RF vitamin B complex [Balanced B-50] Tablet 1 tab PO DAILY glutamine 500 mg capsule 500 mg PO DAILY (DME) Disability Placard See Rx Instructions .Route .MEDSUPPLY Qty: 1 0RF Rx Instructions: As directed lorazepam 0.5 mg tablet 0.5 mg PO DAILY PRN (Reason: anxiety) albuterol sulfate [ProAir HFA] 90 mcg/actuation HFA aerosol inhaler 2 puff inhalation Q6H PRN (Reason: shortness of breath or wheezing) Referrals / Follow Up: Paul Boyd MD [Primary Care Provider] - Disposition Disposition (needs filled in before D/C Order can be placed): Home, Self Care
[2023-10-09 08:18] VITALS: BP 117/72; BP 128/87; PULSE 99; RESP 16; TEMP 36.5; O2SAT 97
[2023-10-09 08:20] VITALS: BP 115/69; BP 128/87; PULSE 92; RESP 16; O2SAT 97
[2023-10-09 08:25] VITALS: BP 123/74; BP 128/87; PULSE 90; RESP 16; O2SAT 97
[2023-10-09 08:30] VITALS: BP 107/92; BP 128/87; PULSE 86; RESP 16; TEMP 36.5; O2SAT 97
--- NOTE | 2023-10-09 08:30 | RAD_ITS ---
STUDY: X-RAY CHEST REASON FOR EXAM: Female, 62 years old. Port -- PORTABLE PACU TECHNIQUE: Single AP portable view of the chest. COMPARISON: Comparison is made with prior study dated May 25, 2023. FINDINGS: A right-sided pennie catheter has been placed. The tip is at the junction of the superior vena cava and right atrium. EKG electrodes are seen. Stable elevation of the right hemidiaphragm. There is no demonstrated pleural abnormality. Normal size heart. Normal mediastinum and bert. Normal visualized pulmonary arteries. There is atherosclerotic tortuosity of the aortic arch and descending thoracic aorta. Normal visualized thoracic spine. Normal visualized ribs, clavicles, and shoulders. There is no demonstrated abnormality of the visualized soft tissue structures of the upper abdomen. RAD/CXR for Line Placement IMPRESSION: The tip of the right pennie catheter is at the junction of the superior vena cava and right atrium. Electronically Signed: Felix Sutherland MD at 8:41 EDT ,
[2023-10-09 09:04] VITALS: BP 128/87
== END 2023-10-09 09:07 | disposition home or self-care (01) ==
LOC: SDC 05:52 → AC 05:53
PROVIDERS: PCP Family Medicine; Referring Provider Surgery; Visit Provider Surgery
PROC: (CPT 36561; principal; 2023-10-09 07:15)
DX: Z45.2 Encounter for adjustment and management of vascular access device (principal); C34.02 Malignant neoplasm of left main bronchus; K21.9 Gastro-esophageal reflux disease without esophagitis; Z79.51 Long term (current) use of inhaled steroids; Z86.718 Personal history of other venous thrombosis and embolism; Z86.711 Personal history of pulmonary embolism
CPT/HCPCS: 36561; 71045; 77001; J2405

== ENCOUNTER → 2023-10-22 | Outpatient (CLI) | payer BC, SELFPAY ==
--- NOTE | 2023-10-22 09:38 | EKG12_ITS ---
Test Reason : PALPS Blood Pressure : / mmHG Vent. Rate : 080 BPM Atrial Rate : 080 BPM P-R Int : 124 ms QRS Dur : 086 ms QT Int : 364 ms P-R-T Axes : 039 007 022 degrees QTc Int : 419 ms Normal sinus rhythm Normal ECG Confirmed by TIMMY YOO, BARRY ([id number]), development editor MILY LOCKE ([id number]) on 10/22/2023 1:25:36 PM Referred By: Mansoor Noland Confirmed By:BARRY WARNER MD
--- NOTE | 2023-10-22 09:40 | RAD_ITS ---
INDICATION: LUNG CA EXAMINATION/TECHNIQUE: X-RAY - XR Chest 2 Views COMPARISON: October 09, 2023 FINDINGS: LINES/DEVICES: There is a right-sided central venous catheter in place terminating within the expected region of the superior vena cava. LUNGS: Within the left hilar region there is a 3.2 x 2.9 cm masslike opacity that has decreased in size previously measuring 3.8 x 3.0 cm. No pneumothorax. MEDIASTINUM AND CARDIOVASCULAR STRUCTURES: Cardiac silhouette not enlarged. Central airways and mediastinal contour are unremarkable. BONES AND SOFT TISSUES: Unremarkable. RAD/Chest PA and Lateral IMPRESSION: Interval decrease in size of left hilar mass consistent with a neoplastic process. Electronically Signed: Allyssa Prado MD at 10:14 EDT ,
== END | disposition home or self-care (01) ==
LOC: PSN 09:37
PROVIDERS: PCP Family Medicine; Referring Provider Internal Medicine Medical Oncology; Visit Provider Internal Medicine Medical Oncology
DX: C34.90 Malignant neoplasm of unspecified part of unspecified bronchus or lung (principal); C78.7 Secondary malignant neoplasm of liver and intrahepatic bile duct
CPT/HCPCS: 71046; 93005

== ENCOUNTER 2023-11-27 10:40 | Outpatient (CLI) | payer BC, SELFPAY ==
--- NOTE | 2023-11-27 10:41 | VDLE_ITS ---
Reason For Study: Elevated D-dimer RIGHT LEFT Acute deep vein thrombosis is noted in the Acute deep vein thrombosis is noted in the EIV, CFV, FV, PopV, T/P Trunk, PTV, PeroV, EIV, CFV, FV, PopV, T/P Trunk, PTV, PeroV, and Soleus V. It is dilated and and Gastroc V. It is dilated and NONCOMPRESSIBLE. NONCOMPRESSIBLE. Procedure This is a venous duplex using B-mode, color flow and spectral Doppler. Exam performed in department. A preliminary report was called and/or faxed to JENNIFER Bolanos, Pt taken to ER. VL/Venous Duplex US - Heath Extrem Interpretation Summary Acute deep venous thrombosis right external iliac, common femoral, femoral, pop liteal, tibioperoneal trunk, posterior tibial, peroneal, and soleus veins Acute deep venous thrombosis left external iliac, common femoral, femoral, popl iteal, tibioperoneal trunk, posterior tibial, peroneal, and gastrocnemius veins Patent and compressible bilateral great saphenous veins Ordering Physician: Mansoor Noland Referring Physician: Kenyetta Boyd MD Performed By: Monica Espino RVT and Student
== END 2023-11-27 23:59 | disposition home or self-care (01) ==
PROVIDERS: PCP Family Medicine; Referring Provider Internal Medicine Medical Oncology; Visit Provider Internal Medicine Medical Oncology
DX: I82.423 Acute embolism and thrombosis of iliac vein, bilateral (principal); I82.413 Acute embolism and thrombosis of femoral vein, bilateral; I82.433 Acute embolism and thrombosis of popliteal vein, bilateral; I82.443 Acute embolism and thrombosis of tibial vein, bilateral; I82.453 Acute embolism and thrombosis of peroneal vein, bilateral; I82.463 Acute embolism and thrombosis of calf muscular vein, bilateral
CPT/HCPCS: 93970

== ENCOUNTER 2023-11-27 11:43 | Emergency (ER) | payer BC, SELFPAY ==
[2023-11-27 11:45] VITALS: BP 137/79; PULSE 87; RESP 16; TEMP 36.4; O2SAT 99
[2023-11-27 11:47] VITALS: BMI 39.4
[2023-11-27 11:50] VITALS: BMI 39.4
--- NOTE | 2023-11-27 12:03 | EDS_ITS ---
<Statement entered by Sweta Ortiz MD - 11/27/23 17:12> I have personally performed a face to face assessment of the patient and have reviewed the OLYA Note. Patient presents secondary to bilateral lower extremity DVTs. Patient is currently being treated for lung cancer with chemotherapy. One of the side effects of her chemotherapy is lower extremity edema. When she developed lower extremity swelling she did not think much of it. She does not have leg pain. Her oncologist sent her in for outpatient DVT studies today which revealed extensive bilateral lower extremity DVTs. Patient does have a history of prior DVT and PE. She had been tolerated Xarelto well in the past. She restarted this last night. She denies chest pain or shortness of breath. Patient sitting upright in bed no acute distress. Head and neck examination unremarkable. Heart is regular rate and rhythm. Lung sounds are clear. Abdomen is soft and nontender. Lower extremity examination reveals bilateral lower extremity edema that appears largely symmetric. No focal tenderness. Good distal pulses. Labs are rechecked today. CBC reveals a white count of 4.4 with 39% neutrophils. H&H is 9.2 and 28.9 respectively. This is stable from her prior labs. Platelet count is low at 51,000. This is stable from yesterday's labs, however lower than previous. Chemistry studies are unremarkable. Vascular surgery was contacted. They are comfortable with the patient continuing on Xarelto given her relatively low symptomatology. Dr. Noland was contacted and updated. He is in agreement with the course of treatment as well. Patient was given close return instructions. HPI History of Present Illness Chief Complaint: Edema Narrative Narrative: 63 year old female presents after outpatient bilateral leg ultrasounds shows bilateral groin DVTs. She has lung adenocarcinoma and did her third round of chemotherapy on November 10 and started immunotherapy around that time. She developed bilateral lower leg swelling without pain which is a possible side effect of the immunotherapy so she did not think much of it. The swelling increased so Dr. Noland ordered the ultrasounds today which are positive. She has a history of left leg DVT after sclerotherapy and bilateral PEs in 2005 and was on coumadin for years and then Xarelto. She stopped it in September 2023 because she was coughing up blood. Her cough has resolved and she has no chest pain or shortness of breath. She restarted xarelto again last night. 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 Cancer History of steroid therapy Migraine headache Encounter for education Alcohol use Stress incontinence High cholesterol Fatty liver History of DVT (deep vein thrombosis) Easy bruising PONV (postoperative nausea and vomiting) History of diverticulitis Gastric reflux Non-smoker Chronic cough Shortness of breath on exertion History of stress test History of echocardiogram History of atrial fibrillation Thyroid disorder Pulmonary emboli Home Medications ?Medication ?Instructions ?Recorded ?Last Taken ?Type esomeprazole magnesium 40 mg 40 mg PO QDAY 04/22/22 10/09/23 06:00 History capsule,delayed release (Nexium) albuterol sulfate 90 mcg/actuation 2 puff inhalation Q6H PRN 05/30/22 10/09/23 06:00 History aerosol inhaler (ProAir HFA) shortness of breath or wheezing lorazepam 0.5 mg tablet 0.5 mg PO DAILY PRN anxiety 05/30/22 Unknown History dexamethasone 4 mg tablet 4 mg PO DAILY #14 tabs 09/28/23 Unknown Rx folic acid 1 mg tablet 1 mg PO DAILY #90 tabs 09/29/23 Unknown Rx lidocaine-prilocaine 2.5 %-2.5 % 1 applic topical ONCE PRN port 09/29/23 Unknown Rx topical cream access 30 days #30 grams ondansetron 8 mg disintegrating 8 mg PO Q8H PRN nausea and 09/29/23 Unknown Rx tablet vomiting #30 tabs prochlorperazine maleate 10 mg 10 mg PO Q6H PRN nausea and 09/29/23 Unknown Rx tablet vomiting #30 tabs glutamine 500 mg capsule 500 mg PO DAILY 10/02/23 Unknown History vitamin B complex (Balanced B-50 1 tab PO DAILY 10/02/23 Unknown History tablet) Disability Placard #1 ea 10/20/23 Unknown Rx Allergy/AdvReac Type Severity Reaction Status Date / Time erythromycin base Allergy Intermediate Irregular Verified 11/27/23 11:44 heart Family History Father Heart disease Hypertension High cholesterol Mother Heart disease High cholesterol Hypertension Bleeding disorder Grandmother Bladder cancer Surgical History History of cataract extraction with lens replacement History of tonsillectomy and adenoidectomy History of esophagogastroduodenoscopy (EGD) History of colonoscopy History of partial surgical removal of colon History of bilateral breast reduction surgery history left shoulder surgery Social History Smoking Status: Never smoker alcohol intake: current alcohol intake frequency: a few times a month substance use type: does not use caffeine: Yes what type of physical activity do you participate in: none seatbelt use: always do you feel safe at home: Yes additional social history: -Ehsan ROS ROS ED Constitutional Constitutional ED: Denies chills or fever(s) Cardiovascular Cardiovascular: Denies chest pain, orthopnea or palpitations Respiratory/Chest Respiratory/Chest: Denies dyspnea, dyspnea on exertion or orthopnea Gastrointestinal Gastrointestinal: Denies abdominal pain Neurologic Neurologic: Denies paresthesias or weakness EXAM Physical Exam Const Vital Signs: 11/27/23 11:45 11/27/23 11:50 Temperature 97.5 F L Temperature Source Temporal Pulse Rate 87 Respiratory Rate 16 Respiratory Pattern Normal Blood Pressure 137/79 H Blood Pressure Mean 98 Pulse Ox 99 Oxygen Delivery Method Room Air Positive well nourished and obese Nutritional Appearance: obese Resp normal respiratory effort and clear to auscultation bilaterally Cardio regular rate, regular rhythm and no murmurs GI normal to inspection, nondistended, normoactive bowel sounds and non-tender Extremity Extremity Narrative: 2+ pitting edema to both knees, no skin changes, no palpable cords and no tenderness of deep venous system, full ROM, 5/5 strength, normal sensation, 2+ DP pulses, soft compartments. Neuro Sensorium / Orientation: alert Psych mental status grossly normal MDM MDM MDM Narrative Medical decision making narrative: History gathered from: patient, spouse 63 year old female with lung cancer on chemo/immunotherapy has 2 weeks of bilateral leg edema and positive outpatient b/l ultrasounds showing extensive DVTs. She restarted xarelto last night. She appears well and nontoxic with stable vital signs. She denies cp/sob. She is minimally symptomatic with lower leg edema but no discomfort and legs are neurovascularly intact. Labs shows stable anemia at 9.2 and thrombocytopenia at 51 which is stable from yesterday's outpatient labs but lower than previous. I spoke with the vascular RESEARCH ASSOCIATE Debi who advised she can continue xarelto since she tolerated this well in the past and is minimally symptomatic. I let Dr. Noland know about her lab results and vascular's recommendation and he is in agreement. Pt took xarelto last night and has the script at home to continue. She will follow up with oncology and vascular as needed and was discharged in stable condition. Consults: vascular, oncology Lab Data Attestation: I reviewed the patient's lab results. Labs: Laboratory Results - last 24 hr 11/27/23 12:26 WBC 4.4 RBC 3.22 L Hgb 9.2 L Hct 28.9 L MCV 89.8 MCH 28.6 MCHC 31.8 L RDW Std Deviation 57.9 H RDW Coeff of Stephanie 21.5 H Plt Count 51 L MPV 9.3 Immature Gran % (Auto) 0.200 Neut % (Auto) 39.5 L Lymph % (Auto) 38.5 [place] % (Auto) 17.9 H Eos % (Auto) 3.4 Baso % (Auto) 0.5 Absolute Neuts (auto) 1.8 L Absolute Lymphs (auto) 1.70 Nucleated RBC % 0.7 Differential Comment Platelet Estimate MKD DEC Anisocytosis 1+ Sodium 143 Potassium 3.8 Chloride 108 H Carbon Dioxide 27.0 Anion Gap 8 BUN 14 Creatinine 0.81 Estim Creat Clear Calc 90.79 Est GFR (MDRD) Af Amer 92 Est GFR (MDRD) Non-Af 76 BUN/Creatinine Ratio 17.2 Glucose 96 Calcium 8.9 Discharge Plan Triage Chief Complaint: Edema ED Midlevel Provider: Angela Shoemaker ED Provider: Sweta Ortiz Dx/Rx/DC Orders Clinical Impression: DVT of lower extremity, bilateral, History of lung cancer, Chronic anemia, Thrombocytopenia Instructions: DVT Dc Prescriptions: No Action esomeprazole magnesium [Nexium] 40 mg capsule,delayed release(DR/EC) 40 mg PO QDAY dexamethasone 4 mg tablet 4 mg PO DAILY Qty: 14 2RF lidocaine-prilocaine 2.5-2.5 % cream 1 applic topical ONCE PRN (Reason: port access) 30 Days Qty: 30 2RF folic acid 1 mg tablet 1 mg PO DAILY Qty: 90 1RF ondansetron 8 mg tablet,disintegrating 8 mg PO Q8H PRN (Reason: nausea and vomiting) Qty: 30 2RF prochlorperazine maleate 10 mg tablet 10 mg PO Q6H PRN (Reason: nausea and vomiting) Qty: 30 2RF vitamin B complex [Balanced B-50] Tablet 1 tab PO DAILY glutamine 500 mg capsule 500 mg PO DAILY lorazepam 0.5 mg tablet 0.5 mg PO DAILY PRN (Reason: anxiety) albuterol sulfate [ProAir HFA] 90 mcg/actuation HFA aerosol inhaler 2 puff inhalation Q6H PRN (Reason: shortness of breath or wheezing) (DME) Disability Placard See Rx Instructions .Route .MEDSUPPLY Qty: 1 0RF Rx Instructions: Lifetime; No expiration Primary Care Provider: Paul Boyd Referrals: Paul Boyd MD [Primary Care Provider] - Marvin Ansari MD [Med Staff - Active Staff] - Activity Restrictions/Additional Instructions: Dr. Noland and the vascular specialist are comfortable with you continuing xarelto to treat the DVTs. Follow up with vascular surgery as needed. Print Language: Haitian Disposition Disposition: Home, Self Care
[2023-11-27 12:33] LABS: Absolute Neutrophil Count 1.8 X10^3/uL (2.0-7.7); Basophil# 0.02 X10^3/uL; Basophil% 0.5 % (0-1); Eosinophil# 0.15 X10^3/uL; Eosinophils% 3.4 % (0-5); Hematocrit 28.9 % (37-47); Hemoglobin 9.2 g/dL (12.0-15.0); Lymphocyte % 38.5 % (19-41); Mean Corp Hgb Conc 31.8 g/dL (32-36); Mean Corpuscular Hgb 28.6 pg (27.0-32.0); Mean Corpuscular Volume 89.8 fL (81-99); Mean Platelet Vol. 9.3 fl (6.2-12.0); Monocyte# 0.79 X10^3/uL; Monocyte% 17.9 % (0-10); NRBC Flagged by Analyzer 0.7 % (0-5); Neutrophil # 1.75 X10^3/uL (2.7-7.7); Neutrophil % 39.5 % (47-70); POSITIVE COUNT YES; POSITIVE MORPHOLOGY YES; Platelet Count 51 K/mm3 (150-450); RBC Distribution Width CV 21.5 % (11.6-14.6); RBC Distribution Width SD 57.9 fl (35.1-43.9); Red Blood Count 3.22 M/mm3 (4.2-5.4); White Blood Count 4.4 K/mm3 (4.4-11.0)
[2023-11-27 12:40] LABS: Differential Indicated SCAN CRITERIA MET
[2023-11-27 12:54] LABS: Anisocytosis 1+; Platelet Estimate MKD DEC (ADEQ)
[2023-11-27 12:57] LABS: Anion Gap 8 (5-15); BUN 14 mg/dL (7-18); BUN/Creat Ratio 17.2 RATIO (10-20); Calcium,Total 8.9 mg/dL (8.5-10.1); Chloride 108 mmol/L (98-107); Creatinine, Serum 0.81 mg/dL (0.55-1.02); EST Glomerular Filtration Rate 76 mL/min (>60); Est Glom Filt Rate - Afr Amer 92 mL/min (>60); Estimated Creatinine Clearance 90.79 ml/min; Glucose 96 mg/dL (74-106); Potassium 3.8 mmol/L (3.5-5.1); Sodium Level 143 mmol/L (136-145)
[2023-11-27 13:44] VITALS: BP 128/81; PULSE 81; RESP 18; O2SAT 98
[2023-11-27 14:20] VITALS: BP 128/81; PULSE 84; RESP 18; TEMP 36.6; O2SAT 98
== END 2023-11-27 14:25 | disposition home or self-care (01) ==
PROVIDERS: Physician Assistant; Emergency Provider Emergency Medicine; PCP Family Medicine; Visit Provider Emergency Medicine
DX: I82.423 Acute embolism and thrombosis of iliac vein, bilateral (principal); C34.90 Malignant neoplasm of unspecified part of unspecified bronchus or lung; I82.413 Acute embolism and thrombosis of femoral vein, bilateral; I82.433 Acute embolism and thrombosis of popliteal vein, bilateral; I82.453 Acute embolism and thrombosis of peroneal vein, bilateral; I82.443 Acute embolism and thrombosis of tibial vein, bilateral; I82.463 Acute embolism and thrombosis of calf muscular vein, bilateral; D63.0 Anemia in neoplastic disease; D69.6 Thrombocytopenia, unspecified; Z79.01 Long term (current) use of anticoagulants
CPT/HCPCS: 80048; 85025; 99282; A4216

== ENCOUNTER → 2023-12-11 | Outpatient (CLI) | payer BC, SELFPAY ==
--- NOTE | 2023-12-11 13:52 | CT_ITS ---
We are attempting to reach an attending provider to discuss findings. An addendum with communication details will be sent when the communication is complete. EXAM: CT ANGIOGRAPHY CHEST AND CT ABDOMEN AND PELVIS WITH INTRAVENOUS CONTRAST CLINICAL INDICATION: ASSESS TREATMENT-LUNG CA TECHNIQUE: Helically acquired angiography images of the chest per pulmonary angiogram protocol and helically acquired images of the abdomen and pelvis with intravenous contrast. This CT exam was performed using one or more of the following dose reduction techniques: automated exposure control, adjustment of the mA and/or kV according to patient size, and/or use of iterative reconstruction technique. MIP reconstructed images were created and reviewed. CONTRAST: IV 100mL Isovue-300 COMPARISON: CTA chest 09/04/2023, PET CT 09/22/2023, CT abdomen pelvis 12/11/2022 FINDINGS: CHEST: PULMONARY ARTERIES: Filling defects involve the distal left pulmonary artery and extending into secondary and tertiary branches of the upper and lower lobes. Smaller filling defects seen within secondary and tertiary branches of the right pulmonary artery. Normal in caliber. AORTA: Normal. Normal in caliber. No evidence of dissection. GREAT VESSELS OF AORTIC ARCH: Normal. Normal in caliber. No evidence of dissection. LUNGS AND PLEURAL SPACES: There has also been significant improvement in the 12 mm left lower lobe pulmonary nodule now measuring 5 mm in maximum diameter. HEART: Normal. No pericardial effusion. Normal heart size. No coronary artery calcification. MEDIASTINUM: Residual 19 mm mass left hilar mass consistent with significant interval improvement in the previously noted 6 cm mass within the same region. Small hiatal hernia again seen. Esophagus is unremarkable. ABDOMEN: LIVER: Normal. Homogeneous. No focal mass. GALLBLADDER AND BILE DUCTS: Normal. No calcified gallstones. No gallbladder distention or wall edema. No intra- or extrahepatic biliary ductal dilation. PANCREAS: Normal. No focal cystic or solid mass. SPLEEN: Normal. Normal size without focal cystic or solid mass. ADRENALS: Normal. No nodules. KIDNEYS AND URETERS: Normal. Normal renal size and position. No hydronephrosis. STOMACH AND BOWEL: Small hiatal hernia. No stomach or bowel distention. No focal inflammatory change. CHEST, ABDOMEN: INTRAPERITONEAL SPACE: Normal. No ascites or other fluid collection. No free air. BONES/JOINTS: Normal. No suspicious lytic or blastic abnormality. SOFT TISSUES: Small fat-containing umbilical hernia is present. LYMPH NODES: Normal. No enlarged lymph nodes. TUBES, LINES AND DEVICES: Right infusion catheter tip extends into the right atrium just below the cavoatrial junction. CT/CT Chest AND Abd W/ Contrast IMPRESSION: 1. Acute bilateral pulmonary embolism without evidence of right heart strain. 2. Significant reduction in the left lower lobe pulmonary nodule and the left hilar hilary mass as described above. Electronically Signed: Gilberto Anaya MD at 16:42 EDT ,
== END | disposition home or self-care (01) ==
LOC: CT 13:50
PROVIDERS: PCP Family Medicine; Referring Provider Internal Medicine Medical Oncology; Visit Provider Internal Medicine Medical Oncology
DX: C34.32 Malignant neoplasm of lower lobe, left bronchus or lung (principal); C79.70 Secondary malignant neoplasm of unspecified adrenal gland
CPT/HCPCS: 71260; 74160; Q9967; A4216

== ENCOUNTER → 2023-12-14 | Outpatient (CLI) | payer BC, SELFPAY ==
--- NOTE | 2023-12-14 14:11 | VDLE_ITS ---
Reason For Study: Elevated D-dimer RIGHT LEFT GSV is normal. GSV is normal. Acute deep vein thrombosis is noted in the Acute deep vein thrombosis is noted in the EIV, CFV, FV, PopV, T/P Trunk and PTV. It is EIV, CFV, FV, PopV and T/P Trunk. It is dilated and NONCOMPRESSIBLE. dilated and NONCOMPRESSIBLE. PeroV is partially compressible. PTV and PeroV are partially compressible. Procedure This is a venous duplex using B-mode, color flow and spectral Doppler. Exam performed in department. Compared to 11/27/2023. VL/Venous Duplex US - Heath Extrem Interpretation Summary Acute deep vein thrombosis is noted in the right external iliac vein, common fe moral vein, femoral vein, popliteal vein, tibioperoneal trunk vein and posterior tibial vein Acute deep vein thrombosis is noted in the left external iliac vein, common fem oral vein, femoral vein, popliteal vein and tibioperoneal trunk Ordering Physician: Mansoor Noland Referring Physician: Paul Boyd Performed By: Monica Espino RVT
== END | disposition home or self-care (01) ==
LOC: CVS 14:11
PROVIDERS: PCP Family Medicine; Referring Provider Internal Medicine Medical Oncology; Visit Provider Internal Medicine Medical Oncology
DX: I82.409 Acute embolism and thrombosis of unspecified deep veins of unspecified lower extremity (principal)
CPT/HCPCS: 93970

== ENCOUNTER → 2024-03-21 | Outpatient (CLI) | payer BC, SELFPAY ==
[2024-03-29 22:06] LABS: HPV APTIMA, High Risk Negative (Negative)
== END | disposition home or self-care (01) ==
LOC: LABSPEC 15:50
PROVIDERS: PCP Family Medicine; Referring Provider Obstetrics & Gynecology; Visit Provider Obstetrics & Gynecology
DX: Z12.4 Encounter for screening for malignant neoplasm of cervix (principal)
CPT/HCPCS: 87624; 88175; G0145

== ENCOUNTER → 2024-04-05 | Outpatient (CLI) | payer BC, SELFPAY ==
--- NOTE | 2024-04-05 13:40 | BI_ITS ---
MAMMOGRAPHY - BILATERAL DIAGNOSTIC REASON FOR EXAM: Female, 63 years old. right lump on breast -- right breast lump PERTINENT HISTORY: Non-contributory. TECHNIQUE: Digital examination. Mediolateral oblique (MLO) and craniocaudad (CC) views of both breasts were obtained. CAD: CAD was performed on this study. COMPARISON: 06/18/2023 FINDINGS: Breast Composition: There are scattered areas of fibroglandular density. There are no dominant masses or suspicious calcifications. No other significant abnormalities are identified. BI/DIAG MAMM W/CAD, BILAT IMPRESSION: Stable bilateral diagnostic mammogram. Ultrasound of the palpable abnormality in the right breast will be obtained. ASSESSMENT CATEGORY: BIRADS Category 0: Incomplete. Need additional imaging evaluation. A letter regarding these results will be sent to the patient by the facility within 30 days. FOLLOW UP RECOMMENDATION: Ultrasound Recommended. (I) Approximately 10% of breast cancers are not detected by mammography. A normal mammogram should not delay biopsy of a clinically suspicious abnormality. Electronically Signed: Graeme Barton MD at 14:19 EST ,
--- NOTE | 2024-04-05 13:40 | US_ITS ---
STUDY: ULTRASOUND BREAST - RIGHT REASON FOR EXAM: Female, 63 years old. Palpable mass TECHNIQUE: Axial and longitudinal images of the RIGHT breast were performed with a high resolution ultrasound transducer. # OF IMAGES: 8 COMPARISON: Diagnostic mammogram earlier today FINDINGS: RIGHT Breast: Heterogeneous background echotexture. At 9:00, 12 cm from nipple, ultrasound confirms a 6 mm oval parallel circumscribed anechoic mass with posterior enhancement consistent with a cyst. Immediately adjacent to this cyst is a 3 mm cyst.: US/Breast Limited Unilateral IMPRESSION: Ultrasound confirms 2 small cyst corresponding to the palpable abnormality. ASSESSMENT CATEGORY: BIRADS Category 2: Benign. A letter regarding these results will be sent to the patient by the facility within 30 days. Electronically Signed: Graeme Barton MD at 15:13 EST ,
== END | disposition home or self-care (01) ==
LOC: OPBI 13:40
PROVIDERS: PCP Family Medicine; Referring Provider Obstetrics & Gynecology; Visit Provider Obstetrics & Gynecology
DX: N63.15 Unspecified lump in the right breast, overlapping quadrants (principal)
CPT/HCPCS: 76642; 77062; 77066; G0279

== ENCOUNTER → 2024-06-24 | Outpatient (CLI) | payer BC, SELFPAY ==
--- NOTE | 2024-06-24 13:59 | CT_ITS ---
PROCEDURE: CT CHEST AND ABD W/ CONTRAST REASON FOR EXAM: History of non-small cell lung cancer. Response to treatment. TECHNIQUE: Chest and abdomen CT with intravenous contrast. CONTRAST: 100 cc of Isovue COMPARISON: Comparison is made with prior study dated December 11, 2023. FINDINGS: CT CHEST: Hardware: A right-sided port a catheter is seen with the tip in the superior vena cava. Lymph nodes: There has been further improvement in the soft tissue density in the left infrahilar region. It now measures 1.6 cm by 1.4 cm. Heart and Vasculature: Normal heart size. No pericardial effusion. Thoracic aorta and pulmonary arteries are unremarkable. Lungs and Airways: Minimal residual linear densities at the left lung base. Pleura: Unremarkable CT ABDOMEN: Liver: Unremarkable. Gallbladder: Unremarkable. Spleen: Unremarkable. Pancreas: Unremarkable. Adrenals: Unremarkable. Kidneys: Unremarkable. Bowel: Visualized loops of bowel in the upper abdomen are unremarkable. Moderate-sized hiatal hernia. Lymph nodes: No suspicious lymph node enlargement at the upper abdomen. Vasculature: Major vascular structures at the upper abdomen are unremarkable. Peritoneum / Retroperitoneum: No ascites or free air at the upper abdomen. Small umbilical hernia. Bones: Unremarkable. CT/CT Chest AND Abd W/ Contrast IMPRESSION: Further decrease in size of the left hilar lymph node. The remainder of examin ation is unchanged. One or more dose reduction techniques were used (e.g., Automated exposure contr ol, adjustment of the mA and/or kV according to patient size, use of iterative reconstruction technique). Reading Location: [facility]
[2024-06-24] MEDS: 0.9% Saline Lock 10 ML Syringe IV (14:12)
== END | disposition home or self-care (01) ==
LOC: CT 13:59
PROVIDERS: PCP Family Medicine; Referring Provider Nurse Practitioner Family; Visit Provider Nurse Practitioner Family
DX: C34.90 Malignant neoplasm of unspecified part of unspecified bronchus or lung (principal); C79.70 Secondary malignant neoplasm of unspecified adrenal gland
CPT/HCPCS: 71260; 74160; Q9967; A4216

== ENCOUNTER → 2024-09-22 | Outpatient (CLI) | payer BC, SELFPAY ==
--- NOTE | 2024-09-22 08:35 | VDLE_ITS ---
Reason For Study Reason For Study: HX BLE DVT / Elevated D-Dimer RIGHT LEFT GSV is normal. GSV is normal. CFV is compressible, spontaneous, phasic, competent CFV is compressible, spontaneous, phasic, competent and demonstrates normal augmentation. and demonstrates normal augmentation. FV is PARTIALLY COMPRESSIBLE with intraluminal FV is PARTIALLY COMPRESSIBLE with intraluminal hyperechogenicity noted. The vessel is spontaneous, hyperechogenicity noted. The vessel is spontaneous, phasic, competent and demonstrates normal phasic, competent and demonstrates normal augmentation. augmentation. POP V is PARTIALLY COMPRESSIBLE with intraluminal POP V is PARTIALLY COMPRESSIBLE with intraluminal hyperechogenicity noted. The vessel is spontaneous, hyperechogenicity noted. The vessel is spontaneous, phasic, competent and demonstrates normal phasic, competent and demonstrates normal augmentation. augmentation. T/P Trunk is compressible. T/P Trunk is PARTIALLY COMPRESSIBLE with intraluminal PTV is compressible. hyperechogenicity noted. RT PerV is compressible. Gastrocnemius Vein is PARTIALLY COMPRESSIBLE with Procedure intraluminal hyperechogenicity noted. This is a venous duplex using B-mode, color flow and PTV is compressible. spectral Doppler. RT PerV is compressible. Exam performed in department. The exam was diagnostic. Compare to study 12/14/2023. VL/Venous Duplex US - Heath Extrem Interpretation Summary Chronic deep vein thrombosis noted in riht femoral vein, popliteal vein. Chronic deep vein thrombosis noted in the left femoral vein, popliteal vein, ti bioperoneal trunk vein, gastrocnemius vein. Ordering Physician: Mansoor Noland Referring Physician: Deb Miller Performed By: Tesfaye Nicole RVT
== END | disposition home or self-care (01) ==
LOC: CVS 08:35
PROVIDERS: PCP Family Medicine; Referring Provider Internal Medicine Medical Oncology; Visit Provider Internal Medicine Medical Oncology
DX: R79.89 Other specified abnormal findings of blood chemistry (principal); R60.9 Edema, unspecified
CPT/HCPCS: 93970

== ENCOUNTER → 2024-11-07 | Outpatient (CLI) | payer BC, SELFPAY ==
--- NOTE | 2024-11-07 12:06 | CT_ITS ---
PROCEDURE: CT CHEST, ABD, PEL W/CONTRAST 11/07/2024 REASON FOR EXAM: IV ONLY-LUNG CA TECHNIQUE: Chest, abdomen and pelvis CT with intravenous contrast. Coronal and Sagittal reconstruction series were provided. One or more dose reduction techniques were used (e.g., Automated exposure control, adjustment of the mA and/or kV according to patient size, use of iterative reconstruction technique. PATIENT PREPARATION: Per protocol ORAL CONTRAST TYPE: None. CONTRAST: Isovue 300 VOLUME: 100mL RADIATION DOSE SUMMARY: CTDlvol: 52.10 mGy DLP: 1908.40 mGycm COMPARISON: CT chest and abdomen with contrast 06/24/2024. FINDINGS: CT CHEST: Lower neck: The thyroid gland is normal in size and heterogeneous in density. There is no supraclavicular lymphadenopathy. Lymph nodes: The soft tissue density nodule in the left hilar region, now measures 1.8 x 1.4 cm (was 1.6 x 1.3 cm). A right paratracheal lymph node measures 11 x 6 mm (was 10 x 6 mm). Heart and Vasculature: The heart size is normal. There is no pericardial effusion. Lungs and Airways: There is a normal, stable, pleural-based lymph node in the lower lobe of the right lung. There is stable pleural-parenchymal scarring in the posterior basilar segment of the lower lobe of the left lung. Pleura: There are no pleural effusions. Chest wall: There are no significant bony abnormalities of the chest. There is a chemotherapy port in the right upper chest wall with the tip in the superior vena cava via the right internal jugular vein. CT ABDOMEN/PELVIS: Liver: Normal. Gallbladder: Normal. Spleen: Normal. Pancreas: Normal. Adrenals: Normal. Kidneys: The right kidney is malrotated, otherwise, the kidneys are unremarkable. Bladder: Normal unenhanced appearance. Reproductive Organs: The uterus and ovaries are unremarkable. There is no free fluid in the pelvis. There is no inguinal lymphadenopathy. Bowel: There is a large hiatal hernia. There are scattered colonic diverticuli. There is a staple line in the distal sigmoid colon. Appendix: The appendix is not demonstrated. Lymph nodes: There is mild increased attenuation of the central mesenteric fat with associated reactive mesenteric lymph nodes consistent with sclerosing mesenteritis. There is no retroperitoneal or pelvic lymphadenopathy. Vasculature: There is minimal calcific vascular disease of the abdominal aorta. The inferior vena cava and portal venous system are normal. Peritoneum / Retroperitoneum: There are no abnormal intra or retroperitoneal masses or fluid collections. There is a 2.0 cm in diameter umbilical hernia containing normal fat. Bones: There are no significant bony abnormalities of the abdomen or pelvis. CT/CT Chest, Abd, Pel w/Contrast IMPRESSION: 1. There has been interval increase in size of a soft tissue density nodule in the left hilar region. 2. There is a large hiatal hernia. No significant change. 3. Increased attenuation of the central mesenteric fat with associated reactiv e lymph nodes consistent with sclerosing mesenteritis. No significant change. 4. Other findings as noted. Reading Location: [id number]
[2024-11-07] MEDS: 0.9% Saline Lock 10 ML Syringe IV (13:11)
== END | disposition home or self-care (01) ==
LOC: CT 12:06
PROVIDERS: PCP Family Medicine; Referring Provider Internal Medicine Medical Oncology; Visit Provider Internal Medicine Medical Oncology
DX: C34.02 Malignant neoplasm of left main bronchus (principal); C79.70 Secondary malignant neoplasm of unspecified adrenal gland
CPT/HCPCS: 71260; 74177; Q9967

== ENCOUNTER → 2025-03-13 | Outpatient (CLI) | payer BC, SELFPAY ==
--- NOTE | 2025-03-13 13:35 | CT_ITS ---
PROCEDURE: CT/CT Chest AND Abd W/ Contrast
[2025-03-13] MEDS: 0.9% Saline Lock 10 ML Syringe IV (13:52)
== END | disposition home or self-care (01) ==
LOC: CT 13:34
PROVIDERS: PCP Family Medicine; Referring Provider Internal Medicine Medical Oncology; Visit Provider Internal Medicine Medical Oncology
DX: C34.02 Malignant neoplasm of left main bronchus (principal)
CPT/HCPCS: 71260; 74160; Q9967; A4216